=== PATIENT | male | born 1985 | race Caucasian/White ===

== ENCOUNTER 2020-01-18 09:53 | Emergency (ER) | payer OTHER, SELFPAY ==
--- NOTE | 2020-01-18 10:01 | ED.SKABFB ---
HPI - Skin/Abscess/Foreign Bdy General Chief complaint: Skin/Abscess/Foreign Body Stated complaint: Possible Spider Bite Time Seen by Provider: 01/18/20 10:01 Source: patient and RN notes reviewed History of Present Illness HPI narrative: Patient is a 34-year-old male that presents the urgent care with complaints of a possible spider bite to the buttocks . Patient states that he noticed it on and has been doing warm baths which do help the pain. Patient states he has had multiple abscesses and folliculitis in the past. Denies of any known fever, nausea, vomiting. Patient states he is aware of his elevated blood pressure and has not been taking his metoprolol and lisinopril. Patient states he does have prescriptions as well as a PCP for the medications. No other acute complaints. Denies of any chest pain or headache. No acute distress noted. Patient read the plan of care. Related Data Home Medications Medication Instructions Recorded Confirmed albuterol sulfate 2 puff INHALATION 07/24/19 Allergies Allergy/AdvReac Type Severity Reaction Status Date / Time No Known Allergies Allergy Unknown Unverified 06/29/19 02:16 Cat Dander Allergy Intermediate sob Uncoded 06/29/19 02:16 Dog Dander Allergy Intermediate sob Uncoded 06/29/19 02:16 Review of Systems Review of Systems: Narrative: CONSTITUTIONAL: Denies fever, chills, or sweats. EYES: Denies visual changes, redness, or discharge. ENT: Denies rhinorrhea, congestion, sore throat, or otalgia. CARDIOVASCULAR: Denies chest pain, palpitations, or edema. RESPIRATORY: Denies cough or dyspnea. GASTROINTESTINAL: Denies abdominal pain, nausea, vomiting, or diarrhea. GENITOURINARY: Denies dysuria or hematuria. SKIN: Reports of abscess to the right buttocks MUSCULOSKELETAL: Denies back pain, joint pain, or myalgia. NEUROLOGIC: Denies headache, numbness, or weakness. All other systems reviewed are negative, except as documented in HPI. PMFSH Social History Social History Gender identity (if verbalized by the patient): Male Comments At the time of my signature, I reviewed and agree with the nursing past medical, surgical, social, and family history. There is no relevant family history pertinent to the patient complaint. Exam Narrative: Exam Narrative: GENERAL: This is a well-nourished, well-developed patient, in no apparent distress. HEAD: normocephalic, atraumatic. EYES: PERRL. Sclera clear/white. Vision is grossly intact. EARS: External ears normal NOSE: External nose normal with no obvious nasal discharge THROAT: Mucous membranes moist NECK: Neck supple SKIN: 8 x 8 cm nonfluctuant erythemic abscess to the right buttocks with pinpoint scabbed center, currently not draining NEURO: awake, alert, and oriented to person, place and time. There were no obvious focal neurologic abnormalities. EXTREMITIES: No clubbing, cyanosis, or edema. Course Vital Signs Vital signs: Vital Signs Temperature 98.7 F 01/18/20 10:09 Pulse Rate 95 01/18/20 10:09 Respiratory Rate 18 01/18/20 10:09 Blood Pressure 199/111 H 01/18/20 10:09 Pulse Oximetry 97 01/18/20 10:09 Temperature 98.7 F 01/18/20 10:09 Pulse Rate 95 01/18/20 10:09 Respiratory Rate 18 01/18/20 10:09 Blood Pressure 199/111 H 01/18/20 10:09 Pulse Oximetry 97 01/18/20 10:09 Reviewed?patient is informed that they may have pre-hypertension or hypertension based on a blood pressure reading in the department. I recommend the patient call the primary care provider listed on their discharge instructions or a physician of their choice this week to arrange follow-up for further evaluation of possible pre-hypertension or hypertension. MDM - Skin/Abscess/Foreign Bdy MDM Narrative Medical decision making narrative: Due to elevated blood pressure and noncompliance?advised patient to go to the emergency room. Patient states he will not go to the ER and will start taking his medications and follow-up wit
[2020-01-18 10:09] VITALS: BP 199/111; PULSE 95; RESP 18; TEMP 37.1; O2SAT 97
== END 2020-01-18 10:27 | disposition home or self-care (01) ==
PROVIDERS: Emergency Provider Nurse Practitioner Family; PCP Family Medicine
DX: L02.31 Cutaneous abscess of buttock (principal); I10 Essential (primary) hypertension
CPT/HCPCS: 99213; G0463

== ENCOUNTER 2025-07-14 17:36 | Emergency (ER) | payer OTHER, SELFPAY ==
--- OUTSIDE RECORDS SUMMARY | 2001-01-17 10:15 | XMS_ITS | Continuity of Care Document ---
Author Organization [facility] Address [address] [place] [address] Phone Care Team Providers Care Metal Expediter Name Role Phone Cho OD, Regis Unavailable Unavailable Advance Directives Directive Yes / No Effective Date File Name No Information Encounters Encounter Description Practice Location Reason(s) For Visit Diagnoses Date Provider Providers Copied on Encounter [facility], [address], [place], [place], [id number], [place] tel:[phone] [facility] No Information May-0 4-200 1 Cho OD Regis. [address] , [address], [place], [address], [place]. tel:[phone] Family History Family Member Type Diagnosis Age At Onset No Information Payers Payer name Insurance type Covered alliance party ID Authoriza tion(s) No Information Social History Type Description Quantity Date Captured Comments Sex Male Smoking Status No Information Chief Complaint And Reason For Visit No Information Reason For Referral Reason For Referral No Information History Of Present Illness Encounter Date Complaint History Of Prese nt Illness No Information Functional Status Date Functional Assessmen t No Information Instructions Date Instruction Additional Infor mation No Information Assessments Type Assessment Date No Information Patient Care Teams Name Effective Dates (start - stop) Status Members No Information
--- OUTSIDE RECORDS SUMMARY | 2001-01-17 10:15 | XMS_ITS | Continuity of Care Document ---
Author Organization [facility] Address [address] [facility] [place] [address] Phone Care Team Providers Care District Fire Chief Name Role Phone Cho OD, Regis Unavailable Unavailable Advance Directives Directive Yes / No Effective Date File Name No Information Encounters Encounter Description Practice Location Reason(s) For Visit Diagnoses Date Provider Providers Copied on Encounter [facility], [address], [place], [place], [id number], [place] tel:[phone] [facility] No Information May-0 4-200 1 Cho OD Regis. [address] , [address], [place], [address], [place]. tel:[phone] Family History Family Member Type Diagnosis Age At Onset No Information Payers Payer name Insurance type Covered green party ID Authoriza tion(s) No Information Social [...]
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
[2025-07-14 17:44] VITALS: BP 161/89; PULSE 60; RESP 16; TEMP 36.4; O2SAT 100
--- OUTSIDE RECORDS SUMMARY | 2025-07-14 18:09 | XMS_ITS | Encounter Summary ---
Author Organization [facility] Address [address] [place] [address] Care Team Providers Care Cat Hooker Name Role Phone Freda Neumann PA-C Primary Care Provider [phone] Encounter Details Date Type Department Care Team (Late st Contact Info) Description 03/08/2025 Telephone [facility] - Centralized Scheduling [address] [place] [address] Lucía Escoto MD [address] [place] [address] Social History Tobacco Use Types Packs/Day Years Used Date Smoking Tobacco: Never Passive Smoke Exposure: Never Smokeless Tobacco: Never Alcohol Use Standard Drinks/Week Comments Not Currently 0 (1 standard drink = 0.6 oz pur e alcohol) AUDIT-C Answer Date Recorded Q1: How often do you have a drink containing alcohol? Never 03/04/2025 Q2: How many drinks containi ng alcohol do you have on a typical day when you are drinking? Patient does not drink Q3: How often do you have si x or more drinks on one occasion? Never 03/04/2025 Overall Financial Resource Strain (CARDIA) Answe r Date Recorded How hard is it for you to pa y for the very basics like food, housing, medical care, and heating? Not hard at all 03/04/2025 [facility] - Occupational Stress Questionnaire Answer Date Recorded Do you feel stress - tense, restless, nervous, or anxious, or unable to sleep at night because your mind is troubled all the time - these days? Not at all 03/04/2025 Hunger Vital Sign Answer Date Recorded Within the past 12 months, y ou worried that your food would run out before you got the money to buy more. Never true 03/04/20 25 Within the past 12 months, t he food you bought just didn't last and you didn't have money to get more. Never true 03/04/2025 PRAPARE - Transportation Answer Date Re corded In the past 12 months, has l ack of transportation kept you from medical appointments or from getting medications? No 02/14 In the past 12 months, has l ack of transportation kept you from meetings, work, or from getting things needed for daily living? No 03/04/2025 Housing Stability Vital Sign Answer David e Recorded Unable to Pay for Housing in the Last Year Not o n file 12/23/2023 In the last 12 months, how many places have you lived? 1 12/23/2023 In the last 12 months, was t here a time when you did not have a steady place to sleep or slept in a chcf (including now)? No 12/23/2023 Housing Stability Vital Sign Answer David e Recorded In the last 12 months, was t here a time when you were not able to pay the mortgage or rent on time? No 03/04/2025 In the past 12 months, how m any times have you moved where you were living? 0 03/04/2025 At any time in the past 12 m [facility], were you homeless or living in a chcf (including now)? No 03/04/2025 Sex and Gender Information Value Date Recorded Sex Assigned at Male 08/22/2023 2:04 PM STEAM CRANE OPERATOR Legal Sex Male 12:10 PM CDT Gender Identity Male 08/22/2023 2:04 PM STEAM CRANE OPERATOR Sexual Orientation Straight 08/22/2023 2: 04 PM STEAM CRANE OPERATOR documented as of this encounter Functional Status * Is person deaf or have serious hearing difficulty? Answer Date of Assessment Author No 03/04/2025 8:22 AM CDT Evaristo Pineda RN * Is person blind or have serious difficulty seeing? Answer Date of Assessment Author No 03/04/2025 8:22 AM CDT Evaristo Pineda RN * Does person have serious difficulty walking/climbing stairs? Answer Date of Assessment Author No 03/04/2025 8:22 AM CDT Evaristo Pineda RN * Does person have difficulty dressing/bathing? Answer Date of Assessment Author No 03/04/2025 8:22 AM CDT Evaristo Pineda RN * Does person have difficulty doing errands alone? Answer Date of Assessment Author No 03/04/2025 8:22 AM CDT Evaristo Pineda RN documented as of this encounter Mental Status * Does person have difficulty concentrating/remembering/making decisions? Answer Entry Date Author No 03/04/2025 8:22 AM CDT Evaristo Pineda RN documented in this encounter Plan of Treatment Upcoming Encounters Date Type Department Care Team (Late st Contact Info) Description 07/16/2025 11:10 AM CDT Office Visit [facility] [id number] [place] [address] [place] [address] [address] 09/22/2025 8:30 AM STEAM CRANE OPERATOR Office Visit [facility] - Nephrology [address] [place] [phone] 09/23/2025 4:00 PM STEAM CRANE OPERATOR Office Visit [facility] - GI [address] [place] [phone] Isak Padron III, MD [address] [place] [phone] documented as of this encounter Goals Goal Patient Goal Type Associated Problems Recent Progress Patient-Stated? Author Medication Management General On track( 025 3:36 PM CDT) Mariya Rangel RN Note: Expected end date: Ongoing Interventions: Take all medications as prescribed Let your doctor know right away about any changes in your medications Make sure to request a refill of your medication at least one week prior to your last dose documented as of this encounter Visit Diagnoses Not on filedocumented in this encounter Care Teams Cat Hooker Relationship Specialty Start Date End Date Freda Neumann PA-C [address] [place] [phone] PCP - General 07/15/23 documented as of this encounter
--- OUTSIDE RECORDS SUMMARY | 2025-07-14 18:09 | XMS_ITS | Clinical Summary ---
Author Organization [facility] Address [address] [place] [address] Care Team Providers Care Motors And Controls Tester Name Role Phone Freda Neumann PA-C Primary Care Provider [phone] Source Comments [facility],non-owned Affiliates and Associated Physician Practices is amultiple site organization consisting of ambulatory clinics and hospital sitesin [place], [place], [place] and [place]. This disclosure is being madepursuant to the Care Everywhere program and may not contain all information available regarding this patient. Last updated 18.[facility] Allergies Active Allergy Reactions Criticality Noted Date Comments Chlorhexidine Rash Medium 12/02/2024 Live Vaccines (Immunodeficiency) Other Kidney transplant Medications * This document contains information received from the source organization and may not represent a complete record from that organization. * Be aware that medications may not be up to date on this document. Alwaysverify current medications with the patient. Symbicort 160-4.5 MCG/ACT inhaler once daily 023 Active allopurinol (Zyloprim) 100 MG tablet TAKE 1 TABLET BY MOUTH EVERY DAY 90 tablet 3 024 Active loratadine (Claritin) 10 MG tablet Take 1 (one) tablet by mouth once daily Active acetaminophen (Tylenol) 325 MG tablet Take 2 (two) tablets by mouth every 6 hours Maximum allowable Acetaminophen amount = 4 Grams (4000 mg) / 24 hours. 025 Active melatonin 3 MG tablet Take 1 (one) tablet by mouth at bedtime 025 Active albuterol HFA (Proventil; Ventolin; Proair) 108 (90 Base) MCG/ACT inhaler Inhale 2 (two) puffs by mouth every 4 hours as needed for Wheezing or Shortness of Breath 8.5 g 5 1:32 PM CDT 025 Active carvedilol (Coreg) 12.5 MG tablet Take 1 (one) tablet by mouth 2 times daily 60 tablet 025 Active amLODIPine (Norvasc) 5 MG tablet Take 1 (one) tablet by mouth once daily 30 tablet 025 Active aspirin (Aspirin) 81 MG chew tablet Take 1 (one) tablet by mouth once daily (chew and swallow) 30 tablet 025 Active predniSONE (Deltasone) 5 MG tablet Take 1 (one) tablet by mouth once daily 30 tablet 025 Active magnesium oxide (Mag-Ox) 400 MG tablet Take 3 (three) tablets by mouth 3 times daily 270 tablet 025 Active mycophenolate (Myfortic) [address] tablet TAKE 2 TABLETS BY MOUTH TWICE A DAY 360 tablet 4 025 Active tacrolimus ER 24hr (Envarsus XR) 0.75 MG tablet Take 2 (two) tablets by mouth once daily Swallow whole. Do not crush or chew tablets. 60 tablet 025 Active naltrexone (Revia) 50 MG tabletIndicati ons:Class 2 severe obesity with serious comorbidity and body mass index (BMI) of 39.0 to 39.9 in adult, unspecified obesity type Take 0.5 (one-half) tablet by mouth once daily 30 tablet 5 025 Active buPROPion XL 24hr (Wellbutrin-XL ) 150 MG tabletIndicati ons:Class 2 severe obesity with serious comorbidity and body mass index (BMI) of 39.0 to 39.9 in adult, unspecified obesity type Take 1 (one) tablet by mouth once daily 30 tablet 5 025 Active sulfamethoxazo le-trimethopri m (Bactrim DS; Septra DS) 800-160 MG tablet TAKE 1 (ONE) TABLET BY MOUTH EVERY SATURDAY, SATURDAY & SATURDAY 12 tablet 2 09/29/2 025 Active calcitriol (Rocaltrol) 0.5 MCG capsule Take 1 (one) capsule by mouth once daily Take 1 (one) capsule by mouth every day 30 capsule 11 Active Phospha 250 Neutral 155-852-130 MG tablet TAKE 2 TABLETS BY MOUTH TWICE A DAY 120 tablet 2 Active amiodarone (Cordarone) 200 MG tablet Take 1 (one) tablet by mouth once daily 30 tablet 3 Active pantoprazole EC (Protonix) 20 MG tablet Take 1 (one) tablet by mouth once daily 90 tablet 3 Active vitamin D, ergocalciferol , (Drisdol) 1.25 MG (80276 UT) capsule TAKE 1 (ONE) CAPSULE BY MOUTH EVERY 7 DAYS (ONCE A WEEK) 12 capsule 1 Active lidocaine (Lidoderm) 5 % patch Apply 1 (one) patch to skin once daily Apply patch to most painful area and remove after 12 hours. May reapply a new patch 12 hours later. 30 patch 1:32 PM CDT 2024 Discontinued(T x Complete) amiodarone (Cordarone) 200 MG tablet Take 1 (one) tablet by mouth once daily 30 tablet 3 2024 Discontinued(R eorder) sodium bicarbonate 650 MG tablet Take 1 (one) tablet by mouth 2 times daily 120 tablet 2 2024 Discontinued(T x Complete) pantoprazole EC (Protonix) 40 MG tablet Take 1 (one) tablet by mouth once daily 30 tablet 11 2024 Discontinued(R eorder) valACYclovir (Valtrex) 500 MG tablet Take 1 (one) tablet by mouth 2 times daily 60 tablet 2 2024 Discontinued(T x Complete) calcitriol (Rocaltrol) 0.5 MCG capsule Take 1 (one) capsule by mouth every Saturday, Saturday & Saturday 30 capsule 3 025 2024 Discontinued cyclobenzaprin e (Flexeril) 10 MG tablet TAKE 1 TABLET BY MOUTH THREE TIMES A DAY NEEDED FOR MUSCLE SPASM 90 tablet /22/ 2025 Discontinued(T x Complete) ergocalciferol (Drisdol) 1.25 MG (35892 UT) capsule Take 1 (one) capsule by mouth every 7 days (once a week) 4 capsule 025 2024 Discontinued Active Problems Problem Noted Date Diagnosed Date Transplanted kidney 03/04/2025 SOB (shortness of breath) 03/04/2025 Atrial fibrillation with RVR 03/04/2025 Other supraventricular tachycardia 03/04/2025 Living-donor kidney transpla nt recipient, s/p LUR-TXP on 02/23/25 02/24/2025 Overview (04/05/2025): Referring Physician: Transplant Date: 02/23/2025 Donor: [place] ID: [id number] Criteria: LURD KDPI: CMV D-/R- EBV D+/R+ Donor viral status: HBV(-), HCV(-) HLA Recipient: A(1, -) B(8, -) DR(17, -) Donor: A(-, -) B(-, -) DR(-, -) cPRA: 0% Pre Transplant Summary: ESRD cause: PKD Active on wait list 02/14/24 Kidney Transplant preformed by: Dr Ascencio Pre- transplant Risk labs: Recent Labs Component Name 02/10/25 0958 HIV12 Non-reactive HEPBCAB Non-reactive HEPBSAG Non-reactive Immunosuppression: Anti-thymocyte globulin 125mg IV POD 0, 125mg POD 1, and 125mg POD 2 (total 3 mg/kg), (pre-medicate with diphenhydramine and acetaminophen 30-60 minutes prior to each dose) 2. Methylprednisolone IV 500 mg POD 0, 250 mg POD 1, 125 mg POD 2, 60 mg POD 3, 30 mg POD 4. Then prednisone 5 mg PO daily starting POD 5 3. Myfortic 720 mg PO x 1 pre-op, then Myfortic 360 mg PO every 12 hours 4. Tacrolimus XR (Envarsus) 8 mg (0.08 mg/kg) PO daily dose adjusted to goal trough level 8-10 ng/mL Anticipated Opportunistic Infectious Prophylaxis: PJP: Sulfamethoxazole/trimethoprim 800mg/160mg PO MWF x 6 months 2. CMV Risk status: Low risk. Start Valacyclovir 500 mg BID for a total of 3 months post-transplant on POD7 or discharge. (May require renal dose adjustment) 3. Antifungal prophylaxis: not indicated Adjustments: Readmissions: 03/03-03/05/25 arrival to ED patient's EKG was significant for afib rvr with HR to 180s. He received 3 doses of metoprolol without relief. Cardiology consulted and given push of diltiazem. Initially had response however HR return to 130s. He was started on diltiazem gtt and admitted to the ICU. Cardiology planned for JOSUE with cardioversion but patient spontaneously converted to NSR. Cardiology recommended starting amiodarone 400 mg TID for seven days and transitioning to 200 mg daily. Patient will follow up in EP with Dr Reynoso. Referral has been sent. Cardiology did recommend discharging on Eliquis 5 mg BID should he have recurrence and need future cardioversion. At this time the team will continue with aspirin 81 mg daily. Coreg was decreased to 3.125 mg BID and amlodipine 5 mg currently held. He was started on mag ox 400 BID. Patient has otherwise been feeling well and has no complaints. He reports he has been eating and drining well without nausea vomiting diarrhea or constipation. He has been voiding appropriately. He does report a painful nodule in the perineum consistent with folliculitis was found on physical exam on 03/05/2025. Will treat with keflex for 7 days. He has been instructed to notify the transplant team of any new changes concerning for worsening infection. Biopsies: Stent Removal scheduled: Y 04/05 920 Removed: PD Catheter Removed:yes UNOS required risk labs ordered for draw 28-56 days post txp. Due: 03/23-04/20/202503/31 Non-Reactive for HIV RNA Non-Reactive for HCV RNA Non-Reactive for HBV DNA Pleural effusion 02/12/2025 Coronary artery disease, uns pecified vessel or lesion type, unspecified whether angina present, unspecified whether [place] or transplanted heart 12/23/2023 Adrenal nodule 11/26/2023 Primary hyperaldosteronism 11/26/2023 Pre-transplant evaluation for kidney transplant 10/24/2023 Overview (02/23/2025): Images from the original note were not included. Migel Elena 1985 Referring Quality Improvement Coordinator: Darcy Nixon Listing Date: 02/14/2024 Dialysis Info: Type: Time: NOD GFR from 10/17/23 was 9 Blood Type: A POS BMI: 35.7 (down from December) wt loss goal 265lbs ALERTS: Supervisor Net Making: n/a CKD V 2/2 PKD Past Medical History: Diagnosis Date CKD (chronic kidney disease), stage V (HCC) last GFR from 08/22/2023 was 9 COVID-2019 no hospitalization Esophageal reflux Hematuria Hyperparathyroidism (HCC) on calcitriol q M,W,F Hypertension dx'd mid to late 20s Nausea sometimes when he wakes up in the morning Obstructive sleep apnea CPAP Polycystic kidney disease dx'd at age 36 however during appendectomy at age 16 - cysts were seen on kidneys, runs on Mom's side, x1 hospitalization d/t cyst rupturing, no blood transfusions, occ pain to kidneys Uncomplicated asthma (HCC) daily and rescue inhalers, follows with Dr. Moises Schroeder Past Surgical History: Procedure Laterality Date Appendectomy at age 16 Cardiac Catherization N/A 12/24/2023 N/A; Left Heart Cath Social History Socioeconomic History Marital status: Single Spouse name: Not on file Number of children: Not on file Years of education: Not on file Highest education level: Not on file Occupational History Not on file Tobacco Use Smoking status: Never Passive exposure: Never Smokeless tobacco: Never Vaping Use Vaping Use: Never used Substance and Sexual Activity Alcohol use: Not Currently Drug use: Not Currently Types: Marijuana Sexual activity: Not on file Other Topics Concern Not on file Social History Narrative Not on file Social Determinants of Health Financial Resource Strain: Not on file Food Insecurity: Unknown (12/23/2023) Hunger Vital Sign Worried About Running Out of Food in the Last Year: Never true Ran Out of Food in the Last Year: Not on file Transportation Needs: No Transportation Needs (12/23/2023) PRAPARE - Transportation Lack of Transportation (Medical): No Lack of Transportation (Non-Medical): No Stress: No Stress Concern Present (12/23/2023) [place] Citizen [place] [employer] Occupational [employer] - Occupational Stress Questionnaire Feeling of Stress : Not at all Housing Stability: Unknown (12/23/2023) Housing Stability Vital Sign Unable to Pay for Housing in the Last Year: Not on file Number of Places Lived in the Last Year: 1 Unstable Housing in the Last Year: No Recent Concern: Housing Stability - High Risk (12/23/2023) Housing Stability Vital Sign Unable to Pay for Housing in the Last Year: Yes Number of Places Lived in the Last Year: 1 Unstable Housing in the Last Year: Not on file Transplant Surgery Clinic Appt w/: Dr. 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 He remains an excellent candidate for renal transplantation. I discussed the risks and benefits of kidney transplant including the need for lifelong immunotherapy, the need for the patient to be compliant with the immunotherapy, the need for a lifelong relationship with a health care provider and the need to have labs checked frequently. We also talked about the risks of surgery including but not limited to the following: Anesthetic concerns including heart attack, stroke, or Need for endotracheal intubation and possibility of prolonged intubation Intraoperative and postoperative bleeding Postoperative hematoma or wound infection requiring return to OR Renal artery and vein thrombosis requiring return to OR and possible explantation Ureteric stricture or leak requiring interventional procedures and/or reoperation Delayed graft function Risk of primary nonfunction Increased risk of infection and malignancy remotely We discussed the possibility of receiving an HCV+ organ. We discussed the antiviral treatment and need for compliance to achieve SVR; the cure rate of 98% with DAA and the possibility of repeating a course if not cured; and the possibility of complications prior to and while undergoing treatment. These include headaches, nausea, cryoglobulinemia and [place], and encephalitis as well as possible hepatitis-induced injury to the graft. At this time the patient is NOT amenable. We discussed the possibility of receiving an increased risk organ. We discussed the risk factors that place kidneys in this category and the relative risk of transmission from an increased risk donor. We compared that risk with the risk of remaining on dialysis and the risk of hepatitis transmission on dialysis. At this time the patient is amenable. We discussed the possibility of receiving an organ with a KDPI of >85%. We discussed the lower mean survival for these organs and the increased rates of delayed graft function. At this time the patient is NOT amenable. Given his very low GFR he was discussed with his Quality Improvement Coordinator Dr Nixon who wants him start Peritoneal Dialysis sooner than later. He will be scheduled for a PD catheter placement (may need omentectomy to prevent catheter dysfunction) on 3/19/25. Patient with chronic illness - ESRD - that is a sustained threat to life. I have reviewed and interpreted his labs (cbc, cmp, hepatitis serologies, mmr serologies, pth, quantiferon) and her imaging (CT a/p) independently to arrive at the conclusions outlined in the note. I have additionally discussed his case with his manhole stripper. He is presenting for discussion of major elective surgery (kidney transplant) with identified risk factors of obesity, hypertension and for a PD catheter placement. Eduardo Ascencio MD benefits technician Transplant Surgery Clinic Appt w/: Dr. Ascencio Date: 10/28/2023 Nephrology Clinic Appt w/: Tiffani Date: 10/28/2023 A/P: HPI: Migel Elena is a 38 year old with past medical history of ESKD due to ADPKD, HTN and appendectomy who presented for kidney 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 candidate evaluation. Patient has a strong family history of ADPKD and diagnosed with ADPKD at the age of 16. He was started to have HTN around age of 20s and started to take antihypertensive medication. Patien's serum creatinine level is found 3.7 mg/dL on 02/05/2022 and increased to 6.3 mg/dL on 06/06/2023. Last serum creatinine level is 7.25 mg/dL and eGFR 9 mL/min on 08/22/23. Dialysis History: Not on dialysis Assessments and Recommendations: Migel Elena was seen today for kidney transplant evaluation. Risks and benefits of transplant were discussed including the benefits of living kidney transplant. We discussed high KDPI kidneys and kidneys from donors with PHS risk factors. All questions and concerns were addressed. 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 No evidence of aneurysms noted. 2) Cardiovascular Disease - No angina or similar symptom - Echo on 10/17/2023 -> LV wall thickness. Normal systolic function with a visually estimated EF of 60 - 65%. Normal wall motion. Grade II diastolic dysfunction with elevated left atrial pressure. Right ventricle is mildly dilated. Increased free wall thickness. Normal systolic function. sPAP is 38.0 mmHg. Pericardium: No pericardial effusion. - Due to the risk of CAD in patients with CKD Stage 5, non-invasive stress testing is planned. 3) Hypertension - BP level is 130/90 mmHg - On Amlodipine 10 mg tb daily and doxazocin 2 mg tb. Doxazocin dose is increased to 4 mg daily 4) Hematological disorders - Anemia of kidney disease - Hgb 11.4 g/dL on 08/22/23 - TSAT 44 % on 10/17/23 - Serum ferritin 138 ng/mL (10/17/23) 5) CKD Bone and Mineral Disease - Serum Ca 8.7 mg/dL, P 5.1 mg/dL, albumin 4 g/dL, PTH 655.9 pg/mL on 08/22/23 - On Rocaltrol 0.5 mcg on MWF - Will repeat the tests 6) Infections - Viral hepatitis markers negative -> HAV and HBV vaccinations are planned - CMV IgG (-) and EBV IgG (+) (354) 7) Immunological Assessment - History of sensitization: (-), Blood transfussion (-), History of failed kidney transplant (-) - PRA screening class I 2% and class II 0% 8) Weight Management - BMI 37.97 kg/m - Loosing weight - Will continue weight management Overall Migel Elena is a good patient for kidney transplantation. Cardiac stress test, new lab test results, HAV and HBV vaccinations, weight management are planned. Patient is seen in the clinic and examined. Plan of care is discussed. Time spent during chart review and patient visit was over 75 mins. Other Consults: Nephrology: 08/22/[address] Nixon Chief Complaint: Autosomal Dominant Polycystic Kidney Disease HISTORY OF PRESENT ILLNESS: Migel Elena is a 38 year old male with a PMHx of ADPKD, HTN and appendectomy who presented for evaluation and treatment of ADPKD. Patient has a strong family history of ADPKD and diagnosed with ADPKD at the age of 16. He was started to have HTN around age of 20s and started to take antihypertensive medication. Patien's serum creatinine level is found 3.7 mg/dL on 02/05/2022 and increased to 6.3 mg/dL on 06/06/2023. 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 Total kidney volume 2589 mL. Height adjusted TKV 1399 mL -> Class 1E - Uric acid 8.8 mg/dL - HCO3 15 mmol/L - Proteinuria -> UPCR 1.45 g/g Plan: - Allopurinol 50 mg tb daily will be started and dose will be increased to 100 mg if there would be no side effects - NaHCO3 dose is increased to 1300 mg tb TID - Low K diet - Referral to kidney transplant evaluation - Will discuss dialysis options 2) Hypertension - Blood pressure is 146/101 mmHg - On Amlodipine 10 mg tb daily - Based on HALT-PKD study, aggressive BP target <110/75 mmHg in young, healthy individuals between 18-50 years with eGFR>60 mL/min/1.73 m2, others < 130/85 mmHg - Cardura 4 mg tb daily at bed time is started 3) Cardiac manifestations - No history of cardiac event or cardiac manifestations - Echo is planned 4) Intracranial Aneursym - Family history of stroke - Brain MRI angiography is planned 5) Diet - Salt Restriction -> 2 g sodium intake or less ~ 5 g salt - Water Drinking - Ketogenic Diet - Electromechanical Assembly Technician consult can be helpful - Cholesterol -> LDL <100 mg/dL, HDL > 50 mg/dL: statins 6) Hernia - No sign of hernia 7) Anemia of Kidney Disease - Hgb: 11.4 g/dL 8) CKD Mineral Bone Disease - Serum Ca 8.7 mg/dL, albumin 4 g/dL - Serum P 5.1 mg/dL - PTH 655.9 pg/mL, vitamin D - Calcitriol 0.5 mcg MWF is started - Cholecalciferol 5000 U daily Patient seen and examined at the clinic, plan of care is discussed. RTC in 1 month. Endocrinology: 11/26/[address] Escoto (adrenal nodule, aldosterone positive) Chief Complaint or Purpose for Referral: adrenal nodule History of Present Illness: Migel Elena is a 38 year old male, with PMH below, who presents to the [facility] endocrine clinic today foradrenal nodule. 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 Per chart review, he had normal adrenal CT and MRI 2021 ([facility]) His adrenal hormone work up, neg 1mg DST, aldosterone 58.3, renin 0.7, minimal elevated normetanephrine 11/06/23 Was 400 lb 6 yrs ago. Has been losing weight with ckp progression. He has not required dialysis. HTN in early 20s was 375 lb at that time. His BP is well controlled with norvas and doxazosin. Has intermittent hyper (not hypo) kalemia FHx: mother side all ADPKD and HTN Data: Latest Reference Range & Units 11/27/23 14:29 Potassium 3.5 - 4.5 mmol/L 4.6 (H) (H): Data is abnormally high Latest Reference Range & Units 11/06/23 08:19 11/27/23 14:29 Aldosterone ng/dL 58.3 58.1 Cortisol AM 3.7 - 19.4 ug/dL <1.0 (L) Metanephrine 0.00 - 0.49 nmol/L <0.10 Normetanephrine 0.00 - 0.89 nmol/L 1.07 (H) Interpretation Metanephrine See Note Renin ng/mL/hr 0.7 (L): Data is abnormally low (H): Data is abnormally high Latest Reference Range & Units 08/22/23 13:58 Potassium 3.5 - 4.5 mmol/L 5.0 (H) Chloride 98 - 107 mmol/L 114 (H) CO2 22 - 29 mmol/L 15 (L) Anion Gap 6 - 16 9 BUN 7 - 26 mg/dL 70 (H) Creatinine 0.71 - 1.16 mg/dL 7.25 (H) eGFR >=90 mL/min/1.73 m2 9 (L) Glucose 70 - 115 mg/dL 72 Calcium 8.4 - 10.2 mg/dL 8.7 Phosphorus 2.8 - 5.1 mg/dL 5.1 BUN/Creatinine Ratio 7 - 23 10 Alkaline Phosphatase 40 - 150 U/L 45 ALT 5 - 55 U/L 17 AST 5 - 34 U/L 14 Protein Total 6.0 - 8.3 g/dL 6.4 Albumin 3.4 - 5.0 g/dL 4.0 Bilirubin Total 0.2 - 1.2 mg/dL 1.0 Osmolality Calculated 275 - 295 mOsm/kg 305 (H) Albumin/Globulin Ratio 1.1 - 2.3 1.7 Uric Acid 3.5 - 7.2 mg/dL 8.8 (H) Assessment and plan : Migel was seen today for establish care and adrenal adenoma. Diagnoses and all orders for this visit: Primary hyperaldosteronism (HCC) - POTASSIUM BLOOD; Future - ALDOSTERONE BLOOD; Future - RENIN ACTIVITY; Future Adrenal nodule (HCC) - POTASSIUM BLOOD; Future - ALDOSTERONE BLOOD; Future - RENIN ACTIVITY; Future 38 yo male with PMH of CKD5, HTN from ADPKD, under txp eval, is here first time for adrenal nodule # Primary hyperaldosteronism # R adrenal nodule, 1.5 cm - new since 2021, however, low HU r/o malignancy Hormone work up c/w primary hyperaldosteronism However, effects of elevated aldosteronism on his Na-water disturbance is not significant due to impaired kidney function, and no evidence of hypokalemia and difficult controlled HTN. Since age onset of hyperaldosteronsim is over 35, ideally he will need a adrenal vein sampling to confirm his hyperaldosteronism comes from his right side adrenal gland before adrenalectomy. R Adrenalectomy without AVS carries increased risk of not achieving Biochemical cure, and is not recommended. However, contrast exposure may lead to CKD progression ending up dialysis. For now I advice to monitor his hormone labs every 3-6 months. If he ends up dialysis before txp then we can revisit the option of AVS>adrenalectomy route We can also attempt AVS>adrenalectomy post txp If he dose not want surgical intervention for his primary aldosteronism, then can start spironolactone post -txp. RTC3-4m (next appt scheduled on 03/03/2024) Adrenal labs: 11/06/2023 Latest Reference Range & Units 11/06/23 08:19 Aldosterone ng/dL 58.3 Cortisol AM 3.7 - 19.4 ug/dL <1.0 (L) Metanephrine 0.00 - 0.49 nmol/L <0.10 Normetanephrine 0.00 - 0.89 nmol/L 1.07 (H) Interpretation Metanephrine See Note Renin ng/mL/hr 0.7 Latest Reference Range & Units 11/06/23 08:19 Metanephrine 0.00 - 0.49 nmol/L <0.10 Normetanephrine 0.00 - 0.89 nmol/L 1.07 (H) Cardiology: 12/03/[address] Vogel REASON FOR VISIT: Abn SEcho PROBLEM LIST: Patient Active Problem List: ADPKD (autosomal dominant polycystic kidney disease) Pre-transplant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 [place] [phone] Bonita Wang RN Kidney Transplant Follow-up 05/27/2025 6:56 AM CDT - 05/27/2025 11:59 PM CDT Hospital Encounter [facility] OP DRAW STATION [address] [place] [phone] Discharge Disposition: Home or Self Care 05/27/2025 Travel 05/11/2025 7:10 AM CDT - 05/11/2025 11:59 PM CDT Hospital Encounter [facility] OP DRAW STATION [address] [place] [phone] Eduardo Ascencio MD Discharge Disposition: Home or Self Care 05/11/2025 Travel 05/11/2025 Refill [facility] TRANSPLANT [address] [place] [phone] Eduardo Ascencio MD Refill Request 04/28/2025 Telephone [facility] TRANSPLANT [address] [place] [phone] Bonita Wang RN Kidney Transplant Follow-up 04/27/2025 7:20 AM CDT - 04/27/2025 11:59 PM CDT Hospital Encounter [facility] OP DRAW STATION [address] [place] [phone] Discharge Disposition: Home or Self Care 04/27/2025 Travel 04/26/2025 Orders Only [facility] TRANSPLANT [address] [place] [phone] Bonita Wang RN 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 (HCC) ; retirement (current) use of other immunomodulators and immunosuppressants; Hypomagnesemia; Hypertension, unspecified type; PKD (polycystic kidney disease); Anemia due to chronic kidney disease, unspecified CKD stage; At risk of UTI; At risk for rejection of transplanted organ; Encounter for screening for viral disease; Prophylactic immunotherapy; Low magnesium level; Low serum phosphate; Encounter for monitoring tacrolimus therapy 04/16/2025 Refill [facility] TXP XOCHILT CSM [address] [place] [phone] Eduardo Ascencio MD Med Change Request 04/15/2025 Telephone [facility] TRANSPLANT [address] [place] [phone] Bonita Wang RN Kidney Transplant Follow-up 04/14/2025 9:10 AM CDT Office Visit [facility] - Nephrology [address] [place] [phone] Darcy Nixon MD 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, s/p LUR-TXP on 02/23/25 (Primary Dx); History of immunosuppression; ADPKD (autosomal dominant polycystic kidney disease); Pneumonia of right lung due to infectious organism, unspecified part of lung; Transplanted kidney (HCC); Hypercholesterolemia; Secondary hyperparathyroidism (HCC) 04/14/2025 7:40 AM CDT - 04/14/2025 11:59 PM CDT Hospital Encounter [facility] OP DRAW STATION [address] [place] [phone] Discharge Disposition: Home or Self Care 04/14/2025 Travel from Last 3 Months Family History Medical History Relation Name Comments Atrial Fibrillation Brother Diabetes - Type 2 Brother Peripheral Neuropathy Brother Renal Disease Brother PKD, txp'd Cancer - Esophageal Father Cancer - Stomach Father Renal Disease Maternal Aunt 1 PKD, txp'd Renal Disease Maternal Aunt 2 PKD, txp'd Renal Disease Maternal Grandmother PKD Cancer - Skin, Non Melanoma Mother s/p transplant Diabetes - Type 2 Mother Renal Disease Mother PKD, txp'd CVA Sister Other Sister psuedo tumor Renal Disease Sister PKD Relation Name Status Comments Brother Alive Father (Age 63) Maternal Aunt 1 Alive Maternal Aunt 2 Maternal Grandmother Mother Alive Sister Alive Social History Tobacco Use Types Packs/Day Years Used Date Smoking Tobacco: Never Passive Smoke Exposure: Never Smokeless Tobacco: Never Tobacco Cessation:Counseling Given: Not Answered Alcohol Use Standard Drinks/Week Comments Not Currently [...] and heating? Not hard at all 03/04/2025 PHQ-2 Answer Date Recorded Patient Health Questionnaire-2 Score 0 03/31/2025 [place] Citizen [place] [facility] - Occupational Stress [...] place to sleep or slept in a long-term (including now)? No 12/23/2023 Housing Stability Vital Sign Answer David e Recorded In the last 12 months, was t here a time when you were not able to pay the mortgage or rent on time? No 03/04/2025 In the past 12 months, how m any times have you moved where you were living? 0 03/04/2025 At any time in the past 12 m [facility], were you homeless or living in a long-term (including now)? 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 Last Filed Vital Signs Vital Sign Reading Time Taken Comments Blood Pressure 140/75 07/07/2025 8:44 AM CDT Pulse 55 07/07/2025 8:42 AM CDT Temperature 37 C (98.6 F) 07/07/2025 8:42 AM CDT Respiratory Rate 18 07/07/2025 8:42 AM CDT Oxygen Saturation 98% 07/07/2025 8:42 AM CDT Inhaled Oxygen Concentration 21% 02/19/2025 1 :13 AM CDT Weight 127 kg (280 lb) 07/07/2025 8:42 AM CDT Height 182.9 cm (6') 06/02/2025 3:40 PM CDT Body Mass Index 37.97 06/02/2025 3:40 PM CDT Plan of Treatment Upcoming Encounters Date Type Department Care Team (Late st Contact Info) Description 07/16/2025 11:10 AM CDT Office Visit [facility] [id number] [facility], [address] [place] [address] [place] [address] [place] [phone] 09/22/2025 8:30 AM 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 MACHINE OPERATOR Office Visit [facility] - Nephrology [address] [place] [address], [place] [phone] 09/23/2025 4:00 PM WREATH MACHINE OPERATOR Office Visit [facility] - GI [address] [place] [address], [place] [phone] Isak Padron III, MD [address] [place] [address] [address] [place] [phone] Health Maintenance Due Date Last Done Comments DTAP/TDAP/TD VACCINES (1 - Tdap) 2004 HEPATITIS B VACCINE (1 of 3 - 19+ 3-dose series) 2004 PNEUMOCOCCAL VACCINE (1 of 2 - PCV) 2004 ZOSTER VACCINE (1 of 2) 2004 HPV VACCINE (1 - Risk 3-dose SCDM series) 2012 INFLUENZA VACCINE (#1) 2025 , 10/14/2020, 09/10/2019 COVID-19 VACCINE (5 - Pfizer risk 2023- season) 2025 01/26/2025, 07/12/2021, 12/11/2020, Additional history exists SCREENING FOR DIABETES 07/07/2028 , 06/16/2025, 06/16/2025, Additional history exists HEPATITIS C SCREENING Completed 02/10/2025 , 11/02/2024, 10/17/2023 HIV SCREENING Completed 02/10/2025, 10/17, 10/17/2023 DEPRESSION SCREENING Completed 03/31/2025 HIB VACCINE Aged Out No longer eligi ble based on patient's age to complete this topic MENINGOCOCCAL (Group B) VACCINE SHARED DECISION-MAKING Aged Out No longer eligible based on patient's age to complete this topic MENINGOCOCCAL GROUPS A/C/Y/W VACCINE Aged Out No longer eligible based on patient's age to complete this topic Goals Goal Patient Goal Type Associated Problems Recent Progress Patient-Stated? Author Medication Management General On track( 025 3:36 PM CDT) Mariya Rangel, RN Note: Expected end date: Ongoing Interventions: Take all medications as prescribed Let your doctor know right away about any changes in your medications Make sure to request a refill of your medication at least one week prior to your last dose Medical Devices Implanted Type Area Drum Sander Device Identifier Shelf Expiration Date Model / Serial / Lot Stent Uret 6fr 12cm 100cm .028in 1 [facility] [[email or web address]] - [id number] Implanted:Qty: 1 on 02/23/2025 by Eduardo Ascencio MD at [facility] Right: Ureter [employer] 11/28/2029 [id number] / [id number] / [id number] Procedures Procedure Name Priority Date/Time Associated Diagnosis Comments CREATININE URINE RANDOM Routine 07/07/2025 7:43 AM CDT 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 (HCC) Hypertension, unspecified type PKD (polycystic kidney disease) Anemia due to chronic kidney disease, unspecified CKD stage At risk of UTI At risk for rejection of transplanted organ Encounter for screening for viral disease Low magnesium level Low serum phosphate Encounter for monitoring tacrolimus therapy PROTEIN URINE RANDOM QUANTITATIVE Routine 07/07/2025 7:43 AM CDT 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 (HCC) Hypertension, unspecified type PKD (polycystic kidney disease) Anemia due to chronic kidney disease, unspecified CKD stage At risk of UTI At risk for rejection of transplanted organ Encounter for screening for viral disease Low magnesium level Low serum phosphate Encounter for monitoring tacrolimus therapy URINALYSIS W/MICROSCOPIC NO CULTURE Routine 07/07/2025 7:43 AM CDT 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 (HCC) Hypertension, unspecified type PKD (polycystic kidney disease) Anemia due to chronic kidney disease, unspecified CKD stage At risk of UTI At risk for rejection of transplanted organ Encounter for screening for viral disease Low magnesium level Low serum phosphate Encounter for monitoring tacrolimus therapy CULTURE URINE Routine 07/07/2025 7:43 AM CDT 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 (HCC) Hypertension, unspecified type PKD (polycystic kidney disease) Anemia due to chronic kidney disease, unspecified CKD stage At risk of UTI At risk for rejection of transplanted organ Encounter for screening for viral disease Low magnesium level Low serum phosphate Encounter for monitoring tacrolimus therapy DIFFERENTIAL MANUAL Routine 07/07/2025 7 :37 AM CDT 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 (HCC) Hypertension, unspecified type PKD (polycystic kidney disease) Anemia due to chronic kidney disease, unspecified CKD stage At risk of UTI At risk for rejection of transplanted organ Encounter for screening for viral disease Low magnesium level Low serum phosphate Encounter for monitoring tacrolimus therapy PHOSPHORUS BLOOD Routine 07/07/2025 7:37 AM CDT 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 (HCC) Hypertension, unspecified type PKD (polycystic kidney disease) Anemia due to chronic kidney disease, unspecified CKD stage At risk of UTI At risk for rejection of transplanted organ Encounter for screening for viral disease Low magnesium level Low serum phosphate Encounter for monitoring tacrolimus therapy MAGNESIUM BLOOD Routine 07/07/2025 7:37 AM CDT 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 (HCC) Hypertension, unspecified type PKD (polycystic kidney disease) Anemia due to chronic kidney disease, unspecified CKD stage At risk of UTI At risk for rejection of transplanted organ Encounter for screening for viral disease Low magnesium level Low serum phosphate Encounter for monitoring tacrolimus therapy COMPREHENSIVE METABOLIC PANEL Routine 07/07/2025 7:37 AM CDT 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 (HCC) Hypertension, unspecified type PKD (polycystic kidney disease) Anemia due to chronic kidney disease, unspecified CKD stage At risk of UTI At risk for rejection of transplanted organ Encounter for screening for viral disease Low magnesium level Low serum phosphate Encounter for monitoring tacrolimus therapy CBC W AUTO DIFFERENTIAL Routine 07/07/2025 7:37 AM CDT 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 ([facility]) Hypertension, unspecified type PKD (polycystic kidney disease) Anemia due to chronic kidney disease, unspecified CKD stage At risk of UTI At risk for rejection of transplanted organ Encounter for screening for viral disease Low magnesium level Low serum phosphate Encounter for monitoring tacrolimus therapy TACROLIMUS LEVEL Routine 07/07/2025 7:37 AM CDT 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 ([facility]) Hypertension, unspecified type PKD (polycystic kidney disease) Anemia due to chronic kidney disease, unspecified CKD stage At risk of UTI At risk for rejection of transplanted organ Encounter for screening for viral disease Low magnesium level Low serum phosphate Encounter for monitoring tacrolimus therapy CYTOMEGALOVIRUS (CMV) QUANTITATIVE PLASMA Routine 07/07/2025 7:37 AM CDT 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 Hypomagnesemia Hypertension, unspecified type PKD (polycystic kidney disease) Anemia due to chronic kidney disease, unspecified CKD stage At risk of UTI At risk for rejection of transplanted organ Encounter for screening for viral disease BK VIRUS PCR QUANT BLOOD STL Routine 07/07/2025 7:37 AM CDT 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 Hypomagnesemia Hypertension, unspecified type PKD (polycystic kidney disease) Anemia due to chronic kidney disease, unspecified CKD stage At risk of UTI At risk for rejection of transplanted organ Encounter for screening for viral disease VITAMIN D 25-HYDROXY Routine 06/16/2025 7:19 AM CDT 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 ([facility]) History of immunosuppression retirement (current) use of other immunomodulators and immunosuppressants Hypomagnesemia Hypertension, unspecified type PKD (polycystic kidney disease) Anemia due to chronic kidney disease, unspecified CKD stage At risk of UTI At risk for rejection of transplanted organ Encounter for screening for viral disease Chronic kidney disease-mineral and bone disorder (CKD-MBD) URIC ACID BLOOD Routine 06/16/2025 7:19 AM CDT 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 ([facility]) History of immunosuppression 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 Hypomagnesemia Hypertension, unspecified type PKD (polycystic kidney disease) Anemia due to chronic kidney disease, unspecified CKD stage At risk of UTI At risk for rejection of transplanted organ Encounter for screening for viral disease Chronic kidney disease-mineral and bone disorder (CKD-MBD) PTH INTACT W/O CALCIUM Routine 7:19 AM CDT 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 ([facility]) History of immunosuppression 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 Hypomagnesemia Hypertension, unspecified type PKD (polycystic kidney disease) Anemia due to chronic kidney disease, unspecified CKD stage At risk of UTI At risk for rejection of transplanted organ Encounter for screening for viral disease Chronic kidney disease-mineral and bone disorder (CKD-MBD) LIPID PROFILE Routine 06/16/2025 7:19 AM CDT 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 ([facility]) History of immunosuppression retirement (current) use of other immunomodulators and immunosuppressants Hypomagnesemia Hypertension, unspecified type PKD (polycystic kidney disease) Anemia due to chronic kidney disease, unspecified CKD stage At risk of UTI At risk for rejection of transplanted organ Encounter for screening for viral disease Chronic kidney disease-mineral and bone disorder (CKD-MBD) IRON + TRANSFERRIN PANEL Routine 06/16/2025 7:19 AM CDT 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 ([facility]) History of immunosuppression 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 Hypomagnesemia Hypertension, unspecified type PKD (polycystic kidney disease) Anemia due to chronic kidney disease, unspecified CKD stage At risk of UTI At risk for rejection of transplanted organ Encounter for screening for viral disease Chronic kidney disease-mineral and bone disorder (CKD-MBD) HEMOGLOBIN A1C Routine 06/16/2025 7:19 AM CDT 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 ([facility]) History of immunosuppression retirement (current) use of other immunomodulators and immunosuppressants Hypomagnesemia Hypertension, unspecified type PKD (polycystic kidney disease) Anemia due to chronic kidney disease, unspecified CKD stage At risk of UTI At risk for rejection of transplanted organ Encounter for screening for viral disease Chronic kidney disease-mineral and bone disorder (CKD-MBD) FERRITIN Routine 06/16/2025 7:19 AM CDT 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 ([facility]) History of immunosuppression retirement (current) use of other immunomodulators and immunosuppressants Hypomagnesemia Hypertension, unspecified type PKD (polycystic kidney disease) Anemia due to chronic kidney disease, unspecified CKD stage At risk of UTI At risk for rejection of transplanted organ Encounter for screening for viral disease Chronic kidney disease-mineral and bone disorder (CKD-MBD) CREATININE URINE RANDOM Routine 06/16/2025 7:19 AM CDT 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 ([facility]) Hypertension, unspecified type PKD (polycystic kidney disease) Anemia due to chronic kidney disease, unspecified CKD stage At risk of UTI At risk for rejection of transplanted organ Encounter for screening for viral disease Low magnesium level Low serum phosphate Encounter for monitoring tacrolimus therapy PROTEIN URINE RANDOM QUANTITATIVE Routine 06/16/2025 7:19 AM CDT 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 ([facility]) Hypertension, unspecified type PKD (polycystic kidney disease) Anemia due to chronic kidney disease, unspecified CKD stage At risk of UTI At risk for rejection of transplanted organ Encounter for screening for viral disease Low magnesium level Low serum phosphate Encounter for monitoring tacrolimus therapy URINALYSIS W/MICROSCOPIC NO CULTURE Routine 06/16/2025 7:19 AM CDT 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 ([facility]) Hypertension, unspecified type PKD (polycystic kidney disease) Anemia due to chronic kidney disease, unspecified CKD stage At risk of UTI At risk for rejection of transplanted organ Encounter for screening for viral disease Low magnesium level Low serum phosphate Encounter for monitoring tacrolimus therapy PHOSPHORUS BLOOD Routine 06/16/2025 7:19 AM CDT 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 ([facility]) Hypertension, unspecified type PKD (polycystic kidney disease) Anemia due to chronic kidney disease, unspecified CKD stage At risk of UTI At risk for rejection of transplanted organ Encounter for screening for viral disease Low magnesium level Low serum phosphate Encounter for monitoring tacrolimus therapy MAGNESIUM BLOOD Routine 06/16/2025 7:19 AM CDT 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 (HCC) Hypertension, unspecified type PKD (polycystic kidney disease) Anemia due to chronic kidney disease, unspecified CKD stage At risk of UTI At risk for rejection of transplanted organ Encounter for screening for viral disease Low magnesium level Low serum phosphate Encounter for monitoring tacrolimus therapy COMPREHENSIVE METABOLIC PANEL Routine 06/16/2025 7:19 AM CDT 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 ([facility]) Hypertension, unspecified type PKD (polycystic kidney disease) Anemia due to chronic kidney disease, unspecified CKD stage At risk of UTI At risk for rejection of transplanted organ Encounter for screening for viral disease Low magnesium level Low serum phosphate Encounter for monitoring tacrolimus therapy CBC W AUTO DIFFERENTIAL Routine 06/16/2025 7:19 AM CDT 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 ([facility]) Hypertension, unspecified type PKD (polycystic kidney disease) Anemia due to chronic kidney disease, unspecified CKD stage At risk of UTI At risk for rejection of transplanted organ Encounter for screening for viral disease Low magnesium level Low serum phosphate Encounter for monitoring tacrolimus therapy TACROLIMUS LEVEL Routine 06/16/2025 7:19 AM CDT 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 ([facility]) Hypertension, unspecified type PKD (polycystic kidney disease) Anemia due to chronic kidney disease, unspecified CKD stage At risk of UTI At risk for rejection of transplanted organ Encounter for screening for viral disease Low magnesium level Low serum phosphate Encounter for monitoring tacrolimus therapy CYTOMEGALOVIRUS (CMV) QUANTITATIVE PLASMA Routine 06/16/2025 7:19 AM CDT 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 ([facility]) retirement (current) use of other immunomodulators and immunosuppressants Hypomagnesemia Hypertension, unspecified type PKD (polycystic kidney disease) Anemia due to chronic kidney disease, unspecified CKD stage At risk of UTI At risk for rejection of transplanted organ Encounter for screening for viral disease BK VIRUS PCR QUANT BLOOD STL Routine 06/16/2025 7:19 AM CDT 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 Hypomagnesemia Hypertension, unspecified type PKD (polycystic kidney disease) Anemia due to chronic kidney disease, unspecified CKD stage At risk of UTI At risk for rejection of transplanted organ Encounter for screening for viral disease CULTURE URINE Routine 06/16/2025 7:19 AM CDT 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 ([facility]) Hypertension, unspecified type PKD (polycystic kidney disease) Anemia due to chronic kidney disease, unspecified CKD stage At risk of UTI At risk for rejection of transplanted organ Encounter for screening for viral disease Low magnesium level Low serum phosphate Encounter for monitoring tacrolimus therapy URINALYSIS W/MICROSCOPIC NO CULTURE Routine 05/27/2025 11:21 AM CDT 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 ([facility]) Hypertension, unspecified type PKD (polycystic kidney disease) Anemia due to chronic kidney disease, unspecified CKD stage At risk of UTI At risk for rejection of transplanted organ Encounter for screening for viral disease Low magnesium level Low serum phosphate Encounter for monitoring tacrolimus therapy CREATININE URINE RANDOM Routine 05/27/2025 9:24 AM CDT 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 ([facility]) Hypertension, unspecified type PKD (polycystic kidney disease) Anemia due to chronic kidney disease, unspecified CKD stage At risk of UTI At risk for rejection of transplanted organ Encounter for screening for viral disease Low magnesium level Low serum phosphate Encounter for monitoring tacrolimus therapy PROTEIN URINE RANDOM QUANTITATIVE Routine 05/27/2025 9:24 AM CDT 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 ([facility]) Hypertension, unspecified type PKD (polycystic kidney disease) Anemia due to chronic kidney disease, unspecified CKD stage At risk of UTI At risk for rejection of transplanted organ Encounter for screening for viral disease Low magnesium level Low serum phosphate Encounter for monitoring tacrolimus therapy CULTURE URINE Routine 05/27/2025 9:04 AM CDT 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 ([facility]) Hypertension, unspecified type PKD (polycystic kidney disease) Anemia due to chronic kidney disease, unspecified CKD stage At risk of UTI At risk for rejection of transplanted organ Encounter for screening for viral disease Low magnesium level Low serum phosphate Encounter for monitoring tacrolimus therapy PHOSPHORUS BLOOD Routine 05/27/2025 7:03 AM CDT 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 ([facility]) Hypertension, unspecified type PKD (polycystic kidney disease) Anemia due to chronic kidney disease, unspecified CKD stage At risk of UTI At risk for rejection of transplanted organ Encounter for screening for viral disease Low magnesium level Low serum phosphate Encounter for monitoring tacrolimus therapy MAGNESIUM BLOOD Routine 05/27/2025 7:03 AM CDT 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 ([facility]) Hypertension, unspecified type PKD (polycystic kidney disease) Anemia due to chronic kidney disease, unspecified CKD stage At risk of UTI At risk for rejection of transplanted organ Encounter for screening for viral disease Low magnesium level Low serum phosphate Encounter for monitoring tacrolimus therapy COMPREHENSIVE METABOLIC PANEL Routine 05/27/2025 7:03 AM CDT 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 ([facility]) Hypertension, unspecified type PKD (polycystic kidney disease) Anemia due to chronic kidney disease, unspecified CKD stage At risk of UTI At risk for rejection of transplanted organ Encounter for screening for viral disease Low magnesium level Low serum phosphate Encounter for monitoring tacrolimus therapy CBC W AUTO DIFFERENTIAL Routine 05/27/2025 7:03 AM CDT 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 ([facility]) Hypertension, unspecified type PKD (polycystic kidney disease) Anemia due to chronic kidney disease, unspecified CKD stage At risk of UTI At risk for rejection of transplanted organ Encounter for screening for viral disease Low magnesium level Low serum phosphate Encounter for monitoring tacrolimus therapy TACROLIMUS LEVEL Routine 05/27/2025 7:03 AM CDT 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 ([facility]) Hypertension, unspecified type PKD (polycystic kidney disease) Anemia due to chronic kidney disease, unspecified CKD stage At risk of UTI At risk for rejection of transplanted organ Encounter for screening for viral disease Low magnesium level Low serum phosphate Encounter for monitoring tacrolimus therapy CYTOMEGALOVIRUS (CMV) QUANTITATIVE PLASMA Routine 05/27/2025 7:03 AM CDT 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 ([facility]) retirement (current) use of other immunomodulators and immunosuppressants Hypomagnesemia Hypertension, unspecified type PKD (polycystic kidney disease) Anemia due to chronic kidney disease, unspecified CKD stage At risk of UTI At risk for rejection of transplanted organ Encounter for screening for viral disease BK VIRUS PCR QUANT BLOOD STL Routine 05/27/2025 7:03 AM CDT 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 ([facility]) retirement (current) use of other immunomodulators and immunosuppressants Hypomagnesemia Hypertension, unspecified type PKD (polycystic kidney disease) Anemia due to chronic kidney disease, unspecified CKD stage At risk of UTI At risk for rejection of transplanted organ Encounter for screening for viral disease CREATININE URINE RANDOM Routine 05/11/2025 7:25 AM CDT 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 ([facility]) Hypertension, unspecified type PKD (polycystic kidney disease) Anemia due to chronic kidney disease, unspecified CKD stage At risk of UTI At risk for rejection of transplanted organ Encounter for screening for viral disease Low magnesium level Low serum phosphate Encounter for monitoring tacrolimus therapy PROTEIN URINE RANDOM QUANTITATIVE Routine 05/11/2025 7:25 AM CDT 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 ([facility]) Hypertension, unspecified type PKD (polycystic kidney disease) Anemia due to chronic kidney disease, unspecified CKD stage At risk of UTI At risk for rejection of transplanted organ Encounter for screening for viral disease Low magnesium level Low serum phosphate Encounter for monitoring tacrolimus therapy URINALYSIS W/MICROSCOPIC NO CULTURE Routine 05/11/2025 7:25 AM CDT 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 ([facility]) Hypertension, unspecified type PKD (polycystic kidney disease) Anemia due to chronic kidney disease, unspecified CKD stage At risk of UTI At risk for rejection of transplanted organ Encounter for screening for viral disease Low magnesium level Low serum phosphate Encounter for monitoring tacrolimus therapy CULTURE URINE Routine 05/11/2025 7:25 AM CDT 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 ([facility]) Hypertension, unspecified type PKD (polycystic kidney disease) Anemia due to chronic kidney disease, unspecified CKD stage At risk of UTI At risk for rejection of transplanted organ Encounter for screening for viral disease Low magnesium level Low serum phosphate Encounter for monitoring tacrolimus therapy PHOSPHORUS BLOOD Routine 05/11/2025 7:21 AM CDT 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 ([facility]) Hypertension, unspecified type PKD (polycystic kidney disease) Anemia due to chronic kidney disease, unspecified CKD stage At risk of UTI At risk for rejection of transplanted organ Encounter for screening for viral disease Low magnesium level Low serum phosphate Encounter for monitoring tacrolimus therapy MAGNESIUM BLOOD Routine 05/11/2025 7:21 AM CDT 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 ([facility]) Hypertension, unspecified type PKD (polycystic kidney disease) Anemia due to chronic kidney disease, unspecified CKD stage At risk of UTI At risk for rejection of transplanted organ Encounter for screening for viral disease Low magnesium level Low serum phosphate Encounter for monitoring tacrolimus therapy COMPREHENSIVE METABOLIC PANEL Routine 05/11/2025 7:21 AM CDT 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 ([facility]) Hypertension, unspecified type PKD (polycystic kidney disease) Anemia due to chronic kidney disease, unspecified CKD stage At risk of UTI At risk for rejection of transplanted organ Encounter for screening for viral disease Low magnesium level Low serum phosphate Encounter for monitoring tacrolimus therapy CBC W AUTO DIFFERENTIAL Routine 05/11/2025 7:21 AM CDT 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 ([facility]) Hypertension, unspecified type PKD (polycystic kidney disease) Anemia due to chronic kidney disease, unspecified CKD stage At risk of UTI At risk for rejection of transplanted organ Encounter for screening for viral disease Low magnesium level Low serum phosphate Encounter for monitoring tacrolimus therapy TACROLIMUS LEVEL Routine 05/11/2025 7:21 AM CDT 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 ([facility]) Hypertension, unspecified type PKD (polycystic kidney disease) Anemia due to chronic kidney disease, unspecified CKD stage At risk of UTI At risk for rejection of transplanted organ Encounter for screening for viral disease Low magnesium level Low serum phosphate Encounter for monitoring tacrolimus therapy CYTOMEGALOVIRUS (CMV) QUANTITATIVE PLASMA Routine 05/11/2025 7:21 AM CDT 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 Hypomagnesemia Hypertension, unspecified type PKD (polycystic kidney disease) Anemia due to chronic kidney disease, unspecified CKD stage At risk of UTI At risk for rejection of transplanted organ Encounter for screening for viral disease BK VIRUS PCR QUANT BLOOD STL Routine 05/11/2025 7:21 AM CDT 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 ([facility]) retirement (current) use of other immunomodulators and immunosuppressants Hypomagnesemia Hypertension, unspecified type PKD (polycystic kidney disease) Anemia due to chronic kidney disease, unspecified CKD stage At risk of UTI At risk for rejection of transplanted organ Encounter for screening for viral disease PHOSPHORUS BLOOD Routine 04/27/2025 7:32 AM CDT 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 (H[facility]) Hypertension, unspecified type PKD (polycystic kidney disease) Anemia due to chronic kidney disease, unspecified CKD stage At risk of UTI At risk for rejection of transplanted organ Encounter for screening for viral disease Low magnesium level Low serum phosphate Encounter for monitoring tacrolimus therapy MAGNESIUM BLOOD Routine 04/27/2025 7:32 AM CDT 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 ([facility]) Hypertension, unspecified type PKD (polycystic kidney disease) Anemia due to chronic kidney disease, unspecified CKD stage At risk of UTI At risk for rejection of transplanted organ Encounter for screening for viral disease Low magnesium level Low serum phosphate Encounter for monitoring tacrolimus therapy COMPREHENSIVE METABOLIC PANEL Routine 04/27/2025 7:32 AM CDT 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 ([facility]) Hypertension, unspecified type PKD (polycystic kidney disease) Anemia due to chronic kidney disease, unspecified CKD stage At risk of UTI At risk for rejection of transplanted organ Encounter for screening for viral disease Low magnesium level Low serum phosphate Encounter for monitoring tacrolimus therapy CBC W AUTO DIFFERENTIAL Routine 04/27/2025 7:32 AM CDT 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 ([facility]) Hypertension, unspecified type PKD (polycystic kidney disease) Anemia due to chronic kidney disease, unspecified CKD stage At risk of UTI At risk for rejection of transplanted organ Encounter for screening for viral disease Low magnesium level Low serum phosphate Encounter for monitoring tacrolimus therapy TACROLIMUS LEVEL Routine 04/27/2025 7:32 AM CDT 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 ([facility]) Hypertension, unspecified type PKD (polycystic kidney disease) Anemia due to chronic kidney disease, unspecified CKD stage At risk of UTI At risk for rejection of transplanted organ Encounter for screening for viral disease Low magnesium level Low serum phosphate Encounter for monitoring tacrolimus therapy CYTOMEGALOVIRUS (CMV) QUANTITATIVE PLASMA Routine 04/27/2025 7:32 AM CDT 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 ([facility]) retirement (current) use of other immunomodulators and immunosuppressants Hypomagnesemia Hypertension, unspecified type PKD (polycystic kidney disease) Anemia due to chronic kidney disease, unspecified CKD stage At risk of UTI At risk for rejection of transplanted organ Encounter for screening for viral disease BK VIRUS PCR QUANT BLOOD STL Routine 04/27/2025 7:32 AM CDT 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 ([facility]) retirement (current) use of other immunomodulators and immunosuppressants Hypomagnesemia Hypertension, unspecified type PKD (polycystic kidney disease) Anemia due to chronic kidney disease, unspecified CKD stage At risk of UTI At risk for rejection of transplanted organ Encounter for screening for viral disease CREATININE URINE RANDOM Routine 04/27/2025 7:26 AM CDT 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 ([facility]) Hypertension, unspecified type PKD (polycystic kidney disease) Anemia due to chronic kidney disease, unspecified CKD stage At risk of UTI At risk for rejection of transplanted organ Encounter for screening for viral disease Low magnesium level Low serum phosphate Encounter for monitoring tacrolimus therapy PROTEIN URINE RANDOM QUANTITATIVE Routine 04/27/2025 7:26 AM CDT 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 ([facility]) Hypertension, unspecified type PKD (polycystic kidney disease) Anemia due to chronic kidney disease, unspecified CKD stage At risk of UTI At risk for rejection of transplanted organ Encounter for screening for viral disease Low magnesium level Low serum phosphate Encounter for monitoring tacrolimus therapy URINALYSIS W/MICROSCOPIC NO CULTURE Routine 04/27/2025 7:26 AM CDT 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 ([facility]) Hypertension, unspecified type PKD (polycystic kidney disease) Anemia due to chronic kidney disease, unspecified CKD stage At risk of UTI At risk for rejection of transplanted organ Encounter for screening for viral disease Low magnesium level Low serum phosphate Encounter for monitoring tacrolimus therapy CULTURE URINE Routine 04/27/2025 7:26 AM CDT 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 ([facility]) Hypertension, unspecified type PKD (polycystic kidney disease) Anemia due to chronic kidney disease, unspecified CKD stage At risk of UTI At risk for rejection of transplanted organ Encounter for screening for viral disease Low magnesium level Low serum phosphate Encounter for monitoring tacrolimus therapy CREATININE URINE RANDOM Routine 04/14/2025 7:56 AM CDT 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 ([facility]) Hypertension, unspecified type PKD (polycystic kidney disease) Anemia due to chronic kidney disease, unspecified CKD stage At risk of UTI At risk for rejection of transplanted organ Encounter for screening for viral disease Low magnesium level Low serum phosphate Encounter for monitoring tacrolimus therapy PROTEIN URINE RANDOM QUANTITATIVE Routine 04/14/2025 7:56 AM CDT 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 ([facility]) Hypertension, unspecified type PKD (polycystic kidney disease) Anemia due to chronic kidney disease, unspecified CKD stage At risk of UTI At risk for rejection of transplanted organ Encounter for screening for viral disease Low magnesium level Low serum phosphate Encounter for monitoring tacrolimus therapy URINALYSIS W/MICROSCOPIC NO CULTURE Routine 04/14/2025 7:56 AM CDT 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 ([facility]) Hypertension, unspecified type PKD (polycystic kidney disease) Anemia due to chronic kidney disease, unspecified CKD stage At risk of UTI At risk for rejection of transplanted organ Encounter for screening for viral disease Low magnesium level Low serum phosphate Encounter for monitoring tacrolimus therapy CULTURE URINE Routine 04/14/2025 7:56 AM CDT 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 ([facility]) Hypertension, unspecified type PKD (polycystic kidney disease) Anemia due to chronic kidney disease, unspecified CKD stage At risk of UTI At risk for rejection of transplanted organ Encounter for screening for viral disease Low magnesium level Low serum phosphate Encounter for monitoring tacrolimus therapy PHOSPHORUS BLOOD Routine 04/14/2025 7:52 AM CDT 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 ([facility]) Hypertension, unspecified type PKD (polycystic kidney disease) Anemia due to chronic kidney disease, unspecified CKD stage At risk of UTI At risk for rejection of transplanted organ Encounter for screening for viral disease Low magnesium level Low serum phosphate Encounter for monitoring tacrolimus therapy MAGNESIUM BLOOD Routine 04/14/2025 7:52 AM CDT 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 (HCC) Hypertension, unspecified type PKD (polycystic kidney disease) Anemia due to chronic kidney disease, unspecified CKD stage At risk of UTI At risk for rejection of transplanted organ Encounter for screening for viral disease Low magnesium level Low serum phosphate Encounter for monitoring tacrolimus therapy COMPREHENSIVE METABOLIC PANEL Routine 04/14/2025 7:52 AM CDT 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 ([facility]) Hypertension, unspecified type PKD (polycystic kidney disease) Anemia due to chronic kidney disease, unspecified CKD stage At risk of UTI At risk for rejection of transplanted organ Encounter for screening for viral disease Low magnesium level Low serum phosphate Encounter for monitoring tacrolimus therapy CBC W AUTO DIFFERENTIAL Routine 04/14/2025 7:52 AM CDT 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 ([facility]) Hypertension, unspecified type PKD (polycystic kidney disease) Anemia due to chronic kidney disease, unspecified CKD stage At risk of UTI At risk for rejection of transplanted organ Encounter for screening for viral disease Low magnesium level Low serum phosphate Encounter for monitoring tacrolimus therapy TACROLIMUS LEVEL Routine 04/14/2025 7:52 AM CDT 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 ([facility]) Hypertension, unspecified type PKD (polycystic kidney disease) Anemia due to chronic kidney disease, unspecified CKD stage At risk of UTI At risk for rejection of transplanted organ Encounter for screening for viral disease Low magnesium level Low serum phosphate Encounter for monitoring tacrolimus therapy CYTOMEGALOVIRUS (CMV) QUANTITATIVE PLASMA Routine 04/14/2025 7:52 AM CDT 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 Hypomagnesemia Hypertension, unspecified type PKD (polycystic kidney disease) Anemia due to chronic kidney disease, unspecified CKD stage At risk of UTI At risk for rejection of transplanted organ Encounter for screening for viral disease BK VIRUS PCR QUANT BLOOD STL Routine 04/14/2025 7:52 AM CDT 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 ([facility]) retirement (current) use of other immunomodulators and immunosuppressants Hypomagnesemia Hypertension, unspecified type PKD (polycystic kidney disease) Anemia due to chronic kidney disease, unspecified CKD stage At risk of UTI At risk for rejection of transplanted organ Encounter for screening for viral disease HEPATITIS C ANTIBODY Routine 02/10/2025 9:58 AM CDT Pre-kidney transplant, listed Hypertension, unspecified type PKD (polycystic kidney disease) Kidney 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 (HCC) ESRD (end stage renal disease) (HCC) HIV-1 HIV-2 ANTIBODY + HIV P24 AG PANEL Routine 02/10/2025 9:58 AM CDT Pre-kidney transplant, listed Hypertension, unspecified type PKD (polycystic kidney disease) Kidney 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 (HCC) ESRD (end stage renal disease) (HCC) from Last 3 Months or Most Recently Relevant to Health Maintenance Results * (ABNORMAL) URINALYSIS COMPLETE W MICROSCOPIC (07/07/2025 7:43 AM CDT) Only the most recent of6 resultswithin the time period is included. Color UA Colorless(A ) Yellow, Straw 07/07/2025 9:13 AM [facility] Clarity UA Turbid(A) Clear 07/07/2025 9:13 AM [facility] Glucose UA Normal Normal 07/07/2025 9:13 AM [facility] Bilirubin UA Negative Negative 07/07/2025 9:13 AM [facility] Ketone UA Negative Negative 07/07/2025 9:13 AM [facility] Specific Marcus UA 1.008 1.005 - 1.030 07/07/2025 9:13 AM [facility] Blood UA Negative Negative 07/07/2025 9:[address] [facility] pH UA 7.5 5.0 - 8.0 07/07/2025 9:13 AM [facility] Protein UA Negative Negative 07/07/2025 9:13 AM [facility] Urobilinogen UA Normal Normal mg/dL 07/07/2025 9:[address] [facility] Nitrite UA Negative Negative 07/07/2025 9:13 AM [facility] Leukocyte Esterase UA Negative Negative 07/07/2025 9:[address] [facility] RBC UA 3-5 0 - 5 # /hpf 07/07/2025 9:13 AM CDT [facility] WBC UA 0-5 0 - 5 # /hpf 07/07/2025 9:13 AM CDT [facility] Bacteria UA None Seen None Seen 07/07/2025 9:13 AM CDT [facility] Squamous Epithelial Cells 0-2 0 - 5 /hpf 07/07/2025 9:13 AM CDT [facility] Amorphous Crystals Occasional( A) None seen /hpf 07/07/2025 9:13 AM CDT [facility] Urine URINE SPECIMEN OBTAINED BY CLEAN CATCH PROCEDURE / Unknown Collection / Unknown 07/07/2025 7:43 AM CDT 07/07/2025 8:44 AM CDT Eduardo Ascencio MD LAB - URINALYSIS ORDERA BLES Final Result [facility] [address] [place] [id number], [facility] [phone] * CULTURE URINE (07/07/2025 7:43 AM CDT) Only the most recent of6 resultswithin the time period is included. Culture Urine <10,000 CFU/mL urogenital lai TABITHA 07/08/2025 11:20 AM CDT [facility] Urine URINE SPECIMEN OBTAINED BY CLEAN CATCH PROCEDURE / Unknown Collection / Unknown 07/07/2025 7:43 AM CDT 07/07/2025 8:44 AM CDT Eduardo Ascencio MD LAB - MICROBIOLOGY ORDE RABLES Final Result [facility] [address] [place] [address], [facility] [phone] * PROTEIN URINE RANDOM QUANTITATIVE (07/07/2025 7:43 AM CDT) Only the most recent of6 resultswithin the time period is included. Protein Urine 7 Not Established mg/dL 07/07/2025 11:15 AM CDT [facility] Urine URINE SPECIMEN OBTAINED BY CLEAN CATCH PROCEDURE / Unknown Collection / Unknown 07/07/2025 7:43 AM CDT 07/07/2025 8:44 AM CDT Eduardo Ascencio MD LAB - URINE CHEMISTRY O RDERABLES Final Result Performing Organization Address City/[facility]/ZIP Co de Phone Number [address] [phone], [facility] [phone] * CREATININE URINE RANDOM (07/07/2025 7:43 AM CDT) Only the most recent of6 resultswithin the time period is included. Creatinine Urine 22.30 Not Established mg/dL 07/07/2025 11:15 AM CDT [facility] Urine URINE SPECIMEN OBTAINED BY CLEAN CATCH PROCEDURE / Unknown Collection / Unknown 07/07/2025 7:43 AM CDT 07/07/2025 8:44 AM CDT Eduardo Ascencio MD LAB - URINE CHEMISTRY O RDERABLES Final Result Performing Organization Address City/[facility] Co de Phone Number [address] [phone], [facility] [phone] * CYTOMEGALOVIRUS (CMV) QUANTITATIVE PLASMA (07/07/2025 7:37 AM CDT) Only the most recent of6 resultswithin the time period is included. CMV Quant by PCR, Interp Not detected Not detected 07/07/2025 2:41 PM CDT [facility] CMV Quant by PCR, Log NA log IU/mL 07/07/2025 2:41 PM CDT [facility] Blood BLOOD SPECIMEN / Unknown Lab Venipuncture / Unknown 07/07/2025 7:37 AM CDT 07/07/2025 7:49 AM CDT Narrative [facility] - 07/07/2025 2:41 PM CDT The Cytomegalovirus (CMV) DNA analysis utilized a plasma sample, real-time PCR (qPCR), and is reported as Not Detected, Detected (<35 IU/mL), 35 - 10,000,000 IU/mL, or >10,000,000 IU/mL The analytic sensitivity (LOD) of the assay is 35 IU/mL. Linear range of the assay is 35 - 10,000,000 IU/ml. The detection/quantitation of CMV DNA in plasma is based on the isolation of CMV DNA followed by real-time PCR in the presence of an unrelated DNA internal control. The internal control ensures that DNA is isolated, and that no general significant inhibitors of the qPCR process are present. Absolute CMV values or breakpoints for symptomatic disease have not been established and appear to be different between patient populations and laboratories. Therefore, it is important to monitor patients and to follow increases and/or decreases in the level of CMV in multiple blood specimens.. The analysis was performed using a [place] FDA approved test methodology Joseline leeroy CMV. us Eduardo Ascencio MD LAB - CHEMISTRY ORDERAB LES Final Result [facility] [address] [place], [place] [address], [facility] [phone] * BK VIRUS PCR QUANT BLOOD STL (07/07/2025 7:37 AM CDT) Only the most recent of6 resultswithin the time period is included. BK Virus Quant by PCR, Interp Not detected Not detected 07/07/2025 2:41 PM CDT [facility] Specimen Type Plasma 07/07/2025 2:41 PM CDT [facility] BK Virus Quant by PCR, Log NA log IU/mL 07/07/2025 2:41 PM CDT [facility] Blood BLOOD SPECIMEN / Unknown Lab Venipuncture / Unknown 07/07/2025 7:37 AM CDT 07/07/2025 7:49 AM CDT Narrative [facility] - 07/07/2025 2:41 PM CDT The BK viral (BKV) DNA analysis utilized a serum sample, real-time PCR (qPCR), and is reported as Not Detected, Detected (<22 IU/mL), Quantity (IU/mL) or >100,000,000 IU/mL. The analytic sensitivity (LOD) of the assay is 22 IU/mL. The linear range is from 22 IU/mL to 100,000,000 IU/mL. Values less than 22 IU/mL are reported as Detected (<22 IU/mL). Values greater than 100,000,000 IU/mL are reported as >100,000,000 IU/mL. The detection/quantitation of BKV DNA in plasma is based on the isolation of BKV DNA followed by real-time PCR in the presence of an unrelated DNA internal control. The internal control ensures that DNA is isolated, and that no general significant inhibitors of the qPCR process are present. The analysis was performed using a [place]. FDA approved test methodology Joselien leeroy BKV . Eduardo Ascencio MD LAB - CHEMISTRY ORDERAB LES Final Result [facility] [address] [place] [address], [facility] [phone] * TACROLIMUS LEVEL (07/07/2025 7:37 AM CDT) Only the most recent of6 resultswithin the time period is included. Pathologist [facility] Tacrolimus, trough 9.6 3.0 - 15.0 ng/mL 07/07/2025 9:45 AM CDT [facility] Blood BLOOD SPECIMEN / Unknown Lab Venipuncture / Unknown 07/07/2025 7:37 AM CDT 07/07/2025 7:52 AM CDT Narrative [facility] - 07/07/2025 9:45 AM CDT Measurement performed by chemiluminescence immunoassay (CMIA) on the [employer] Alinity analyzer. Most individuals achieve optimal response with steady-state trough whole blood levels between 3-15 ng/mL. Preferred therapeutic values may vary by transplant type, protocol, and comedications. Therapeutic concentrations are based on trough values; blood drawn at other times may yield higher results. Eduardo Ascencio MD LAB - THERAPEUTIC DRUG MONITORING ORDERABLES Final Result [facility] [address] [place] [phone], [place] [phone] * (ABNORMAL) DIFFERENTIAL MANUAL (07/07/2025 7:37 AM CDT) Neutrophil % 76(H) 41 - 74 % 07/07/2025 9:13 AM [facility] Lymphocyte % 15(L) 17 - 47 % 07/07/2025 9:13 AM T [facility] Monocyte % 8 3 - 11 % 07/07/2025 9:13 AM T [facility] Eosinophil % 1 0 - 7 % 07/07/2025 9:13 AM T [facility] Neutrophil Absolute 4.26 1.60 - 7.50 x10E9/L 07/07/2025 9:13 AM [facility] Lymphocyte Absolute 0.84(L) 1.00 - 4.40 x10E9/L 07/07/2025 9:13 AM T [facility] Monocyte Absolute 0.45 0.15 - 1.00 x10E9/L 07/07/2025 9:13 AM [facility] Eosinophil Absolute 0.06 0.00 - 0.60 x10E9/L 07/07/2025 9:13 AM [facility] RBC Morphology REVIEWED 07/07/2025 9:13 AM [facility] Schistocytes FEW(A) (none) 07/07/2025 9:13 AM [facility] Blood BLOOD SPECIMEN / Unknown Lab Venipuncture / Unknown 07/07/2025 7:37 AM CDT 07/07/2025 7:49 AM CDT us Eduardo Ascencio MD LAB - HEMATOLOGY ORDERA BLES Final Result [facility] [address] [place] [address], [facility] [phone] * CBC W AUTO DIFFERENTIAL (07/07/2025 7:37 AM CDT) Only the most recent of6 resultswithin the time period is included. WBC 5.6 4.0 - 10.7 x10E9/L 07/07/2025 9:13 AM [facility] RBC Count 4.49 4.30 - 5.80 x10E12/L 07/07/2025 9:13 AM [facility] Hemoglobin 14.2 13.3 - 17.5 g/dL 07/07/2025 9:13 AM [facility] Hematocrit 43.7 38.7 - 51.1 % 07/07/2025 9:13 AM [facility] MCV 97.3 80.0 - 98.0 fL 07/07/2025 9:13 AM [facility] MCH 31.6 26.7 - 33.6 pg 07/07/2025 9:13 AM [facility] MCHC 32.5 31.7 - 36.3 g/dL 07/07/2025 9:13 AM [facility] RDW-CV 12.6 11.3 - 14.8 % 07/07/2025 9:13 AM [facility] Platelet Count 151 150 - 420 x10E9/L 07/07/2025 9:13 AM [facility] MPV 10.9 7.8 - 11.4 fL 07/07/2025 9:13 AM [facility] Blood BLOOD SPECIMEN / Unknown Lab Venipuncture / Unknown 07/07/2025 7:37 AM CDT 07/07/2025 7:49 AM CDT us Eduardo Ascencio MD LAB - HEMATOLOGY ORDERA BLES Final Result Performing Organization Address City/State/[facility] Co de Phone Number [facility] [address] [place] [address], [facility] [phone] * (ABNORMAL) COMPREHENSIVE METABOLIC PANEL (07/07/2025 7:37 AM CDT) Only the most recent of6 resultswithin the time period is included. BUN 21 7 - 26 mg/dL 07/07/2025 8:20 AM [facility] Creatinine 1.26(H) 0.71 - 1.16 mg/dL 07/07/2025 8:20 AM [facility] Sodium 139 136 - 145 mmol/L 07/07/2025 8:20 AM [facility] Potassium 4.0 3.5 - 4.5 mmol/L 07/07/2025 8:20 AM [facility] Chloride 107 98 - 107 mmol/L 07/07/2025 8:20 AM [facility] CO2 26 22 - 29 mmol/L 07/07/2025 8:20 AM [facility] Glucose 96 70 - 99 mg/dL 07/07/2025 8:20 AM [facility] Calcium 9.5 8.4 - 10.2 mg/dL 07/07/2025 8:20 AM [facility] Protein Total 6.3 6.0 - 8.3 g/dL 07/07/2025 8:20 AM [facility] Albumin 4.4 3.4 - 5.0 g/dL 07/07/2025 8:20 AM [facility] Bilirubin Total 1.0 0.2 - 1.2 mg/dL 07/07/2025 8:20 AM [facility] Alkaline Phosphatase 85 40 - 150 U/L 07/07/2025 8:20 AM [facility] ALT 12 5 - 55 U/L 07/07/2025 8:20 AM [facility] AST 16 5 - 34 U/L 07/07/2025 8:20 AM [facility] Anion Gap 6 6 - 16 07/07/2025 8:20 AM [facility] BUN/Creatinine Ratio 17 7 - 23 07/07/2025 8:20 AM [facility] Osmolality Calculated 291 275 - 295 mOsm/kg 07/07/2025 8:20 AM [facility] Albumin/Globulin Ratio 2.3 1.1 - 2.3 07/07/2025 8:20 AM [facility] eGFR by CKD-EPI 74(L) >=90 mL/min/1.7 3 m2 07/07/2025 8:20 AM [facility] Comment:Estimated Glomerular Filtration Rate (eGFR) calculated using the CKD-EPI Creatinine Equation (2020), per the National Kidney Foundation and [place] Society of Nephrology recommendations. Blood BLOOD SPECIMEN / Unknown Lab Venipuncture / Unknown 07/07/2025 7:37 AM CDT 07/07/2025 7:52 AM CDT us Eduardo Ascencio MD LAB - CHEMISTRY ORDERAB LES Final Result Performing Organization Address City/[facility]/ZIP Co de Phone Number [address] [address], [facility] [phone] * (ABNORMAL) PHOSPHORUS BLOOD (07/07/2025 7:37 AM CDT) Only the most recent of6 resultswithin the time period is included. Phosphorus 2.1(L) 2.8 - 5.1 mg/dL 07/07/2025 8:20 AM CDT [facility] Blood BLOOD SPECIMEN / Unknown Lab Venipuncture / Unknown 07/07/2025 7:37 AM CDT 07/07/2025 7:52 AM CDT us Eduardo Ascencio MD LAB - CHEMISTRY ORDERAB LES Final Result Performing Organization Address [facility] Co de Phone Number [address] [address], [facility] [phone] * MAGNESIUM BLOOD (07/07/2025 7:37 AM CDT) Only the most recent of6 resultswithin the time period is included. Magnesium 1.6 1.6 - 2.6 mg/dL 07/07/2025 8:20 AM CDT [facility] Blood BLOOD SPECIMEN / Unknown Lab Venipuncture / Unknown 07/07/2025 7:37 AM CDT 07/07/2025 7:52 AM CDT us Eduardo Ascencio MD LAB - CHEMISTRY ORDERAB LES Final Result Performing Organization Address City/[facility]/ZIP Co de Phone Number [address] [address], [facility] [phone] * (ABNORMAL) PTH INTACT W/O CALCIUM (06/16/2025 7:19 AM CDT) PTH Intact 428.7(H) 8.0 - 77.0 pg/mL 06/16/2025 8:59 AM CDT [facility] Blood BLOOD SPECIMEN / Unknown Lab Venipuncture / Unknown 06/16/2025 7:19 AM CDT 06/16/2025 8:22 AM CDT Darcy Nixon MD LAB - CHEMISTRY ORDERABLES F inal Result Performing Organization Address City/[facility]/ZIP Co de Phone Number [address] [address], [place] [phone] * URIC ACID BLOOD (06/16/2025 7:19 AM CDT) Uric Acid 5.2 3.5 - 7.2 mg/dL 06/16/2025 8:55 AM CDT [facility] Blood BLOOD SPECIMEN / Unknown Lab Venipuncture / Unknown 06/16/2025 7:19 AM CDT 06/16/2025 8:22 AM CDT Darcy Nixon MD LAB - CHEMISTRY ORDERABLES F inal Result Performing Organization Address City/[facility]/ZIP Co de Phone Number [address] [address], [place] [phone] * HEMOGLOBIN A1C (06/16/2025 7:19 AM CDT) Hemoglobin A1c 5.2 <=5.6 % 06/16/2025 1:32 PM CDT [facility] Estimated Average Glucose 103 mg/dL 06/16/2025 1:32 PM CDT [facility] Comment: HbA1c Interpretation: Normal : < 5.7% Pre-diabetes: 5.7-6.4% Diabetes: Equal to or greater than 6.5% Test results diagnostic of diabetes should be repeated for confirmation. Treatment target values recommended by ADA and other clinical organizations should be used to evaluate metabolic control in patients. Reference: [place] Diabetes Association, Standards of Care in Diabetes -2020 In patients 70 years and older consider HbA1c target range of 7.0-7.5% (Reference: Umer Reyes et al. JOVANNY. 2012) The Sebia assay for the measurement of HbA1c is a National Glycohemoglobin Standardization Program (NGSP) certified method. Blood BLOOD SPECIMEN / Unknown Lab Venipuncture / Unknown 06/16/2025 7:19 AM CDT 06/16/2025 8:21 AM CDT Darcy Nixon MD LAB - CHEMISTRY ORDERABLES F inal Result Performing Organization Address [facility] Co de Phone Number [address] [address], [place] [phone] * (ABNORMAL) VITAMIN D 25-HYDROXY (06/16/2025 7:19 AM CDT) Vitamin D, 25 Hydroxy 26.2(L) 30.0 - 80.0 ng/mL 06/16/2025 9:13 AM CDT [facility] Comment: The recommendations for 25-Hydroxy Vitamin D clinical decision points are as follows: Deficient: <20.0 ng/mL Insufficient: 20.0 - 29.9 ng/mL Sufficient: 30.0 - 100.0 ng/mL Potential Toxicity: >100 ng/mL Reference: The Endocrine Society Clinical Practice Guidelines. 2011 If the 25-Hydroxy Vitamin D results are inconsitent with clinical evidence, it is recommended that follow-up testing using a method such as LC/MS/MS be performed to confirm the result. Blood BLOOD SPECIMEN / Unknown Lab Venipuncture / Unknown 06/16/2025 7:19 AM CDT 06/16/2025 8:22 AM CDT Darcy Nixon MD LAB - CHEMISTRY ORDERABLES F inal Result Performing Organization Address City/[facility]/ZIP Co de Phone Number [address] [address], [place] [phone] * IRON + TRANSFERRIN PANEL (06/16/2025 7:19 AM CDT) Iron 51 50 - 175 ug/dL 06/16/2025 8:40 AM CDT [facility] Transferrin 209 174 - 382 mg/dL 06/16/2025 8:40 AM T [facility] Transferrin Saturation % 20 16 - 50 % 06/16/2025 8:40 AM T [facility] TIBC Calculated 261 240 - 450 ug/dL 06/16/2025 8:40 AM T [facility] Blood BLOOD SPECIMEN / Unknown Lab Venipuncture / Unknown 06/16/2025 7:19 AM CDT 06/16/2025 8:08 AM CDT us Dracy Nixon MD LAB - CHEMISTRY ORDERABLES F inal Result Performing Organization Address City/[facility]/ZIP Co de Phone Number [address] [address], [place] [phone] * FERRITIN (06/16/2025 7:19 AM CDT) Ferritin 59 22 - 275 ng/mL 06/16/2025 8:58 AM T [facility] Blood BLOOD SPECIMEN / Unknown Lab Venipuncture / Unknown 06/16/2025 7:19 AM CDT 06/16/2025 8:08 AM CDT us Darcy Nixon MD LAB - CHEMISTRY ORDERABLES F inal Result [address] [address], [place] [phone] * LIPID PROFILE (06/16/2025 7:19 AM CDT) Cholesterol Total 160 <200 mg/dL 06/16/2025 8:55 AM T [facility] HDL 51 >40 mg/dL 06/16/2025 8:55 AM T [facility] Comment: ATP III Classification of HDL Cholesterol: <40 mg/dL: Considered a major risk factor. >60 mg/dL: Considered a negative risk factor. LDL Calculated 89 <100 mg/dL 06/16/2025 8:55 AM CDT [facility] Comment: ATP III Classification of LDL Cholesterol: <100 mg/dL: Optimal 100 - 129 mg/dL: Near Optimal/Above Optimal 130 - 159 mg/dL: Borderline High 160 - 189 mg/dL: High >190 mg/dL: Very High LDL is calculated using the Friedewald equation. Triglycerides 101 <150 mg/dL 06/16/2025 8:55 AM CDT [facility] Comment: ATP III Classification of Triglycerides: <150 mg/dL: Normal 150 - 199 mg/dL: Borderline High 200 - 400 mg/dL: High >500 mg/dL: Very High Blood BLOOD SPECIMEN / Unknown Lab Venipuncture / Unknown 06/16/2025 7:19 AM CDT 06/16/2025 8:22 AM CDT us Darcy Nixon MD LAB - CHEMISTRY ORDERABLES F inal Result Performing Organization Address City/[facility]/ZIP Co de Phone Number [facility] [address] [place] [address], [place] [phone] * HIV-1 HIV-2 ANTIBODY + HIV P24 AG PANEL (02/10/2025 9:58 AM CDT) HIV Antigen/Antibod y 1 & 2 Non-reacti ve Non-react payton 02/10/2025 11:00 AM CDT [facility] Comment:No Laboratory eviden ce of HIV infection. Blood BLOOD SPECIMEN / Unknown Lab Venipuncture / Unknown 02/10/2025 9:58 AM CDT 02/10/2025 10:09 AM CDT us Eduardo Ascencio MD LAB - CHEMISTRY ORDERAB LES Final Result [facility] [address] [place] [address], [place] [phone] * HEPATITIS C ANTIBODY (02/10/2025 9:58 AM CDT) Hepatitis C Antibody Non-react payton Non-reac tive 02/10/2025 11:00 AM CDT [facility] Comment:Hepatitis C Antibody screen indicates no serologic evidence of past or current infection with Hepatitis C Virus. Patients with unexplained liver disease who are immunocompromised or suspected of having acute Hepatitis C infection may benefit from Nucleic Acid Test (DAVID) for Hepatitis C Viral RNA to confirm Hepatitis C status. Blood BLOOD SPECIMEN / Unknown Lab Venipuncture / Unknown 02/10/2025 9:58 AM CDT 02/10/2025 10:09 AM CDT Eduardo Ascencio MD LAB - CHEMISTRY ORDERAB LES Final Result [facility] [address] [place] [address], [facility] [phone] from Last 3 Months or Most Recently Relevant to Health Maintenance Insurance [facility] Advance Directives * Full Code (Latest Code Status on File) Date Activated Date Inactivated Comments 03/04/2025 1:49 AM 03/05/2025 5:09 PM * Full Code Date Activated Date Inactivated Comments 02/23/2025 8:38 PM 02/26/2025 4:24 PM * Full Code Date Activated Date Inactivated Comments 02/12/2025 10:14 AM 02/20/2025 2:34 PM * Full Code Date Activated Date Inactivated Comments 12/24/2023 9:24 PM 12/24/2023 11:31 PM * Full Code Date Activated Date Inactivated Comments 12/23/2023 8:37 PM 12/24/2023 9:24 PM Care Teams [employer] T[employer] Relationship Specialty Start Date End Date Freda Neumann PA-C [address] [place] [address] PCP - General 07/15/23
--- OUTSIDE RECORDS SUMMARY | 2025-07-14 18:09 | XMS_ITS | Clinical Summary ---
Author Organization [facility] Address [address] [place] [address] Care Team Providers Care [place] Opener Name Role Phone None, Provider MD Primary Care Provider Unavaila ble Allergies No known active allergies Medications albuterol sulfate HFA 108 (90 Base) MCG/ACT inhalerIndicatio ns:sob Inhale 2 puffs into the lungs every 4 (four) hours as needed for Wheezing or Shortness of breath. Indications: sob 2 Active SYMBICORT 160-4.5 MCG/ACT inhalerIndicatio ns:sob Inhale 2 puffs into the lungs 2 (two) times daily. Indications: sob 2 Active amLODIPine 10 MG tabletIndication s:Primary hypertension [The details of the medication are not available because there are pending changes by a home health clinician.] 30 tablet 2 Active Additional Information Patient taking differently: 5 mgOral Daily,Indications: htn, Reported on 03/18/2025 atorvastatin 40 MG tablet Take 1 tablet (40 mg total) by mouth nightly at bedtime. 30 tablet 2 Active carvedilol 12.5 MG tabletIndication s:htn Take 1 tablet (12.5 mg total) by mouth 2 (two) times daily with meals. 60 tablet 2 Active hydrALAZINE 50 MG tabletIndication s:Primary hypertension Take 1 tablet (50 mg total) by mouth 2 (two) times daily. 60 tablet 2 Active oxyCODONE immediate release (ROXICODONE) 5 MG immediate release tabletIndication s:Chronic Pain Take 5 mg by mouth every 4 (four) hours as needed. Indications: Chronic Pain 5 Active acetaminophen (TYLENOL) 325 MG tabletIndication s:pain Take 325 mg by mouth every 6 (six) hours as needed. Indications: pain 5 Active cyclobenzaprine (FLEXERIL) 10 MG tabletIndication s:pain Take 10 mg by mouth 3 (three) times daily as needed. Indications: pain 5 Active melatonin 5 MG tabletIndication s:sleep Take 5 mg by mouth nightly as needed. Indications: sleep 5 Active polyethylene glycol (MIRALAX) 17 GM/SCOOP powderIndication s:prn constipation Take 17 g by mouth daily. Indications: prn constipation Active tacrolimus ER (ENVARSUS XR) 1 MG TABLET SR 24 HR tabletIndication s:antrejection medication post transplant Take 1 mg by mouth every morning before breakfast. take 6 tablets daily am Indications: antrejection medication post transplant 5 Active mycophenolate EC (MYFORTIC) 180 MG tabletIndication s:post transplant Take 180 mg by mouth 2 (two) times daily. 2 tablets twice daily Indications: post transplant 5 Active predniSONE (DELTASONE) 5 mg tabletIndication s:steriods Take 5 mg by mouth daily. Indications: steriods 5 Active sulfamethoxazole -trimethoprim (BACTRIM DS) 800-160 MG tabletIndication s:ABT Take 1 tablet by mouth 3 (three) times a week. Indications: ABT 5 Active valACYclovir (VALTREX) 500 MG tabletIndication s:viral infection prevention Take 500 mg by mouth daily. Indications: viral infection prevention 5 Active aspirin 81 MG chewable tabletIndication s:anticoag Chew 81 mg by mouth daily. Indications: anticoag 5 Active pantoprazole EC (PROTONIX) 40 MG tabletIndication s:gerd Take 40 mg by mouth daily. Indications: gerd 5 Active phosphorus (K PHOS NEUTRAL) 250 mg TabIndications:s upplement Take 250 mg by mouth 2 (two) times a day. 2 tabs twice a day Indications: supplement 5 Active sodium bicarbonate 325 MG tabletIndication s:supplement Take 650 mg by mouth 2 (two) times daily. 2 tabs twice a day Indications: supplement Active allopurinol (ZYLOPRIM) 100 MG tabletIndication s:gout prevention Take 100 mg by mouth daily. Indications: gout prevention Active calcitriol (ROCALTROL) 0.5 MCG capsuleIndicatio ns:supplement Take 0.5 mcg by mouth every other day. mwf Indications: supplement Active docusate sodium (COLACE) 100 MG capsuleIndicatio ns:constipation Take 100 mg by mouth daily. Indications: constipation Active loratadine (CLARITIN) 10 MG tabletIndication s:allergies Take 10 mg by mouth daily. Indications: allergies Active senna-docusate (SENNA S) 8.6-50 MG tabletIndication s:constipation Take 2 tablets by mouth as needed. Indications: constipation Active Active Problems Problem Noted Date Diagnosed Date NORMAN (acute kidney injury) 01/01/2022 Asthma 12/29/2020 Bilateral plantar fasciitis 12/29/2020 Fissure in skin 12/29/2020 Hypercholesterolemia 12/29/2020 Hypertensive disorder 12/29/2020 Obesity 12/29/2020 Autosomal dominant polycystic kidney disease 09/2020 Stage 3b chronic kidney disease 11/14/2020 Family History Medical History Relation Comments Asthma Brother Hypertension Brother Kidney Disease Brother Alcohol Abuse Father Cancer Father Diabetes Father Early Father Hypertension Father Kidney Disease Maternal Aunt Arthritis Mother Depression Mother Diabetes Mother Hypertension Mother Kidney Disease Mother Cancer Paternal Grandfather Alcohol Abuse Paternal Grandmother Hypertension Sister Stroke Sister Relation Status Comments Brother Father Maternal Aunt Mother Paternal Grandfather Paternal Grandmother Sister Social History Tobacco Use Types Packs/Day Years Used Date Smoking Tobacco: Never Smokeless Tobacco: Never Alcohol Use Standard Drinks/Week Comments Yes 0 (1 standard drink = 0.6 oz pur e alcohol) social OASIS D0700: Social Isolation Answer Da te Recorded Frequency of experiencing loneliness or isolatio n Never 03/01/2025 OASIS A1250: Transportation Answer Date Recorded Lack of Transportation (Medical) No 03/01/2025 Lack of Transportation (Non-Medical) No 03/01/2025 Patient Unable or Declines to Respond No 03/01/2025 OASIS B1300: Health Literacy Answer David e Recorded Frequency of needing help to read materials from doctor or pharmacy Never 03/01/2025 Sex and Gender Information Value Date Recorded Sex Assigned at Not on file Legal Sex Male 8:16 PM CDT Gender Identity Not on file Sexual Orientation Not on file Last Filed Vital Signs Vital Sign Reading Time Taken Comments Blood Pressure 143/77 01/04/2022 12:45 PM CDT Pulse 67 01/04/2022 12:45 PM CDT Temperature 36.4 C (97.5 F) 01/04/2022 8:57 AM CDT Respiratory Rate 16 01/04/2022 8:57 AM CDT Oxygen Saturation 97% 01/04/2022 8:57 AM CDT Inhaled Oxygen Concentration - - Weight 160.6 kg (354 lb 0.9 oz) 01/04/2022 6:00 AM CDT Height 182.9 cm (6') 01/01/2022 7:26 PM CDT Body Mass Index 48.02 01/01/2022 7:26 PM CDT Plan of Treatment Health Maintenance Due Date Last Done Comments Annual Physical 1988 Pneumococcal Vaccine: Pediatrics (0 to 5 Years) and At-Risk Patients (6 to 49 Years) (1 of 2 - PCV) 2004 HPV Vaccines (1 - Risk 3-dose SCDM series) 2012 Hepatitis B Vaccines (2 of 3 - 19+ 3-dose series) 02/15/2025 01/18/2025 COVID-19 Vaccine ( - season) 2025 01/26/2025, 07/12/2021, 12/11/2020, Additional history exists Influenza Adult (#1) 2025 06/16/2024, 10/14/2020, 09/10/2019 DTaP, Tdap and Td Vaccines (2 - Td or Tdap) 01/26/2035 01/26/2025 Hepatitis A Vaccines Aged Out 10/31/2023 No long er eligible based on patient's age to complete this topic Hepatitis C Completed 02/10/2025 Meningococcal B Vaccine Aged Out No l onger eligible based on patient's age to complete this topic Meningococcal Vaccine Aged Out No rupa daniel eligible based on patient's age to complete this topic RSV Immunizations Under 20 Months Aged Out No longer eligible based on patient's age to complete this topic Goals Goal Patient Goal Type Associated Problems Recent Progress Patient-Stated? Author Safety - demonstrates understanding of home safety measures General No Cammy Matta, RN Insurance [employer] Advance Directives * Full Code (Latest Code Status on File) Date Activated Date Inactivated Comments 03/23/2025 1:07 PM * Full Code Date Activated Date Inactivated Comments 01/01/2022 11:55 PM 01/04/2022 5:13 PM Care Teams [place] Opener Relationship Specialty Start Date End Date None, Provider, PCP - General 01/01/22
--- OUTSIDE RECORDS SUMMARY | 2025-07-14 18:09 | XMS_ITS | Encounter Summary ---
Author Organization [facility] Address [address] [facility] [place] [address] Care Team Providers Care Wound/Ostomy Nurse Name Role Phone Freda Neumann PA-C Primary Care Provider [phone] Encounter Details Date Type Department Care Team (Late st Contact Info) Description 10/17/2023 Telephone [facility] [address] [place] [address] Verito Lopez, SHANE/HENRIK Social History Tobacco Use Types Packs/Day Years Used Date Smoking Tobacco: Never Passive Smoke Exposure: Never Smokeless Tobacco: Never Alcohol Use Standard Drinks/Week Comments Not Currently 0 (1 standard drink = 0.6 oz pur e alcohol) Sex and Gender Information Value Date Recorded Sex Assigned at Male 08/22/2023 2:04 PM AGRICULTURAL MECHANIC Legal Sex Male 12:10 PM CDT Gender Identity Male 08/22/2023 2:04 PM AGRICULTURAL MECHANIC Sexual Orientation Straight 08/22/2023 2: 04 PM AGRICULTURAL MECHANIC documented as of this encounter Plan of Treatment Upcoming Encounters Date Type Department Care Team (Late st Contact Info) Description 07/16/2025 11:10 AM CDT Office Visit [facility] Care [id number] [place] [address], [address] [address] [place] [address] [facility] [address] [phone] 09/22/2025 8:30 AM AGRICULTURAL MECHANIC Office Visit [facility] - Nephrology [address] [place] [address], [place] [address] 09/23/2025 4:00 PM AGRICULTURAL MECHANIC Office Visit [facility] GI [address] [place] [address], [place] [address] Isak Padron III, MD [address] [place] [address] [address] [place] [phone] documented as of this encounter Visit Diagnoses Not on filedocumented in this encounter Additional Health Concerns Infection Onset Date Last Indicated Resolved Time COVID-19 Under Investigation 02/10/2025 02/10/2025 02/10/2025 10:57 AM CDT documented as of this encounter Care Teams Wound/Ostomy Nurse Relationship Specialty Start Date End Date Freda Neumann PA-C [address] [place] [phone] PCP - General 07/15/23 documented as of this encounter
--- OUTSIDE RECORDS SUMMARY | 2025-07-14 18:09 | XMS_ITS | Clinical Summary ---
Author Organization [facility] [place] Address [address] [place] [address] Care Team Providers Care Wildlife Conservation Officer Name Role Phone Unknown, Notinfile Primary Care Provider Unavail able Allergies No known active allergies Medications albuterol HFA (PROVENTIL HFA,VENTOLIN HFA,PROAIR HFA) 90 mcg/actuation inhaler Inhale 2 puffs every 4 (four) hours as needed 1 Active budesonide-form oteroL (SYMBICORT) 160-4.5 mcg/actuation inhaler Inhale 2 puffs 2 (two) times a day 2 Active carvediloL (COREG) 12.5 mg tablet Take 1 tablet (12.5 mg total) by mouth daily 90 tablet 2 Active Additional Information Patient not taking.Reported on 05/06/2023 atorvastatin (LIPITOR) 40 mg tablet TAKE 1 TABLET BY MOUTH EVERY DAY 30 tablet 11 2 Active Additional Information Patient not taking.Reported on 05/06/2023 hydrALAZINE (APRESOLINE) 100 mg tablet Take 1 tablet (100 mg total) by mouth daily 3 Active cholecalciferol (VITAMIN D-3) 5,000 unit tablet Take 1 tablet (5,000 Units total) by mouth daily Active omeprazole 20 mg tablet,delayed release (DR/EC) Take 1 tablet (20 mg total) by mouth daily Active amLODIPine (NORVASC) 10 mg tablet Take 1 tablet (10 mg total) by mouth daily 90 tablet 3 Active albuterol 2.5 mg /3 mL (0.083 %) nebulizer solution Take 3 mL (2.5 mg total) by nebulization every 8 (eight) hours as needed 3 Active doxazosin (CARDURA) 2 mg tablet Take 1 tablet (2 mg total) by mouth nightly 90 tablet 3 Active calcitRIOL (ROCALTROL) 0.25 mcg capsule Take 1 capsule (0.25 mcg total) by mouth daily Take 1 capsule (0.25 mcg total) by mouth 3 (three) times a week on Mondays, Wednesdays and Fridays. 90 capsule 3 Active Active Problems Problem Noted Date Diagnosed Date CKD (chronic kidney disease) stage 4, GFR 15-29 ml/min 05/27/2023 Assessment & Plan (05/27/2023 10:44 AM CDT): Patient is ambidextrous, utilizes left hand for writing. Would be a candidate for creation of right upper extremity AV fistula versus graft. After discussing options with the patient, he is not ready for scheduling anything at this point. Patient is obviously upset with the thought of having to initiate hemodialysis, and is worried about his employment status. As patient does not want to pursue any procedural or surgical intervention at this point, will hold on scheduling until he is comfortable. Patient to call the office to reschedule an appointment. End stage kidney disease 08/02/2022 Surgical History Surgery Date Site/Laterality Comments APPENDECTOMY Medical History Medical History Date Comments Asthma Hypertension Hypercholesterolemia CKD (chronic kidney disease) PKD (polycystic kidney disease) Sleep apnea Family History Medical History Relation Name Comments Asthma Brother Hypertension Brother Kidney disease Brother Alcohol abuse Father Cancer Father Diabetes Father Early Father Hypertension Father Arthritis Mother Depression Mother Diabetes Mother Hypertension Mother Kidney disease Mother Cancer Paternal Grandfather Alcohol abuse Paternal Grandmother Hypertension Sister Stroke Sister Relation Name Status Comments Brother Father Mother Paternal Grandfather Paternal Grandmother Sister Social History Tobacco Use Types Packs/Day Years Used Date Smoking Tobacco: Never Tobacco Cessation:Counseling Given: Not Answered AUDIT-C Answer Date Recorded Q1: How often do you have a drink containing alc ohol? 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 Gender Identity Not on file Sexual Orientation Not on file Obstetrics History Last Filed Vital Signs Vital Sign Reading Time Taken Comments Blood Pressure 178/103 06/07/2023 11:22 AM CDT Pulse 71 06/07/2023 11:22 AM CDT Temperature 36.6 C (97.8 F) 06/07/2023 11:22 AM CDT Respiratory Rate - - Oxygen Saturation 98% 05/27/2023 9:00 AM CDT Inhaled Oxygen Concentration - - Weight 131.5 kg (289 lb 12.8 oz) 2022 11:22 AM CDT Height 182.9 cm (6') 06/07/2023 11:22 AM CDT Body Mass Index 39.3 06/07/2023 11:22 AM CDT Plan of Treatment Health Maintenance Due Date Last Done Comments Depression Screening 1985 Hepatitis C Screening 1985 DTaP/Tdap/Td Vaccine (1 - Tdap) 1996 Varicella Vaccines (1 of 2 - 13+ 2-dose series) 1998 Hepatitis B Screening 2003 Regular Well Visit/Exam 18-64 2003 Pneumococcal vaccine <65 (1 of 2 - PCV) 2004 HPV Vaccines (1 - 3-dose SCDM series) 2012 Covid-19 Vaccine ( season) 2025 07/12/2021, 12/11/2020, 11/20/2020 Influenza Vaccine (#1) 2025 10/14/2020, 2018 Insurance [employer] [facility] Care Teams Wildlife Conservation Officer Relationship Specialty Start Date End Date Unknown, Notinfile PCP - General 08/02/22
--- OUTSIDE RECORDS SUMMARY | 2025-07-14 18:09 | XMS_ITS | Encounter Summary ---
Author Organization [facility] Address [address] [facility] [place] [address] Care Team Providers Care Tenter Name Role Phone Freda Neumann PA-C Primary Care Provider [phone] Reason for Visit * Reason Comments Kidney Transplant Follow-up Encounter Details Date Type Department Care Team (Late st Contact Info) Description 03/01/2025 Telephone [facility] [place] [address] [place] [address] Lizeth Valdez, RN Kidney Transplant Follow-up Social History Tobacco Use Types Packs/Day Years [...] and heating? Not hard at all 03/04/2025 [facility] of Occupat ional Health - Occupational Stress [...] place to sleep or slept in a retirement (including now)? No 12/23/2023 Housing Stability Vital Sign Answer David e Recorded In the last 12 months, was t here a time when you were not able to pay the mortgage or rent on time? No 03/04/2025 In the past 12 months, how m any times have you moved where you were living? 0 03/04/2025 At any time in the past 12 m [facility], were you homeless or living in a retirement (including now)? No 03/04/2025 Sex and Gender Information Value Date Recorded Sex Assigned at Male 08/22/2023 2:04 PM MEDICAL OFFICE ADMINISTRATOR Legal Sex Male 12:10 PM CDT Gender Identity Male 08/22/2023 2:04 PM MEDICAL OFFICE ADMINISTRATOR Sexual Orientation Straight 08/22/2023 2: 04 PM MEDICAL OFFICE ADMINISTRATOR documented as of this encounter Functional Status * Functional and Cognitive Status Question Answer Date of Assessment Author Is person deaf or have wyatt us hearing difficulty? No 03/04/2025 8:22 AM CDT Herminio Pineda RN Is person blind or have seri ous difficulty seeing? No 03/04/2025 8:22 AM CDT Herminio Pineda, RN Does person have serious difficulty walking/climbing stairs? No 03/04/2025 8:22 AM MEHREENT Herminio Pineda RN Does person have difficulty dressing/bathing? No 03/04/2025 8:22 AM MEHREENT Herminio Pineda RN Does person have difficulty doing errands alone? No 03/04/2025 8:22 AM MEHREENT Honorio Pineda RN Does person have difficulty concentrating/remembering/makin g decisions? No 03/04/2025 8:22 AM MEHREENT Herminio Pineda RN * Question Answer Date of Assessment Author Q1: How often do you have a drink containing alcohol? Never 03/04/2025 8:21 AM Evaristo Tolbert RN Q2: How many drinks containing alcohol do you have on a typical day when you are drinking? Patient does not drink 03/04/2025 8:21 AM Evaristo Tolbert RN Q3: How often do you have six or more drinks on one occasion? Never 03/04/2025 8:21 AM Evaristo Tolbert RN * AUDIT-C Score Answer Date of Assessment Author 0 03/04/2025 8:21 AM Evaristo Tolbert RN * Is person deaf or have serious hearing difficulty? Answer Date of Assessment Author No 02/23/2025 10:00 PM Orlando Velasco RN * Is person blind or have serious difficulty seeing? Answer Date of Assessment Author No 02/23/2025 10:00 PM Orlando Velasco RN * Does person have serious difficulty walking/climbing stairs? Answer Date of Assessment Author No 02/23/2025 10:00 PM Orlando Velasco RN * Does person have difficulty dressing/bathing? Answer Date of Assessment Author No 02/23/2025 10:00 PM Orlando Velasco RN * Does person have difficulty doing errands alone? Answer Date of Assessment Author No 02/23/2025 10:00 PM Orlando Velasco RN documented as of this encounter Mental Status * Does person have difficulty concentrating/remembering/making decisions? Answer Entry Date Author No 02/23/2025 10:00 PM CDT Orlando Kamara RN documented in this encounter Plan of Treatment Upcoming Encounters Date Type Department Care Team (Late st Contact Info) Description 07/16/2025 11:10 AM CDT Office Visit [facility] Heart & Vascular Care [address] [facility], [address] [place] [address] [place] [address] [facility] [address] [place] [phone] 09/22/2025 8:30 AM MEDICAL OFFICE ADMINISTRATOR [facility] Ne[facility] [address] [place] [address], [place] [phone] 09/23/2025 4:00 PM MEDICAL OFFICE ADMINISTRATOR Office Visit [facility] [address] [place] [address], [place] [phone] Isak Padron III, MD [address] [place] [address] [address] [phone] documented as of this encounter Goals Goal [...] on filedocumented in this encounter Care Teams Tenter Relationship Specialty Start Date End Date Freda Neumann PA-C [address] [phone] PCP - General 07/15/23 documented as of this encounter
--- OUTSIDE RECORDS SUMMARY | 2025-07-14 18:09 | XMS_ITS | Encounter Summary ---
Author Organization [facility] Address [address] [place] [address] Care Team Providers Care Pullman Car Repairer Name Role Phone Freda Neumann PA-C Primary Care Provider [phone] Reason for Visit * Reason Onset Date Comments MEDICATION REFILL 07/20/2024 Encounter Details Date Type Department Care Team (Late st Contact Info) Description 07/20/2024 Refill [facility] Nephrology [address] [place] [address], [place] [address] Darcy Nixon MD [address] [place] [address] [place] [address] MEDICATION REFILL Social History Tobacco Use Types Packs/Day Years Used Date Smoking Tobacco: Never Passive Smoke Exposure: Never Smokeless Tobacco: Never Alcohol Use Standard Drinks/Week Comments Not Currently 0 (1 standard drink = 0.6 oz pur e alcohol) AUDIT-C Answer Date Recorded Q1: How often do you have a drink containing alcohol? Never 12/23/2023 Q2: How many drinks containi ng alcohol do you have on a typical day when you are drinking? Patient does not drink Q3: How often do you have si x or more drinks on one occasion? Never 12/23/2023 [facility] of Occupat ional Health - Occupational Stress Questionnaire Answer Date Recorded Do you feel stress - tense, restless, nervous, or anxious, or unable to sleep at night because your mind is troubled all the time - these days? Not at all 12/23/2023 Hunger Vital Sign Answer Date Recorded Within the past 12 months, y ou worried that your food would run out before you got the money to buy more. Never true 12/23/19 24 Ran Out of Food in the Last Year Not on file 12/23/2023 PRAPARE - Transportation Answer Date Re corded In the past 12 months, has l ack of transportation kept you from medical appointments or from getting medications? No 04/2024 In the past 12 months, has l ack of transportation kept you from meetings, work, or from getting things needed for daily living? No 12/23/2023 Housing Stability Vital Sign Answer David e Recorded Unable to Pay for Housing in the Last Year Not o n file 12/23/2023 In the last 12 months, how many places have you lived? 1 12/23/2023 In the last 12 months, was t here a time when you did not have a steady place to sleep or slept in a senior living (including now)? No 12/23/2023 Sex and Gender Information Value Date Recorded Sex Assigned at Male 08/22/2023 2:04 PM CORPORATE ADMINISTRATIVE ASSISTANT Legal Sex Male 12:10 PM CDT Gender Identity Male 08/22/2023 2:04 PM CORPORATE ADMINISTRATIVE ASSISTANT Sexual Orientation Straight 08/22/2023 2: 04 PM CORPORATE ADMINISTRATIVE ASSISTANT documented as of this encounter Functional Status * Is person deaf or have serious hearing difficulty? Answer Date of Assessment Author No 12/23/2023 9:57 PM CDT Kashif Mcadams RN * Is person blind or have serious difficulty seeing? Answer Date of Assessment Author No 12/23/2023 9:57 PM CDT Kashif Mcadams RN * Does person have serious difficulty walking/climbing stairs? Answer Date of Assessment Author No 12/23/2023 9:57 PM MEHREENT Kashif Mcadams RN * Does person have difficulty dressing/bathing? Answer Date of Assessment Author No 12/23/2023 9:57 PM CDT Kashif Mcadams RN * Does person have difficulty doing errands alone? Answer Date of Assessment Author No 12/23/2023 9:57 PM MEHREENT Kashif Mcadams RN documented as of this encounter Mental Status * Does person have difficulty concentrating/remembering/making decisions? Answer Entry Date Author No 12/23/2023 9:57 PM CDT Kashif Mcadams, JOSEPHINE documented in this encounter Plan of Treatment Upcoming Encounters Date Type Department Care Team (Late st Contact Info) Description 07/16/2025 11:10 AM CDT Office Visit [facility] Heart & Vascular Care [address] [facility], [address] [place] [address] [place] [address] [facility] [address] [place] [address] 09/22/2025 8:30 AM CORPORATE ADMINISTRATIVE ASSISTANT Office Visit [facility] - Nephrology [address] [place] [phone] 09/23/2025 4:00 PM CORPORATE ADMINISTRATIVE ASSISTANT Office Visit [facility] - GI [address] [place] [phone] Isak Padron III, MD [address] [place] [address] [address] [place] [phone] documented as of this encounter Goals Goal Patient Goal Type Associated Problems Recent Progress Patient-Stated? Author Medication Management General On track( 025 3:36 PM CDT) No Mariya Maciel RN Note: Expected end date: Ongoing Interventions: [...] documented as of this encounter Care Teams Pullman Car Repairer Relationship Specialty Start Date End Date Freda Neumann PA-C [address] [place] [phone] PCP - General 07/15/23 documented as of this encounter
--- OUTSIDE RECORDS SUMMARY | 2025-07-14 18:09 | XMS_ITS | Encounter Summary ---
Author Organization [facility] Address [address] [place] [address] Care Team Providers Care Tufting Machine Operator Name Role Phone Unknown, Notinfgumaro Primary Care Provider Unavail able Encounter Details Date Type Department Care Team (Late st Contact Info) Description 08/28/2022 [facility]phone [facility] [address] [facility] [address] [place] [address] Chandler Chirinos MD [address] [place] [address] [place] [address] Social History Tobacco Use Types Packs/Day Years Used Date Smoking Tobacco: Never AUDIT-C Answer Date Recorded Q1: How often do you have a drink containing alcohol? Monthly or less 08/02/2022 Q2: How many drinks containi ng alcohol do you have on a typical day when you are drinking? Patient does not drink Q3: How often do you have si x or more drinks on one occasion? Never 08/02/2022 Sex and Gender Information Value Date Recorded Sex Assigned at Not on file Legal Sex Male 2:08 PM MOTORCYCLE DELIVERER Gender Identity Not on file Sexual Orientation Not on file documented as of this encounter Plan of Treatment Not on file documented as of this encounter Visit Diagnoses Not on filedocumented in this encounter Care Teams Tufting Machine Operator Relationship Specialty Start Date End Date Unknown, Koby PCP - General 08/02/22 documented as of this encounter
--- OUTSIDE RECORDS SUMMARY | 2025-07-14 18:09 | XMS_ITS | Encounter Summary ---
Author Organization [facility] Address [address] [facility] [place] [address] Care Team Providers Care Blueprint Reproducer Name Role Phone Freda Neumann PA-C Primary Care Provider [phone] Reason for Visit * Reason Onset Date Comments MEDICATION REFILL 12/14/2024 Encounter Details Date Type Department Care Team (Late st Contact Info) Description 12/14/2024 Refill [facility] Nephrology [address] [place] [address], [place] [address] Darcy Nixon MD [address] [place] [address] [place] [address] MEDICATION REFILL Social History Tobacco Use Types Packs/Day Years Used Date Smoking Tobacco: Never Passive Smoke Exposure: Never Smokeless Tobacco: Never Alcohol Use Standard Drinks/Week Comments Not Currently 0 (1 standard drink = 0.6 oz pur e alcohol) AUDIT-C Answer Date Recorded Q1: How often do you have a drink containing alcohol? Never 12/02/2024 Q2: How many drinks containi ng alcohol do you have on a typical day when you are drinking? Patient does not drink Q3: How often do you have si x or more drinks on one occasion? Never 12/02/2024 [facility] [place] of Occupat ional Health - Occupational Stress [...] place to sleep or slept in a residential (including now)? No 12/23/2023 Sex and Gender Information Value Date Recorded Sex Assigned at Male 08/22/2023 2:04 PM CASINO BEVERAGE SERVER Legal Sex Male 12:10 PM CDT Gender Identity Male 08/22/2023 2:04 PM CASINO BEVERAGE SERVER Sexual Orientation Straight 08/22/2023 2: 04 PM CASINO BEVERAGE SERVER documented as of this encounter Functional Status * Is person deaf or have serious hearing difficulty? Answer Date of Assessment Author No 12/02/2024 5:51 PM CDT Maureen Max RN * Is person blind or have serious difficulty seeing? Answer Date of Assessment Author No 12/02/2024 5:51 PM CDT Maureen Mxa RN * Does person have serious difficulty walking/climbing stairs? Answer Date of Assessment Author No 12/02/2024 5:51 PM CDT Maureen Max RN * Does person have difficulty dressing/bathing? Answer Date of Assessment Author No 12/02/2024 5:51 PM CDT Maureen Max, RN * Does person have difficulty doing errands alone? Answer Date of Assessment Author No 12/02/2024 5:51 PM CDT Maureen Max RN documented as of this encounter Mental Status * Does person have difficulty concentrating/remembering/making decisions? Answer Entry Date Author No 12/02/2024 5:51 PM CDT Maureen Max RN documented in this encounter Plan of Treatment Upcoming Encounters Date Type Department Care Team (Late st Contact Info) Description 07/16/2025 11:10 AM CDT Office Visit [facility] Heart & Vascular Care [address] [facility], [address] [place] [address] [place] [address] [facility] [address] [place] [phone] 09/22/2025 8:30 AM CASINO BEVERAGE SERVER Office Visit [facility] Nephrology [address] [place] [phone] 09/23/2025 4:00 PM CASINO BEVERAGE SERVER Office Visit [facility] [address] [place] [phone] Isak Padron III, MD [address] [place] [address] [address] [place] [phone] documented as of this encounter Goals Goal [...] documented as of this encounter Care Teams Blueprint Reproducer Relationship Specialty Start Date End Date Freda Neumann PA-C [address] [place] [phone] PCP - General 07/15/23 documented as of this encounter
--- OUTSIDE RECORDS SUMMARY | 2025-07-14 18:09 | XMS_ITS | Encounter Summary ---
Author Organization [facility] Address [address] [place] [address] Care Team Providers Care Paint Roller Assembler Name Role Phone Freda Neumann PA-C Primary Care Provider + [phone] Reason for Visit * Reason Comments Med Change Request Encounter Details Date Type Department Care Team (Late st Contact Info) Description 02/20/2025 Refill [facility] ACUTE [address] [place] [phone] Ike Singletary MD [address] [facility] [place] [address] Med Change Request Social History Tobacco Use Types Packs/Day Years Used Date Smoking Tobacco: Never Passive Smoke Exposure: Never Smokeless Tobacco: Never Alcohol Use Standard Drinks/Week Comments Not Currently 0 (1 standard drink = 0.6 oz pur e alcohol) AUDIT-C Answer Date Recorded Q1: How often do you have a drink containing alcohol? Never 02/23/2025 Q2: How many drinks containi ng alcohol do you have on a typical day when you are drinking? Patient does not drink Q3: How often do you have si x or more drinks on one occasion? Never 02/23/2025 Overall Financial Resource Strain (CARDIA) Answe r Date Recorded How hard is it for you to pa y for the very basics like food, housing, medical care, and heating? Not hard at all 02/23/2025 [facility] [place] of Occupat ional Health - Occupational Stress Questionnaire Answer Date Recorded Do you feel stress - tense, restless, nervous, or anxious, or unable to sleep at night because your mind is troubled all the time - these days? Not at all 02/23/2025 Hunger Vital Sign Answer Date Recorded Within the past 12 months, y ou worried that your food would run out before you got the money to buy more. Never true 02/24/20 25 Within the past 12 months, t he food you bought just didn't last and you didn't have money to get more. Never true 02/23/2025 PRAPARE - Transportation Answer Date Re corded In the past 12 months, has l ack of transportation kept you from medical appointments or from getting medications? No 02/14 In the past 12 months, has l ack of transportation kept you from meetings, work, or from getting things needed for daily living? No 02/23/2025 Housing Stability Vital Sign Answer David e Recorded Unable to Pay for Housing in the Last Year Not o n file 12/23/2023 In the last 12 months, how many places have you lived? 1 12/23/2023 In the last 12 months, was t here a time when you did not have a steady place to sleep or slept in a nursing home (including now)? No 12/23/2023 Housing Stability Vital Sign Answer David e Recorded In the last 12 months, was t here a time when you were not able to pay the mortgage or rent on time? No 02/23/2025 In the past 12 months, how m any times have you moved where you were living? 0 02/23/2025 At any time in the past 12 m [facility], were you homeless or living in a nursing home (including now)? No 02/23/2025 Sex and Gender Information Value Date Recorded Sex Assigned at Male 08/22/2023 2:04 PM KISS MACHINE OPERATOR Legal Sex Male 12:10 PM CDT Gender Identity Male 08/22/2023 2:04 PM KISS MACHINE OPERATOR Sexual Orientation Straight 08/22/2023 2: 04 PM KISS MACHINE OPERATOR documented as of this encounter Functional Status * Functional and Cognitive Status Question Answer Date of Assessment Author Is person deaf or have [place] us hearing difficulty? No 02/23/2025 10:00 PM CDT Orlando Kamara RN Is person blind or have seri ous difficulty seeing? No 02/23/2025 10:00 PM Orlando Velasco RN Does person have serious difficulty walking/climbing stairs? No 02/23/2025 10:00 PM Orlando Velasco RN Does person have difficulty dressing/bathing? No 02/23/2025 10:00 PM Orlando Velasco RN Does person have difficulty doing errands alone? No 02/23/2025 10:00 PM Orlando Velasco RN Does person have difficulty concentrating/remembering/making decisions? No 02/23/2025 10:00 PM Olrando Velasco RN * Question Answer Date of Assessment Author Q1: How often do you have a drink containing alcohol? Never 02/23/2025 11:48 AM Laure Paez R N Q2: How many drinks containing alcohol do you have on a typical day when you are drinking? Patient does not drink 02/23/2025 11:48 AM Laure Paez RN Q3: How often do you have six or more drinks on one occasion? Never 02/23/2025 11:48 AM Laure Paez R N * AUDIT-C Score Answer Date of Assessment Author 0 02/23/2025 11:48 AM Amy Paez RN * Is person deaf or have serious hearing difficulty? Answer Date of Assessment Author No 02/20/2025 1:00 PM Sherlyn Avila RN * Is person blind or have serious difficulty seeing? Answer Date of Assessment Author No 02/20/2025 1:00 PM Sherlyn Avila RN * Does person have serious difficulty walking/climbing stairs? Answer Date of Assessment Author No 02/20/2025 1:00 PM Sherlyn Avila RN * Does person have difficulty dressing/bathing? Answer Date of Assessment Author No 02/20/2025 1:00 PM Sherlyn Avila RN * Does person have difficulty doing errands alone? Answer Date of Assessment Author No 02/20/2025 1:00 PM Sherlyn Avila RN documented as of this encounter Mental Status * Does person have difficulty concentrating/remembering/making decisions? Answer Entry Date Author No 02/20/2025 1:00 PM CDT Sherlyn Nguyen, JOSEPHINE documented in this encounter Plan of Treatment Upcoming Encounters Date Type Department Care Team (Late st Contact Info) Description 07/16/2025 11:10 AM CDT Office Visit [facility] Heart [facility] V[facility] Care [address] [facility], [address] [place] [address] [place] [address] [facility] [address] [address] [place] [phone] 09/22/2025 8:30 AM KISS MACHINE OPERATOR [facility] - Nephrology [address] [place] [address], [place] [phone] 09/23/2025 4:00 PM KISS MACHINE OPERATOR [facility] - GI [address] [place] [address], [place] [phone] Isak Padron III, MD [address] [place] [address] [address] [place] [address] documented as of this encounter Goals Goal [...] on filedocumented in this encounter Care Teams Paint Roller Assembler Relationship Specialty Start Date End Date Freda Neumann PA-C [address] [place] [place] [phone] PCP - General 07/15/23 documented as of this encounter
--- OUTSIDE RECORDS SUMMARY | 2025-07-14 18:09 | XMS_ITS | Encounter Summary ---
Author Organization [facility] Address [address] [facility] [place] [address] Care Team Providers Care Supervisor Powdered Metal Name Role Phone Freda Neumann PA-C Primary Care Provider [phone] Reason for Visit * Reason Comments Refill Request Encounter Details Date Type Department Care Team (Late st Contact Info) Description 04/29/2024 Refill [facility] - Nephrology [address] [place] [address], [place] [address] Darcy Nixon MD [address] [place] [address] [place] [address] Refill Request Social History Tobacco Use Types Packs/Day [...] more drinks on one occasion? Never 12/23/2023 [facility] [place] of Occupat ional Health - Occupational Stress [...] to sleep or slept in a senior care (including now)? No 12/23/2023 Sex and Gender Information Value Date Recorded Sex Assigned at Male 08/22/2023 2:04 PM TECHNICAL PROPOSAL WRITER Legal Sex Male 12:10 PM CDT Gender Identity Male 08/22/2023 2:04 PM TECHNICAL PROPOSAL WRITER Sexual Orientation Straight 08/22/2023 2: 04 PM TECHNICAL PROPOSAL WRITER documented as of this encounter Functional Status [...] Description 07/16/2025 11:10 AM CDT Office Visit [facility] Heart & Vascular Care [address] [facility], [address] [place] [address] [place] [address] [facility] [address] [place] [phone] 09/22/2025 8:30 AM TECHNICAL PROPOSAL WRITER Office Visit [facility] - Nephrology [address] [place] [phone] 09/23/2025 4:00 PM TECHNICAL PROPOSAL WRITER Office Visit [facility] - GI [address] [place] [phone] Isak Padron III, MD [address] [place] [address] [address] [place] [phone] documented as of this encounter Goals Goal [...] documented as of this encounter Care Teams Supervisor Powdered Metal Relationship Specialty Start Date End Date Freda Neumann PA-C [address] [place] [phone] PCP - General 07/15/23 documented as of this encounter
--- OUTSIDE RECORDS SUMMARY | 2025-07-14 18:09 | XMS_ITS | Clinical Summary ---
Author Organization [facility] Address [address] [place] [address] Phone Care Team Providers Care Microarray Specialist Name Role Phone Antonia Bowie MD Primary Care Provider [phone] Allergies No known active allergies Medications albuterol HFA (PROVENTIL HFA) 108 (90 Base) MCG/ACT inhaler USE TWO PUFFS EVERY 4HR NEEDED 10/11/2020 Active atorvastatin (LIPITOR) 40 MG tablet TAKE 1 TABLET BY MOUTH EVERYDAY AT BEDTIME 10/19/2020 Active lisinopril-hydr oCHLOROthiazide (PRINZIDE) 20-12.5 MG per tablet Take 1 tablet by mouth 1 (one) time each day 10/14/2020 Active metoprolol succinate XL (TOPROL-XL) 100 MG 24 hr tablet TAKE 1 TABLET BY MOUTH EVERYDAY AT BEDTIME 10/14/2020 Active Active Problems Problem Noted Date Diagnosed Date Hypertensive disorder 12/29/2020 Hypercholesterolemia 12/29/2020 Asthma 12/29/2020 Stage 3b chronic kidney disease 11/14/2020 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 Immunizations Immunization Administration Dates Next Due Influenza TIV (IM) 10/14/2020 Family History Medical History Relation Comments Polycystic kidney disease, adult type Brother Polycystic kidney disease, adult type Mother Relation Status Comments Brother Mother Social History Tobacco Use Types Packs/Day Years Used Date Smoking Tobacco: Never Smokeless Tobacco: Never Alcohol Use Standard Drinks/Week Comments Yes 0 (1 standard drink = 0.6 oz pur e alcohol) rare Sex and Gender Information Value Date Recorded Sex Assigned at Not on file Legal Sex Male 2:00 PM MST Gender Identity Not on file Sexual Orientation Not on file Last Filed Vital Signs Vital Sign Reading Time Taken Comments Blood Pressure 122/78 11/14/2020 10:16 AM HAND ROUTER OPERATOR Pulse 72 11/14/2020 10:16 AM HAND ROUTER OPERATOR Temperature 36.6 C (97.8 F) 11/14/2020 10:16 AM HAND ROUTER OPERATOR Respiratory Rate - - Oxygen Saturation - - Inhaled Oxygen Concentration - - Weight 161 kg (355 lb) 11/14/2020 10:16 AM HAND ROUTER OPERATOR Height 182.9 cm (6') 11/14/2020 10:16 AM HAND ROUTER OPERATOR Body Mass Index 48.15 11/14/2020 10:16 AM HAND ROUTER OPERATOR Plan of Treatment Health Maintenance Due Date Last Done Comments Influenza Vaccine (#1) 2025 10/14/2020 Insurance [employer] MEDICAID Care Teams Microarray Specialist Relationship Specialty Start Date End Date Antonia Bowie MD [address] [place] [phone] PCP - General Family Medicine 10/20/20
--- OUTSIDE RECORDS SUMMARY | 2025-07-14 18:09 | XMS_ITS ---
Author Organization [facility] Address [address] [address] Care Team Providers Care Manager Monitoring Name Role Phone Freda Neumann PA-C Primary Care Provider [phone] Transplant Episode Kidney Recipient 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 Marked as Active Follow-up on 02/23/2025 Kidney CoordinatorBonita Wang RN Phone: N/A Fax: N/A Email: N/A [place] Organ Diagnosis Organ Primary Contributory Kidney Polycystic Kidneys Donor Information Organ ABO Source Meets Risk Criteria HLA Match Mismatches Cross Match Left Kidney Transplanted A Live No Non Match A: 1 B: 1 DR: 1 T cell (Negative, flow: -33) B cell (Negative, flow: -67) Left Kidney Donor Serology Results Anti-CMV No results on file EBV IgG No results on file Anti-HBcAb No results on file HBsAg No results on file HBV DNA No results on file Anti-HCV No results on file Anti-HIV I/II No results on file RPR/VDRL No results on file EBV IgM No results on file HBsAb No results on file Toxoplasm a No results on file SARS CoV-2 No results on file HIV DAVID No results on file HCV DAVID No results on file Care Team Name Role Phone Fax Email Bonita Wang RN Kidney Coordinator N/A N/A N/A Hellen Mccain Car Seat Upholsterer N/A N/A N/A Stella Samson LMSW Wind Turbine Mechanical Engineer [phone] N/A N/A Darcy Nixon MD Referring Physician [phone] N/A Events Post-Transplant Pre-Transplant Admitted: 02/23/2025 Referred: 08/22/2023 Transplanted: 02/23/2025 Evaluation began: 4 Discharged: 02/26/2025 Committee: 12/26/2023 Center waitlisted: 4 Dialysis History Dialysis History Start End Type Comments Center Peritoneal Dialysis [facility] Dialysis Center Information Center Phone Fax Address [facility] [phone] [place] [phone]
--- OUTSIDE RECORDS SUMMARY | 2025-07-14 18:10 | XMS_ITS ---
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 Ordering Clinician Indication Dosage Frequency Signature (SIG) Comments Components Mircera 5 15:56: 20 Yes [id number] Number of Repeats Allowed: Frequency: RAJ dosing, every three to four weeks Venofer 12-17 15:36: 07 Yes [id number] Number of Repeats Allowed: 5Frequency : Every Dialysis TreatmentD osesOrdere d: Loading Dose 200 Milligram Route: Intravenou s Problems This patient has no known problems. Procedures Procedure Date / Time Performed Performing Clinician Sarah ce Details PD Catheter 2024-12-02 05:00:00 Access Site Middle Quadrant (Lef t) Access Use Start Date 2024-12-14 05:00:0 0 DIALYSIS TREATMENT INFORMATION Conventional Hemodialysis Date Type Treatment Start Date Treatment End Date Pre-Treatment Vitals Post-Treatment Vitals Weight Gain BFR DFR Actual UF Dialysis Access February 23, 2025 [facility] February 22, 2025 [facility] February 21, 2025 [facility] February 20, 2025 [facility] February 11, 2025 [facility] February 10, 2025 [facility] February 09, 2025 [facility] February 08, 2025 [facility] February 07, 2025 [facility] February 06, 2025 [facility] February 05, 2025 [facility] BP Sitting (Pre-Dialysis) 125/76 mmHg BP Standing (Pre-Dialysis) 132/80 mmHg Sitting Heart Rate Pre-Dialysis 72 BPM Standing Heart Rate Pre-Dialysis 72 BPM Temperature Pre-Dialysis 98 degF Weight Pre-Dialysis 123.6 kg February 05, 2025 [facility] February 04, 2025 [facility] February 03, 2025 [facility] February 02, 2025 [facility] BP Sitting (Pre-Dialysis) 152/84 mmHg BP Standing (Pre-Dialysis) 127/76 mmHg Sitting Heart Rate Pre-Dialysis 73 BPM Standing Heart Rate Pre-Dialysis 76 BPM Temperature Pre-Dialysis 98 degF Weight Pre-Dialysis 123.3 kg February 02, 2025 [facility] February 01, 2025 [facility] January 31, 2025 [facility] January 30, 2025 [facility] January 29, 2025 [facility] January 28, 2025 [facility] January 27, 2025 [facility] January 26, [facility] January 24[facility] 2025 [facility] January 23, 2025 [facility] January 22, 2025 [facility] January 21, 2025 [facility] January 20, 2025 [facility] January 19, 2025 [facility] January 18, 2025 [facility] BP Sitting (Pre-Dialysis) 127/75 mmHg BP Standing (Pre-Dialysis) 92/69 mmHg Sitting Heart Rate Pre-Dialysis 70 BPM Standing Heart Rate Pre-Dialysis 83 BPM Temperature Pre-Dialysis 98.5 degF Weight Pre-Dialysis 116 kg January 18, 2025 [facility] January 17, 2025 [facility] January 16, 2025 [facility] January 15, 2025 [facility] January 14, 2025 [facility] January 13, 2025 [facility] January 12, 2025 [facility] January 11, 2025 [facility] January 10, 2025 [facility] January 09, 2025 [facility] January 08, 2025 [facility] January 07, 2025 [facility] January 05, 2025 [facility] January 04, 2025 [facility] January 03, 2025 [facility] January 02, 2025 [facility] January 01, 2025 [facility] Training BP Sitting (Pre-Dialysis) 148/63 mmHg BP Sitting (Post-Dialysi s) 139/70 mmHg Sitting Heart Rate Pre-Dialysis 88 BPM Sitting H eart Rate Post-Dialysis 89 BPM Temperature Pre-Dialysis 96.9 degF Temperature Post -Dialysis 96.9 degF Weight Pre-Dialysis 122.3 kg December 28, 2024 [facility] Training BP Sitting (Pre-Dialysis) 137/73 mmHg BP Sitting (Post-Dialysis) 143/77 mmHg BP Standing (Pre-Dialysis) 109/67 mmHg Sitting Heart Rate Post-Dialysis 74 BPM Sitting Heart Rate Pre-Dialysis 71 BPM Temperatu re Post-Dialysis 98 degF Standing Heart Rate Pre-Dialysis 71 BPM Temperature Pre-Dialysis 98.1 degF Weight Pre-Dialysis 123.2 kg December 23, 2024 [facility] Training BP Sitting (Pre-Dialysis) 154/88 mmHg BP Sitting (Post-Dialysis) 162/90 mmHg Sitting Heart Rate Pre-Dialysis 67 BPM Sitting H eart Rate Post-Dialysis 59 BPM Temperature Pre-Dialysis 97.5 degF Temperature Post -Dialysis 97.7 degF Weight Pre-Dialysis 123.1 kg December 21, 2024 [facility] Training BP Sitting (Pre-Dialysis) 145/89 mmHg BP Sitting (Post-Dialysis) 130/74 mmHg BP Standing (Pre-Dialysis) 116/74 mmHg Sitting Heart Rate Post-Dialysis 86 BPM Sitting Heart Rate Pre-Dialysis 83 BPM Temperatu re Post-Dialysis 98 degF Standing Heart Rate Pre-Dialysis 86 BPM Temperature Pre-Dialysis 98.1 degF Weight Pre-Dialysis 120.8 kg December 16, 2024 [facility] Training BP Sitting (Pre-Dialysis) 153/96 mmHg BP Sitting (Post-Dialysis) 151/91 mmHg BP Standing (Pre-Dialysis) 147/83 mmHg BP Standing (P ost-Dialysis) 131/91 mmHg Sitting Heart Rate Pre-Dialysis 80 BPM Sitting Heart Rate Post-Dialysis 61 BPM Standing Heart Rate Pre-Dialysis 82 BPM Standing Heart Rate Post-Dialysis 70 BPM Temperature Pre-Dialysis 98.9 degF Temperature Post -Dialysis 98.4 degF Weight Pre-Dialysis 120.3 kg December 15, 2024 [facility] Training BP Sitting (Pre-Dialysis) 138/89 mmHg BP Sitting (Post-Dialysis) 136/89 mmHg BP Standing (Pre-Dialysis) 146/78 mmHg Sitting Heart Rate Post-Dialysis 72 BPM Sitting Heart Rate Pre-Dialysis 71 BPM Temperatu re Post-Dialysis 98 degF Standing Heart Rate Pre-Dialysis 72 BPM Temperature Pre-Dialysis 97.8 degF Weight Pre-Dialysis 122 kg December 14, 2024 [facility] Training BP Sitting (Pre-Dialysis) 170/92 mmHg BP Sitting (Post-Dialysis) 156/97 mmHg BP Standing (Pre-Dialysis) 149/82 mmHg BP Standing (P ost-Dialysis) 145/90 mmHg Sitting Heart Rate Pre-Dialysis 70 BPM Sitting Heart Rate Post-Dialysis 62 BPM Standing Heart Rate Pre-Dialysis 70 BPM Standing Heart Rate Post-Dialysis 70 BPM Temperature Pre-Dialysis 97.2 degF Temperature Post -Dialysis 98 degF Weight Pre-Dialysis 122.2 kg Results Adequacy Description Draw Date Result/Unit Status Ref Range Result Comments Creatinine [Mass/volume] in Serum or Plasma 2025-02-19 04:59:59 12.06 F Creatinine [Mass/volume] in Serum or Plasma 2025-02-19 04:59:59 12.06 F BUN/CREAT 2025-01-19 23:08:18 5.3 Calc F 6.9-32.9 UREA CLR UR/BSA 2025-01-19 23:08:18 5.4 mL/min F 64.0-99.0 CRE CLR UR/BSA 2025-01-19 23:08:18 7 mL/min F 85.0-125.0 CRE CLR UR 2025-01-19 23:08:18 9 mL/min F 97.0-137.0 L/WK/1.73 RESID 2025-01-19 23:08:18 61.96 L/WK/B F L/WK/1.73 TOTAL 2025-01-19 23:08:18 87.87 L/WK/B F UREA CLR UR 2025-01-19 23:08:18 7.4 mL/min F L/WK PDF CC 2025-01-19 23:08:18 35.42 L/wk F L/WK/1.73 PDF 2025-01-19 23:08:18 25.91 L/WK/B F KT/V RESID (M) 2025-01-19 23:08:18 1.29 Kt/V F L/WK RESID CC 2025-01-19 23:08:18 84.7 L/wk F KT/V PDF (M) 2025-01-19 23:08:18 1.11 Kt/V F KT/V TOTAL (M) 2025-01-19 23:08:18 2.41 Kt/V F BUN/CREAT 2025-01-19 23:08:18 5.3 Calc F 6.9-32.9 UREA CLR UR/BSA 2025-01-19 23:08:18 5.4 mL/min F 64.0-99.0 CRE CLR UR/BSA 2025-01-19 23:08:18 7 mL/min F 85.0-125.0 CRE CLR UR 2025-01-19 23:08:18 9 mL/min F 97.0-137.0 L/WK/1.73 RESID 2025-01-19 23:08:18 61.96 L/WK/B F UREA CLR UR 2025-01-19 23:08:18 7.4 mL/min F KT/V RESID (M) 2025-01-19 23:08:18 1.29 Kt/V F L/WK PDF CC 2025-01-19 23:08:18 35.42 L/wk F L/WK/1.73 TOTAL 2025-01-19 23:08:18 87.87 L/WK/B F L/WK/1.73 PDF 2025-01-19 23:08:18 25.91 L/WK/B F L/WK RESID CC 2025-01-19 23:08:18 84.7 L/wk F KT/V TOTAL (M) 2025-01-19 23:08:18 2.41 Kt/V F KT/V PDF (M) 2025-01-19 23:08:18 1.11 Kt/V F Urea nitrogen [Mass/volume] in Serum or Plasma 2025-01-19 23:07:21 64 mg/dL F 9.0-23.0 Creatinine [Mass/volume] in Serum or Plasma 2025-01-19 23:07:21 12.19 mg/dL F 0.7-1.3 Urea nitrogen [Mass/volume] in Serum or Plasma 2025-01-19 23:07:21 64 mg/dL F 9.0-23.0 Creatinine [Mass/volume] in Serum or Plasma 2025-01-19 23:07:21 12.19 mg/dL F 0.7-1.3 Urea Gen Rate 2025-01-19 21:53:42 18.8 GM/D F NPCR PD MALE 2025-01-19 21:53:42 1 G/KG/D F PNA (PD) 2025-01-19 21:53:42 109.5 g/day F nPNA (PD MALE) 2025-01-19 21:53:42 1.11 G/KG/D F PCR PD MALE 2025-01-19 21:53:42 99 g/day F nPNA (PD MALE) 2025-01-19 21:53:42 1.11 G/KG/D F NPCR PD MALE 2025-01-19 21:53:42 1 G/KG/D F PNA (PD) 2025-01-19 21:53:42 109.5 g/day F PCR PD MALE 2025-01-19 21:53:42 99 g/day F Urea Gen Rate 2025-01-19 21:53:42 18.8 GM/D F Creatinine [Mass/volume] in Peritoneal dialysis fluid 2025-01-19 21:35:15 4.96 mg/dL F Urea nitrogen [Mass/volume] in Peritoneal fluid --24 hours post peritoneal dialysis 2025-01-19 21:35:15 47 mg/dL F Urea nitrogen [Mass/volume] in Peritoneal fluid --24 hours post peritoneal dialysis 2025-01-19 21:35:15 47 mg/dL F Creatinine [Mass/volume] in Peritoneal dialysis fluid 2025-01-19 21:35:15 4.96 mg/dL F Creatinine [Mass/volume] in Urine 2025-01-19 19:57:22 63.75 mg/dL F Urea nitrogen [Mass/volume] in Urine 2025-01-19 19:57:22 261 mg/dL F Creatinine [Mass/volume] in Urine 2025-01-19 19:57:22 63.75 mg/dL F Urea nitrogen [Mass/volume] in Urine 2025-01-19 19:57:22 261 mg/dL F TBW JOSÉ MIGUEL MALE 2025-01-19 13:40:32 57.38 Liters F BSA IRVING 2025-01-19 13:40:32 2.37 sq m F TBW JOSÉ MIGUEL MALE 2025-01-19 13:40:32 57.38 Liters F BSA IRVING 2025-01-19 13:40:32 2.37 sq m F PATIENT AGE 2025-01-18 18:31:22 39 Years F BODY WEIGHT (LBS) 2025-01-18 18:31:22 255.2 lbs F MINIMUM GOAL: KT/V PD 2025-01-18 18:31:22 1.7 F AMPUTATE FACTOR 2025-01-18 18:31:22 0 F TOTAL VOLUME-24 HR URINE 2025-01-18 18:31:22 2600 mL F COLLECTION TIME FOR URINE 2025-01-18 18:31:22 1440 min F HEIGHT IN INCHES 2025-01-18 18:31:22 72 Inches F Total Volume of EFFL/DIAL 2025-01-18 18:31:22 50735 mLs F Total Volume of EFFL/DIAL 2025-01-18 18:31:22 76162 mLs F HEIGHT IN INCHES 2025-01-18 18:31:22 72 Inches F AMPUTATE FACTOR 2025-01-18 18:31:22 0 F MINIMUM GOAL: KT/V PD 2025-01-18 18:31:22 1.7 F TOTAL VOLUME-24 HR URINE 2025-01-18 18:31:22 2600 mL F COLLECTION TIME FOR URINE 2025-01-18 18:31:22 1440 min F BODY WEIGHT (LBS) 2025-01-18 18:31:22 255.2 lbs F PATIENT AGE 2025-01-18 18:31:22 39 Years F L/WK PDF CC 2024-12-15 16:28:10 see comments F Unable to Calculate. KT/V RESID (M) 2024-12-15 16:28:10 0 Kt/V F L/WK/1.73 PDF 2024-12-15 16:28:10 see comments F Unable to Calculate. L/WK RESID CC 2024-12-15 16:28:10 0 L/wk F UREA CLR UR 2024-12-15 16:28:10 0 mL/min F L/WK/1.73 TOTAL 2024-12-15 16:28:10 see comments F Unable to Calculate. KT/V PDF (M) 2024-12-15 16:28:10 see comments F Unable to Calculate. KT/V TOTAL (M) 2024-12-15 16:28:10 see comments F Unable to Calculate. L/WK/1.73 RESID 2024-12-15 16:28:10 see comments F Unable to Calculate. BUN/CREAT 2024-12-15 16:28:10 7.4 Calc F 6.9-32.9 UREA CLR UR/BSA 2024-12-15 16:28:10 see comments F 64.0-99.0 Unable to Calculate. CRE CLR UR/BSA 2024-12-15 16:28:10 see comments F 85.0-125.0 Unable to Calculate. CRE CLR UR 2024-12-15 16:28:10 0 mL/min F 97.0-137.0 Creatinine [Mass/volume] in Serum or Plasma 2024-12-15 16:27:14 11.02 mg/dL F 0.7-1.3 Urea nitrogen [Mass/volume] in Serum or Plasma 2024-12-15 16:27:14 81 mg/dL F 9.0-23.0 NPCR PD MALE 2024-12-15 14:43:57 see comments F Unable to Calculate. PCR PD MALE 2024-12-15 14:43:57 see comments F Unable to Calculate. PNA (PD) 2024-12-15 14:43:57 see comments F Unable to Calculate. Urea Gen Rate 2024-12-15 14:43:57 see comments F Unable to Calculate. nPNA (PD MALE) 2024-12-15 14:43:57 see comments F Unable to Calculate. BSA IRVING 2024-12-15 14:43:57 0 sq m F TBW VALDEZ MALE 2024-12-15 14:43:57 18.38 Liters F COLLECTION TIME FOR URINE 2024-12-14 16:03:41 1440 min F MINIMUM GOAL: KT/V PD 2024-12-14 16:03:41 0 F BODY WEIGHT (LBS) 2024-12-14 16:03:41 0 lbs F PATIENT AGE 2024-12-14 16:03:41 39 Years F TOTAL VOLUME-24 HR URINE 2024-12-14 16:03:41 0 mL F HEIGHT IN INCHES 2024-12-14 16:03:41 72 Inches F Total Volume of EFFL/DIAL 2024-12-14 16:03:41 0 mLs F AMPUTATE FACTOR 2024-12-14 16:03:41 0 F Anemia Description Draw Date Result/Unit Status Ref Range Result Comments Ferritin [Mass/volume] in Serum or Plasma 2025-02-19 04:59:59 448 ng/mL F IRON SATURATION 2025-02-19 04:59:59 18 F Hemoglobin [Mass/volume] in Blood 2025-02-19 04:59:59 8.5 g/dL F Hemoglobin [Mass/volume] in Blood 2025-02-19 04:59:59 8.5 g/dL F IRON SATURATION 2025-02-19 04:59:59 18 F Ferritin [Mass/volume] in Serum or Plasma 2025-02-19 04:59:59 448 ng/mL F TIBC 2025-01-20 05:12:36 203 ug/dL F 250.0-425.0 IRON SATURATION 2025-01-20 05:12:36 10 % F 21.0-49.0 TIBC 2025-01-20 05:12:36 203 ug/dL F 250.0-425.0 IRON SATURATION 2025-01-20 05:12:36 10 % F 21.0-49.0 Iron [Mass/volume] in Serum or Plasma 2025-01-20 04:44:14 21 ug/dL F 65.0-175.0 Iron binding capacity.unsaturated [Mass/volume] in Serum or Plasma 2025-01-20 04:44:14 182 ug/dL F 75.0-360.0 Iron [Mass/volume] in Serum or Plasma 2025-01-20 04:44:14 21 ug/dL F 65.0-175.0 Iron binding capacity.unsaturated [Mass/volume] in Serum or Plasma 2025-01-20 04:44:14 182 ug/dL F 75.0-360.0 HCT CALC HGBX3 2025-01-20 03:04:14 29.4 % F 42.0-52.0 HCT CALC HGBX3 2025-01-20 03:04:14 29.4 % F 42.0-52.0 Reticulocytes/100 erythrocytes in Blood by Automated count 2025-01-20 01:59:30 1.22 % F 0.7-2.5 Reticulocytes/100 erythrocytes in Blood by Automated count 2025-01-20 01:59:30 1.22 % F 0.7-2.5 MCH [Entitic mass] by Automated count 2025-01-20 01:59:27 30.1 pg F 25.9-34.2 MCHC [Mass/volume] by Automated count 2025-01-20 01:59:27 29.9 g/dL F 29.6-35.3 Erythrocytes [#/volume] in Blood by Automated count 2025-01-20 01:59:27 3.24 x 10^6 cells/uL F 4.6-6.2 Hematocrit [Volume Fraction] of Blood by Automated count 2025-01-20 01:59:27 32.7 % F 41.0-53.0 MCV [Entitic volume] by Automated count 2025-01-20 01:59:27 100.9 fL F 80.0-100.0 Erythrocyte distribution width [Ratio] by Automated count 2025-01-20 01:59:27 14.5 % F 11.0-15.0 Hemoglobin [Mass/volume] in Blood 2025-01-20 01:59:27 9.8 g/dL F 14.0-18.0 Platelets [#/volume] in Blood by Automated count 2025-01-20 01:59:27 261 x 10^3 cells/uL F 140.0-450.0 MCH [Entitic mass] by Automated count 2025-01-20 01:59:27 30.1 pg F 25.9-34.2 MCHC [Mass/volume] by Automated count 2025-01-20 01:59:27 29.9 g/dL F 29.6-35.3 Erythrocytes [#/volume] in Blood by Automated count 2025-01-20 01:59:27 3.24 x 10^6 cells/uL F 4.6-6.2 Hematocrit [Volume Fraction] of Blood by Automated count 2025-01-20 01:59:27 32.7 % F 41.0-53.0 MCV [Entitic volume] by Automated count 2025-01-20 01:59:27 100.9 fL F 80.0-100.0 Erythrocyte distribution width [Ratio] by Automated count 2025-01-20 01:59:27 14.5 % F 11.0-15.0 Hemoglobin [Mass/volume] in Blood 2025-01-20 01:59:27 9.8 g/dL F 14.0-18.0 Platelets [#/volume] in Blood by Automated count 2025-01-20 01:59:27 261 x 10^3 cells/uL F 140.0-450.0 IRON SATURATION 2024-12-16 00:48:07 8 % F 21.0-49.0 TIBC 2024-12-16 00:48:07 193 ug/dL F 250.0-425.0 Iron [Mass/volume] in Serum or Plasma 2024-12-16 00:45:00 15 ug/dL F 65.0-175.0 Iron binding capacity.unsaturated [Mass/volume] in Serum or Plasma 2024-12-16 00:45:00 178 ug/dL F 75.0-360.0 Ferritin [Mass/volume] in Serum or Plasma 2024-12-15 19:47:25 175 ng/mL F 22.0-322.0 HCT CALC HGBX3 2024-12-15 14:03:50 22.2 % F 42.0-52.0 Erythrocyte distribution width [Ratio] by Automated count 2024-12-15 14:03:17 14.8 % F 11.0-15.0 Hemoglobin [Mass/volume] in Blood 2024-12-15 14:03:17 7.4 g/dL F 14.0-18.0 Platelets [#/volume] in Blood by Automated count 2024-12-15 14:03:17 236 x 10^3 cells/uL F 140.0-450.0 MCHC [Mass/volume] by Automated count 2024-12-15 14:03:17 30.7 g/dL F 29.6-35.3 Hematocrit [Volume Fraction] of Blood by Automated count 2024-12-15 14:03:17 24.2 % F 41.0-53.0 MCV [Entitic volume] by Automated count 2024-12-15 14:03:17 101 fL F 80.0-100.0 Reticulocytes/100 erythrocytes in Blood by Automated count 2024-12-15 14:03:16 1.52 % F 0.7-2.5 MCH [Entitic mass] by Automated count 2024-12-15 14:03:16 31 pg F 25.9-34.2 Erythrocytes [#/volume] in Blood by Automated count 2024-12-15 14:03:16 2.39 x 10^6 cells/uL F 4.6-6.2 FluidBP Description Draw Date Result/Unit Status Ref Range Result Comments Sodium [Moles/volume] in Serum or Plasma 2025-01-20 04:44:14 140 mEq/L F 132.0-146.0 Sodium [Moles/volume] in Serum or Plasma 2025-01-20 04:44:14 140 mEq/L F 132.0-146.0 Sodium [Moles/volume] in Serum or Plasma 2024-12-16 00:45:00 143 mEq/L F 132.0-146.0 General Description Draw Date Result/Unit Status Ref Range Result Comments Aspartate aminotransferase [Enzymatic activity/volume] in Serum or Plasma 2025-01-19 23:07:21 15 U/L F 0.0-33.0 Alanine aminotransferase [Enzymatic activity/volume] in Serum or Plasma 2025-01-19 23:07:21 10 U/L F 10.0-49.0 Aspartate aminotransferase [Enzymatic activity/volume] in Serum or Plasma 2025-01-19 23:07:21 15 U/L F 0.0-33.0 Alanine aminotransferase [Enzymatic activity/volume] in Serum or Plasma 2025-01-19 23:07:21 10 U/L F 10.0-49.0 MARI PD 2025-01-19 21:53:42 12.6 g/day F MARI PD 2025-01-19 21:53:42 12.6 g/day F Aluminum [Mass/volume] in Serum or Plasma 2024-12-15 17:56:16 10 ug/L F 0.0-9.0 Aspartate aminotransferase [Enzymatic activity/volume] in Serum or Plasma 2024-12-15 16:27:14 9 U/L F 0.0-33.0 Alanine aminotransferase [Enzymatic activity/volume] in Serum or Plasma 2024-12-15 16:27:14 9 U/L F 10.0-49.0 MARI PD 2024-12-15 14:43:57 see comments F Unable to Calculate. InfectionVaccination Description Draw Date Result/Unit Status Ref Range Result Comments Leukocytes [#/volume] in Blood by Automated count 2025-02-19 04:59:59 8.5 F Phosphate [Mass/volume] in Urine 2025-02-19 04:59:59 7.1 F Phosphate [Mass/volume] in Urine 2025-02-19 04:59:59 7.1 F Leukocytes [#/volume] in Blood by Automated count 2025-02-19 04:59:59 8.5 F Lymphocytes [#/volume] in Blood by Automated count 2025-01-20 01:59:30 1143 Cells/uL F 620.0-3660.0 Lymphocytes/100 leukocytes in Blood by Automated count 2025-01-20 01:59:30 19.4 % F Basophils [#/volume] in Blood by Automated count 2025-01-20 01:59:30 35 Cells/uL F 0.0-400.0 Eosinophils [#/volume] in Blood by Automated count 2025-01-20 01:59:30 171 Cells/uL F 0.0-700.0 Lymphocytes [#/volume] in Blood by Automated count 2025-01-20 01:59:30 1143 Cells/uL F 620.0-3660.0 Lymphocytes/100 leukocytes in Blood by Automated count 2025-01-20 01:59:30 19.4 % F Basophils [#/volume] in Blood by Automated count 2025-01-20 01:59:30 35 Cells/uL F 0.0-400.0 Eosinophils [#/volume] in Blood by Automated count 2025-01-20 01:59:30 171 Cells/uL F 0.0-700.0 Leukocytes [#/volume] in Blood by Automated count 2025-01-20 01:59:27 5.9 x 10^3 cells/uL F 4.0-11.0 Basophils/100 leukocytes in Blood by Automated count 2025-01-20 01:59:27 0.6 % F Eosinophils/100 leukocytes in Blood by Automated count 2025-01-20 01:59:27 2.9 % F Neutrophils/100 leukocytes in Blood by Automated count 2025-01-20 01:59:27 69 % F Monocytes/100 leukocytes in Blood by Automated count 2025-01-20 01:59:27 8.1 % F Monocytes [#/volume] in Blood by Automated count 2025-01-20 01:59:27 477 Cells/uL F 0.0-1100.0 Neutrophils [#/volume] in Blood by Automated count 2025-01-20 01:59:27 4064 Cells/uL F 2000.0-8800.0 Leukocytes [#/volume] in Blood by Automated count 2025-01-20 01:59:27 5.9 x 10^3 cells/uL F 4.0-11.0 Eosinophils/100 leukocytes in Blood by Automated count 2025-01-20 01:59:27 2.9 % F Basophils/100 leukocytes in Blood by Automated count 2025-01-20 01:59:27 0.6 % F Neutrophils/100 leukocytes in Blood by Automated count 2025-01-20 01:59:27 69 % F Monocytes/100 leukocytes in Blood by Automated count 2025-01-20 01:59:27 8.1 % F Monocytes [#/volume] in Blood by Automated count 2025-01-20 01:59:27 477 Cells/uL F 0.0-1100.0 Neutrophils [#/volume] in Blood by Automated count 2025-01-20 01:59:27 4064 Cells/uL F 2000.0-8800.0 Monocytes/100 leukocytes in Blood by Automated count 2024-12-15 14:03:17 5.7 % F Lymphocytes/100 leukocytes in Blood by Automated count 2024-12-15 14:03:17 17.4 % F Basophils/100 leukocytes in Blood by Automated count 2024-12-15 14:03:17 0.2 % F Eosinophils/100 leukocytes in Blood by Automated count 2024-12-15 14:03:17 3.9 % F Monocytes [#/volume] in Blood by Automated count 2024-12-15 14:03:17 409 Cells/uL F 0.0-1100.0 Basophils [#/volume] in Blood by Automated count 2024-12-15 14:03:17 14 Cells/uL F 0.0-400.0 Eosinophils [#/volume] in Blood by Automated count 2024-12-15 14:03:17 280 Cells/uL F 0.0-700.0 Leukocytes [#/volume] in Blood by Automated count 2024-12-15 14:03:17 7.2 x 10^3 cells/uL F 4.0-11.0 Lymphocytes [#/volume] in Blood by Automated count 2024-12-15 14:03:17 1248 Cells/uL F 620.0-3660.0 Neutrophils/100 leukocytes in Blood by Automated count 2024-12-15 14:03:16 72.7 % F Neutrophils [#/volume] in Blood by Automated count 2024-12-15 14:03:16 5213 Cells/uL F 2000.0-8800.0 MineralBone Disorder Description Draw Date Result/Unit Status Ref Range Result Comments CA CORRECTED 2025-01-20 05:14:14 9.2 mg/dL F CA CORRECTED 2025-01-20 05:14:14 9.2 mg/dL F CA/PHOS PRODUCT 2025-01-20 05:12:36 69 Calc F 21.0-53.0 CA*PO4 CORRCTD 2025-01-20 05:12:36 69 Calc F 21.0-53.0 CA*PO4 CORRCTD 2025-01-20 05:12:36 69 Calc F 21.0-53.0 CA/PHOS PRODUCT 2025-01-20 05:12:36 69 Calc F 21.0-53.0 Calcium [Mass/volume] in Serum or Plasma 2025-01-20 04:44:14 9.2 mg/dL F 8.7-10.4 Phosphate [Mass/volume] in Serum or Plasma 2025-01-20 04:44:14 7.5 mg/dL F 2.4-5.1 Calcium [Mass/volume] in Serum or Plasma 2025-01-20 04:44:14 9.2 mg/dL F 8.7-10.4 Phosphate [Mass/volume] in Serum or Plasma 2025-01-20 04:44:14 7.5 mg/dL F 2.4-5.1 Alkaline phosphatase [Enzymatic activity/volume] in Serum or Plasma 2025-01-19 23:07:21 48 U/L F 46.0-116.0 Magnesium [Mass/volume] in Serum or Plasma 2025-01-19 23:07:21 3.5 mg/dL F 1.3-2.7 Alkaline phosphatase [Enzymatic activity/volume] in Serum or Plasma 2025-01-19 23:07:21 48 U/L F 46.0-116.0 Magnesium [Mass/volume] in Serum or Plasma 2025-01-19 23:07:21 3.5 mg/dL F 1.3-2.7 Parathyrin.intact [Mass/volume] in Serum or Plasma 2025-01-19 13:39:18 F CANCELED - TEST CANCELED,CANCELED - TEST CANCELED Parathyrin.intact [Mass/volume] in Serum or Plasma 2025-01-19 13:39:18 F CANCELED - TEST CANCELED 25-Hydroxyvitamin D3+25-Hydroxyvitamin D2 [Mass/volume] in Serum or Plasma 2024-12-16 04:16:45 59.9 ng/mL F CA CORRECTED 2024-12-16 00:50:01 9 mg/dL F CA/PHOS PRODUCT 2024-12-16 00:48:07 50.7 Calc F 21.0-53.0 CA*PO4 CORRCTD 2024-12-16 00:48:07 51.2 Calc F 21.0-53.0 Phosphate [Mass/volume] in Serum or Plasma 2024-12-16 00:45:00 5.7 mg/dL F 2.4-5.1 Calcium [Mass/volume] in Serum or Plasma 2024-12-16 00:45:00 8.9 mg/dL F 8.7-10.4 Magnesium [Mass/volume] in Serum or Plasma 2024-12-15 16:27:14 2.8 mg/dL F 1.3-2.7 Alkaline phosphatase [Enzymatic activity/volume] in Serum or Plasma 2024-12-15 16:27:14 37 U/L F 46.0-116.0 Parathyrin.intact [Mass/volume] in Serum or Plasma 2024-12-15 15:04:20 417 pg/mL F 18.0-80.0 Nutrition Description Draw Date Result/Unit Status Ref Range Result Comments Potassium [Moles/volume] in Serum or Plasma 2025-02-19 04:59:59 3.9 F Potassium [Moles/volume] in Serum or Plasma 2025-02-19 04:59:59 3.9 F Potassium [Moles/volume] in Serum or Plasma 2025-01-20 04:44:14 4.3 mEq/L F 3.5-5.5 Potassium [Moles/volume] in Serum or Plasma 2025-01-20 04:44:14 4.3 mEq/L F 3.5-5.5 GLOBULIN 2025-01-19 23:08:18 2.1 g/dL F 0.9-5.0 A/G RATIO 2025-01-19 23:08:18 1.9 Calc F 1.0-2.5 GLOBULIN 2025-01-19 23:08:18 2.1 g/dL F 0.9-5.0 A/G RATIO 2025-01-19 23:08:18 1.9 Calc F 1.0-2.5 Albumin [Mass/volume] in Serum or Plasma by Bromocresol green (BCG) dye binding method 2025-01-19 23:07:21 4 g/dL F 3.4-4.8 Protein [Mass/volume] in Serum or Plasma 2025-01-19 23:07:21 6.1 g/dL F 5.7-8.2 Glucose [Mass/volume] in Serum or Plasma 2025-01-19 23:07:21 109 mg/dL F 70.0-99.0 Lactate dehydrogenase [Enzymatic activity/volume] in Serum or Plasma 2025-01-19 23:07:21 213 U/L F 120.0-246.0 Bicarbonate [Moles/volume] in Serum or Plasma 2025-01-19 23:07:21 26 mEq/L F 20.0-31.0 Albumin [Mass/volume] in Serum or Plasma by Bromocresol green (BCG) dye binding method 2025-01-19 23:07:21 4 g/dL F 3.4-4.8 Protein [Mass/volume] in Serum or Plasma 2025-01-19 23:07:21 6.1 g/dL F 5.7-8.2 Glucose [Mass/volume] in Serum or Plasma 2025-01-19 23:07:21 109 mg/dL F 70.0-99.0 Lactate dehydrogenase [Enzymatic activity/volume] in Serum or Plasma 2025-01-19 23:07:21 213 U/L F 120.0-246.0 Bicarbonate [Moles/volume] in Serum or Plasma 2025-01-19 23:07:21 26 mEq/L F 20.0-31.0 Potassium [Moles/volume] in Serum or Plasma 2024-12-16 00:45:00 4.6 mEq/L F 3.5-5.5 VLDL-CHOL(CALC) 2024-12-15 16:28:10 15 mg/dL F 0.0-29.0 LDL-CHOLESTEROL 2024-12-15 16:28:10 65 mg/dL F 0.0-99.0 GLOBULIN 2024-12-15 16:28:10 1.7 g/dL F 0.9-5.0 A/G RATIO 2024-12-15 16:28:10 2.3 Calc F 1.0-2.5 CHOL/HDL RATIO 2024-12-15 16:28:10 4.2 Calc F 3.3-5.0 Protein [Mass/volume] in Serum or Plasma 2024-12-15 16:27:14 77 mg/dL F 0.0-149.0 Cholesterol [Mass/volume] in Serum or Plasma 2024-12-15 16:27:14 105 mg/dL F 0.0-199.0 Lactate dehydrogenase [Enzymatic activity/volume] in Serum or Plasma 2024-12-15 16:27:14 134 U/L F 120.0-246.0 Bicarbonate [Moles/volume] in Serum or Plasma 2024-12-15 16:27:14 21 mEq/L F 20.0-31.0 Albumin [Mass/volume] in Serum or Plasma by Bromocresol green (BCG) dye binding method 2024-12-15 16:27:14 3.9 g/dL F 3.4-4.8 Cholesterol in HDL [Mass/volume] in Serum or Plasma 2024-12-15 16:27:14 25 mg/dL F 40.0-60.0 Protein [Mass/volume] in Serum or Plasma 2024-12-15 16:27:14 5.6 g/dL F 5.7-8.2 Glucose [Mass/volume] in Serum or Plasma 2024-12-15 16:27:14 118 mg/dL F 70.0-99.0 Encounters No encounter information to report Immunizations Ordered Immunization Name Filled Immunization Name Date Status Comments Refusal Reason Hep B, adult 2025-01-18 13:10:00 Influenza Vaccination 2024-06-16 05:00:00 Plan of Treatment Planned Activity Provider Planned Date Details Commen ts Diagnostic Test Pending Tono Narvaez 2024-12-10 06:31:06 Parathyrin.intact [Mass/volume] in Serum or Plasma [code = 2731-8] Diagnostic Test Pending Tono Narvaez 2024-12-09 18:35:05 25-Hydroxyvitamin D3+25-Hydroxyvitamin D2 [Mass/volume] in Serum or Plasma [code = 17721-4] Diagnostic Test Pending Tono Narvaez 2024-12-10 06:30:30 Alanine aminotransferase [Enzymatic activity/volume] in Serum or Plasma [code = 1742-6] Diagnostic Test Pending Tono Narvaez 2024-12-09 18:32:13 Aluminum [Mass/volume] in Serum or Plasma [code = 5574-9] Diagnostic Test Pending Tono Narvaez 2024-12-09 18:33:11 Glucose [Mass/volume] in Serum or Plasma [code = 2345-7] Diagnostic Test Pending Tono Narvaez 2024-12-09 18:34:44 Reticulocytes/100 erythrocytes in Blood by Automated count [code = 85581-2] Diagnostic Test Pending Tono Narvaez 2024-12-09 18:32:32 Ferritin [Mass/volume] in Serum or Plasma [code = 2276-4] Diagnostic Test Pending Tono Narvaez 2024-12-18 06:25:15 Hemoglobin [Mass/volume] in Blood [code = 718-7] Diet Order Tono Narvaez [facility] ([facility]) January 05, 2025 Diet Calorie 30 kcal/kg Fluid Value 1200 mL/d Phosphorus Value 1200 mg/d Potassium Value 2500 mg/d Protein Value 1.3 gm/kg Sodium Value 2000 mg/d Calculated Weight 91 kg
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
--- OUTSIDE RECORDS SUMMARY | 2025-07-14 21:07 | XMS_ITS | Encounter Summary ---
Author Organization [facility] Address [address] [place] [address] Care Team Providers Care Emergency Detail Driver Name Role Phone Freda Neumann PA-C Primary Care Provider [phone] Reason for Visit * Reason Comments Kidney Transplant Follow-up Encounter Details Date Type Department Care Team (Late st Contact Info) Description 03/01/[address] [facility] [address] [place] [address] Lizeth Valdez, RN Kidney Transplant [...] and heating? Not hard at all 03/04/2025 [facility] [place] of Occupat ional Health - Occupational Stress [...] place to sleep or slept in a correction (including now)? No 12/23/2023 Housing Stability Vital Sign Answer David e Recorded In the last 12 months, was t here a time when you were not able to pay the mortgage or rent on time? No 03/04/2025 In the past 12 months, how m any times have you moved where you were living? 0 03/04/2025 At any time in the past 12 m [facility], were you homeless or living in a correction (including now)? No 03/04/2025 Sex and Gender Information Value Date Recorded Sex Assigned at Male 08/22/2023 2:04 PM AUTO BODY REPAIR TECHNICIAN Legal Sex Male 12:10 PM CDT Gender Identity Male 08/22/2023 2:04 PM AUTO BODY REPAIR TECHNICIAN Sexual Orientation Straight 08/22/2023 2: 04 PM AUTO BODY REPAIR TECHNICIAN documented as of this encounter Functional Status [...] Description 07/16/2025 11:10 AM CDT Office Visit [facility] [address], [address] [place] [address] [place] [address] [address] [facility] [address] [place] [phone] 09/22/2025 8:30 AM AUTO BODY REPAIR TECHNICIAN [facility] [address] [place] [address], [place] [phone] 09/23/2025 4:00 PM AUTO BODY REPAIR TECHNICIAN [facility] GI [address] [place] [address], [place] [phone] Isak Padron III, MD [address] [place] [address] [address] [place] [phone] documented as of this encounter Goals Goal [...] on filedocumented in this encounter Care Teams Emergency Detail Driver Relationship Specialty Start Date End Date Freda Neuamnn PA-C [address] [place] [phone] PCP - General 07/15/23 documented as of this encounter
--- OUTSIDE RECORDS SUMMARY | 2025-07-14 21:07 | XMS_ITS | Encounter Summary ---
Author Organization [facility] Address [address] [facility] [place] [address] Care Team Providers Care Tracer Powder Blender Name Role Phone Freda Neumann PA-C Primary Care Provider [phone] Reason for Visit * Reason Comments Refill Request Encounter Details Date Type Department Care Team (Late st Contact Info) Description 04/29/2024 Refill [facility] - Nephrology [address] [place] [address], [place] [address] Darcy Nixon MD [address] [place] [address] [place] [address] Refill Request Social History Tobacco [...] more drinks on one occasion? Never 12/23/2023 [facility] of Occupat ional Health - Occupational Stress [...] Sex Assigned at Male 08/22/2023 2:04 PM DAIRY FARM WORKER Legal Sex Male 12:10 PM CDT Gender Identity Male 08/22/2023 2:04 PM DAIRY FARM WORKER Sexual Orientation Straight 08/22/2023 2: 04 PM DAIRY FARM WORKER documented as of this encounter Functional Status [...] Description 07/16/2025 11:10 AM CDT Office Visit [facility] [address], [address] [place] [address] [place] [address] [facility] [address] [place] [phone] 09/22/2025 8:30 AM DAIRY FARM WORKER Office Visit [facility] - Nephrology [address] [place] [phone] 09/23/2025 4:00 PM DAIRY FARM WORKER Office Visit [facility] - GI [address] [place] [phone] Isak Padron III, MD [address] [place] [address] [address] [place] [phone] documented as of this encounter Goals Goal [...] documented as of this encounter Care Teams Tracer Powder Blender Relationship Specialty Start Date End Date Freda Neumann PA-C [address] [place] [phone] PCP - General 07/15/23 documented as of this encounter
--- OUTSIDE RECORDS SUMMARY | 2025-07-14 21:07 | XMS_ITS | Encounter Summary ---
Author Organization [facility] Address [address] [facility] [place] [address] Care Team Providers Care Middle [employer] Spanish Teacher Name Role Phone Freda Neumann PA-C Primary Care Provider [phone] Encounter Details Date Type Department Care Team (Late st Contact Info) Description 03/08/2025 Telephone [facility] - Centralized Scheduling [address] [place] [address] Lucía Escoto MD [address] [place] [address] Social History Tobacco Use Types [...] and heating? Not hard at all 03/04/2025 [facility] [place] of Occupat ional Health - Occupational Stress [...] place to sleep or slept in a fpc (including now)? No 12/23/2023 Housing Stability Vital Sign Answer David e Recorded In the last 12 months, was t here a time when you were not able to pay the mortgage or rent on time? No 03/04/2025 In the past 12 months, how m any times have you moved where you were living? 0 03/04/2025 At any time in the past 12 m [facility], were you homeless or living in a fpc (including now)? No 03/04/2025 Sex and Gender Information Value Date Recorded Sex Assigned at Male 08/22/2023 2:04 PM DOMESTIC HELPER Legal Sex Male 12:10 PM CDT Gender Identity Male 08/22/2023 2:04 PM DOMESTIC HELPER Sexual Orientation Straight 08/22/2023 2: 04 PM DOMESTIC HELPER documented as of this encounter Functional Status [...] Description 07/16/2025 11:10 AM CDT Office Visit [facility] [address] [place] [address] [place] [address] [phone] 09/22/2025 8:30 AM DOMESTIC HELPER Office Visit [facility] - Nephrology [address] [place] [phone] 09/23/2025 4:00 PM DOMESTIC HELPER Office Visit [facility] GI [address] [place] [phone] Isak Padron III, MD [address] [place] [phone] documented as of this encounter Goals Goal [...] on filedocumented in this encounter Care Teams [employer] Spanish Teacher Relationship Specialty Start Date End Date Freda Neumann PA-C [address] [place] [phone] PCP - General 07/15/23 documented as of this encounter
--- OUTSIDE RECORDS SUMMARY | 2025-07-14 21:07 | XMS_ITS | Clinical Summary ---
Author Organization [facility] Address [address] [address] Care Team Providers Care Clother In Name Role Phone Freda Neumann PA-C Primary Care Provider [phone] [facility],non-owned Affiliates and Associated Physician Practices is amultiple site organization consisting of ambulatory clinics and hospital sitesin [place], [place], [place] and [place]. This disclosure is being madepursuant to the Care Everywhere program and may not contain all information available regarding this patient. Last updated 18.[facility] Allergies Active Allergy Reactions Criticality Noted Date [...] vitamin D, ergocalciferol , (Drisdol) 1.25 MG (93981 UT) capsule TAKE 1 (ONE) CAPSULE BY [...] Discontinued(T x Complete) ergocalciferol (Drisdol) 1.25 MG (70637 UT) capsule Take 1 (one) capsule by mouth every 7 days (once a week) 4 capsule 025 2024 Discontinued Active Problems Problem Noted Date Diagnosed Date Transplanted kidney 03/04/2025 SOB (shortness of breath) 03/04/2025 Atrial fibrillation with RVR 03/04/2025 Other supraventricular tachycardia 03/04/2025 Living-donor kidney transpla nt recipient, s/p LUR-TXP on 02/23/25 02/24/2025 Overview (04/05/2025): Referring Physician: Transplant Date: 02/23/2025 Donor: [place] ID: [id number] Criteria: LURD KDPI: CMV D-/R- EBV D+/R+ [...] type, unspecified whether angina present, unspecified whether [place] or transplanted heart 12/23/2023 Adrenal nodule 11/26/2023 Primary hyperaldosteronism 11/26/2023 Pre-transplant evaluation for kidney transplant 10/24/2023 Overview (02/23/2025): Images from the original note were not included. Migel Elena 1985 Referring Shell Mold Bonder: Darcy Nixon Listing Date: 02/14/2024 Dialysis Info: Type: Time: NOD GFR from 10/17/23 was 9 Blood Type: A POS BMI: 35.7 (down from December) wt loss goal 265lbs ALERTS: Police Justice: n/a CKD V 2/2 PKD Past Medical [...] No Stress: No Stress Concern Present (12/23/2023) [place] [employer] - Occupational Stress Questionnaire [...] low GFR he was discussed with his Shell Mold Bonder Dr Nixon who wants him start Peritoneal [...] have additionally discussed his case with his lay midwife. He is presenting for discussion of major elective surgery (kidney transplant) with identified risk factors of obesity, hypertension and for a PD catheter placement. Eduardo Ascecnio MD retail experience specialist Transplant Surgery Clinic Appt w/: Dr. Ascencio [...] space for allograft -> No need for [place] kidney nephrectomy - Fatigue and mild abdominal [...] pain -Hematuria: Microscobic -Infection: No -Stones: No -HIDE WORKER symptoms/history: No -Cardiac symptoms/history: No Patient reports [...] - Water Drinking - Ketogenic Diet - Wrapper Layer consult can be helpful - Cholesterol -> [...] with PMH below, who presents to the [facility] endocrine clinic today foradrenal nodule. 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 Per chart review, he had normal adrenal CT and MRI 2021 ([facility]) His adrenal hormone work up, neg [...] : 2 Months Pertinent Previous Committee Presentations: [facility] note: 12/26/2023 Induction Method: Immunosuppression Induction Method/Plan: Antithymocyte globulin (rabbit) (Thymoglobulin) 3 mg/kg Committee Discussion Details: Pt's case presented at [facility] today for approval to list. HH and [...] Wallace Soliz MD Sent: 10/25/2023 10:03 AM PLUMBING AND HEATING CONTRACTOR To: Gabbie Del Real RN No I think this looks fine, lead placement. Thanks! ----- Message ----- From: Gabbie Del Real RN Sent: 10/24/2023 8:12 PM PLUMBING AND HEATING CONTRACTOR To: Wallace Soliz MD [facility], How are you? Can you take a [...] systolic function seen with peak dobutamine infusion. [facility]: 12/24/2023 (d/t positive stress test) Coronary Findings [...] P2 and P2 segment of the right BIOINFORMATICS TECHNICIAN bilateral posterior cerebral arteries otherwise appear patent. [...] It is the impression of this social service agency director that Migel Elena has several positive factors for Kidney transplant candidacy from a psychosocial perspective. Patient appears to have appropriate knowledge of illness. Patient has sufficient insurance coverage and stable financial situation for post transplant needs. No concerns regarding substance abuse, legal issues, or mental health needs. Patient has adequate support system and appropriate discharge plan. Plan: ventilation worker to provide supportive services as needed. Patient remains a reasonable candidate for transplant from a psychosocial perspective. Psychiatric Consult Recommended: No Transplant Machine Cloth Measurer: Stella Samson LMSW Abdominal Transplant Machine Cloth Measurer [phone] Neuropsych: 12/11/2023 I have reviewed history, symptoms, [...] currently is good spirits. MODALITY: gather hx, ND, CBT PT DISPOSITION END OF SESSION: Optimistic. [...] regularly scheduled supervisory meetings. Karla Solis, PH.D., [facility] 11/28/2023 Patient was seen in-person in clinic [...] who is the living donor coordinator at [facility]. He also has really good core buddies who he has known since childhood. 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 Regarding pain, Pt is mostly concerned with [...] mood changes as trigger. MODALITY: gather hx, ND, CBT PT DISPOSITION END OF SESSION: Optimistic. Pt open to process of therapy. RTC in 2 weeks. FARMWORKER ANIMAL forms: Transplant Caregiver Confirmation Note Caregiver Confirmation Date Primary Name of Primary: Bertin Ch Relationship: Significant Other - Confirmed during initial assessment - FARMWORKER ANIMAL form received on 12.04.23 Secondary Name of Secondary: Monet Ch Relationship: friend - FARMWORKER ANIMAL form received on 12.04.23 - Confirmed via [...] Type Department Care Team Description 07/08/2025 Refill [facility] [address] [place] [phone] Darcy Nixon MD Med Change Request 07/07/2025 8:30 AM CDT Office Visit [facility] - Nephrology [address] [place] [phone] Unknown, Unknown Long-term use of immunosuppressant medication (Primary Dx); Primary hypertension; Primary hyperaldosteronism (HCC); 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, s/p LUR-TXP on 02/23/25; Chronic kidney disease-mineral and bone disorder; Vitamin D deficiency; Anemia in stage 2 chronic kidney disease; Secondary hyperparathyroidism (HCC) 07/07/2025 7:35 AM CDT - 07/07/2025 11:59 PM CDT Hospital Encounter [facility] [address] [place] [address] Unknown, Unknown Eduardo Ascencio MD Discharge Disposition: Home or Self Care 07/07/2025 Travel 07/01/2025 Orders Only [facility] [address] [place] [phone] Bonita Wang RN 06/24/2025 Refill [facility] [address] [place] [phone] Eduardo Ascencio MD Refill Request 06/17/2025 Telephone [facility] [address] [place] [phone] Bonita Wang RN Kidney Transplant Follow-up 06/16/2025 7:08 AM CDT - 06/16/2025 11:59 PM CDT Hospital Encounter [facility] [address] [place] [phone] Unknown, Unknown Discharge Disposition: Home or Self Care 06/16/2025 Travel 06/15/2025 Orders Only [facility] [address] [place] [phone] Bonita Wang RN 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 (HCC) ; History of immunosuppression; nursing home (current) use of other immunomodulators and immunosuppressants; Hypomagnesemia; Hypertension, unspecified type; PKD (polycystic kidney disease); Anemia due to chronic kidney disease, unspecified CKD stage; At risk of UTI; At risk for rejection of transplanted organ; Encounter for screening for viral disease; Chronic kidney disease-mineral and bone disorder (CKD-MBD) 06/14/2025 Orders Only [facility] [address] [place] [address] Bonita Wang RN 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 (HCC) ; History of immunosuppression; rn long term care (current) use of other immunomodulators and immunosuppressants; Hypomagnesemia; Hypertension, unspecified type; PKD (polycystic kidney disease); Anemia due to chronic kidney disease, unspecified CKD stage; At risk of UTI; At risk for rejection of transplanted organ; Encounter for screening for viral disease; Chronic kidney disease-mineral and bone disorder (CKD-MBD) 06/12/2025 Refill [facility] [address] [place] [address] Eduardo Ascencio MD Refill Request 06/02/2025 3:30 PM CDT Office Visit [facility] - [address] [phone] Isak Padron III, MD Class 2 severe obesity with serious comorbidity and body mass index (BMI) of 39.0 to 39.9 in adult, unspecified obesity type (HCC) (Primary Dx) 06/02/2025 Travel 05/28/2025 Telephone [facility] [address] [place] [phone] Bonita Wang RN Kidney Transplant Follow-up 05/27/2025 6:56 AM CDT - 05/27/2025 11:59 PM CDT Hospital Encounter [facility] [address] [place] [phone] Discharge Disposition: Home or Self Care 05/27/2025 Travel 05/11/2025 7:10 AM CDT - 05/11/2025 11:59 PM CDT Hospital Encounter [facility] [address] [place] [phone] Eduardo Ascencio MD Discharge Disposition: Home or Self Care 05/11/2025 Travel 05/11/2025 Refill [facility] [address] [place] [phone] Eduardo Ascencio MD Refill Request 04/28/2025 Telephone [facility] [address] [place] [phone] Bonita Wang RN Kidney Transplant Follow-up 04/27/2025 7:20 AM CDT - 04/27/2025 11:59 PM CDT Hospital Encounter [facility] [address] [place] [phone] Discharge Disposition: Home or Self Care 04/27/2025 Travel 04/26/2025 Orders Only [facility] [address] [place] [phone] Bonita Wang RN 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 (HCC) ; nursing home (current) use of other immunomodulators and immunosuppressants; Hypomagnesemia; Hypertension, unspecified type; PKD (polycystic kidney disease); Anemia due to chronic kidney disease, unspecified CKD stage; At risk of UTI; At risk for rejection of transplanted organ; Encounter for screening for viral disease; Prophylactic immunotherapy; Low magnesium level; Low serum phosphate; Encounter for monitoring tacrolimus therapy 04/16/2025 Refill [facility] [address] [address] [place] [phone] Eduardo Ascencio MD Med Change Request 04/15/2025 Telephone [facility] [address] [place] [phone] Bonita Wang RN Kidney Transplant Follow-up 04/14/2025 9:10 AM CDT Office Visit [facility] - Nephrology [address] [place] [phone] Darcy Nixon MD 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, s/p LUR-TXP on 02/23/25 (Primary Dx); History of immunosuppression; ADPKD (autosomal dominant polycystic kidney disease); Pneumonia of right lung due to infectious organism, unspecified part of lung; Transplanted kidney (HCC); Hypercholesterolemia; Secondary hyperparathyroidism (HCC) 04/14/2025 7:40 AM CDT - 04/14/2025 11:59 PM CDT Hospital Encounter [facility] [address] [place] [phone] Discharge Disposition: Home or Self Care 04/14/2025 [...] Recorded Patient Health Questionnaire-2 Score 0 03/31/2025 [place] [employer] Occup[employer] ional Health - Occupational Stress [...] place to sleep or slept in a half-way (including now)? No 12/23/2023 Housing Stability Vital Sign Answer David e Recorded In the last 12 months, was t here a time when you were not able to pay the mortgage or rent on time? No 03/04/2025 In the past 12 months, how m any times have you moved where you were living? 0 03/04/2025 At any time in the past 12 m [facility], were you homeless or living in a half-way (including now)? No 03/04/2025 Sex and Gender Information Value Date Recorded Sex Assigned at Male 08/22/2023 2:04 PM PLUMBING AND HEATING CONTRACTOR Legal Sex Male 12:10 PM CDT Gender Identity Male 08/22/2023 2:04 PM PLUMBING AND HEATING CONTRACTOR Sexual Orientation Straight 08/22/2023 2: 04 PM PLUMBING AND HEATING CONTRACTOR Last Filed Vital Signs Vital Sign Reading [...] Description 07/16/2025 11:10 AM CDT Office Visit [facility] Heart [facility] Vascular Care [address], [address] [place] [address] [place] [address] [facility] [address] [place] [phone] 09/22/2025 8:30 AM PLUMBING AND HEATING CONTRACTOR Office Visit [facility] - Nephrology [address] [place] [address], [place] [phone] 09/23/2025 4:00 PM PLUMBING AND HEATING CONTRACTOR Office Visit [facility] - GI [address] [place] [address], [place] [phone] Isak Padron III, MD [address] [place] [address] [address] [place] [phone] Health Maintenance Due Date Last Done Comments [...] last dose Medical Devices Implanted Type Area Apparatus Engineering Technologist Device Identifier Shelf Expiration Date Model / Serial / Lot Stent Uret 6fr 12cm 100cm .028in 1 [facility] - [id number] Implanted:Qty: 1 on 02/23/2025 by Eduardo Ascencio MD at [facility] Right: [employer] 11/28/2029 [id number] / [id number] / [id number] Procedures Procedure Name Priority Date/Time Associated Diagnosis [...] 7:37 AM CDT 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 ([facility]) Hypertension, unspecified type PKD (polycystic kidney disease) Anemia due to chronic kidney disease, unspecified CKD stage At risk of UTI At risk for rejection of transplanted organ Encounter for screening for viral disease Low magnesium level Low serum phosphate Encounter for monitoring tacrolimus therapy TACROLIMUS LEVEL Routine 07/07/2025 7:37 AM CDT 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 ([facility]) Hypertension, unspecified type PKD (polycystic kidney disease) Anemia due to chronic kidney disease, unspecified CKD stage At risk of UTI At risk for rejection of transplanted organ Encounter for screening for viral disease Low magnesium level Low serum phosphate Encounter for monitoring tacrolimus therapy CYTOMEGALOVIRUS (CMV) QUANTITATIVE PLASMA Routine 07/07/2025 7:37 AM CDT 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 ([facility]) rn long term care (current) use of other immunomodulators and immunosuppressants Hypomagnesemia Hypertension, unspecified type PKD (polycystic kidney disease) Anemia due to chronic kidney disease, unspecified CKD stage At risk of UTI At risk for rejection of transplanted organ Encounter for screening for viral disease BK VIRUS PCR QUANT BLOOD STL Routine 07/07/2025 7:37 AM CDT 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 ([facility]) rn long term care (current) use of other immunomodulators and immunosuppressants Hypomagnesemia Hypertension, unspecified type PKD (polycystic kidney disease) Anemia due to chronic kidney disease, unspecified CKD stage At risk of UTI At risk for rejection of transplanted organ Encounter for screening for viral disease VITAMIN D 25-HYDROXY Routine 06/16/2025 7:19 AM CDT 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 ([facility]) History of immunosuppression nursing home (current) use of other immunomodulators and immunosuppressants Hypomagnesemia Hypertension, unspecified type PKD (polycystic kidney disease) Anemia due to chronic kidney disease, unspecified CKD stage At risk of UTI At risk for rejection of transplanted organ Encounter for screening for viral disease Chronic kidney disease-mineral and bone disorder (CKD-MBD) URIC ACID BLOOD Routine 06/16/2025 7:19 AM CDT 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 ([facility]) History of immunosuppression rn long term care (current) use of other immunomodulators and immunosuppressants Hypomagnesemia Hypertension, unspecified type PKD (polycystic kidney disease) Anemia due to chronic kidney disease, unspecified CKD stage At risk of UTI At risk for rejection of transplanted organ Encounter for screening for viral disease Chronic kidney disease-mineral and bone disorder (CKD-MBD) PTH INTACT W/O CALCIUM Routine 7:19 AM CDT 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 ([facility]) History of immunosuppression rn long term care (current) use of other immunomodulators and immunosuppressants Hypomagnesemia Hypertension, unspecified type PKD (polycystic kidney disease) Anemia due to chronic kidney disease, unspecified CKD stage At risk of UTI At risk for rejection of transplanted organ Encounter for screening for viral disease Chronic kidney disease-mineral and bone disorder (CKD-MBD) LIPID PROFILE Routine 06/16/2025 7:19 AM CDT 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 ([facility]) History of immunosuppression nursing home (current) use of other immunomodulators and immunosuppressants Hypomagnesemia Hypertension, unspecified type PKD (polycystic kidney disease) Anemia due to chronic kidney disease, unspecified CKD stage At risk of UTI At risk for rejection of transplanted organ Encounter for screening for viral disease Chronic kidney disease-mineral and bone disorder (CKD-MBD) IRON + TRANSFERRIN PANEL Routine 06/16/2025 7:19 AM CDT 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 ([facility]) History of immunosuppression rn long term care (current) use of other immunomodulators and immunosuppressants Hypomagnesemia Hypertension, unspecified type PKD (polycystic kidney disease) Anemia due to chronic kidney disease, unspecified CKD stage At risk of UTI At risk for rejection of transplanted organ Encounter for screening for viral disease Chronic kidney disease-mineral and bone disorder (CKD-MBD) HEMOGLOBIN A1C Routine 06/16/2025 7:19 AM CDT 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 ([facility]) History of immunosuppression nursing home (current) use of other immunomodulators and immunosuppressants Hypomagnesemia Hypertension, unspecified type PKD (polycystic kidney disease) Anemia due to chronic kidney disease, unspecified CKD stage At risk of UTI At risk for rejection of transplanted organ Encounter for screening for viral disease Chronic kidney disease-mineral and bone disorder (CKD-MBD) FERRITIN Routine 06/16/2025 7:19 AM CDT 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 ([facility]) History of immunosuppression nursing home (current) use of other immunomodulators and immunosuppressants Hypomagnesemia Hypertension, unspecified type PKD (polycystic kidney disease) Anemia due to chronic kidney disease, unspecified CKD stage At risk of UTI At risk for rejection of transplanted organ Encounter for screening for viral disease Chronic kidney disease-mineral and bone disorder (CKD-MBD) CREATININE URINE RANDOM Routine 06/16/2025 7:19 AM CDT 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 ([facility]) Hypertension, unspecified type PKD (polycystic kidney disease) Anemia due to chronic kidney disease, unspecified CKD stage At risk of UTI At risk for rejection of transplanted organ Encounter for screening for viral disease Low magnesium level Low serum phosphate Encounter for monitoring tacrolimus therapy PROTEIN URINE RANDOM QUANTITATIVE Routine 06/16/2025 7:19 AM CDT 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 ([facility]) Hypertension, unspecified type PKD (polycystic kidney disease) Anemia due to chronic kidney disease, unspecified CKD stage At risk of UTI At risk for rejection of transplanted organ Encounter for screening for viral disease Low magnesium level Low serum phosphate Encounter for monitoring tacrolimus therapy URINALYSIS W/MICROSCOPIC NO CULTURE Routine 06/16/2025 7:19 AM CDT 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 ([facility]) Hypertension, unspecified type PKD (polycystic kidney disease) Anemia due to chronic kidney disease, unspecified CKD stage At risk of UTI At risk for rejection of transplanted organ Encounter for screening for viral disease Low magnesium level Low serum phosphate Encounter for monitoring tacrolimus therapy PHOSPHORUS BLOOD Routine 06/16/2025 7:19 AM CDT 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 ([facility]) Hypertension, unspecified type PKD (polycystic kidney disease) [...] 7:19 AM CDT 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 ([facility]) Hypertension, unspecified type PKD (polycystic kidney disease) Anemia due to chronic kidney disease, unspecified CKD stage At risk of UTI At risk for rejection of transplanted organ Encounter for screening for viral disease Low magnesium level Low serum phosphate Encounter for monitoring tacrolimus therapy CBC W AUTO DIFFERENTIAL Routine 06/16/2025 7:19 AM CDT 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 ([facility]) Hypertension, unspecified type PKD (polycystic kidney disease) Anemia due to chronic kidney disease, unspecified CKD stage At risk of UTI At risk for rejection of transplanted organ Encounter for screening for viral disease Low magnesium level Low serum phosphate Encounter for monitoring tacrolimus therapy TACROLIMUS LEVEL Routine 06/16/2025 7:19 AM CDT 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 ([facility]) Hypertension, unspecified type PKD (polycystic kidney disease) Anemia due to chronic kidney disease, unspecified CKD stage At risk of UTI At risk for rejection of transplanted organ Encounter for screening for viral disease Low magnesium level Low serum phosphate Encounter for monitoring tacrolimus therapy CYTOMEGALOVIRUS (CMV) QUANTITATIVE PLASMA Routine 06/16/2025 7:19 AM CDT 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 ([facility]) nursing home (current) use of other immunomodulators and immunosuppressants Hypomagnesemia Hypertension, unspecified type PKD (polycystic kidney disease) Anemia due to chronic kidney disease, unspecified CKD stage At risk of UTI At risk for rejection of transplanted organ Encounter for screening for viral disease BK VIRUS PCR QUANT BLOOD STL Routine 06/16/2025 7:19 AM CDT 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 ([facility]) rn long term care (current) use of other immunomodulators and immunosuppressants Hypomagnesemia Hypertension, unspecified type PKD (polycystic kidney disease) Anemia due to chronic kidney disease, unspecified CKD stage At risk of UTI At risk for rejection of transplanted organ Encounter for screening for viral disease CULTURE URINE Routine 06/16/2025 7:19 AM CDT 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 ([facility]) Hypertension, unspecified type PKD (polycystic kidney disease) Anemia due to chronic kidney disease, unspecified CKD stage At risk of UTI At risk for rejection of transplanted organ Encounter for screening for viral disease Low magnesium level Low serum phosphate Encounter for monitoring tacrolimus therapy URINALYSIS W/MICROSCOPIC NO CULTURE Routine 05/27/2025 11:21 AM CDT 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 ([facility]) Hypertension, unspecified type PKD (polycystic kidney disease) Anemia due to chronic kidney disease, unspecified CKD stage At risk of UTI At risk for rejection of transplanted organ Encounter for screening for viral disease Low magnesium level Low serum phosphate Encounter for monitoring tacrolimus therapy CREATININE URINE RANDOM Routine 05/27/2025 9:24 AM CDT 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 ([facility]) Hypertension, unspecified type PKD (polycystic kidney disease) Anemia due to chronic kidney disease, unspecified CKD stage At risk of UTI At risk for rejection of transplanted organ Encounter for screening for viral disease Low magnesium level Low serum phosphate Encounter for monitoring tacrolimus therapy PROTEIN URINE RANDOM QUANTITATIVE Routine 05/27/2025 9:24 AM CDT 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 ([facility]) Hypertension, unspecified type PKD (polycystic kidney disease) Anemia due to chronic kidney disease, unspecified CKD stage At risk of UTI At risk for rejection of transplanted organ Encounter for screening for viral disease Low magnesium level Low serum phosphate Encounter for monitoring tacrolimus therapy CULTURE URINE Routine 05/27/2025 9:04 AM CDT 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 ([facility]) Hypertension, unspecified type PKD (polycystic kidney disease) Anemia due to chronic kidney disease, unspecified CKD stage At risk of UTI At risk for rejection of transplanted organ Encounter for screening for viral disease Low magnesium level Low serum phosphate Encounter for monitoring tacrolimus therapy PHOSPHORUS BLOOD Routine 05/27/2025 7:03 AM CDT 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 ([facility]) Hypertension, unspecified type PKD (polycystic kidney disease) Anemia due to chronic kidney disease, unspecified CKD stage At risk of UTI At risk for rejection of transplanted organ Encounter for screening for viral disease Low magnesium level Low serum phosphate Encounter for monitoring tacrolimus therapy MAGNESIUM BLOOD Routine 05/27/2025 7:03 AM CDT 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 ([facility]) Hypertension, unspecified type PKD (polycystic kidney disease) Anemia due to chronic kidney disease, unspecified CKD stage At risk of UTI At risk for rejection of transplanted organ Encounter for screening for viral disease Low magnesium level Low serum phosphate Encounter for monitoring tacrolimus therapy COMPREHENSIVE METABOLIC PANEL Routine 05/27/2025 7:03 AM CDT 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 ([facility]) Hypertension, unspecified type PKD (polycystic kidney disease) Anemia due to chronic kidney disease, unspecified CKD stage At risk of UTI At risk for rejection of transplanted organ Encounter for screening for viral disease Low magnesium level Low serum phosphate Encounter for monitoring tacrolimus therapy CBC W AUTO DIFFERENTIAL Routine 05/27/2025 7:03 AM CDT 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 ([facility]) Hypertension, unspecified type PKD (polycystic kidney disease) Anemia due to chronic kidney disease, unspecified CKD stage At risk of UTI At risk for rejection of transplanted organ Encounter for screening for viral disease Low magnesium level Low serum phosphate Encounter for monitoring tacrolimus therapy TACROLIMUS LEVEL Routine 05/27/2025 7:03 AM CDT 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 ([facility]) Hypertension, unspecified type PKD (polycystic kidney disease) Anemia due to chronic kidney disease, unspecified CKD stage At risk of UTI At risk for rejection of transplanted organ Encounter for screening for viral disease Low magnesium level Low serum phosphate Encounter for monitoring tacrolimus therapy CYTOMEGALOVIRUS (CMV) QUANTITATIVE PLASMA Routine 05/27/2025 7:03 AM CDT 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 ([facility]) nursing home (current) use of other immunomodulators and immunosuppressants Hypomagnesemia Hypertension, unspecified type PKD (polycystic kidney disease) Anemia due to chronic kidney disease, unspecified CKD stage At risk of UTI At risk for rejection of transplanted organ Encounter for screening for viral disease BK VIRUS PCR QUANT BLOOD STL Routine 05/27/2025 7:03 AM CDT 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 ([facility]) nursing home (current) use of other immunomodulators and immunosuppressants Hypomagnesemia Hypertension, unspecified type PKD (polycystic kidney disease) Anemia due to chronic kidney disease, unspecified CKD stage At risk of UTI At risk for rejection of transplanted organ Encounter for screening for viral disease CREATININE URINE RANDOM Routine 05/11/2025 7:25 AM CDT 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 ([facility]) Hypertension, unspecified type PKD (polycystic kidney disease) Anemia due to chronic kidney disease, unspecified CKD stage At risk of UTI At risk for rejection of transplanted organ Encounter for screening for viral disease Low magnesium level Low serum phosphate Encounter for monitoring tacrolimus therapy PROTEIN URINE RANDOM QUANTITATIVE Routine 05/11/2025 7:25 AM CDT 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 ([facility]) Hypertension, unspecified type PKD (polycystic kidney disease) Anemia due to chronic kidney disease, unspecified CKD stage At risk of UTI At risk for rejection of transplanted organ Encounter for screening for viral disease Low magnesium level Low serum phosphate Encounter for monitoring tacrolimus therapy URINALYSIS W/MICROSCOPIC NO CULTURE Routine 05/11/2025 7:25 AM CDT 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 ([facility]) Hypertension, unspecified type PKD (polycystic kidney disease) Anemia due to chronic kidney disease, unspecified CKD stage At risk of UTI At risk for rejection of transplanted organ Encounter for screening for viral disease Low magnesium level Low serum phosphate Encounter for monitoring tacrolimus therapy CULTURE URINE Routine 05/11/2025 7:25 AM CDT 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 ([facility]) Hypertension, unspecified type PKD (polycystic kidney disease) Anemia due to chronic kidney disease, unspecified CKD stage At risk of UTI At risk for rejection of transplanted organ Encounter for screening for viral disease Low magnesium level Low serum phosphate Encounter for monitoring tacrolimus therapy PHOSPHORUS BLOOD Routine 05/11/2025 7:21 AM CDT 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 ([facility]) Hypertension, unspecified type PKD (polycystic kidney disease) Anemia due to chronic kidney disease, unspecified CKD stage At risk of UTI At risk for rejection of transplanted organ Encounter for screening for viral disease Low magnesium level Low serum phosphate Encounter for monitoring tacrolimus therapy MAGNESIUM BLOOD Routine 05/11/2025 7:21 AM CDT 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 ([facility]) Hypertension, unspecified type PKD (polycystic kidney disease) Anemia due to chronic kidney disease, unspecified CKD stage At risk of UTI At risk for rejection of transplanted organ Encounter for screening for viral disease Low magnesium level Low serum phosphate Encounter for monitoring tacrolimus therapy COMPREHENSIVE METABOLIC PANEL Routine 05/11/2025 7:21 AM CDT 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 ([facility]) Hypertension, unspecified type PKD (polycystic kidney disease) Anemia due to chronic kidney disease, unspecified CKD stage At risk of UTI At risk for rejection of transplanted organ Encounter for screening for viral disease Low magnesium level Low serum phosphate Encounter for monitoring tacrolimus therapy CBC W AUTO DIFFERENTIAL Routine 05/11/2025 7:21 AM CDT 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 ([facility]) Hypertension, unspecified type PKD (polycystic kidney disease) Anemia due to chronic kidney disease, unspecified CKD stage At risk of UTI At risk for rejection of transplanted organ Encounter for screening for viral disease Low magnesium level Low serum phosphate Encounter for monitoring tacrolimus therapy TACROLIMUS LEVEL Routine 05/11/2025 7:21 AM CDT 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 ([facility]) Hypertension, unspecified type PKD (polycystic kidney disease) Anemia due to chronic kidney disease, unspecified CKD stage At risk of UTI At risk for rejection of transplanted organ Encounter for screening for viral disease Low magnesium level Low serum phosphate Encounter for monitoring tacrolimus therapy CYTOMEGALOVIRUS (CMV) QUANTITATIVE PLASMA Routine 05/11/2025 7:21 AM CDT 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 ([facility]) rn long term care (current) use of other immunomodulators and immunosuppressants Hypomagnesemia Hypertension, unspecified type PKD (polycystic kidney disease) Anemia due to chronic kidney disease, unspecified CKD stage At risk of UTI At risk for rejection of transplanted organ Encounter for screening for viral disease BK VIRUS PCR QUANT BLOOD STL Routine 05/11/2025 7:21 AM CDT 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 ([facility]) nursing home (current) use of other immunomodulators and immunosuppressants [...] 7:32 AM CDT 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 ([facility]) Hypertension, unspecified type PKD (polycystic kidney disease) Anemia due to chronic kidney disease, unspecified CKD stage At risk of UTI At risk for rejection of transplanted organ Encounter for screening for viral disease Low magnesium level Low serum phosphate Encounter for monitoring tacrolimus therapy COMPREHENSIVE METABOLIC PANEL Routine 04/27/2025 7:32 AM CDT 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 ([facility]) Hypertension, unspecified type PKD (polycystic kidney disease) Anemia due to chronic kidney disease, unspecified CKD stage At risk of UTI At risk for rejection of transplanted organ Encounter for screening for viral disease Low magnesium level Low serum phosphate Encounter for monitoring tacrolimus therapy CBC W AUTO DIFFERENTIAL Routine 04/27/2025 7:32 AM CDT 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 ([facility]) Hypertension, unspecified type PKD (polycystic kidney disease) Anemia due to chronic kidney disease, unspecified CKD stage At risk of UTI At risk for rejection of transplanted organ Encounter for screening for viral disease Low magnesium level Low serum phosphate Encounter for monitoring tacrolimus therapy TACROLIMUS LEVEL Routine 04/27/2025 7:32 AM CDT 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 ([facility]) Hypertension, unspecified type PKD (polycystic kidney disease) Anemia due to chronic kidney disease, unspecified CKD stage At risk of UTI At risk for rejection of transplanted organ Encounter for screening for viral disease Low magnesium level Low serum phosphate Encounter for monitoring tacrolimus therapy CYTOMEGALOVIRUS (CMV) QUANTITATIVE PLASMA Routine 04/27/2025 7:32 AM CDT 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 ([facility]) nursing home (current) use of other immunomodulators and immunosuppressants Hypomagnesemia Hypertension, unspecified type PKD (polycystic kidney disease) Anemia due to chronic kidney disease, unspecified CKD stage At risk of UTI At risk for rejection of transplanted organ Encounter for screening for viral disease BK VIRUS PCR QUANT BLOOD STL Routine 04/27/2025 7:32 AM CDT 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 ([facility]) nursing home (current) use of other immunomodulators and immunosuppressants Hypomagnesemia Hypertension, unspecified type PKD (polycystic kidney disease) Anemia due to chronic kidney disease, unspecified CKD stage At risk of UTI At risk for rejection of transplanted organ Encounter for screening for viral disease CREATININE URINE RANDOM Routine 04/27/2025 7:26 AM CDT 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 ([facility]) Hypertension, unspecified type PKD (polycystic kidney disease) Anemia due to chronic kidney disease, unspecified CKD stage At risk of UTI At risk for rejection of transplanted organ Encounter for screening for viral disease Low magnesium level Low serum phosphate Encounter for monitoring tacrolimus therapy PROTEIN URINE RANDOM QUANTITATIVE Routine 04/27/2025 7:26 AM CDT 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 ([facility]) Hypertension, unspecified type PKD (polycystic kidney disease) Anemia due to chronic kidney disease, unspecified CKD stage At risk of UTI At risk for rejection of transplanted organ Encounter for screening for viral disease Low magnesium level Low serum phosphate Encounter for monitoring tacrolimus therapy URINALYSIS W/MICROSCOPIC NO CULTURE Routine 04/27/2025 7:26 AM CDT 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 ([facility]) Hypertension, unspecified type PKD (polycystic kidney disease) Anemia due to chronic kidney disease, unspecified CKD stage At risk of UTI At risk for rejection of transplanted organ Encounter for screening for viral disease Low magnesium level Low serum phosphate Encounter for monitoring tacrolimus therapy CULTURE URINE Routine 04/27/2025 7:26 AM CDT 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 ([facility]) Hypertension, unspecified type PKD (polycystic kidney disease) Anemia due to chronic kidney disease, unspecified CKD stage At risk of UTI At risk for rejection of transplanted organ Encounter for screening for viral disease Low magnesium level Low serum phosphate Encounter for monitoring tacrolimus therapy CREATININE URINE RANDOM Routine 04/14/2025 7:56 AM CDT 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 ([facility]) Hypertension, unspecified type PKD (polycystic kidney disease) Anemia due to chronic kidney disease, unspecified CKD stage At risk of UTI At risk for rejection of transplanted organ Encounter for screening for viral disease Low magnesium level Low serum phosphate Encounter for monitoring tacrolimus therapy PROTEIN URINE RANDOM QUANTITATIVE Routine 04/14/2025 7:56 AM CDT 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 ([facility]) Hypertension, unspecified type PKD (polycystic kidney disease) Anemia due to chronic kidney disease, unspecified CKD stage At risk of UTI At risk for rejection of transplanted organ Encounter for screening for viral disease Low magnesium level Low serum phosphate Encounter for monitoring tacrolimus therapy URINALYSIS W/MICROSCOPIC NO CULTURE Routine 04/14/2025 7:56 AM CDT 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 ([facility]) Hypertension, unspecified type PKD (polycystic kidney disease) Anemia due to chronic kidney disease, unspecified CKD stage At risk of UTI At risk for rejection of transplanted organ Encounter for screening for viral disease Low magnesium level Low serum phosphate Encounter for monitoring tacrolimus therapy CULTURE URINE Routine 04/14/2025 7:56 AM CDT 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 ([facility]) Hypertension, unspecified type PKD (polycystic kidney disease) Anemia due to chronic kidney disease, unspecified CKD stage At risk of UTI At risk for rejection of transplanted organ Encounter for screening for viral disease Low magnesium level Low serum phosphate Encounter for monitoring tacrolimus therapy PHOSPHORUS BLOOD Routine 04/14/2025 7:52 AM CDT 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 ([facility]) Hypertension, unspecified type PKD (polycystic kidney disease) [...] 7:52 AM CDT 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 ([facility]) Hypertension, unspecified type PKD (polycystic kidney disease) Anemia due to chronic kidney disease, unspecified CKD stage At risk of UTI At risk for rejection of transplanted organ Encounter for screening for viral disease Low magnesium level Low serum phosphate Encounter for monitoring tacrolimus therapy CBC W AUTO DIFFERENTIAL Routine 04/14/2025 7:52 AM CDT 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 ([facility]) Hypertension, unspecified type PKD (polycystic kidney disease) Anemia due to chronic kidney disease, unspecified CKD stage At risk of UTI At risk for rejection of transplanted organ Encounter for screening for viral disease Low magnesium level Low serum phosphate Encounter for monitoring tacrolimus therapy TACROLIMUS LEVEL Routine 04/14/2025 7:52 AM CDT 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 ([facility]) Hypertension, unspecified type PKD (polycystic kidney disease) Anemia due to chronic kidney disease, unspecified CKD stage At risk of UTI At risk for rejection of transplanted organ Encounter for screening for viral disease Low magnesium level Low serum phosphate Encounter for monitoring tacrolimus therapy CYTOMEGALOVIRUS (CMV) QUANTITATIVE PLASMA Routine 04/14/2025 7:52 AM CDT 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 ([facility]) rn long term care (current) use of other immunomodulators and immunosuppressants Hypomagnesemia Hypertension, unspecified type PKD (polycystic kidney disease) Anemia due to chronic kidney disease, unspecified CKD stage At risk of UTI At risk for rejection of transplanted organ Encounter for screening for viral disease BK VIRUS PCR QUANT BLOOD STL Routine 04/14/2025 7:52 AM CDT 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 ([facility]) nursing home (current) use of other immunomodulators and immunosuppressants [...] Colorless(A ) Yellow, Straw 07/07/2025 9:13 AM [facility] Clarity UA Turbid(A) Clear 07/07/2025 9:13 AM [facility] Glucose UA Normal Normal 07/07/2025 9:13 AM [facility] Bilirubin UA Negative Negative 07/07/2025 9:13 AM [facility] Ketone UA Negative Negative 07/07/2025 9:13 AM [facility] Specific [place] UA 1.008 1.005 - 1.030 07/07/2025 9:13 AM [facility] Blood UA Negative Negative 07/07/2025 9:13 AM [facility] pH UA 7.5 5.0 - 8.0 07/07/2025 9:13 AM [facility] Protein UA Negative Negative 07/07/2025 9:13 AM [facility] Urobilinogen UA Normal Normal mg/dL 07/07/2025 9:13 AM [facility] Nitrite UA Negative Negative 07/07/2025 9:13 AM [facility] Leukocyte Esterase UA Negative Negative 07/07/2025 9:13 AM [facility] RBC UA 3-5 0 - 5 # /hpf 07/07/2025 9:13 AM CDT [facility] WBC UA 0-5 0 - 5 # /hpf 07/07/2025 9:13 AM CDT [facility] Bacteria UA None Seen None Seen 07/07/2025 9:13 AM CDT [facility] Squamous Epithelial Cells 0-2 0 - 5 /hpf 07/07/2025 9:13 AM CDT [facility] Amorphous Crystals Occasional( A) None seen /hpf 07/07/2025 9:13 AM CDT [facility] Urine URINE SPECIMEN OBTAINED BY CLEAN CATCH PROCEDURE / Unknown Collection / Unknown 07/07/2025 7:43 AM CDT 07/07/2025 8:44 AM CDT Eduardo Ascencio MD LAB - URINALYSIS ORDERA BLES Final Result [facility] [address] [place] [id number], [facility] [phone] * CULTURE URINE (07/07/2025 7:43 AM CDT) Only the most recent of6 resultswithin the time period is included. Culture Urine <10,000 CFU/mL urogenital lai TABITHA 07/08/2025 11:20 AM CDT [facility]CRO[facility] Urine URINE SPECIMEN OBTAINED BY CLEAN CATCH PROCEDURE / Unknown Collection / Unknown 07/07/2025 7:43 AM CDT 07/07/2025 8:44 AM CDT Eduardo Ascencio MD LAB - MICROBIOLOGY ORDE RABLES Final Result [facility] [address] [place] [address], [facility] [phone] * PROTEIN URINE RANDOM QUANTITATIVE (07/07/2025 7:43 AM CDT) Only the most recent of6 resultswithin the time period is included. Protein Urine 7 Not Established mg/dL 07/07/2025 11:15 AM CDT [facility] Urine URINE SPECIMEN OBTAINED BY CLEAN CATCH PROCEDURE / Unknown Collection / Unknown 07/07/2025 7:43 AM CDT 07/07/2025 8:44 AM CDT Eduardo Ascencio MD LAB - URINE CHEMISTRY O RDERABLES Final Result Performing Organization Address City/[facility]/ZIP Co de Phone Number [address] [address], [facility] [phone] * CREATININE URINE RANDOM (07/07/2025 7:43 AM CDT) Only the most recent of6 resultswithin the time period is included. Creatinine Urine 22.30 Not Established mg/dL 07/07/2025 11:15 AM CDT [facility] Urine URINE SPECIMEN OBTAINED BY CLEAN CATCH PROCEDURE / Unknown Collection / Unknown 07/07/2025 7:43 AM CDT 07/07/2025 8:44 AM CDT Eduardo Ascencio MD LAB - URINE CHEMISTRY O RDERABLES Final Result Performing Organization Address City/[facility] Co de Phone Number [address] [address], [facility] [phone] * CYTOMEGALOVIRUS (CMV) QUANTITATIVE PLASMA (07/07/2025 7:37 AM CDT) Only the most recent of6 resultswithin the time period is included. CMV Quant by PCR, Interp Not detected Not detected 07/07/2025 2:41 PM CDT [facility]CRO[facility] CMV Quant by PCR, Log NA log IU/mL 07/07/2025 2:41 PM CDT [facility] Blood BLOOD SPECIMEN / Unknown Lab Venipuncture / Unknown 07/07/2025 7:37 AM CDT 07/07/2025 7:49 AM CDT Narrative [facility]CRO[facility] - 07/07/2025 2:41 PM CDT The [...] LAB - CHEMISTRY ORDERAB LES Final Result [facility] [address] [place], [place] [address], [facility] [phone] * BK VIRUS PCR QUANT BLOOD STL (07/07/2025 7:37 AM CDT) Only the most recent of6 resultswithin the time period is included. BK Virus Quant by PCR, Interp Not detected Not detected 07/07/2025 2:41 PM CDT [facility]CRO[facility] Specimen Type Plasma 07/07/2025 2:41 PM CDT [facility] BK Virus Quant by PCR, Log NA log IU/mL 07/07/2025 2:41 PM CDT [facility] Blood BLOOD SPECIMEN / Unknown Lab Venipuncture / Unknown 07/07/2025 7:37 AM CDT 07/07/2025 7:49 AM CDT Narrative [facility]CRO[facility] - 07/07/2025 2:41 PM CDT The [...] [place] FDA approved test methodology Joseline leeroy BKV . Eduardo Ascencio MD LAB - CHEMISTRY ORDERAB LES Final Result [facility] [address] [place] [address], [facility] [phone] * TACROLIMUS LEVEL (07/07/2025 7:37 AM CDT) Only the most recent of6 resultswithin the time period is included. Pathologist [facility] Tacrolimus, trough 9.6 3.0 - 15.0 ng/mL 07/07/2025 9:45 AM CDT [facility] Blood BLOOD SPECIMEN / Unknown Lab Venipuncture / Unknown 07/07/2025 7:37 AM CDT 07/07/2025 7:52 AM CDT Narrative [facility] - 07/07/2025 9:45 AM CDT Measurement performed by chemiluminescence immunoassay (CMIA) on the [employer] Alinity analyzer. Most individuals achieve optimal response with steady-state trough whole blood levels between 3-15 ng/mL. Preferred therapeutic values may vary by transplant type, protocol, and comedications. Therapeutic concentrations are based on trough values; blood drawn at other times may yield higher results. Eduardo Ascencio MD LAB - THERAPEUTIC DRUG MONITORING ORDERABLES Final Result [facility] [address] [place] [phone], [place] [phone] * (ABNORMAL) DIFFERENTIAL MANUAL (07/07/2025 7:37 AM CDT) Neutrophil % 76(H) 41 - 74 % 07/07/2025 9:13 AM [facility] Lymphocyte % 15(L) 17 - 47 % 07/07/2025 9:13 AM T [facility] Monocyte % 8 3 - 11 % 07/07/2025 9:13 AM T [facility] Eosinophil % 1 0 - 7 % 07/07/2025 9:13 AM T [facility] Neutrophil Absolute 4.26 1.60 - 7.50 x10E9/L 07/07/2025 9:13 AM [facility] Lymphocyte Absolute 0.84(L) 1.00 - 4.40 x10E9/L 07/07/2025 9:13 AM T [facility] Monocyte Absolute 0.45 0.15 - 1.00 x10E9/L 07/07/2025 9:13 AM [facility] Eosinophil Absolute 0.06 0.00 - 0.60 x10E9/L 07/07/2025 9:13 AM [facility] RBC Morphology REVIEWED 07/07/2025 9:13 AM [facility] Schistocytes FEW(A) (none) 07/07/2025 9:13 AM [facility] Blood BLOOD SPECIMEN / Unknown Lab Venipuncture / Unknown 07/07/2025 7:37 AM CDT 07/07/2025 7:49 AM CDT us Eduardo Ascencio MD LAB - HEMATOLOGY ORDERA BLES Final Result [facility] [address] [place] [phone], [facility] [phone] * CBC W AUTO DIFFERENTIAL (07/07/2025 7:37 AM CDT) Only the most recent of6 resultswithin the time period is included. WBC 5.6 4.0 - 10.7 x10E9/L 07/07/2025 9:13 AM [facility] RBC Count 4.49 4.30 - 5.80 x10E12/L 07/07/2025 9:13 AM [facility] Hemoglobin 14.2 13.3 - 17.5 g/dL 07/07/2025 9:13 AM [facility] Hematocrit 43.7 38.7 - 51.1 % 07/07/2025 9:13 AM [facility] MCV 97.3 80.0 - 98.0 fL 07/07/2025 9:13 AM [facility] MCH 31.6 26.7 - 33.6 pg 07/07/2025 9:13 AM [facility] MCHC 32.5 31.7 - 36.3 g/dL 07/07/2025 9:13 AM [facility] RDW-CV 12.6 11.3 - 14.8 % 07/07/2025 9:13 AM [facility] Platelet Count 151 150 - 420 x10E9/L 07/07/2025 9:13 AM [facility] MPV 10.9 7.8 - 11.4 fL 07/07/2025 9:13 AM [facility] Blood BLOOD SPECIMEN / Unknown Lab Venipuncture / Unknown 07/07/2025 7:37 AM CDT 07/07/2025 7:49 AM CDT us Eduardo Ascencio MD LAB - HEMATOLOGY ORDERA BLES Final Result Performing Organization Address City/State/[facility] Co de Phone Number [facility] [address] [place] [phone], [facility] [phone] * (ABNORMAL) COMPREHENSIVE METABOLIC PANEL (07/07/2025 7:37 AM CDT) Only the most recent of6 resultswithin the time period is included. BUN 21 7 - 26 mg/dL 07/07/2025 8:20 AM [facility] Creatinine 1.26(H) 0.71 - 1.16 mg/dL 07/07/2025 8:20 AM [facility] Sodium 139 136 - 145 mmol/L 07/07/2025 8:20 AM [facility] Potassium 4.0 3.5 - 4.5 mmol/L 07/07/2025 8:20 AM [facility] Chloride 107 98 - 107 mmol/L 07/07/2025 8:20 AM [facility] CO2 26 22 - 29 mmol/L 07/07/2025 8:20 AM [facility] Glucose 96 70 - 99 mg/dL 07/07/2025 8:20 AM [facility] Calcium 9.5 8.4 - 10.2 mg/dL 07/07/2025 8:20 AM [facility] Protein Total 6.3 6.0 - 8.3 g/dL 07/07/2025 8:20 AM [facility] Albumin 4.4 3.4 - 5.0 g/dL 07/07/2025 8:20 AM [facility] Bilirubin Total 1.0 0.2 - 1.2 mg/dL 07/07/2025 8:20 AM [facility] Alkaline Phosphatase 85 40 - 150 U/L 07/07/2025 8:20 AM [facility] ALT 12 5 - 55 U/L 07/07/2025 8:20 AM [facility] AST 16 5 - 34 U/L 07/07/2025 8:20 AM [facility] Anion Gap 6 6 - 16 07/07/2025 8:20 AM [facility] BUN/Creatinine Ratio 17 7 - 23 07/07/2025 8:20 AM [facility] Osmolality Calculated 291 275 - 295 mOsm/kg 07/07/2025 8:20 AM [facility] Albumin/Globulin Ratio 2.3 1.1 - 2.3 07/07/2025 8:20 AM [facility] eGFR by CKD-EPI 74(L) >=90 mL/min/1.7 3 m2 07/07/2025 8:20 AM [facility] Comment:Estimated Glomerular Filtration Rate (eGFR) calculated using the CKD-EPI Creatinine Equation (2020), per the National Kidney Foundation and [place] Society of Nephrology recommendations. Blood BLOOD SPECIMEN / Unknown Lab Venipuncture / Unknown 07/07/2025 7:37 AM CDT 07/07/2025 7:52 AM CDT us Eduardo Ascencio MD LAB - CHEMISTRY ORDERAB LES Final Result Performing Organization Address City/[facility]/ZIP Co de Phone Number [address] [address], [facility] [phone] * (ABNORMAL) PHOSPHORUS BLOOD (07/07/2025 7:37 AM CDT) Only the most recent of6 resultswithin the time period is included. Phosphorus 2.1(L) 2.8 - 5.1 mg/dL 07/07/2025 8:20 AM CDT [facility] Blood BLOOD SPECIMEN / Unknown Lab Venipuncture / Unknown 07/07/2025 7:37 AM CDT 07/07/2025 7:52 AM CDT us Eduardo Ascencio MD LAB - CHEMISTRY ORDERAB LES Final Result Performing Organization Address [facility] Co de Phone Number [address] [address], [facility] [phone] * MAGNESIUM BLOOD (07/07/2025 7:37 AM CDT) Only the most recent of6 resultswithin the time period is included. Magnesium 1.6 1.6 - 2.6 mg/dL 07/07/2025 8:20 AM CDT [facility] Blood BLOOD SPECIMEN / Unknown Lab Venipuncture / Unknown 07/07/2025 7:37 AM CDT 07/07/2025 7:52 AM CDT us Eduardo Ascencio MD LAB - CHEMISTRY ORDERAB LES Final Result Performing Organization Address City/[facility]/ZIP Co de Phone Number [address] [address], [facility] [phone] * (ABNORMAL) PTH INTACT W/O CALCIUM (06/16/2025 7:19 AM CDT) PTH Intact 428.7(H) 8.0 - 77.0 pg/mL 06/16/2025 8:59 AM CDT [facility] Blood BLOOD SPECIMEN / Unknown Lab Venipuncture / Unknown 06/16/2025 7:19 AM CDT 06/16/2025 8:22 AM CDT Darcy Nixon MD LAB - CHEMISTRY ORDERABLES F inal Result Performing Organization Address City/[facility]/ZIP Co de Phone Number [address] [address], [place] [phone] * URIC ACID BLOOD (06/16/2025 7:19 AM CDT) Uric Acid 5.2 3.5 - 7.2 mg/dL 06/16/2025 8:55 AM CDT [facility] Blood BLOOD SPECIMEN / Unknown Lab Venipuncture / Unknown 06/16/2025 7:19 AM CDT 06/16/2025 8:22 AM CDT Darcy Nixon MD LAB - CHEMISTRY ORDERABLES F inal Result Performing Organization Address City/[facility]/ZIP Co de Phone Number [address] [address], [place] [phone] * HEMOGLOBIN A1C (06/16/2025 7:19 AM CDT) Hemoglobin A1c 5.2 <=5.6 % 06/16/2025 1:32 PM CDT [facility] Estimated Average Glucose 103 mg/dL 06/16/2025 1:32 PM CDT [facility] Comment: HbA1c Interpretation: Normal : < 5.7% Pre-diabetes: 5.7-6.4% Diabetes: Equal to or greater than 6.5% Test results diagnostic of diabetes should be repeated for confirmation. Treatment target values recommended by ADA and other clinical organizations should be used to evaluate metabolic control in patients. Reference: [place] Diabetes Association, Standards of Care in Diabetes [...] ORDERABLES F inal Result Performing Organization Address [facility] Co de Phone Number [address] [address], [place] [phone] * (ABNORMAL) VITAMIN D 25-HYDROXY (06/16/2025 7:19 AM CDT) Vitamin D, 25 Hydroxy 26.2(L) 30.0 - 80.0 ng/mL 06/16/2025 9:13 AM CDT [facility] Comment: The recommendations for 25-Hydroxy Vitamin D [...] ORDERABLES F inal Result Performing Organization Address City/[facility]/ZIP Co de Phone Number [address] [address], [place] [phone] * IRON + TRANSFERRIN PANEL (06/16/2025 7:19 AM CDT) Iron 51 50 - 175 ug/dL 06/16/2025 8:40 AM CDT [facility] Transferrin 209 174 - 382 mg/dL 06/16/2025 8:40 AM T [facility] Transferrin Saturation % 20 16 - 50 % 06/16/2025 8:40 AM T [facility] TIBC Calculated 261 240 - 450 ug/dL 06/16/2025 8:40 AM T [facility] Blood BLOOD SPECIMEN / Unknown Lab Venipuncture / Unknown 06/16/2025 7:19 AM CDT 06/16/2025 8:08 AM CDT us Darcy Nixon MD LAB - CHEMISTRY ORDERABLES F inal Result Performing Organization Address City/[facility]/ZIP Co de Phone Number [address] [address], [place] [phone] * FERRITIN (06/16/2025 7:19 AM CDT) Ferritin 59 22 - 275 ng/mL 06/16/2025 8:58 AM T [facility] Blood BLOOD SPECIMEN / Unknown Lab Venipuncture / Unknown 06/16/2025 7:19 AM CDT 06/16/2025 8:08 AM CDT us Darcy Nixon MD LAB - CHEMISTRY ORDERABLES F inal Result [address] [address], [place] [phone] * LIPID PROFILE (06/16/2025 7:19 AM CDT) Cholesterol Total 160 <200 mg/dL 06/16/2025 8:55 AM T [facility] HDL 51 >40 mg/dL 06/16/2025 8:55 AM T [facility] Comment: ATP III Classification of HDL Cholesterol: <40 mg/dL: Considered a major risk factor. >60 mg/dL: Considered a negative risk factor. LDL Calculated 89 <100 mg/dL 06/16/2025 8:55 AM CDT [facility] Comment: ATP III Classification of LDL Cholesterol: <100 mg/dL: Optimal 100 - 129 mg/dL: Near Optimal/Above Optimal 130 - 159 mg/dL: Borderline High 160 - 189 mg/dL: High >190 mg/dL: Very High LDL is calculated using the Friedewald equation. Triglycerides 101 <150 mg/dL 06/16/2025 8:55 AM CDT [facility] Comment: ATP III Classification of Triglycerides: <150 mg/dL: Normal 150 - 199 mg/dL: Borderline High 200 - 400 mg/dL: High >500 mg/dL: Very High Blood BLOOD SPECIMEN / Unknown Lab Venipuncture / Unknown 06/16/2025 7:19 AM CDT 06/16/2025 8:22 AM CDT us Darcy Nixon MD LAB - CHEMISTRY ORDERABLES F inal Result Performing Organization Address City/[facility]/ZIP Co de Phone Number [facility] [address] [place] [address], [place] [phone] * HIV-1 HIV-2 ANTIBODY + HIV P24 AG PANEL (02/10/2025 9:58 AM CDT) HIV Antigen/Antibod y 1 & 2 Non-reacti ve Non-react payton 02/10/2025 11:00 AM CDT [facility] Comment:No Laboratory eviden ce of HIV infection. Blood BLOOD SPECIMEN / Unknown Lab Venipuncture / Unknown 02/10/2025 9:58 AM CDT 02/10/2025 10:09 AM CDT us Eduardo Ascencio MD LAB - CHEMISTRY ORDERAB LES Final Result [facility] [address] [place] [address], [place] [phone] * HEPATITIS C ANTIBODY (02/10/2025 9:58 AM CDT) Hepatitis C Antibody Non-react payton Non-reac tive 02/10/2025 11:00 AM CDT [facility] Comment:Hepatitis C Antibody screen indicates no serologic [...] LAB - CHEMISTRY ORDERAB LES Final Result [facility] [address] [place] [address], [facility] [phone] from Last 3 Months or Most Recently Relevant to Health Maintenance Insurance [facility] Advance Directives * Full Code (Latest [...] 8:37 PM 12/24/2023 9:24 PM Care Teams Clother In Relationship Specialty Start Date End Date Freda Neumann PA-C [address] [place] [address] PCP - General 07/15/23
--- OUTSIDE RECORDS SUMMARY | 2025-07-14 21:07 | XMS_ITS | Encounter Summary ---
Author Organization [facility] Address [address] [place] [address] Care Team Providers Care Certified Marine Mechanic Name Role Phone Freda Neumann PA-C Primary Care Provider [phone] Reason for Visit * Reason Onset Date Comments MEDICATION REFILL 12/14/2024 Encounter Details Date Type Department Care Team (Late st Contact Info) Description 12/14/2024 Refill [facility] - Nephrology [address] [place] [address], [place] [address] Darcy Nixon MD [address] [place] [address] [place] [address] MEDICATION REFILL Social History Tobacco [...] more drinks on one occasion? Never 12/02/2024 [facility] of Occupat ional Health - Occupational Stress [...] place to sleep or slept in a fci (including now)? No 12/23/2023 Sex and Gender Information Value Date Recorded Sex Assigned at Male 08/22/2023 2:04 PM COMPLIANCE SPECIALIST Legal Sex Male 12:10 PM CDT Gender Identity Male 08/22/2023 2:04 PM COMPLIANCE SPECIALIST Sexual Orientation Straight 08/22/2023 2: 04 PM COMPLIANCE SPECIALIST documented as of this encounter Functional Status * Is person deaf or have serious hearing difficulty? Answer Date of Assessment Author No 12/02/2024 5:51 PM CDT Maureen Max RN * Is person blind or have serious difficulty seeing? Answer Date of Assessment Author No 12/02/2024 5:51 PM CDT Maureen Max RN * Does person have serious difficulty [...] Description 07/16/2025 11:10 AM CDT Office Visit [facility] [address] [facility], [address] [place] [address] [place] [address] [facility] [address] [place] [phone] 09/22/2025 8:30 AM COMPLIANCE SPECIALIST Office Visit [facility] - Nephrology [address] [place] [phone] 09/23/2025 4:00 PM COMPLIANCE SPECIALIST Office Visit [facility] - GI [address] [place] [phone] Isak Padron III, MD [address] [place] [address] [address] [place] [phone] documented as of this encounter Goals Goal [...] documented as of this encounter Care Teams Certified Marine Mechanic Relationship Specialty Start Date End Date Freda Neumann PA-C [address] [place] [phone] PCP - General 07/15/23 documented as of this encounter
--- OUTSIDE RECORDS SUMMARY | 2025-07-14 21:07 | XMS_ITS | Clinical Summary ---
Author Organization [facility] Address [address] [place] [address] Phone Care Team Providers Care Server Software Engineer Name Role Phone Antonia Bowie MD Primary Care Provider [phone] Allergies No known active allergies Medications albuterol [...] Comments Blood Pressure 122/78 11/14/2020 10:16 AM LEAD DEVELOPER Pulse 72 11/14/2020 10:16 AM LEAD DEVELOPER Temperature 36.6 C (97.8 F) 11/14/2020 10:16 AM LEAD DEVELOPER Respiratory Rate - - Oxygen Saturation - - Inhaled Oxygen Concentration - - Weight 161 kg (355 lb) 11/14/2020 10:16 AM LEAD DEVELOPER Height 182.9 cm (6') 11/14/2020 10:16 AM LEAD DEVELOPER Body Mass Index 48.15 11/14/2020 10:16 AM LEAD DEVELOPER Plan of Treatment Health Maintenance Due Date Last Done Comments Influenza Vaccine (#1) 2025 10/14/2020 Insurance [employer] MEDICAID Care Teams Server Software Engineer Relationship Specialty Start Date End Date Antonia Bowie MD [address] [place] [phone] PCP - General Family Medicine 10/20/20
--- OUTSIDE RECORDS SUMMARY | 2025-07-14 21:07 | XMS_ITS | Encounter Summary ---
Author Organization [facility] Address [address] [facility] [place] [address] Care Team Providers Care Evp Sales Name Role Phone Freda Neumann PA-C Primary Care Provider [phone] Reason for Visit * Reason Onset Date Comments MEDICATION REFILL 07/20/2024 Encounter Details Date Type Department Care Team (Late st Contact Info) Description 07/20/2024 Refill [facility] - Nephrology [address] [place] [address], [place] [address] Darcy Nixon MD [address] [place] [address] [place] [address] MEDICATION REFILL Social History Tobacco [...] more drinks on one occasion? Never 12/23/2023 [facility] of Occupat ional Health - Occupational Stress [...] in a half-way (including now)? No 12/23/2023 Sex and Gender Information Value Date Recorded Sex Assigned at Male 08/22/2023 2:04 PM ASSOCIATE PROFESSOR OF PHYSICS Legal Sex Male 12:10 PM CDT Gender Identity Male 08/22/2023 2:04 PM ASSOCIATE PROFESSOR OF PHYSICS Sexual Orientation Straight 08/22/2023 2: 04 PM ASSOCIATE PROFESSOR OF PHYSICS documented as of this encounter Functional Status [...] Description 07/16/2025 11:10 AM CDT Office Visit [facility] Care [address] [facility], [address] [place] [address] [place] [address] [address] [facility] [address] [place] [address] 09/22/2025 8:30 AM ASSOCIATE PROFESSOR OF PHYSICS Office Visit [facility] - Nephrology [address] [place] [phone] 09/23/2025 4:00 PM ASSOCIATE PROFESSOR OF PHYSICS Office Visit [facility] - GI [address] [place] [phone] Isak Padron III, MD [address] [place] [address] [address] [place] [phone] documented as of this encounter Goals Goal [...] documented as of this encounter Care Teams Evp Sales Relationship Specialty Start Date End Date Freda Neumann PA-C [address] [place] [phone] PCP - General 07/15/23 documented as of this encounter
--- OUTSIDE RECORDS SUMMARY | 2025-07-14 21:07 | XMS_ITS | Clinical Summary ---
Author Organization [facility] [place] Address [address] [place] [address] Care Team Providers Care Cotton Jammer Name Role Phone Unknown, Notinfile Primary Care [...] on file Legal Sex Male 2:08 PM WATER RESOURCE SPECIALIST Gender Identity Not on file Sexual Orientation [...] Vaccine (#1) 2025 10/14/2020, 2018 Insurance AETNA [facility] Care Teams Cotton Jammer Relationship Specialty Start Date End Date Unknown, Notinfile PCP - General 08/02/22
--- OUTSIDE RECORDS SUMMARY | 2025-07-14 21:07 | XMS_ITS | Encounter Summary ---
Author Organization [facility] Healthcare Address [address] [place] [address] Care Team Providers Care Chief Informatics Officer Name Role Phone Unknown, Notinfgumaro Primary Care Provider Unavail able Encounter Details Date Type Department Care Team (Late st Contact Info) Description 08/28/2022 Telephone [facility] at [facility] [address] [facility] [address] [place] [address] Chandler Chirinos MD [address] [place] [address] [place] [address] Social History Tobacco Use Types Packs/Day Years [...] on file Legal Sex Male 2:08 PM CASH APPLICATIONS SPECIALIST Gender Identity Not on file Sexual Orientation Not on file documented as of this encounter Plan of Treatment Not on file documented as of this encounter Visit Diagnoses Not on filedocumented in this encounter Care Teams Chief Informatics Officer Relationship Specialty Start Date End Date Unknown, Koby PCP - General 08/02/22 documented as of this encounter
--- OUTSIDE RECORDS SUMMARY | 2025-07-14 21:07 | XMS_ITS ---
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 Marked as Active Follow-up on 02/23/2025 Kidney CoordinatorBonita Wang RN Phone: N/A Fax: N/A Email: N/A [employer] Organ Diagnosis Organ Primary Contributory Kidney Polycystic [...] HIV DAVID No results on file HCV DVAID No results on file Care Team Name Role Phone Fax Email Bonita Wang RN Kidney Coordinator N/A N/A N/A Hellen Mccain Store Worker N/A N/A N/A Stella Samson LMSW Assistant Grocery Store Manager [phone] N/A N/A Darcy Nixon MD Referring Physician [phone] N/A Events Post-Transplant Pre-Transplant Admitted: 02/23/2025 Referred: 08/22/2023 Transplanted: 02/23/2025 Evaluation began: 4 Discharged: 02/26/2025 Committee: 12/26/2023 Center waitlisted: 4 Dialysis History Dialysis History Start End Type Comments Center Peritoneal Dialysis [facility] D[facility] Information Center Phone Fax Address [facility] [phone] [place] [phone]
--- OUTSIDE RECORDS SUMMARY | 2025-07-14 21:07 | XMS_ITS | Data Portability ---
Author Organization [facility] Jeremy [facility] Address [address] [place] [address] Care Team Providers Care Collar Band Creaser Name Role Phone ADAMS GILBERT Primary Care Provider CALEB BAIRD Refractive Surgeon Assessment No assessment recorded. Plan of Treatment Reminders Order Date Submit Date Provider Last Modified By Organization Details Last Modified Time Details Appointments None recorded. Lab CMP, serum or plasma 2024 025 [facility], 2022 Bill Chowdhury, [address], [id number], 5 08:03:49 TSH + free T4, serum 2023 024 [facility] (Lab), [address] [place] [address], [id number], 4 14:39:49 lipid panel, serum 2023 024 [facility] (Lab), [address] [place] [address], [id number], 4 14:39:49 CMP, serum or plasma 2023 024 [facility] (Lab), [address] [place] [address], [id number], 4 14:39:50 CBC w/ auto diff 2023 024 [facility] (Lab), [address] [place], [address], 4 14:39:50 HbA1c (hemoglobin A1c), blood 2023 024 [facility] (Lab), [address] [place], [address], 4 14:39:50 Referral None recorded. Procedures None recorded. Surgeries None recorded. Imaging None recorded. Medication Orders Airsupra 90 mcg-80 mcg/actuati on HFA aerosol [facility]er [facility]24 [id number], [address] [place], [address], 5 09:34:40 cyclobenzap rine 7.5 mg tablet 2022 023 [email or web address] #[id number], [address] [place], [address], 4 08:36:25 Patient TargetsNo targets recorded. Patient Instructions Encounter Date Encounter Id Patient Instructions Last Modified By Organization Details Last Modified Time 10/31/2023 [id number] A healthy lifestyle: care instructions [email or web address] Not available 10/31/2023 08:42:44 I have reviewed the patient's medical record and the note from this clinical encounter. I was available by phone for the duration of the visit. I agree with the assessment and plan with the following addendum: [none]. Henok Lewis MD [email or web address] Not available 11/06/2023 13:07:55 12/08/2024 [id number] A healthy lifestyle: care instructions [email or web address] Not available 12/08/2024 17:26:04 Reason for Referral None Reported. Results Created Date Observation Date Name Description Value Unit Range Abnormal Flag Note LastModifiedBy Organization Detail LastModifiedTime 12/23/19 24 12/23/2023 Renal funct ion 2000 panel - Serum or Plasm a glucose [mass/volume ] in serum or plasma 88 mg/dL low: 70mg/d Lhigh: 105mg/ dL Gluco se 88 70 - 105 mg/dL 12/22 9:52 PM CDT [facility] Not Available Not Available 12/07/2024 11:26:12 12/23/19 24 12/23/2023 Renal funct ion 1999 panel - Serum or Plasm a sodium [moles/volum e] in serum or plasma 142 mmol/ L low: 136mmo l/Lhig h: 145mmo l/L Sodiu m 142 136 - 145 mmol/ L 12/22 9:52 PM CDT [facility] Not Available Not Available 12/07/2024 11:26:12 12/23/19 24 12/23/2023 Renal funct ion 1999 panel - Serum or Plasm a potassium [moles/volum e] in serum or plasma 5 mmol/ L low: 3.5mmo l/Lhig h: 5.1mmo l/L Potas sium 5.0 3.5 - 5.1 mmol/ L 12/22 9:52 PM CDT [facility] Not Available Not Available 12/07/2024 11:26:12 12/23/19 24 12/23/2023 Renal funct ion 1999 panel - Serum or Plasm a chloride [moles/volum e] in serum or plasma 118 mmol/ L low: 98mmol /Lhigh : 107mmo l/L high Chlor neto 118 (H) 98 - 107 mmol/ L 12/22 9:52 PM CDT [facility] Not Available Not Available 12/07/2024 11:26:12 12/23/19 24 12/23/2023 Renal funct ion 1999 panel - Serum or Plasm a carbon dioxide, total [moles/volum e] in serum or plasma 16 mmol/ L low: 22mmol /Lhigh : 29mmol /L low CO2 16 (L) 22 - 29 mmol/ L 12/22 9:52 PM CDT [facility] Not Available Not Available 12/07/2024 11:26:12 12/23/19 24 12/23/2023 Renal funct ion 1999 panel - Serum or Plasm a calcium [mass/volume ] in serum or plasma 8.4 mg/dL low: 8.4mg/ dLhigh : 10.4mg /dL Calci um 8.4 8.4 - 10.4 mg/dL 12/22 9:52 PM CDT [facility] Not Available Not Available 12/07/2024 11:26:12 12/23/1912/23/2023 Renal funct ion 1999 panel - Serum or Plasm a anion gap in blood 8 mmol/ L low: 6mmol/ Lhigh: 16mmol /L Anion Gap 8 6 - 16 mmol/ L 12/22 9:52 PM CDT [facility] Not Available Not Available 12/07/2024 11:26:12 12/23/19 24 12/23/2023 Renal funct ion 1999 panel - Serum or Plasm a urea nitrogen [mass/volume ] in serum or plasma 73 mg/dL low: 5.3mg/ dLhigh : 18.7mg /dL high BUN 73 (H) 5.3 - 18.7 mg/dL 12/22 9:52 PM CDT [facility] Not Available Not Available 12/07/2024 11:26:12 12/23/1912/23/2023 Renal funct ion 1999 panel - Serum or Plasm a creatinine [mass/volume ] in serum or plasma 8.05 mg/dL low: 0.72mg /dLhig h: 1.25mg /dL high Creat inine 8.05 (H) 0.72 - 1.25 mg/dL 12/22 9:52 PM CDT [facility] Not Available Not Available 12/07/2024 11:26:12 12/23/1912/23/2023 Renal funct ion 1999 panel - Serum or Plasm a albumin [mass/volume ] in serum or plasma 3.7 text: 3.4 - 5.0 gm/dL Album in 3.7 3.4 - 5.0 gm/dL 12/22 9:52 PM CDT [facility] Not Available Not Available 12/07/2024 11:26:12 12/23/19 24 12/23/2023 Renal funct ion 1999 panel - Serum or Plasm a phosphate [mass/volume ] in serum or plasma 5.6 mg/dL low: 2.3mg/ dLhigh : 4.7mg/ dL high Phosp horus 5.6 (H) 2.3 - 4.7 mg/dL 12/22 9:52 PM CDT [facility] Not Available Not Available 12/07/2024 11:26:12 12/23/1912/23/2023 Renal funct ion 2000 panel - Serum or Plasm a glomerular filtration rate/1.73 sq M.predicted [volume rate/area] in serum, plasma or blood by creatinine-b ased formula (CKD-epi) 8 text: >=90 mL/min /1.73 m2 low eGFR by CKD-E PI 8 (L) >=90 mL/mi n/1.7 3 m2 12/22 9:52 PM CDT [facility] Not Available Not Available 12/07/2024 11:26:12 12/23/1912/23/2023 Renal funct ion 2000 panel - Serum or Plasm a interpretati on and review of laboratory results Abnorm al Not Available Not Available 11:26:12 12/23/1912/23/2023 CBC panel - Blood by Autom ated count leukocytes [#/volume] in blood by automated count 6.1 text: 4.0 - 10.7 x10e9/ L WBC 6.1 4.0 - 10.7 x10E9 /L 12/22 9:38 PM CDT [facility] Not Available Not Available 12/07/2024 11:26:11 12/23/19 24 12/23/2023 CBC panel - Blood by Autom ated count erythrocytes [#/volume] in blood by automated count 2.64 text: 4.30 - 5.80 x10e12 /L low RBC Count 2.64 (L) 4.30 - 5.80 x10E1 2/L 12/22 9:38 PM CDT [facility] Not Available Not Available 12/07/2024 11:26:11 12/23/1912/23/2023 CBC panel - Blood by Autom ated count hemoglobin [mass/volume ] in blood 8.4 g/dL low: 13.3g/ dLhigh : 17.5g/ dL low Hemog lobin 8.4 (L) 13.3 - 17.5 g/dL 12/22 9:38 PM CDT [facility] Not Available Not Available 12/07/2024 11:26:11 12/23/19 24 12/23/2023 CBC panel - Blood by Autom ated count hematocrit [volume fraction] of blood by automated count 25.7 % low: 38.7%h igh: 51.1% low Hemat ocrit 25.7 (L) 38.7 - 51.1 % 12/22 9:38 PM CDT [facility] Not Available Not Available 12/07/2024 11:26:11 12/23/19 24 12/23/2023 CBC panel - Blood by Autom ated count MCV [entitic volume] by automated count 97.3 fL low: 80fLhi gh: 98fL MCV 97.3 80.0 - 98.0 fL 12/22 9:38 PM CDT [facility] Not Available Not Available 12/07/2024 11:26:11 12/23/19 24 12/23/2023 CBC panel - Blood by Autom ated count MCH [entitic mass] by automated count 31.8 pg low: 26.7pg high: 33.6pg MCH 31.8 26.7 - 33.6 pg 12/22 9:38 PM CDT [facility] Not Available Not Available 12/07/2024 11:26:11 12/23/1912/23/2023 CBC panel - Blood by Autom ated count MCHC [mass/volume ] by automated count 32.7 g/dL low: 31.7g/ dLhigh : 36.3g/ dL MCHC 32.7 31.7 - 36.3 g/dL 12/22 9:38 PM CDT [facility] Not Available Not Available 12/07/2024 11:26:11 12/23/1912/23/2023 CBC panel - Blood by Autom ated count erythrocyte distribution width [ratio] by automated count 13.4 % low: 11.3%h igh: 14.8% RDW-C V 13.4 11.3 - 14.8 % 12/22 9:38 PM CDT [facility] Not Available Not Available 12/07/2024 11:26:11 04/0812/23/2023 CBC panel - Blood by Autom ated count platelets [#/volume] in blood by automated count 156 text: 150 - 420 x10e9/ L Plate let Count 156 150 - 420 x10E9 /L 12/22 9:38 PM CDT [facility] Not Available Not Available 12/07/2024 11:26:11 12/23/19 24 12/23/2023 CBC panel - Blood by Autom ated count platelet mean volume [entitic volume] in blood by automated count 10.9 fL low: 7.8fLh igh: 11.4fL MPV 10.9 7.8 - 11.4 fL 12/22 9:38 PM CDT [facility] Not Available Not Available 12/07/2024 11:26:11 12/23/19 24 12/23/2023 CBC panel - Blood by Autom ated count interpretati on and review of laboratory results Abnorm al Not Available Not Available 11:26:11 12/24/1912/24/2023 CBC panel - Blood by Autom ated count leukocytes [#/volume] in blood by automated count 5.6 text: 4.0 - 10.7 x10e9/ L WBC 5.6 4.0 - 10.7 x10E9 /L 12/23 5:24 AM CDT [facility] Not Available Not Available 12/07/2024 11:26:12 12/24/19 24 12/24/2023 CBC panel - Blood by Autom ated count erythrocytes [#/volume] in blood by automated count 2.54 text: 4.30 - 5.80 x10e12 /L low RBC Count 2.54 (L) 4.30 - 5.80 x10E1 2/L 12/23 5:24 AM CDT [facility] Not Available Not Available 12/07/2024 11:26:12 12/24/19 24 12/24/2023 CBC panel - Blood by Autom ated count hemoglobin [mass/volume ] in blood 8 g/dL low: 13.3g/ dLhigh : 17.5g/ dL low Hemog lobin 8.0 (L) 13.3 - 17.5 g/dL 12/23 5:24 AM CDT [facility] Not Available Not Available 12/07/2024 11:26:12 12/24/1912/24/2023 CBC panel - Blood by Autom ated count hematocrit [volume fraction] of blood by automated count 24.9 % low: 38.7%h igh: 51.1% low Hemat ocrit 24.9 (L) 38.7 - 51.1 % 12/23 5:24 AM CDT [facility] Not Available Not Available 12/07/2024 11:26:12 12/24/1912/24/2023 CBC panel - Blood by Autom ated count MCV [entitic volume] by automated count 98 fL low: 80fLhi gh: 98fL MCV 98.0 80.0 - 98.0 fL 12/23 5:24 AM CDT [facility] Not Available Not Available 12/07/2024 11:26:12 12/24/1912/24/2023 CBC panel - Blood by Autom ated count MCH [entitic mass] by automated count 31.5 pg low: 26.7pg high: 33.6pg MCH 31.5 26.7 - 33.6 pg 12/23 5:24 AM CDT [facility] Not Available Not Available 12/07/2024 11:26:12 12/24/1912/24/2023 CBC panel - Blood by Autom ated count MCHC [mass/volume ] by automated count 32.1 g/dL low: 31.7g/ dLhigh : 36.3g/ dL MCHC 32.1 31.7 - 36.3 g/dL 12/23 5:24 AM CDT [facility] Not Available Not Available 12/07/2024 11:26:12 12/24/1912/24/2023 CBC panel - Blood by Autom ated count erythrocyte distribution width [ratio] by automated count 13.2 % low: 11.3%h igh: 14.8% RDW-C V 13.2 11.3 - 14.8 % 12/23 5:24 AM CDT [facility] Not Available Not Available 12/07/2024 11:26:12 04/0912/24/2023 CBC panel - Blood by Autom ated count platelets [#/volume] in blood by automated count 160 text: 150 - 420 x10e9/ L Plate let Count 160 150 - 420 x10E9 /L 12/23 5:24 AM CDT [facility] Not Available Not Available 12/07/2024 11:26:12 12/24/19 24 12/24/2023 CBC panel - Blood by Autom ated count platelet mean volume [entitic volume] in blood by automated count 11.4 fL low: 7.8fLh igh: 11.4fL MPV 11.4 7.8 - 11.4 fL 12/23 5:24 AM CDT [facility] Not Available Not Available 12/07/2024 11:26:12 12/24/19 24 12/24/2023 CBC panel - Blood by Autom ated count interpretati on and review of laboratory results Abnorm al Not Available Not Available 11:26:12 12/24/19 24 12/24/2023 Basic metab olic 2000 panel - Serum or Plasm a glucose [mass/volume ] in serum or plasma 77 mg/dL low: 70mg/d Lhigh: 105mg/ dL Gluco se 77 70 - 105 mg/dL 12/23 5:27 AM CDT [facility] Not Available Not Available 12/07/2024 11:26:12 12/24/19 24 12/24/2023 Basic metab olic 2000 panel - Serum or Plasm a sodium [moles/volum e] in serum or plasma 140 mmol/ L low: 136mmo l/Lhig h: 145mmo l/L Sodiu m 140 136 - 145 mmol/ L 12/23 5:27 AM CDT [facility] Not Available Not Available 12/07/2024 11:26:12 12/24/19 24 12/24/2023 Basic metab olic 2000 panel - Serum or Plasm a potassium [moles/volum e] in serum or plasma 5 mmol/ L low: 3.5mmo l/Lhig h: 5.1mmo l/L Potas sium 5.0 3.5 - 5.1 mmol/ L 12/23 5:27 AM CDT [facility] Not Available Not Available 12/07/2024 11:26:12 12/24/19 24 12/24/2023 Basic metab olic 1999 panel - Serum or Plasm a chloride [moles/volum e] in serum or plasma 117 mmol/ L low: 98mmol /Lhigh : 107mmo l/L high Chlor neto 117 (H) 98 - 107 mmol/ L 12/23 5:27 AM CDT [facility] Not Available Not Available 12/07/2024 11:26:12 12/24/19 24 12/24/2023 Basic metab olic 1999 panel - Serum or Plasm a carbon dioxide, total [moles/volum e] in serum or plasma 16 mmol/ L low: 22mmol /Lhigh : 29mmol /L low CO2 16 (L) 22 - 29 mmol/ L 12/23 5:27 AM CDT [facility] Not Available Not Available 12/07/2024 11:26:12 12/24/19 24 12/24/2023 Basic metab olic 1999 panel - Serum or Plasm a calcium [mass/volume ] in serum or plasma 8.3 mg/dL low: 8.4mg/ dLhigh : 10.4mg /dL low Calci um 8.3 (L) 8.4 - 10.4 mg/dL 12/23 5:27 AM CDT [facility] Not Available Not Available 12/07/2024 11:26:12 12/24/19 24 12/24/2023 Basic metab olic 1999 panel - Serum or Plasm a anion gap in blood 7 mmol/ L low: 6mmol/ Lhigh: 16mmol /L Anion Gap 7 6 - 16 mmol/ L 12/23 5:27 AM CDT [facility] Not Available Not Available 12/07/2024 11:26:12 12/24/19 24 12/24/2023 Basic metab olic 1999 panel - Serum or Plasm a urea nitrogen [mass/volume ] in serum or plasma 69 mg/dL low: 5.3mg/ dLhigh : 18.7mg /dL high BUN 69 (H) 5.3 - 18.7 mg/dL 12/23 5:27 AM CDT [facility] Not Available Not Available 12/07/2024 11:26:12 12/24/19 24 12/24/2023 Basic metab olic 2000 panel - Serum or Plasm a creatinine [mass/volume ] in serum or plasma 7.84 mg/dL low: 0.72mg /dLhig h: 1.25mg /dL high Creat inine 7.84 (H) 0.72 - 1.25 mg/dL 12/23 5:27 AM CDT [facility] Not Available Not Available 12/07/2024 11:26:12 12/24/19 24 12/24/2023 Basic metab olic 2000 panel - Serum or Plasm a glomerular filtration rate/1.73 sq M.predicted [volume rate/area] in serum, plasma or blood by creatinine-b ased formula (CKD-epi) 8 text: >=90 mL/min /1.73 m2 low eGFR by CKD-E PI 8 (L) >=90 mL/mi n/1.7 3 m2 12/23 5:27 AM CDT [facility] Not Available Not Available 12/07/2024 11:26:12 12/24/19 24 12/24/2023 Basic metab olic 2000 panel - Serum or Plasm a interpretati on and review of laboratory results Abnorm al Not Available Not Available 11:26:12 01/30/20 24 02/03/2024 Tetra hydro canna binol [Mass /volu me] in Urine by Confi rmato ry metho d carboxy tetrahydroca nnabinol [mass/volume ] in urine <15 text: NG/mL Canna binoi ds Urine Quant <15 ng/mL 02/02 11:41 AM CDT [facility] ([facility]) Not Available Not Available 12/07/2024 11:24:11 11/02/1911/02/2024 Compr ehens payton metab olic 2000 panel - Serum or Plasm a urea nitrogen [mass/volume ] in serum or plasma 82 mg/dL low: 7mg/dL high: 26mg/d L high BUN 82 (H) 7 - 26 mg/dL 11/02 8:30 AM 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 [facility] Not Available Not Available 12/07/2024 11:26:08 11/02/19 25 11/02/2024 Compr ehens payton metab olic 1999 panel - Serum or Plasm a creatinine [mass/volume ] in serum or plasma 12.72 mg/dL low: 0.71mg /dLhig h: 1.16mg /dL high Creat inine 12.72 (H) 0.71 - 1.16 mg/dL 11/02 8:30 AM 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 [facility] Not Available Not Available 12/07/2024 11:26:08 11/02/19 25 11/02/2024 Compr ehens payton metab olic 1999 panel - Serum or Plasm a sodium [moles/volum e] in serum or plasma 139 mmol/ L low: 136mmo l/Lhig h: 145mmo l/L Sodiu m 139 136 - 145 mmol/ L 11/02 8:30 AM 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 [facility] Not Available Not Available 12/07/2024 11:26:08 11/02/19 25 11/02/2024 Compr ehens payton metab olic 1999 panel - Serum or Plasm a potassium [moles/volum e] in serum or plasma 4.5 mmol/ L low: 3.5mmo l/Lhig h: 4.5mmo l/L Potas sium 4.5 3.5 - 4.5 mmol/ L 11/02 8:30 AM 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 [facility] Not Available Not Available 12/07/2024 11:26:08 11/02/19 25 11/02/2024 Compr ehens payton metab olic 1999 panel - Serum or Plasm a chloride [moles/volum e] in serum or plasma 106 mmol/ L low: 98mmol /Lhigh : 107mmo l/L Chlor neto 106 98 - 107 mmol/ L 11/02 8:30 AM 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 [facility] Not Available Not Available 12/07/2024 11:26:08 11/02/19 25 11/02/2024 Compr ehens payton metab olic 2000 panel - Serum or Plasm a carbon dioxide, total [moles/volum e] in serum or plasma 20 mmol/ L low: 22mmol /Lhigh : 29mmol /L low CO2 20 (L) 22 - 29 mmol/ L 11/02 8:30 AM [facility] Not Available Not Available 12/07/2024 11:26:08 11/02/19 25 11/02/2024 Compr ehens payton metab olic 2000 panel - Serum or Plasm a glucose [mass/volume ] in serum or plasma 84 mg/dL low: 70mg/d Lhigh: 99mg/d L Gluco se 84 70 - 99 mg/dL 11/02 8:30 AM [facility] Not Available Not Available 12/07/2024 11:26:08 11/02/19 25 11/02/2024 Compr ehens payton metab olic 2000 panel - Serum or Plasm a calcium [moles/volum e] in serum or plasma 9.1 mg/dL low: 8.4mg/ dLhigh : 10.2mg /dL Calci um 9.1 8.4 - 10.2 mg/dL 11/02 8:30 AM [facility] Not Available Not Available 12/07/2024 11:26:08 11/02/19 25 11/02/2024 Compr ehens payton metab olic 2000 panel - Serum or Plasm a protein [mass/volume ] in serum or plasma 6.8 g/dL low: 6g/dLh igh: 8.3g/d L Prote in Total 6.8 6.0 - 8.3 g/dL 11/02 8:30 AM [facility] Not Available Not Available 12/07/2024 11:26:08 11/02/19 25 11/02/2024 Compr ehens payton metab olic 2000 panel - Serum or Plasm a albumin [mass/volume ] in serum or plasma by bromocresol green (bcg) dye binding method 3.9 g/dL low: 3.4g/d Lhigh: 5g/dL Album in 3.9 3.4 - 5.0 g/dL 11/02 8:30 AM [facility] Not Available Not Available 12/07/2024 11:26:08 11/02/19 25 11/02/2024 Compr ehens payton metab olic 1999 panel - Serum or Plasm a bilirubin.to lewis [mass/volume ] in serum or plasma 0.8 mg/dL low: 0.2mg/ dLhigh : 1.2mg/ dL Bilir ubin Total 0.8 0.2 - 1.2 mg/dL 11/02 8:30 AM 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 [facility] Not Available Not Available 12/07/2024 11:26:08 11/02/19 25 11/02/2024 Compr ens payton metab olic 1999 panel - Serum or Plasm a alkaline phosphatase [enzymatic activity/vol ume] in serum or plasma 43 U/L low: 40U/Lh igh: 150U/L Alkal ine Phosp hatas e 43 40 - 150 U/L 11/02 8:30 AM 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 [facility] Not Available Not Available 12/07/2024 11:26:08 11/02/19 25 11/02/2024 Compr ehens payton metab olic 1999 panel - Serum or Plasm a alanine aminotransfe rase [enzymatic activity/vol ume] in serum or plasma by no addition of P-5'-P 14 U/L low: 5U/Lhi gh: 55U/L ALT 14 5 - 55 U/L 11/02 8:30 AM 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 [facility] Not Available Not Available 12/07/2024 11:26:08 11/02/19 25 11/02/2024 Compr ehens payton metab olic 1999 panel - Serum or Plasm a aspartate aminotransfe rase [enzymatic activity/vol ume] in serum or plasma 11 U/L low: 5U/Lhi gh: 34U/L AST 11 5 - 34 U/L 11/02 8:30 AM 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 [facility] Not Available Not Available 12/07/2024 11:26:08 11/02/19 25 11/02/2024 Compr ehens payton metab olic 2000 panel - Serum or Plasm a anion gap 13 low: 6high: 16 Anion Gap 13 6 - 16 11/02 8:30 AM 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 [facility] Not Available Not Available 12/07/2024 11:26:08 11/02/19 25 11/02/2024 Compr ehens payton metab olic 1999 panel - Serum or Plasm a urea nitrogen/cre atinine [mass ratio] in serum or plasma 6 low: 7high: 23 low BUN/C reati nine Ratio 6 (L) 7 - 23 11/02 8:30 AM 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 [facility] Not Available Not Available 12/07/2024 11:26:08 11/02/19 25 11/02/2024 Compr ehens payton metab olic 2000 panel - Serum or Plasm a osmolality calculated 312 text: 275 - 295 mOsm/k g high Osmol ality Calcu lated 312 (H) 275 - 295 mOsm/ kg 11/02 8:30 AM 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 [facility] Not Available Not Available 12/07/2024 11:26:08 11/02/19 25 11/02/2024 Compr ehens payton metab olic 2000 panel - Serum or Plasm a albumin/glob ulin ratio 1.3 low: 1.1hig h: 2.3 Album in/Gl obuli n Ratio 1.3 1.1 - 2.3 11/02 8:30 AM 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 [facility] Not Available Not Available 12/07/2024 11:26:08 11/02/19 25 11/02/2024 Compr ehens payton metab olic 2000 panel - Serum or Plasm a glomerular filtration rate/1.73 sq M.predicted [volume rate/area] in serum, plasma or blood by creatinine-b ased formula (CKD-epi 2020) 5 text: >=90 mL/min /1.73 m2 low eGFR by CKD-E PI 5 (L) >=90 mL/mi n/1.7 3 m2 11/02 8:30 AM 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 [facility] Not Available Not Available 12/07/2024 11:26:08 11/02/19 25 11/02/2024 Compr ehens payton metab olic 2000 panel - Serum or Plasm a interpretati on and review of laboratory results Abnorm al Not Available Not Available 11:26:08 11/02/19 25 11/02/[address] [Mass /volu me] in Serum or Plasm a parathyrin.i ntact [mass/volume ] in serum or plasma 631.1 pg/mL low: 8pg/mL high: 77pg/m L high PTH Intac t 631.1 (H) 8.0 - 77.0 pg/mL 11/02 8:26 AM 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 [facility] Not Available Not Available 12/07/2024 11:21:18 11/02/19 25 11/02/[address] [Mass /volu me] in Serum or Plasm a interpretati on and review of laboratory results Abnorm al Not Available Not Available 11:21:18 11/02/19 25 11/02/2024 HIV 1+2 Ab+HI V1 p24 Ag [Pres ence] in Serum or Plasm a by Immun oassa y HIV 1+2 Ab+HIV1 P24 Ag [presence] in serum or plasma by immunoassay Non-re active text: non-re active HIV Antig en/An tibod y 1 & 2 Non-r eacti ve Non-r eacti ve 11/02 8:32 AM 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 [facility] Not Available Not Available 12/07/2024 11:21:18 11/02/19 25 11/02/2024 HIV 1+2 Ab+HI V1 p24 Ag [Pres ence] in Serum or Plasm a by Immun oassa y interpretati on and review of laboratory results Normal Not Available Not Available 11/15 11:21:18 11/02/1911/02/2024 Urina lysis panel - Urine by Auto color UA Straw text: straw, yellow Color UA Straw Straw , Yello w 11/02 8:10 AM 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 [facility] Not Available Not Available 12/07/2024 11:21:18 11/02/19 25 11/02/2024 Urina lysis panel - Urine by Auto clarity UA Clear text: clear Kirsten ty UA Clear Clear 11/02 8:10 AM 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 [facility] Not Available Not Available 12/07/2024 11:21:18 11/02/19 25 11/02/2024 Urina lysis panel - Urine by Auto specific gravity UA 1.006 low: 1.005h igh: 1.03 Speci fic Gravi ty UA 1.006 1.005 - 1.030 11/02 8:10 AM 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 [facility] Not Available Not Available 12/07/2024 11:21:18 11/02/19 25 11/02/2024 Urina lysis panel - Urine by Auto pH UA 7 pH low: 5pHhig h: 8pH pH UA 7.0 5.0 - 8.0 pH 11/02 8:10 AM 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 [facility] Not Available Not Available 12/07/2024 11:21:18 11/02/19 25 11/02/2024 Urina lysis panel - Urine by Auto protein UA 2+ text: negati ve abnormal Prote in UA 2+ (A) Negat [place] 11/02 8:10 AM 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 [facility] Not Available Not Available 12/07/2024 11:21:18 11/02/19 25 11/02/2024 Urina lysis panel - Urine by Auto glucose UA 1+ text: negati ve abnormal Gluco se UA 1+ (A) Negat [place] 11/02 8:10 AM 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 [facility] [facility] Not Available Not Available 12/07/2024 11:21:18 11/02/19 25 11/02/2024 Urina lysis panel - Urine by Auto ketone UA Negati ve text: negati ve Keton e UA Negat payton Negat payton 11/02 8:10 AM 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 [facility] Not Available Not Available 12/07/2024 11:21:18 11/02/19 25 11/02/2024 Urina lysis panel - Urine by Auto bilirubin UA Negati ve text: negati ve Bilir ubin UA Negat payton Negat payton 11/02 8:10 AM 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 [facility] Not Available Not Available 12/07/2024 11:21:18 11/02/19 25 11/02/2024 Urina lysis panel - Urine by Auto blood UA 2+ text: negati ve abnormal Blood UA 2+ (A) Negat payton 11/02 8:10 AM 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 [facility] Not Available Not Available 12/07/2024 11:21:18 11/02/19 25 11/02/2024 Urina lysis panel - Urine by Auto nitrite UA Negati ve text: negati ve Nitri te UA Negat payton Negat payton 11/02 8:10 AM 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 [facility] Not Available Not Available 12/07/2024 11:21:18 11/02/19 25 11/02/2024 Urina lysis panel - Urine by Auto leukocyte esterase 3+ text: negati ve abnormal Leuko cyte Keke ase 3+ (A) Negat payton 11/02 8:10 AM 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 [facility] Not Available Not Available 12/07/2024 11:21:18 11/02/19 25 11/02/2024 Urina lysis panel - Urine by Auto urobilinogen UA Negati ve text: negati ve mg/dL Urobi linog en UA Negat payton Negat payton mg/dL 11/02 8:10 AM 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 [facility] Not Available Not Available 12/07/2024 11:21:18 11/02/19 25 11/02/2024 Urina lysis panel - Urine by Auto RBC UA 6-10 text: none seen, 0-2, 3-5 /hpf abnormal RBC UA 6-10 (A) None Seen, 0-2, 3-5 /HPF 11/02 8:10 AM 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 [facility] Not Available Not Available 12/07/2024 11:21:18 11/02/19 25 11/02/2024 Urina lysis panel - Urine by Auto WBC UA 51-100 text: none seen, 0-5 /hpf abnormal WBC UA 51-10 0 (A) None Seen, 0-5 /HPF 11/02 8:10 AM 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 [facility] Not Available Not Available 12/07/2024 11:21:18 11/02/19 25 11/02/2024 Urina lysis panel - Urine by Auto squamous epithelial cells UA 0-2 text: none seen, 0-2, 3-5 /hpf Squam ous Epith elial Cells UA 0-2 None Seen, 0-2, 3-5 /HPF 11/02 8:10 AM 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 [facility] Not Available Not Available 12/07/2024 11:21:18 11/02/19 25 11/02/2024 Urina lysis panel - Urine by Auto Unknown Analyte Lab Status , Cultur e Reflex Indica ceasar. Lab Statu s, Cultu re Refle x Indic ated. Not Available Not Available 12/07/2024 11:21:18 11/02/19 25 11/02/2024 Urina lysis panel - Urine by Auto interpretati on and review of laboratory results Abnorm al Not Available Not Available 11:21:18 11/02/19 25 11/02/2024 Urate [Mass /volu me] in Serum or Plasm a urate [mass/volume ] in serum or plasma 6.1 mg/dL low: 3.5mg/ dLhigh : 7.2mg/ dL Uric Acid 6.1 3.5 - 7.2 mg/dL 11/02 8:30 AM 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 [facility] Not Available Not Available 12/07/2024 11:21:17 11/02/19 25 11/02/2024 Urate [Mass /volu me] in Serum or Plasm a interpretati on and review of laboratory results Normal Not Available Not Available 11/15 11:21:17 11/02/19 25 11/06/2024 Tetra hydro canna binol [Mass /volu me] in Urine by Andrei rmato ry metho d carboxy tetrahydroca nnabinol [mass/volume ] in urine 45 NG/mL Canna binoi ds Urine Quant 45 ng/mL 11/06 12:43 PM 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 [facility] ([facility]) Not Available Not Available 12/07/2024 11:21:17 11/02/19 25 11/03/2024 Cytom egalo virus IgG Ab [Unit s/vol ume] in Serum or Plasm a by Immun oassa y cytomegalovi chi IgG Ab [units/volum e] in serum or plasma by immunoassay <0.20 high: 0.7U/m L Cytom egalo virus Antib raj IgG <0.20 <=0.7 0 U/mL 11/03 3:36 PM 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 [facility] ([facility]) Not Available Not Available 12/07/2024 11:21:17 11/02/19 25 11/02/2024 Trans gayatri n [Mass /volu me] in Serum or Plasm a transferrin [mass/volume ] in serum or plasma 129 mg/dL low: 174mg/ dLhigh : 382mg/ dL low Trans gayatri n 129 (L) 174 - 382 mg/dL 11/02 8:13 AM 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 [facility] Not Available Not Available 12/07/2024 11:21:17 11/02/19 25 11/02/2024 Trans gayatri n [Mass /volu me] in Serum or Plasm a interpretati on and review of laboratory results Abnorm al Not Available Not Available 11:21:17 11/02/19 25 11/03/2024 Toxop lasma gondi i IgG Ab [Unit s/vol ume] in Serum toxoplasma gondii IgG Ab [units/volum e] in serum <3.0 text: <=8.8 IU/mL Toxop lasma Antib raj IgG <3.0 <=8.8 IU/mL 11/03 3:38 PM 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 [facility] ([facility]) Not Available Not Available 12/07/2024 11:21:17 11/02/19 25 11/02/2024 Hemog lobin A1c/H emogl obin. total in Blood hemoglobin A1C/hemoglob in.total in blood 4.8 % high: 5.6% Hemog lobin A1c 4.8 <=5.6 % 11/02 9:53 AM 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 [facility] Not Available Not Available 12/07/2024 11:21:17 11/02/19 25 11/02/2024 Hemog lobin A1c/H emogl obin. total in Blood glucose mean value [mass/volume ] in blood estimated from glycated hemoglobin 91 mg/dL Estim ated [place] Gluco se 91 mg/dL 11/02 9:53 AM 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 [facility] Not Available Not Available 12/07/2024 11:21:17 11/02/19 25 11/02/2024 25-hy droxy vitam in D3 [Mass /volu me] in Serum or Plasm a 25-hydroxyvi tamin D3+25-hydrox yvitamin D2 [mass/volume ] in serum or plasma 63.5 NG/mL low: 30NG/m Lhigh: 80NG/m L Vitam in D, 25 [place] xy 63.5 30.0 - 80.0 ng/mL 11/02 8:40 AM 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 [facility] Not Available Not Available 12/07/2024 11:21:17 11/02/19 25 11/02/2024 25-hy droxy vitam in D3 [Mass /volu me] in Serum or Plasm a interpretati on and review of laboratory results Normal Not Available Not Available 11/15 11:21:17 11/02/19 25 11/03/2024 Bacte santi ident ified in Urine by Cultu re bacteria identified in urine by culture 10,000 -50,00 0 CFU/mL urogen ital lai Cultu re Urine 10,00 0-50, 000 CFU/m L uroge nital lai 11/03 3:38 PM 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 [facility] Not Available Not Available 12/07/2024 11:21:17 11/02/19 25 11/05/2024 Nicot ine [Mass /volu me] in Serum or Plasm a nicotine [mass/volume ] in serum or plasma <5 text: NG/mL Nicot ine <5 ng/mL 11/05 12:35 AM 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 [facility] ([facility]) Not Available Not Available 12/07/2024 11:21:17 11/02/19 25 11/05/2024 Nicot ine [Mass /volu me] in Serum or Plasm a cotinine [mass/volume ] in serum or plasma <5 text: NG/mL Cotin ine <5 ng/mL 11/05 12:35 AM 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 [facility] ([facility]) Not Available Not Available 12/07/2024 11:21:17 11/02/19 25 11/02/2024 CBC W Auto Diffe renti al panel - Blood leukocytes [#/volume] in blood by automated count 8.2 text: 4.0 - 10.7 x10e9/ L WBC 8.2 4.0 - 10.7 x10E9 /L 11/02 8:18 AM [facility] Not Available Not Available 12/07/2024 11:21:17 11/02/19 25 11/02/2024 CBC W Auto Diffe renti al panel - Blood erythrocytes [#/volume] in blood by automated count 2.67 text: 4.30 - 5.80 x10e12 /L low RBC Count 2.67 (L) 4.30 - 5.80 x10E1 2/L 11/02 8:18 AM [facility] Not Available Not Available 12/07/2024 11:21:17 11/02/19 25 11/02/2024 CBC W Auto Diffe renti al panel - Blood hemoglobin [mass/volume ] in blood 8.5 g/dL low: 13.3g/ dLhigh : 17.5g/ dL low Hemog lobin 8.5 (L) 13.3 - 17.5 g/dL 11/02 8:18 AM [facility] Not Available Not Available 12/07/2024 11:21:17 11/02/19 25 11/02/2024 CBC W Auto Diffe renti al panel - Blood hematocrit [volume fraction] of blood by automated count 25.8 % low: 38.7%h igh: 51.1% low Hemat ocrit 25.8 (L) 38.7 - 51.1 % 11/02 8:18 AM [facility] Not Available Not Available 12/07/2024 11:21:17 11/02/19 25 11/02/2024 CBC W Auto Diffe renti al panel - Blood MCV [entitic volume] by automated count 96.6 fL low: 80fLhi gh: 98fL MCV 96.6 80.0 - 98.0 fL 11/02 8:18 AM [facility] Not Available Not Available 12/07/2024 11:21:17 11/02/19 25 11/02/2024 CBC W Auto Diffe renti al panel - Blood MCH [entitic mass] by automated count 31.8 pg low: 26.7pg high: 33.6pg MCH 31.8 26.7 - 33.6 pg 11/02 8:18 AM [facility] Not Available Not Available 12/07/2024 11:21:17 11/02/19 25 11/02/2024 CBC W Auto Diffe sam zamora panel - Blood MCHC [mass/volume ] by automated count 32.9 g/dL low: 31.7g/ dLhigh : 36.3g/ dL MCHC 32.9 31.7 - 36.3 g/dL 11/02 8:18 AM [facility] Not Available Not Available 12/07/2024 11:21:17 11/02/19 25 11/02/2024 CBC W Auto Diffzabrina zamora panel - Blood erythrocyte distribution width [ratio] by automated count 12.9 % low: 11.3%h igh: 14.8% RDW-C V 12.9 11.3 - 14.8 % 11/02 8:18 AM [facility] Not Available Not Available 12/07/2024 11:21:17 11/02/19 25 11/02/2024 CBC W Auto Diffzabrina zamora panel - Blood platelets [#/volume] in blood by automated count 190 text: 150 - 420 x10e9/ L Plate let Count 190 150 - 420 x10E9 /L 11/02 8:18 AM [facility] Not Available Not Available 12/07/2024 11:21:17 11/02/19 25 11/02/2024 CBC W Auto Diffe sam zamora panel - Blood platelet mean volume [entitic volume] in blood by automated count 11.2 fL low: 7.8fLh igh: 11.4fL MPV 11.2 7.8 - 11.4 fL 11/02 8:18 AM [facility] Not Available Not Available 12/07/2024 11:21:17 11/02/19 25 11/02/2024 CBC W Auto Diffe sam zamora panel - Blood neutrophils/ 100 leukocytes in blood by automated count 77.4 % low: 41%hig h: 74% high Neutr ophil % 77.4 (H) 41.0 - 74.0 % 11/02 8:18 AM 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 [facility] Not Available Not Available 12/07/2024 11:21:17 11/02/19 25 11/02/2024 CBC W Auto Diffe renti al panel - Blood lymphocytes/ 100 leukocytes in blood by automated count 12.6 % low: 17%hig h: 47% low Lymph ocyte % 12.6 (L) 17.0 - 47.0 % 11/02 8:18 AM 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 [employer] [facility] Not Available Not Available 12/07/2024 11:21:17 11/02/19 25 11/02/2024 CBC W Auto Diffe renti al panel - Blood monocytes/10 0 leukocytes in blood by automated count 8.2 % low: 3%high : 11% Monoc yte % 8.2 3.0 - 11.0 % 11/02 8:18 AM 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 [facility] Not Available Not Available 12/07/2024 11:21:17 11/02/19 25 11/02/2024 CBC W Auto Diffe renti al panel - Blood eosinophils/ 100 leukocytes in blood by automated count 1.2 % low: 0%high : 7% Eosin ophil % 1.2 0.0 - 7.0 % 11/02 8:18 AM 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 [employer] Not Available Not Available 12/07/2024 11:21:17 11/02/19 25 11/02/2024 CBC W Auto Diffe renti al panel - Blood basophils/10 0 leukocytes in blood by automated count 0.2 % low: 0%high : 1.6% Basop hil % 0.2 0.0 - 1.6 % 11/02 8:18 AM 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 [employer] [facility] Not Available Not Available 12/07/2024 11:21:17 11/02/19 25 11/02/2024 CBC W Auto Diffe renti al panel - Blood immature granulocytes /100 leukocytes in blood by automated count 0.4 % low: 0%high : 1% Immat ure Granu locyt es % 0.4 0.0 - 1.0 % 11/02 8:18 AM [facility] Not Available Not Available 12/07/2024 11:21:17 11/02/19 25 11/02/2024 CBC W Auto Diffe renti al panel - Blood neutrophils [#/volume] in blood by automated count 6.33 text: 1.60 - 7.50 x10e9/ L Neutr ophil Absol [place] [employer] [place] 6.33 1.60 - 7.50 x10E9 /L 11/02 8:18 AM [facility] Not Available Not Available 12/07/2024 11:21:17 11/02/19 25 11/02/2024 CBC W Auto Diffe renti al panel - Blood lymphocytes [#/volume] in blood by automated count 1.03 text: 1.00 - 4.40 x10e9/ L Lymph ocyte Absol [place] 1.03 1.00 - 4.40 x10E9 /L 11/02 8:18 AM [facility] Not Available Not Available 12/07/2024 11:21:17 11/02/19 25 11/02/2024 CBC W Auto Diffe renti al panel - Blood monocytes [#/volume] in blood by automated count 0.67 text: 0.15 - 1.00 x10e9/ L Monoc yte Absol [place] 0.67 0.15 - 1.00 x10E9 /L 11/02 8:18 AM [facility] Not Available Not Available 12/07/2024 11:21:17 11/02/19 25 11/02/2024 CBC W Auto Diffe renti al panel - Blood eosinophils [#/volume] in blood 0.1 text: 0.00 - 0.60 x10e9/ L Eosin ophil Absol [place] 0.10 0.00 - 0.60 x10E9 /L 11/02 8:18 AM [facility] Not Available Not Available 12/07/2024 11:21:17 11/02/19 25 11/02/2024 CBC W Auto Diffe renti al panel - Blood basophils [#/volume] in blood by automated count 0.02 text: 0.00 - 0.13 x10e9/ L Basop hil Absol [place] 0.02 0.00 - 0.13 x10E9 /L 11/02 8:18 AM 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 [facility] Not Available Not Available 12/07/2024 11:21:17 11/02/19 25 11/02/2024 CBC W Auto Diffe renti al panel - Blood interpretati on and review of laboratory results Abnorm al Not Available Not Available 11:21:17 11/02/19 25 11/02/2024 Prote in/Cr eatin ine [Mass Ratio ] in Urine protein [mass/volume ] in urine 73 mg/dL text: not establ ished Prote in Urine 73 Not Estab lishe d mg/dL 11/02 8:27 AM [facility] Not Available Not Available 12/07/2024 11:21:16 11/02/19 25 11/02/2024 Prote in/Cr eatin ine [Mass Ratio ] in Urine creatinine [mass/volume ] in urine 59.85 mg/dL text: not establ ished Creat inine Urine 59.85 Not Estab lishe d mg/dL 11/02 8:27 AM [facility] Not Available Not Available 12/07/2024 11:21:16 11/02/19 25 11/02/2024 Prote in/Cr eatin ine [Mass Ratio ] in Urine protein/crea tinine [mass ratio] in urine 1.22 high: 0.1 high Prote in/Cr eatin ine Ratio Urine 1.22 (H) <0.10 11/02 8:27 AM [facility] Not Available Not Available 12/07/2024 11:21:16 11/02/19 25 11/02/2024 Prote in/Cr eatin ine [Mass Ratio ] in Urine interpretati on and review of laboratory results Abnorm al Not Available Not Available 11:21:16 11/02/19 25 11/02/2024 Phosp hate [Mass /volu me] in Serum or Plasm a phosphate [mass/volume ] in serum or plasma 5.9 mg/dL low: 2.8mg/ dLhigh : 5.1mg/ dL high Phosp horus 5.9 (H) 2.8 - 5.1 mg/dL 11/02 8:30 AM 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 [employer] [facility] Not Available Not Available 12/07/2024 11:21:16 11/02/19 25 11/02/2024 Phosp hate [Mass /volu me] in Serum or Plasm a interpretati on and review of laboratory results Abnorm al Not Available Not Available 11:21:16 11/02/19 25 11/02/2024 Magne sium [Mass /volu me] in Serum or Plasm a magnesium [mass/volume ] in serum or plasma 3 mg/dL low: 1.6mg/ dLhigh : 2.6mg/ dL high Magne sium 3.0 (H) 1.6 - 2.6 mg/dL 11/02 8:30 AM 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 [employer] [facility] Not Available Not Available 12/07/2024 11:21:16 11/02/19 25 11/02/2024 Magne sium [Mass /volu me] in Serum or Plasm a interpretati on and review of laboratory results Abnorm al Not Available Not Available 11:21:16 11/02/19 25 11/02/2024 Iron [Mass /volu me] in Serum or Plasm a iron [mass/volume ] in serum or plasma 18 ug/dL low: 50ug/d Lhigh: 175ug/ dL low Iron 18 (L) 50 - 175 ug/dL 11/02 8:13 AM 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 [employer] [facility] Not Available Not Available 12/07/2024 11:21:16 11/02/19 25 11/02/2024 Iron [Mass /volu me] in Serum or Plasm a interpretati on and review of laboratory results Abnorm al Not Available Not Available 11:21:16 11/02/19 25 11/02/2024 Hepat itis B virus surfa ce Ab [Pres ence] in Serum hepatitis B virus surface Ab [units/volum e] in serum Non-re active text: non-re active Hepat itis B Virus Surfa ce Antib raj Non-r eacti ve Non-r eacti ve 11/02 8:32 AM 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 [facility] Not Available Not Available 12/07/2024 11:21:16 11/02/19 25 11/02/2024 Hepat itis B virus surfa ce Ab [Pres ence] in Serum hepatitis B virus surface Ab [units/volum e] in serum or plasma by immunoassay text: <8.0 mIU/mL Hepat itis B Surfa ce Antib raj Quant itati ve <3.0 <8.0 mIU/m L 11/02 8:32 AM 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 [facility] Not Available Not Available 12/07/2024 11:21:16 11/02/19 25 11/02/2024 Hepat itis B virus surfa ce Ab [Pres ence] in Serum Unknown Analyte This assay should not be used for blood, plasma , or tissue donor screen ing. This assay is not recomm ended for neonat es born to HBV-in fected or suspec ceasar HBV-in fected mother s. This assay shoul d not be used for blood , plasm a, or tissu e donor jaimiee steven. This assay is not recom juan alberto d for neona curt born to HBV-i nfect ed or suspe cted HBV-i nfect ed lubae rs. Not Available Not Available 12/07/2024 11:21:16 11/02/19 25 11/02/2024 Hepat itis B virus surfa ce Ab [Pres ence] in Serum interpretati on and review of laboratory results Normal Not Available Not Available 11/15 11:21:16 11/02/19 25 11/02/2024 Hepat itis B virus core Ab [Pres ence] in Serum hepatitis B virus core IgG+IgM Ab [presence] in serum Non-re active text: non-re active HBc Antib raj Total Non-r eacti ve Non-r eacti ve 11/02 8:32 AM 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 [facility] Not Available Not Available 12/07/2024 11:21:16 11/02/19 25 11/02/2024 Hepat itis B virus core Ab [Pres ence] in Serum interpretati on and review of laboratory results Normal Not Available Not Available 11/15 11:21:16 11/02/19 25 11/02/2024 Hepat itis B virus surfa ce Ag [Pres ence] in Serum hepatitis B virus surface Ag [presence] in serum or plasma by immunoassay Non-re active text: non-re active Hepat itis B Virus Surfa ce Antig en Non-r eacti ve Non-r eacti ve 11/02 8:32 AM 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 [facility] Not Available Not Available 12/07/2024 11:21:16 11/02/19 25 11/02/2024 Hepat itis B virus surfa ce Ag [Pres ence] in Serum interpretati on and review of laboratory results Normal Not Available Not Available 11/15 11:21:16 11/02/19 25 11/02/2024 Hepat itis C virus Ab [Pres ence] in Serum hepatitis C virus Ab [presence] in serum or plasma by immunoassay Non-re active text: non-re active Hepat itis C Antib raj Non-r eacti ve Non-r eacti ve 11/02 8:32 AM 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 [facility] Not Available Not Available 12/07/2024 11:21:15 11/02/19 25 11/02/2024 Hepat itis C virus Ab [Pres ence] in Serum interpretati on and review of laboratory results Normal Not Available Not Available 11/15 11:21:15 11/02/19 25 11/03/2024 Hepat itis A virus Ab [Pres ence] in Serum by Immun oassa y hepatitis A virus Ab [presence] in serum by immunoassay Negati ve text: negati ve Hepat itis A Virus Antib raj Total Negat payton Negat payton 11/03 9:57 AM 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 [facility] ([facility]) Not Available Not Available 12/07/2024 11:21:15 11/02/19 25 11/02/2024 Gayatri tin [Mass /volu me] in Serum or Plasm a ferritin [mass/volume ] in serum or plasma 448 NG/mL low: 22NG/m Lhigh: 275NG/ mL high Gayatri tin 448 (H) 22 - 275 ng/mL 11/02 8:32 AM 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 [facility] Not Available Not Available 12/07/2024 11:21:15 11/02/19 25 11/02/2024 Gayatri tin [Mass /volu me] in Serum or Plasm a interpretati on and review of laboratory results Abnorm al Not Available Not Available 11:21:15 11/02/19 25 11/02/2024 Lipid 1996 panel - Serum or Plasm a cholesterol [mass/volume ] in serum or plasma 117 mg/dL high: 200mg/ dL Maggie stero l Total 117 <200 mg/dL 11/02 8:30 AM 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 [facility] Not Available Not Available 12/07/2024 11:21:15 11/02/19 25 11/02/2024 Lipid 1996 panel - Serum or Plasm a cholesterol in HDL [mass/volume ] in serum or plasma 26 mg/dL low: 40mg/d L low HDL 26 (L) >40 mg/dL 11/02 8:30 AM 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 [facility] Not Available Not Available 12/07/2024 11:21:15 11/02/19 25 11/02/2024 Lipid 1996 panel - Serum or Plasm a cholesterol in LDL [mass/volume ] in serum or plasma by calculation 77 mg/dL high: 100mg/ dL LDL Calcu lated 77 <100 mg/dL 11/02 8:30 AM 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 [facility] Not Available Not Available 12/07/2024 11:21:15 11/02/19 25 11/02/2024 Lipid 1996 panel - Serum or Plasm a tricyclic antidepressa nts [mass/volume ] in serum or plasma 68 mg/dL high: 150mg/ dL Trigl yceri mukesh 68 <150 mg/dL 11/02 8:30 AM 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 [facility] Not Available Not Available 12/07/2024 11:21:15 11/02/19 25 11/02/2024 Lipid 1996 panel - Serum or Plasm a interpretati on and review of laboratory results Abnorm al Not Available Not Available 11:21:15 03/03/11/16/2024 Urina lysis panel - Urine by Auto color of urine by auto Colorl ess text: yellow , straw abnormal Color UA Color less (A) Yello w, Straw 11/16 4:20 PM 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 [facility] Not Available Not Available 12/07/2024 11:21:18 11/17/19 25 11/16/2024 Urina lysis panel - Urine by Auto clarity in urine by refractometr y automated Clear text: clear Kirsten ty UA Clear Clear 11/16 4:20 PM 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 [facility] Not Available Not Available 12/07/2024 11:21:18 11/17/19 25 11/16/2024 Urina lysis panel - Urine by Auto glucose [presence] in urine by test strip 1+ text: normal abnormal Gluco se UA 1+ (A) Paradise l 11/16 4:20 PM 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 [facility] Not Available Not Available 12/07/2024 11:21:18 11/17/19 25 11/16/2024 Urina lysis panel - Urine by Auto bilirubin.to lewis [presence] in urine by test strip Negati ve text: negati ve Bilir ubin UA Negat payton Negat payton 11/16 4:20 PM 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 [facility] Not Available Not Available 12/07/2024 11:21:18 11/17/19 25 11/16/2024 Urina lysis panel - Urine by Auto ketones [presence] in urine by automated test strip Negati ve text: negati ve Keton e UA Negat payton Negat payton 11/16 4:20 PM 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 [facility] Not Available Not Available 12/07/2024 11:21:18 11/17/19 25 11/16/2024 Urina lysis panel - Urine by Auto specific gravity of urine by test strip 1.008 low: 1.005h igh: 1.03 Speci fic Gravi ty UA 1.008 1.005 - 1.030 11/16 4:20 PM 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 [facility] Not Available Not Available 12/07/2024 11:21:18 11/17/19 25 11/16/2024 Urina lysis panel - Urine by Auto hemoglobin [presence] in urine by test strip 1+ text: negati ve abnormal Blood UA 1+ (A) Negat pay[place] 11/16 4:20 PM 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 [facility] Not Available Not Available 12/07/2024 11:21:18 11/17/19 25 11/16/2024 Urina lysis panel - Urine by Auto pH of urine by test strip 7.5 pH low: 5pHhig h: 9pH pH UA 7.5 5.0 - 9.0 pH 11/16 4:20 PM 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 [facility] Not Available Not Available 12/07/2024 11:21:18 11/17/19 25 11/16/2024 Urina lysis panel - Urine by Auto protein [presence] in urine by test strip 1+ text: negati ve abnormal Prote in UA 1+ (A) Negat pay[place] 11/16 4:20 PM 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 [facility] Not Available Not Available 12/07/2024 11:21:18 11/17/19 25 11/16/2024 Urina lysis panel - Urine by Auto urobilinogen [mass/volume ] in urine by automated test strip Normal text: normal mg/dL Urobi linog en UA Paradise l Paradise l mg/dL 11/16 4:20 PM 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 [facility] Not Available Not Available 12/07/2024 11:21:18 11/17/19 25 11/16/2024 Urina lysis panel - Urine by Auto nitrite [presence] in urine by test strip Negati ve text: negati ve Nitri te UA Negat pay[place] Negat payton 11/16 4:20 PM 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 [facility] Not Available Not Available 12/07/2024 11:21:18 11/17/19 25 11/16/2024 Urina lysis panel - Urine by Auto leukocyte esterase [presence] in urine by test strip Negati ve text: negati ve Leuko cyte UA Negat payton Negat payton 11/16 4:20 PM 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 [facility] Not Available Not Available 12/07/2024 11:21:18 11/17/19 25 11/16/2024 Urina lysis panel - Urine by Auto erythrocytes [#/area] in urine sediment by automated count 3-5 text: 0 - 5 # /hpf RBC UA 3-5 0 - 5 # /hpf 11/16 4:20 PM 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 [facility] Not Available Not Available 12/07/2024 11:21:18 11/17/19 25 11/16/2024 Urina lysis panel - Urine by Auto leukocytes [#/area] in urine sediment by automated count 0-5 text: 0 - 5 # /hpf WBC UA 0-5 0 - 5 # /hpf 11/16 4:20 PM 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 [facility] Not Available Not Available 12/07/2024 11:21:18 11/17/19 25 11/16/2024 Urina lysis panel - Urine by Auto bacteria [presence] in urine by automated Trace text: none seen abnormal Bacte santi UA Trace (A) None Seen 11/16 4:20 PM 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 [facility] Not Available Not Available 12/07/2024 11:21:18 11/17/19 25 11/16/2024 Urina lysis panel - Urine by Auto epithelial cells.squamo us [presence] in urine by automated 0-2 text: 0 - 5 /hpf Squam ous Epith elial Cells 0-2 0 - 5 /hpf 11/16 4:20 PM 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 [facility] Not Available Not Available 12/07/2024 11:21:18 11/17/19 25 11/16/2024 Urina lysis panel - Urine by Auto interpretati on and review of laboratory results Abnorm al Not Available Not Available 11:21:18 11/17/19 25 11/16/2024 Prote in [Mass /volu me] in Urine protein [mass/volume ] in urine 45 mg/dL text: not establ ished Prote in Urine 45 Not Estab lishe d mg/dL 11/16 4:51 PM 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 [facility] Not Available Not Available 12/07/2024 11:21:17 11/17/19 25 11/16/2024 Compr ehens payton metab olic 2000 panel - Serum or Plasm a urea nitrogen [mass/volume ] in serum or plasma 85 mg/dL low: 7mg/dL high: 26mg/d L high BUN 85 (H) 7 - 26 mg/dL 11/16 4:37 PM 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 [facility] Not Available Not Available 12/07/2024 11:21:16 11/17/19 25 11/16/2024 Compr ens payton metab olic 1999 panel - Serum or Plasm a creatinine [mass/volume ] in serum or plasma 12.72 mg/dL low: 0.71mg /dLhig h: 1.16mg /dL high Creat inine 12.72 (H) 0.71 - 1.16 mg/dL 11/16 4:37 PM 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 [facility] Not Available Not Available 12/07/2024 11:21:16 11/17/19 25 11/16/2024 Compr ens payton metab olic 1999 panel - Serum or Plasm a sodium [moles/volum e] in serum or plasma 140 mmol/ L low: 136mmo l/Lhig h: 145mmo l/L Sodiu m 140 136 - 145 mmol/ L 11/16 4:37 PM [facility] Not Available Not Available 12/07/2024 11:21:16 11/17/19 25 11/16/2024 Compr ehens payton metab olic 1999 panel - Serum or Plasm a potassium [moles/volum e] in serum or plasma 5.5 mmol/ L low: 3.5mmo l/Lhig h: 4.5mmo l/L high Potas sium 5.5 (H) 3.5 - 4.5 mmol/ L 11/16 4:37 PM 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 [facility] Not Available Not Available 12/07/2024 11:21:16 11/17/19 25 11/16/2024 Compr ehens payton metab olic 1999 panel - Serum or Plasm a chloride [moles/volum e] in serum or plasma 110 mmol/ L low: 98mmol /Lhigh : 107mmo l/L high Chlor neto 110 (H) 98 - 107 mmol/ L 11/16 4:37 PM [facility] Not Available Not Available 12/07/2024 11:21:16 11/17/19 25 11/16/2024 Compr ehens payton metab olic 1999 panel - Serum or Plasm a carbon dioxide, total [moles/volum e] in serum or plasma 21 mmol/ L low: 22mmol /Lhigh : 29mmol /L low CO2 21 (L) 22 - 29 mmol/ L 11/16 4:37 PM [facility] Not Available Not Available 12/07/2024 11:21:16 11/17/19 25 11/16/2024 Compr ehens payton metab olic 1999 panel - Serum or Plasm a glucose [mass/volume ] in serum or plasma 85 mg/dL low: 70mg/d Lhigh: 99mg/d L Gluco se 85 70 - 99 mg/dL 11/16 4:37 PM [facility] Not Available Not Available 12/07/2024 11:21:16 11/17/19 25 11/16/2024 Compr ehens payton metab olic 2000 panel - Serum or Plasm a calcium [moles/volum e] in serum or plasma 9.9 mg/dL low: 8.4mg/ dLhigh : 10.2mg /dL Calci um 9.9 8.4 - 10.2 mg/dL 11/16 4:37 PM [facility] Not Available Not Available 12/07/2024 11:21:16 11/17/19 25 11/16/2024 Compr ehens payton metab olic 2000 panel - Serum or Plasm a protein [mass/volume ] in serum or plasma 6.4 g/dL low: 6g/dLh igh: 8.3g/d L Prote in Total 6.4 6.0 - 8.3 g/dL 11/16 4:37 PM [facility] Not Available Not Available 12/07/2024 11:21:16 11/17/19 25 11/16/2024 Compr ehens payton metab olic 2000 panel - Serum or Plasm a albumin [mass/volume ] in serum or plasma by bromocresol green (bcg) dye binding method 3.8 g/dL low: 3.4g/d Lhigh: 5g/dL Album in 3.8 3.4 - 5.0 g/dL 11/16 4:37 PM 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 [facility] Not Available Not Available 12/07/2024 11:21:16 11/17/19 25 11/16/2024 Compr ens payton metab olic 1999 panel - Serum or Plasm a bilirubin.to lewis [mass/volume ] in serum or plasma 0.7 mg/dL low: 0.2mg/ dLhigh : 1.2mg/ dL Bilir ubin Total 0.7 0.2 - 1.2 mg/dL 11/16 4:37 PM 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 [facility] Not Available Not Available 12/07/2024 11:21:16 11/17/19 25 11/16/2024 Compr ehens payton metab olic 2000 panel - Serum or Plasm a alkaline phosphatase [enzymatic activity/vol ume] in serum or plasma 40 U/L low: 40U/Lh igh: 150U/L Alkal ine Phosp hatas e 40 40 - 150 U/L 11/16 4:37 PM 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 [facility] Not Available Not Available 12/07/2024 11:21:16 11/17/19 25 11/16/2024 Compr ens payton metab olic 2000 panel - Serum or Plasm a alanine aminotransfe rase [enzymatic activity/vol ume] in serum or plasma by no addition of P-5'-P 11 U/L low: 5U/Lhi gh: 55U/L ALT 11 5 - 55 U/L 11/16 4:37 PM 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 [facility] Not Available Not Available 12/07/2024 11:21:16 11/17/19 25 11/16/2024 Compr ehens payton metab olic 2000 panel - Serum or Plasm a aspartate aminotransfe rase [enzymatic activity/vol ume] in serum or plasma 10 U/L low: 5U/Lhi gh: 34U/L AST 10 5 - 34 U/L 11/16 4:37 PM 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 [facility] Not Available Not Available 12/07/2024 11:21:16 11/17/19 25 11/16/2024 Compr ehens payton metab olic 2000 panel - Serum or Plasm a anion gap 9 low: 6high: 16 Anion Gap 9 6 - 16 11/16 4:37 PM 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 [facility] Not Available Not Available 12/07/2024 11:21:16 11/17/19 25 11/16/2024 Compr ehens payton metab olic 2000 panel - Serum or Plasm a urea nitrogen/cre atinine [mass ratio] in serum or plasma 7 low: 7high: 23 BUN/C reati nine Ratio 7 7 - 23 11/16 4:37 PM 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 [facility] Not Available Not Available 12/07/2024 11:21:16 11/17/19 25 11/16/2024 Compr ehens payton metab olic 2000 panel - Serum or Plasm a osmolality calculated 315 text: 275 - 295 mOsm/k g high Osmol ality Calcu lated 315 (H) 275 - 295 mOsm/ kg 11/16 4:37 PM 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 [facility] Not Available Not Available 12/07/2024 11:21:16 11/17/19 25 11/16/2024 Compr ehens payton metab olic 2000 panel - Serum or Plasm a albumin/glob ulin ratio 1.5 low: 1.1hig h: 2.3 Album in/Gl obuli n Ratio 1.5 1.1 - 2.3 11/16 4:37 PM 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 [facility] Not Available Not Available 12/07/2024 11:21:16 11/17/19 25 11/16/2024 Compr ehens payton metab olic 2000 panel - Serum or Plasm a glomerular filtration rate/1.73 sq M.predicted [volume rate/area] in serum, plasma or blood by creatinine-b ased formula (CKD-epi 2020) 5 text: >=90 mL/min /1.73 m2 low eGFR by CKD-E PI 5 (L) >=90 mL/mi n/1.7 3 m2 11/16 4:37 PM 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 [facility] Not Available Not Available 12/07/2024 11:21:16 11/17/19 25 11/16/2024 Compr ehens payton metab olic 2000 panel - Serum or Plasm a interpretati on and review of laboratory results Abnorm al Not Available Not Available 11:21:16 11/17/19 25 11/16/2024 Creat inine [Mass /volu me] in Urine creatinine [mass/volume ] in urine 54.38 mg/dL text: not establ ished Creat inine Urine 54.38 Not Estab lishe d mg/dL 11/16 4:51 PM 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 [facility] Not Available Not Available 12/07/2024 11:21:16 12/03/19 25 12/02/2024 Potas sium [Mole s/vol ume] in Serum or Plasm a potassium [moles/volum e] in serum or plasma 5.1 mmol/ L low: 3.5mmo l/Lhig h: 5.5mmo l/L Potas sium Whole Blood 5.1 3.5 - 5.5 mmol/ L 12/02 12:09 PM CDT [facility] Not Available Not Available 12/07/2024 11:21:16 12/03/19 25 12/02/2024 Potas sium [Mole s/vol ume] in Serum or Plasm a interpretati on and review of laboratory results Normal Not Available Not Available 11/15 11:21:16 02/11/20 25 02/10/2025 Urina lysis panel - Urine by Autom ated color of urine by auto Colorl ess text: yellow , straw abnormal Not Available Not Available 02/12/2025 12:12:07 02/11/20 25 02/10/2025 Urina lysis panel - Urine by Autom ated clarity in urine by refractometr y automated Clear text: clear Not Available Not Available 02/12/2025 12:12:07 02/11/20 25 02/10/2025 Urina lysis panel - Urine by Autom ated glucose [presence] in urine by test strip 1+ text: normal abnormal Not Available Not Available 02/12/2025 12:12:07 02/11/20 25 02/10/2025 Urina lysis panel - Urine by Autom ated bilirubin.to lewis [presence] in urine by test strip Negati ve text: negati ve Not Available Not Available 02/12/2025 12:12:07 02/11/20 25 02/10/2025 Urina lysis panel - Urine by Autom ated ketones [presence] in urine by automated test strip Negati ve text: negati ve Not Available Not Available 02/12/2025 12:12:07 02/11/20 25 02/10/2025 Urina lysis panel - Urine by Autom ated specific gravity of urine by test strip 1.011 low: 1.005h igh: 1.03 Not Available Not Available 02/12/2025 12:12:07 02/11/2002/10/2025 Urina lysis panel - Urine by Autom ated hemoglobin [presence] in urine by test strip 1+ text: negati ve abnormal Not Available Not Available 02/12/2025 12:12:07 02/11/20 25 02/10/2025 Urina lysis panel - Urine by Autom ated pH of urine by test strip 7.5 pH low: 5pHhig h: 8pH Not Available Not Available 02/12/2025 12:12:07 02/11/20 25 02/10/2025 Urina lysis panel - Urine by Autom ated protein [presence] in urine by test strip 1+ text: negati ve abnormal Not Available Not Available 02/12/2025 12:12:07 02/11/20 25 02/10/2025 Urina lysis panel - Urine by Autom ated urobilinogen [mass/volume ] in urine by automated test strip Normal text: normal mg/dL Not Available Not Available 02/12/2025 12:12:07 02/11/20 25 02/10/2025 Urina lysis panel - Urine by Autom ated nitrite [presence] in urine by test strip Negati ve text: negati ve Not Available Not Available 02/12/2025 12:12:07 02/11/20 25 02/10/2025 Urina lysis panel - Urine by Autom ated leukocyte esterase [presence] in urine by test strip Negati ve text: negati ve Not Available Not Available 02/12/2025 12:12:07 02/11/20 25 02/10/2025 Urina lysis panel - Urine by Autom ated erythrocytes [#/area] in urine sediment by automated count 3-5 text: 0 - 5 # /hpf Not Available Not Available 02/12/2025 12:12:07 02/11/2002/10/2025 Urina lysis panel - Urine by Autom ated leukocytes [#/area] in urine sediment by automated count 0-5 text: 0 - 5 # /hpf Not Available Not Available 02/12/2025 12:12:07 02/11/2002/10/2025 Urina lysis panel - Urine by Autom ated bacteria [presence] in urine by automated None Seen text: none seen Not Available Not Available 02/12/2025 12:12:07 02/11/2002/10/2025 Urina lysis panel - Urine by Autom ated epithelial cells.squamo us [presence] in urine by automated 0-2 text: 0 - 5 /hpf Not Available Not Available 02/12/2025 12:12:07 02/11/2002/10/2025 Urina lysis panel - Urine by Autom ated interpretati on and review of laboratory results Abnorm al Not Available Not Available 12:12:07 02/11/2002/12/2025 Bacte santi ident ified in Urine by Cultu re bacteria identified in urine by culture <10,00 0 CFU/mL urogen ital lai Not Available Not Available 12:12:07 02/11/2002/10/2025 Prote in/Cr eatin ine [Mass Ratio ] in Urine protein [mass/volume ] in urine 71 mg/dL text: not establ ished Not Available Not Available 02/12/2025 12:12:07 02/11/2002/10/2025 Prote in/Cr eatin ine [Mass Ratio ] in Urine creatinine [mass/volume ] in urine 81.46 mg/dL text: not establ ished Not Available Not Available 02/12/2025 12:12:07 02/11/20 25 02/10/2025 Prote in/Cr eatin ine [Mass Ratio ] in Urine protein/crea tinine [mass ratio] in urine 0.87 high: 0.1 high Not Available Not Available 02/12/2025 12:12:07 02/11/20 25 02/10/2025 Prote in/Cr eatin ine [Mass Ratio ] in Urine interpretati on and review of laboratory results Abnorm al Not Available Not Available 12:12:07 02/11/2002/10/[address] [Mass /volu me] in Serum or Plasm a parathyrin.i ntact [mass/volume ] in serum or plasma 558 pg/mL low: 8pg/mL high: 77pg/m L high Not Available Not Available 02/12/2025 12:12:07 02/11/20 25 02/10/[address] [Mass /volu me] in Serum or Plasm a interpretati on and review of laboratory results Abnorm al Not Available Not Available 12:12:07 02/11/2002/10/2025 HIV 1+2 Ab+HI V1 p24 Ag [Pres ence] in Serum or Plasm a by Immun oassa y HIV 1+2 Ab+HIV1 P24 Ag [presence] in serum or plasma by immunoassay Non-re active text: non-re active No Labor atory evide nce of HIV infec tion. Not Available Not Available 02/12/2025 12:12:07 02/11/2002/10/2025 HIV 1+2 Ab+HI V1 p24 Ag [Pres ence] in Serum or Plasm a by Immun oassa y interpretati on and review of laboratory results Normal Not Available Not Available 01/16 12:12:07 02/11/2002/11/2025 Cytom egalo virus IgG Ab [Unit s/vol ume] in Serum or Plasm a by Immun oassa y cytomegalovi chi IgG Ab [units/volum e] in serum or plasma by immunoassay <0.20 high: 0.7U/m L INTER PRETI VE INFOR MATIO N: Cytom egalo virus Antib raj, IgG 0.59 U/mL or less. ..... ... Not Detec ceasar 0.6 - 0.69 U/mL. ..... ..... Indet ermin ate-R epeat testi ng in 10-14 days may be helpf ul. 0.70 U/mL or great er... ... Detec ceasar In immun ocomp romis ed patie nts, CMV serol ogy (IgG or IgM antib raj titer s) may not be relia ble and may be misle ading in the diagn osis of acute or react ivati on CMV disea se. The prefe rred metho d for diagn osis is cultu re of virus and/o r demon strat ion of viral antig en in perip heral white cells (buff y coat) , bron hoalv eolar lavag e (BAL) cells , or tissu e biops ies. This test shoul d not be used for blood donor scree steven, assoc iated re-en try manasa cols, or for scree steven Human Cell, Tissu es and Cellu lar and Tissu e-Bas ed Produ cts (HCT/ P). The best evide nce for curre nt infec tion is a signi ficvalentine t collins e on two appro priat rosa timed speci mens, where both tests are done in the same labor atory at the same time. Perfo rmed By: [facility] [address] [facility] ([facility] [address] Labor atory Direc tor: Donnie coyne MD, PhD MATTHIAS Lombardi r: [id number] Not Available Not Available 02/12/2025 12:12:07 02/11/20 25 02/10/2025 Hemog lobin A1c/H emogl obin. total in Blood hemoglobin A1C/hemoglob in.total in blood 4.8 % high: 5.6% Not Available Not Available 02/12/2025 12:12:07 02/11/20 25 02/10/2025 Hemog lobin A1c/H emogl obin. total in Blood glucose mean value [mass/volume ] in blood estimated from glycated hemoglobin 91 mg/dL HbA1c Inter preta tion: [place] : < 5.7% Pre-d iabet es: 5.7-6 .4% Diabe curt: Equal to or great er than 6.5% Test resul ts diagn ostic of diabe curt shoul d be repea ceasar for confi rmati on. Treat ment targe t value s recom juan alberto d by ADA and other clini uma organ izati ons shoul d be used to evalu ate metab olic contr ol in patie nts. Refer ence: [facility], [facility] [place] -2019 In patie nts 70 years and older consi leoncio HbA1c targe t range of 7.0-7 .5% (Refe rence : Arley Reyes, et al. JAMDA . 2012) The Sebia assay for the measu remen t of HbA1c is a Natio nal Glyco hemog lobin Stand ardiz ation Progr am (NGSP ) certi fied metho d. Not Available Not Available 02/12/2025 12:12:07 02/11/2002/10/2025 CBC W Auto Diffe renti al panel - Blood leukocytes [#/volume] in blood by automated count 7.8 text: 4.0 - 10.7 x10e9/ L Not Available Not Available 02/12/2025 12:12:07 02/11/20 25 02/10/2025 CBC W Auto Diffe renti al panel - Blood erythrocytes [#/volume] in blood by automated count 3.1 text: 4.30 - 5.80 x10e12 /L low Not Available Not Available 02/12/2025 12:12:07 02/11/2002/10/2025 CBC W Auto Diffe renti al panel - Blood hemoglobin [mass/volume ] in blood 9.5 g/dL low: 13.3g/ dLhigh : 17.5g/ dL low Not Available Not Available 02/12/2025 12:12:07 02/11/20 25 02/10/2025 CBC W Auto Diffe renti al panel - Blood hematocrit [volume fraction] of blood by automated count 29.7 % low: 38.7%h igh: 51.1% low Not Available Not Available 02/12/2025 12:12:07 02/11/2002/10/2025 CBC W Auto Diffe renti al panel - Blood MCV [entitic mean volume] in red blood cells by automated count 95.8 fL low: 80fLhi gh: 98fL Not Available Not Available 02/12/2025 12:12:07 02/11/2002/10/2025 CBC W Auto Diffe renti al panel - Blood MCH [entitic mass] by automated count 30.6 pg low: 26.7pg high: 33.6pg Not Available Not Available 02/12/2025 12:12:07 02/11/20 25 02/10/2025 CBC W Auto Diffe renti al panel - Blood MCHC [entitic mass/volume] in red blood cells by automated count 32 g/dL low: 31.7g/ dLhigh : 36.3g/ dL Not Available Not Available 02/12/2025 12:12:07 02/11/2002/10/2025 CBC W Auto Diffe renti al panel - Blood erythrocyte [distwidth] in red blood cells by automated count 14.9 % low: 11.3%h igh: 14.8% high Not Available Not Available 02/12/2025 12:12:07 02/11/2002/10/2025 CBC W Auto Diffe renti al panel - Blood platelets [#/volume] in blood by automated count 247 text: 150 - 420 x10e9/ L Not Available Not Available 02/12/2025 12:12:07 02/11/2002/10/2025 CBC W Auto Diffe renti al panel - Blood platelet [entitic mean volume] in blood by automated count 9.7 fL low: 7.8fLh igh: 11.4fL Not Available Not Available 02/12/2025 12:12:07 02/11/2002/10/2025 CBC W Auto Diffe renti al panel - Blood neutrophils/ leukocytes in blood by automated count 68.3 % low: 41%hig h: 74% Not Available Not Available 02/12/2025 12:12:07 02/11/20 25 02/10/2025 CBC W Auto Diffe renti al panel - Blood lymphocytes/ leukocytes in blood by automated count 21.5 % low: 17%hig h: 47% Not Available Not Available 02/12/2025 12:12:07 02/11/20 25 02/10/2025 CBC W Auto Diffe renti al panel - Blood monocytes/le ukocytes in blood by automated count 7.5 % low: 3%high : 11% Not Available Not Available 02/12/2025 12:12:07 02/11/2002/10/2025 CBC W Auto Diffe renti al panel - Blood eosinophils/ leukocytes in blood by automated count 1.8 % low: 0%high : 7% Not Available Not Available 02/12/2025 12:12:07 02/11/2002/10/2025 CBC W Auto Diffe renti al panel - Blood basophils/le ukocytes in blood by automated count 0.5 % low: 0%high : 1.6% Not Available Not Available 02/12/2025 12:12:07 02/11/2002/10/2025 CBC W Auto Diffe renti al panel - Blood immature granulocytes /leukocytes in blood by automated count 0.4 % low: 0%high : 1% Not Available Not Available 02/12/2025 12:12:07 02/11/2002/10/2025 CBC W Auto Diffe renti al panel - Blood neutrophils [#/volume] in blood by automated count 5.34 text: 1.60 - 7.50 x10e9/ L Not Available Not Available 02/12/2025 12:12:07 02/11/2002/10/2025 CBC W Auto Diffe renti al panel - Blood lymphocytes [#/volume] in blood by automated count 1.68 text: 1.00 - 4.40 x10e9/ L Not Available Not Available 02/12/2025 12:12:07 02/11/2002/10/2025 CBC W Auto Diffe renti al panel - Blood monocytes [#/volume] in blood by automated count 0.59 text: 0.15 - 1.00 x10e9/ L Not Available Not Available 02/12/2025 12:12:07 02/11/2002/10/2025 CBC W Auto Diffe renti al panel - Blood eosinophils [#/volume] in blood 0.14 text: 0.00 - 0.60 x10e9/ L Not Available Not Available 02/12/2025 12:12:07 02/11/20 25 02/10/2025 CBC W Auto Diffe renti al panel - Blood basophils [#/volume] in blood by automated count 0.04 text: 0.00 - 0.13 x10e9/ L Not Available Not Available 02/12/2025 12:12:07 02/11/20 25 02/10/2025 CBC W Auto Diffe renti al panel - Blood interpretati on and review of laboratory results Abnorm al Not Available Not Available 12:12:07 02/11/20 25 02/10/2025 Compr ehens payton metab olic 1999 panel - Serum or Plasm a urea nitrogen [mass/volume ] in serum or plasma 52 mg/dL low: 7mg/dL high: 26mg/d L high Not Available Not Available 02/12/2025 12:12:07 02/11/20 25 02/10/2025 Compr ehens [place] metab olic 1999 panel - Serum or Plasm a creatinine [mass/volume ] in serum or plasma 11.22 mg/dL low: 0.71mg /dLhig h: 1.16mg /dL high Not Available Not Available 02/12/2025 12:12:07 02/11/20 25 02/10/2025 Compr ehens [place] metab olic 1999 panel - Serum or Plasm a sodium [moles/volum e] in serum or plasma 143 mmol/ L low: 136mmo l/Lhig h: 145mmo l/L Not Available Not Available 02/12/2025 12:12:07 02/11/20 25 02/10/2025 Compr ehens [place] metab olic 1999 panel - Serum or Plasm a potassium [moles/volum e] in serum or plasma 4.4 mmol/ L low: 3.5mmo l/Lhig h: 4.5mmo l/L Not Available Not Available 02/12/2025 12:12:07 02/11/20 25 02/10/2025 Compr ehens payton metab olic 1999 panel - Serum or Plasm a chloride [moles/volum e] in serum or plasma 108 mmol/ L low: 98mmol /Lhigh : 107mmo l/L high Not Available Not Available 02/12/2025 12:12:07 02/11/20 25 02/10/2025 Compr ehens [place] metab olic 1999 panel - Serum or Plasm a carbon dioxide, total [moles/volum e] in serum or plasma 24 mmol/ L low: 22mmol /Lhigh : 29mmol /L Not Available Not Available 02/12/2025 12:12:07 02/11/20 25 02/10/2025 [facility] 1999 panel - Serum or Plasm a glucose [mass/volume ] in serum or plasma 94 mg/dL low: 70mg/d Lhigh: 99mg/d L Not Available Not Available 02/12/2025 12:12:07 02/11/20 25 02/10/2025 [facility] 1999 panel - Serum or Plasm a calcium [moles/volum e] in serum or plasma 9.6 mg/dL low: 8.4mg/ dLhigh : 10.2mg /dL Not Available Not Available 02/12/2025 12:12:07 02/11/20 25 02/10/2025 [facility] 1999 panel - Serum or Plasm a protein [mass/volume ] in serum or plasma 6.6 g/dL low: 6g/dLh igh: 8.3g/d L Not Available Not Available 02/12/2025 12:12:07 02/11/20 25 02/10/2025 [facility] 1999 panel - Serum or Plasm a albumin [mass/volume ] in serum or plasma by bromocresol green (bcg) dye binding method 3.7 g/dL low: 3.4g/d Lhigh: 5g/dL Not Available Not Available 02/12/2025 12:12:07 02/11/20 25 02/10/2025 [facility] 1999 panel - Serum or Plasm a bilirubin.to lewis [mass/volume ] in serum or plasma 0.5 mg/dL low: 0.2mg/ dLhigh : 1.2mg/ dL Not Available Not Available 02/12/2025 12:12:07 02/11/20 25 02/10/2025 [facility] 1999 panel - Serum or Plasm a alkaline phosphatase [enzymatic activity/vol ume] in serum or plasma 42 U/L low: 40U/Lh igh: 150U/L Not Available Not Available 02/12/2025 12:12:07 02/11/20 25 02/10/2025 [facility] 2000 panel - Serum or Plasm a alanine aminotransfe rase [enzymatic activity/vol ume] in serum or plasma by no addition of P-5'-P 10 U/L low: 5U/Lhi gh: 55U/L Not Available Not Available 02/12/2025 12:12:07 02/11/20 25 02/10/2025 [facility] 2000 panel - Serum or Plasm a aspartate aminotransfe rase [enzymatic activity/vol ume] in serum or plasma 13 U/L low: 5U/Lhi gh: 34U/L Not Available Not Available 02/12/2025 12:12:07 02/11/20 25 02/10/2025 Compr ehens [place] metab olic 2000 panel - Serum or Plasm a anion gap 11 low: 6high: 16 Not Available Not Available 02/12/2025 12:12:07 02/11/20 25 02/10/2025 Compr ehens [place] metab olic 2000 panel - Serum or Plasm a urea nitrogen/cre atinine [mass ratio] in serum or plasma 5 low: 7high: 23 low Not Available Not Available 02/12/2025 12:12:07 02/11/20 25 02/10/2025 Compr ehens [place] metab olic 2000 panel - Serum or Plasm a osmolality calculated 310 text: 275 - 295 mOsm/k g high Not Available Not Available 02/12/2025 12:12:07 02/11/20 25 02/10/2025 Compr ehens [place] metab olic 2000 panel - Serum or Plasm a albumin/glob ulin ratio 1.3 low: 1.1hig h: 2.3 Not Available Not Available 02/12/2025 12:12:07 02/11/20 25 02/10/2025 Compr ehens [place] metab olic 2000 panel - Serum or Plasm a glomerular filtration rate [volume rate/area] in serum, plasma or blood by creatinine-b ased formula (CKD-epi 2020)/1.73 sq M 5 text: >=90 mL/min /1.73 m2 low Not Available Not Available 02/12/2025 12:12:07 02/11/20 25 02/10/2025 Compr ehens [place] metab olic 2000 panel - Serum or Plasm a interpretati on and review of laboratory results Abnorm al Not Available Not Available 12:12:07 02/11/20 25 02/10/2025 Phosp hate [Mass /volu me] in Serum or Plasm a phosphate [mass/volume ] in serum or plasma 5.7 mg/dL low: 2.8mg/ dLhigh : 5.1mg/ dL high Not Available Not Available 02/12/2025 12:12:07 02/11/20 25 02/10/2025 Phosp hate [Mass /volu me] in Serum or Plasm a interpretati on and review of laboratory results Abnorm al Not Available Not Available 12:12:07 02/11/20 25 02/10/2025 Magne sium [Mass /volu me] in Serum or Plasm a magnesium [mass/volume ] in serum or plasma 2.8 mg/dL low: 1.6mg/ dLhigh : 2.6mg/ dL high Not Available Not Available 02/12/2025 12:12:07 02/11/20 25 02/10/2025 Magne sium [Mass /volu me] in Serum or Plasm a interpretati on and review of laboratory results Abnorm al Not Available Not Available 12:12:07 02/11/20 25 02/10/2025 Hepat itis B virus core Ab [Pres ence] in Serum hepatitis B virus core IgG+IgM Ab [presence] in serum Non-re active text: non-re active Not Available Not Available 02/12/2025 12:12:07 02/11/20 25 02/10/2025 Hepat itis B virus core Ab [Pres ence] in Serum interpretati on and review of laboratory results Normal Not Available Not Available 01/16 12:12:07 02/11/20 25 02/10/2025 Hepat itis B virus surfa ce Ag [Pres ence] in Serum hepatitis B virus surface Ag [presence] in serum or plasma by immunoassay Non-re active text: non-re active Not Available Not Available 02/12/2025 12:12:07 02/11/20 25 02/10/2025 Hepat itis B virus surfa ce Ag [Pres ence] in Serum interpretati on and review of laboratory results Normal Not Available Not Available 01/16 12:12:07 02/11/20 25 02/10/2025 Hepat itis C virus Ab [Pres ence] in Serum hepatitis C virus Ab [presence] in serum or plasma by immunoassay Non-re active text: non-re active Hepat itis C Antib raj scree n indic ates no serol ogic evide nce of past or curre nt infec tion with Hepat itis C Virus . Patie nts with unexp niranjan d liver disea se who are immun ocomp romis ed or suspe cted of havin g acute Hepat itis C infec tion may benef it from Nucle ic Acid Test (DAVID) for Hepat itis C Viral RNA to confi rm Hepat itis C statu s. Not Available Not Available 02/12/2025 12:12:06 02/11/20 25 02/10/2025 Hepat itis C virus Ab [Pres ence] in Serum interpretati on and review of laboratory results Normal Not Available Not Available 01/16 12:12:06 02/11/20 25 02/11/2025 Hepat itis A virus Ab [Pres ence] in Serum by Immun oassa y hepatitis A virus Ab [presence] in serum by immunoassay Negati ve text: negati ve Perfo rmed By: [facility] [address] [place] [address] Labor atory Dire tor: Donnie coyne MD, PhD YARAFLO Lombardi r: [id number] Not Available Not Available 02/12/2025 12:12:06 02/11/20 25 02/10/2025 Lipid 1996 panel - Serum or Plasm a cholesterol [mass/volume ] in serum or plasma 128 mg/dL high: 200mg/ dL Not Available Not Available 02/12/2025 12:12:06 02/11/20 25 02/10/2025 Lipid 1996 panel - Serum or Plasm a cholesterol in HDL [mass/volume ] in serum or plasma 37 mg/dL low: 40mg/d L low ATP III Class ifica tion of HDL Maggie stero l: <40 mg/dL : Consi dered a major risk facto r. >60 mg/dL : Consi dered a negat payton risk facto r. Not Available Not Available 02/12/2025 12:12:06 02/11/2002/10/2025 Lipid 1996 panel - Serum or Plasm a cholesterol in LDL [mass/volume ] in serum or plasma by calculation 79 mg/dL high: 100mg/ dL ATP III Class ifica tion of LDL Maggie stero l: <100 mg/dL : Optim al 100 - 129 mg/dL : Near Optim al/Ab ove Optim al 130 - 159 mg/dL : Borde rline High 160 - 189 mg/dL : High >190 mg/dL : Very High Not Available Not Available 02/12/2025 12:12:06 02/11/20 25 02/10/2025 Lipid 1996 panel - Serum or Plasm a tricyclic antidepressa nts [mass/volume ] in serum or plasma 60 mg/dL high: 150mg/ dL ATP III Class ifica tion of Trigl yceri mukesh: <150 mg/dL : [place] l 150 - 199 mg/dL : Borde rline High 200 - 400 mg/dL : High >500 mg/dL : Very High Not Available Not Available 02/12/2025 12:12:06 02/11/20 25 02/10/2025 Lipid 1996 panel - Serum or Plasm a interpretati on and review of laboratory results Abnorm al Not Available Not Available 12:12:06 02/11/20 25 02/10/2025 Blood type and Indir ect antib raj scree n panel - Blood blood group antibody screen [presence] in serum or plasma NEG Not Available Not Available 01/16 12:12:01 02/11/2002/10/2025 Blood type and Indir ect antib raj scree n panel - Blood ABO and Rh group [type] in blood A POS Not Available Not Available 12:12:01 02/11/20 25 02/10/2025 SARS- CoV-2 (COVI D-19) RNA [Pres ence] in Respi rator y syste m speci men by LENY with probe detec tion sars-cov-2 (covid-19) RNA [presence] in respiratory system specimen by LENY with probe detection Not detect ed text: not detect ed Not Available Not Available 02/12/2025 12:12:07 02/11/20 25 02/10/2025 SARS- CoV-2 (COVI D-19) RNA [Pres ence] in Respi rator y syste m speci men by LENY with probe detec tion Unknown Analyte The Cephei d Xpert Xpress SARS-C OV-2 has been author ized by the Food and Drug Admini strati on (FDA) under an Emerge ncy Use Author ananya coyne (EUA). This test has been valida ceasar in accord ance with the FDA's dalia chavis nt Polic y for Diagno stic Testin g in Labora tories Certif ied to perfor m High Comple xity Testin g under CLIA prior to Emerge ncy Use Author ananya coyne for [place] virus Diseas e-2018 during the Public Health Emerge ncy issued on 2019. FDA indepe ndent review of this valida tion is pendin g. This test is only author ized for the [facility] on of the time the declar ation that circum stance s exist justif sary the author ananya coyne of emerge ncy use of in vitro diagno stic tests for detect ion of SARS-C OV-2 virus and/or diagno sis of COVID- 19 infect ion under 564(b) (1) of the Act. 21 U.S.C. 360bbb -3 (b) (1), unless the author ananya coyne is termin ated or revoke d sooner . Fact Sheets for this EUA assay are availa ble upon reques t. Not Available Not Available 12:12:07 02/11/2002/10/2025 SARS- CoV-2 (COVI D-19) RNA [Pres ence] in Respi rator y syste m speci men by LENY with probe detec tion interpretati on and review of laboratory results Normal Not Available Not Available 01/16 12:12:07 02/13/20 25 02/12/2025 Blood type and Indir ect antib raj scree n panel - Blood blood group antibody screen [presence] in serum or plasma NEG Not Available Not Available 05/2025 10:18:29 02/13/20 25 02/12/2025 Blood type and Indir ect antib raj scree n panel - Blood ABO and Rh group [type] in blood A POS Not Available Not Available 05/2025 10:18:29 02/13/20 25 02/12/2025 Trigl yceri de [Mass /volu me] in Body fluid triglyceride [mass/volume ] in body fluid 52 mg/dL text: not establ ished for fluids Not Available Not Available 02/22/2025 10:18:29 02/13/20 25 02/12/2025 Trigl yceri de [Mass /volu me] in Body fluid [type] of body fluid Pleura l Fluid Not Available Not Available 10:18:29 02/13/2002/12/2025 Trigl yceri de [Mass /volu me] in Body fluid Unknown Analyte The analyt ical perfor bay of this test has been indepe ndentl y [facility]asar [facility]. A refere nce range has not been establ ished for this fluid. Compar obdulio of this result with the concen tratio n in blood, serum or plasma is recomm ended. Not Available Not Available 10:18:29 02/13/2002/12/2025 Amyla se [Enzy matic activ ity/v olume ] in Body fluid amylase [enzymatic activity/vol ume] in body fluid 28 text: not establ ished for fluids units/ L Not Available Not Available 02/22/2025 10:18:29 02/13/20 25 02/12/2025 Amyla se [Enzy matic activ ity/v olume ] in Body fluid [type] of body fluid Pleura l Fluid Not Available Not Available 10:18:29 02/13/20 25 02/12/2025 Amyla se [Enzy matic activ ity/v olume ] in Body fluid Unknown Analyte The analyt ical perfor bay of this test has been indepe ndentl y valida ceasar by the [facility]. A refere nce range has not been establ ished for this fluid. Compar obdulio of this result with the concen tratio n in blood, serum or plasma is recomm ended. Not Available Not Available 10:18:29 02/13/2002/12/2025 LDH BODY FLUID lactate dehydrogenas e [enzymatic activity/vol ume] in body fluid by lactate to pyruvate reaction 944 text: not establ ished for fluids units/ L Not Available Not Available 02/22/2025 10:18:28 02/13/2002/12/2025 LDH BODY FLUID [type] of body fluid Pleura l Fluid Not Available Not Available 10:18:28 02/13/2002/12/2025 LDH BODY FLUID Unknown Analyte The analyt ical perfor bay of this test has been indepe ndentl y valida ceasar by the [facility] Sw[facility]jit. A refere nce range has not been establ ished for this fluid. Compar obdulio of this result with the concen tratio n in blood, serum or plasma is recomm ended. Not Available Not Available 10:18:28 02/13/2002/12/2025 Maggie stero l [Mass /volu me] in Body fluid cholesterol [mass/volume ] in body fluid 71 mg/dL text: not establ ished for fluids Not Available Not Available 02/22/2025 10:18:28 02/13/20 25 02/12/2025 Maggie stero l [Mass /volu me] in Body fluid [type] of body fluid Pleura l Fluid Not Available Not Available 10:18:28 02/13/2002/12/2025 Maggie stero l [Mass /volu me] in Body fluid Unknown Analyte The analyt ical perfor bay of this test has been indepe ndentl y valida ceasar by the [employer] [facility]. A refere nce range has not been establ ished for this fluid. Compar obdulio of this result with the concen tratio n in blood, serum or plasma is recomm ended. Not Available Not Available 10:18:28 02/13/2002/12/2025 Gluco se [Mass /volu me] in Body fluid glucose [mass/volume ] in body fluid 35 mg/dL text: not establ ished for fluids Not Available Not Available 02/22/2025 10:18:28 02/13/2002/12/2025 Gluco se [Mass /volu me] in Body fluid [type] of body fluid Pleura l Fluid Not Available Not Available 10:18:28 02/13/2002/12/2025 Gluco se [Mass /volu me] in Body fluid Unknown Analyte The analyt ical perfor bay of this test has been indepe ndentl y valida ceasar by the [facility]. A refere nce range has not been establ ished for this fluid. Compar obdulio of this result with the concen tratio n in blood, serum or plasma is recomm ended. Not Available Not Available 10:18:28 02/13/2002/12/2025 Prote in [Mass /volu me] in Body fluid protein [mass/volume ] in body fluid 4.1 g/dL text: not establ ished for fluids Not Available Not Available 02/22/2025 10:16:11 02/13/2002/12/2025 Prote in [Mass /volu me] in Body fluid [type] of body fluid Pleura l Fluid Not Available Not Available 10:16:11 02/13/2002/12/2025 Prote in [Mass /volu me] in Body fluid Unknown Analyte The analyt ical perfor bay of this test has been indepe ndentl y valid[facility]asar [facility]. A refere nce range has not been establ ished for this fluid. Compar obdulio of this result with the concen tratio n in blood, serum or plasma is recomm ended. Not Available Not Available 10:16:11 02/13/2002/12/2025 Album in [Mass /volu me] in Body fluid albumin [mass/volume ] in body fluid 2.1 g/dL Not Available Not Available 05/2025 10:16:11 02/13/2002/12/2025 Album in [Mass /volu me] in Body fluid [type] of body fluid Pleura l Fluid Not Available Not Available 10:16:11 02/13/2002/12/2025 Album in [Mass /volu me] in Body fluid Unknown Analyte The analyt ical perfor bay of this test has been indepe ndentl y valida ceasar by the [facility]. A refere nce range has not been establ ished for this fluid. Compar obdulio of this result with the concen salazar n in blood, serum or plasma is recomm ended. Not Available Not Available 10:16:11 02/13/2002/12/2025 Diffe renti al panel - Body fluid specimen source [identifier] of body fluid Pleura l Not Available Not Available 10:18:28 02/13/2002/12/2025 Diffe renti al panel - Body fluid cells counted total [#] in body fluid 100 text: x10e6/ L Not Available Not Available 02/22/2025 10:18:28 02/13/2002/12/2025 Diffe renti al panel - Body fluid neutrophils/ leukocytes in body fluid by manual count 58 % Not Available Not Available 02/22/2025 10:18:28 02/13/20 25 02/12/2025 Diffe renti al panel - Body fluid lymphocytes/ leukocytes in body fluid by manual count 24 % Not Available Not Available 02/22/2025 10:18:28 02/13/20 25 02/12/2025 Diffe renti al panel - Body fluid macrophages/ leukocytes in body fluid by manual count 18 % Not Available Not Available 02/22/2025 10:18:28 02/13/2002/12/2025 Diffe renti al panel - Body fluid Unknown Analyte No refere nce ranges establ ished for body fluid differ ential cell counts . The test result s must be integr ated into the clinic al contex t for interp retati on. Not Available Not Available 10:18:28 02/13/2002/12/2025 Cell count and Diffe renti al panel - Body fluid specimen source [identifier] of body fluid Pleura l Not Available Not Available 10:18:28 02/13/2002/12/2025 Cell count and Diffe renti al panel - Body fluid appearance of body fluid CLOUDY Not Available Not Available 05/2025 10:18:28 02/13/20 25 02/12/2025 Cell count and Diffe renti al panel - Body fluid color of body fluid BROWN Not Available Not Available 0 02/22/2025 10:18:28 02/13/20 25 02/12/2025 Cell count and Diffe renti al panel - Body fluid nucleated cells [#/volume] in body fluid by manual count 78 text: refere nce range not establ ished x10e6/ L Not Available Not Available 02/22/2025 10:18:28 02/13/20 25 02/12/2025 Cell count and Diffe renti al panel - Body fluid erythrocytes [#/volume] in body fluid by automated count [id number] text: refere nce range not establ ished x10e6/ L Not Available Not Available 02/22/2025 10:18:28 02/13/20 25 02/12/2025 Cell count and Diffe renti al panel - Body fluid Unknown Analyte No refere nce ranges establ ished for body fluid cell counts . Any refere nce ranges provid ed are derive d from publis hed litera ture. The test result s must be integr ated into the clinic al contex t for interp retati on. Not Available Not Available 10:18:28 02/13/20 25 02/15/2025 Bacte snati ident ified in Body fluid by Cultu re microorganis m identified in specimen by culture No growth Not Available Not Available 10:18:28 02/13/20 25 02/15/2025 Bacte santi ident ified in Body fluid by Cultu re microscopic observation [identifier] in specimen by gram stain No organi sms seen Not Available Not Available 10:18:02/13/20 25 02/15/2025 Bacte santi ident ified in Body fluid by Cultu re microscopic observation [identifier] in specimen by gram stain No polymo rphonu clear cells Not Available Not Available 10:18:28 02/13/20 25 02/15/2025 Bacte santi ident ified in Body fluid by Cultu re interpretati on and review of laboratory results Normal Not Available Not Available 05/2025 10:18:28 02/13/20 25 03/08/2025 Fungu s ident ified in [place] by Cultu re microorganis m identified in specimen by culture No fungus isolat ed Not Available Not Available 10:56:21 02/13/20 25 03/08/2025 Fungu s ident ified in [place] by Cultu re fungus identified in specimen by fungus stain No Pneumo cystis jirove cii Not Available Not Available 10:56:21 02/13/20 25 03/08/2025 Fungu s ident ified in [place] by Cultu re fungus identified in specimen by fungus stain No yeast or hyphae seen Not Available Not Available 10:56:21 02/13/20 25 03/08/2025 Fungu s ident ified in [place] by Cultu re interpretati on and review of laboratory results Normal Not Available Not Available 02/15 10:56:21 02/13/20 25 02/17/2025 Bacte santi ident ified in [place] by Anaer obe cultu re microorganis m identified in specimen by culture No anaero bic organi [facility] isolat ed Not Available Not Available 10:18:28 02/13/20 25 02/17/2025 Bacte santi ident ified in [place] by Anaer obe cultu re interpretati on and review of laboratory results Normal Not Available Not Available 05/2025 10:18:28 02/13/20 25 02/12/2025 pH of Body fluid pH fluid 7.15 pH text: not establ ished for fluids Not Available Not Available 02/12/2025 12:10:19 02/13/20 25 02/12/2025 pH of Body fluid body fluid type Pleura l Fluid Not Available Not Available 12:10:19 02/14/20 25 02/19/2025 Bacte santi ident ified in [place] by Anaer obe cultu re microorganis m identified in specimen by culture No anaero bic organi [facility] isolat ed Not Available Not Available 10:18:29 02/14/20 25 02/19/2025 Bacte santi ident ified in [place] by Anaer obe cultu re interpretati on and review of laboratory results Normal Not Available Not Available 05/2025 10:18:29 02/14/20 25 02/16/2025 Bacte santi ident ified in Wound by Cultu re microorganis m identified in specimen by culture No growth Not Available Not Available 10:16:11 02/14/20 25 02/16/2025 Bacte santi ident ified in Wound by Cultu re microscopic observation [identifier] in specimen by gram stain Rare Polymo rphonu clear cells Not Available Not Available 10:16:11 02/14/20 25 02/16/2025 Bacte santi ident ified in Wound by Cultu re microscopic observation [identifier] in specimen by gram stain No organi sms seen Not Available Not Available 10:16:11 02/14/20 25 02/19/2025 Bacte santi ident ified in [place] by Anaer obe cultu re microorganis m identified in specimen by culture No anaero bic organi sms isolat ed Not Available Not Available 10:18:29 02/14/20 25 02/19/2025 Bacte santi ident ified in [place] by Anaer obe cultu re interpretati on and review of laboratory results Normal Not Available Not Available 05/2025 10:18:29 02/14/20 25 02/16/2025 Bacte santi ident ified in Wound by Cultu re microorganis m identified in specimen by culture No growth Not Available Not Available 10:18:29 02/14/20 25 02/16/2025 Bacte santi ident ified in Wound by Cultu re microscopic observation [identifier] in specimen by gram stain Heavy Red blood cells Not Available Not Available 10:18:29 02/14/20 25 02/16/2025 Bacte santi ident ified in Wound by Cultu re microscopic observation [identifier] in specimen by gram stain No organi sms seen Not Available Not Available 10:18:29 02/14/20 25 02/16/2025 Bacte santi ident ified in Wound by Cultu re microscopic observation [identifier] in specimen by gram stain No polymo rphonu clear cells Not Available Not Available 10:18:29 02/14/20 25 02/13/2025 Phosp hate [Mass /volu me] in Serum or Plasm a phosphate [mass/volume ] in serum or plasma 6.5 mg/dL low: 2.8mg/ dLhigh : 5.1mg/ dL high Not Available Not Available 02/22/2025 10:18:29 02/14/20 25 02/13/2025 Phosp hate [Mass /volu me] in Serum or Plasm a interpretati on and review of laboratory results Abnorm al Not Available Not Available 10:18:29 02/14/20 25 02/13/2025 Magne sium [Mass /volu me] in Serum or Plasm a magnesium [mass/volume ] in serum or plasma 3.1 mg/dL low: 1.6mg/ dLhigh : 2.6mg/ dL high Not Available Not Available 02/22/2025 10:18:29 02/14/20 25 02/13/2025 Magne sium [Mass /volu me] in Serum or Plasm a interpretati on and review of laboratory results Abnorm al Not Available Not Available 10:18:29 02/14/2002/13/2025 CBC panel - Blood by Autom ated count leukocytes [#/volume] in blood by automated count 5.2 text: 4.0 - 10.7 x10e9/ L Not Available Not Available 02/22/2025 10:18:29 02/14/20 25 02/13/2025 CBC panel - Blood by Autom ated count erythrocytes [#/volume] in blood by automated count 2.75 text: 4.30 - 5.80 x10e12 /L low Not Available Not Available 02/22/2025 10:18:29 02/14/20 25 02/13/2025 CBC panel - Blood by Autom ated count hemoglobin [mass/volume ] in blood 8.2 g/dL low: 13.3g/ dLhigh : 17.5g/ dL low Not Available Not Available 02/22/2025 10:18:29 02/14/2002/13/2025 CBC panel - Blood by Autom ated count hematocrit [volume fraction] of blood by automated count 26.4 % low: 38.7%h igh: 51.1% low Not Available Not Available 02/22/2025 10:18:29 02/14/20 25 02/13/2025 CBC panel - Blood by Autom ated count MCV [entitic mean volume] in red blood cells by automated count 96 fL low: 80fLhi gh: 98fL Not Available Not Available 02/22/2025 10:18:29 02/14/2002/13/2025 CBC panel - Blood by Autom ated count MCH [entitic mass] by automated count 29.8 pg low: 26.7pg high: 33.6pg Not Available Not Available 02/22/2025 10:18:29 02/14/2002/13/2025 CBC panel - Blood by Autom ated count MCHC [entitic mass/volume] in red blood cells by automated count 31.1 g/dL low: 31.7g/ dLhigh : 36.3g/ dL low Not Available Not Available 02/22/2025 10:18:29 02/14/2002/13/2025 CBC panel - Blood by Autom ated count erythrocyte [distwidth] in red blood cells by automated count 14.6 % low: 11.3%h igh: 14.8% Not Available Not Available 02/22/2025 10:18:29 02/14/2002/13/2025 CBC panel - Blood by Autom ated count platelets [#/volume] in blood by automated count 216 text: 150 - 420 x10e9/ L Not Available Not Available 02/22/2025 10:18:29 02/14/2002/13/2025 CBC panel - Blood by Autom ated count platelet [entitic mean volume] in blood by automated count 10.1 fL low: 7.8fLh igh: 11.4fL Not Available Not Available 02/22/2025 10:18:29 02/14/20 25 02/13/2025 CBC panel - Blood by Autom ated count interpretati on and review of laboratory results Abnorm al Not Available Not Available 10:18:29 02/14/20 25 02/13/2025 [facility] 1999 panel - Serum or Plasm a urea nitrogen [mass/volume ] in serum or plasma 58 mg/dL low: 7mg/dL high: 26mg/d L high Not Available Not Available 02/22/2025 10:18:29 02/14/20 25 02/13/2025 [facility] 1999 panel - Serum or Plasm a creatinine [mass/volume ] in serum or plasma 11.62 mg/dL low: 0.71mg /dLhig h: 1.16mg /dL high Not Available Not Available 02/22/2025 10:18:29 02/14/20 25 02/13/2025 [facility] 1999 panel - Serum or Plasm a sodium [moles/volum e] in serum or plasma 138 mmol/ L low: 136mmo l/Lhig h: 145mmo l/L Not Available Not Available 02/22/2025 10:18:29 02/14/20 25 02/13/2025 [facility] 1999 panel - Serum or Plasm a potassium [moles/volum e] in serum or plasma 4.1 mmol/ L low: 3.5mmo l/Lhig h: 4.5mmo l/L Not Available Not Available 02/22/2025 10:18:29 02/14/20 25 02/13/2025 [facility] 1999 panel - Serum or Plasm a chloride [moles/volum e] in serum or plasma 104 mmol/ L low: 98mmol /Lhigh : 107mmo l/L Not Available Not Available 02/22/2025 10:18:29 02/14/20 25 02/13/2025 [facility] 1999 panel - Serum or Plasm a carbon dioxide, total [moles/volum e] in serum or plasma 24 mmol/ L low: 22mmol /Lhigh : 29mmol /L Not Available Not Available 02/22/2025 10:18:29 02/14/20 25 02/13/2025 [facility] 1999 panel - Serum or Plasm a glucose [mass/volume ] in serum or plasma 93 mg/dL low: 70mg/d Lhigh: 99mg/d L Not Available Not Available 02/22/2025 10:18:29 02/14/20 25 02/13/2025 Basic metab olic 1999 panel - Serum or Plasm a calcium [moles/volum e] in serum or plasma 8.8 mg/dL low: 8.4mg/ dLhigh : 10.2mg /dL Not Available Not Available 02/22/2025 10:18:29 02/14/20 25 02/13/2025 Basic metab olic 2000 panel - Serum or Plasm a anion gap 10 low: 6high: 16 Not Available Not Available 02/22/2025 10:18:29 02/14/20 25 02/13/2025 Basic metab olic 2000 panel - Serum or Plasm a urea nitrogen/cre atinine [mass ratio] in serum or plasma 5 low: 7high: 23 low Not Available Not Available 02/22/2025 10:18:29 02/14/20 25 02/13/2025 Basic metab olic 2000 panel - Serum or Plasm a osmolality calculated 302 text: 275 - 295 mOsm/k g high Not Available Not Available 02/22/2025 10:18:29 02/14/20 25 02/13/2025 Basic metab olic 2000 panel - Serum or Plasm a glomerular filtration rate [volume rate/area] in serum, plasma or blood by creatinine-b ased formula (CKD-epi 2020)/1.73 sq M 5 text: >=90 mL/min /1.73 m2 low Not Available Not Available 02/22/2025 10:18:29 02/14/20 25 02/13/2025 Basic metab olic 2000 panel - Serum or Plasm a interpretati on and review of laboratory results Abnorm al Not Available Not Available 10:18:29 02/15/20 25 02/14/2025 Phosp hate [Mass /volu me] in Serum or Plasm a phosphate [mass/volume ] in serum or plasma 4.9 mg/dL low: 2.8mg/ dLhigh : 5.1mg/ dL Not Available Not Available 02/22/2025 10:18:29 02/15/20 25 02/14/2025 Phosp hate [Mass /volu me] in Serum or Plasm a interpretati on and review of laboratory results Normal Not Available Not Available 05/2025 10:18:29 02/15/20 25 02/14/2025 Magne sium [Mass /volu me] in Serum or Plasm a magnesium [mass/volume ] in serum or plasma 2.8 mg/dL low: 1.6mg/ dLhigh : 2.6mg/ dL high Not Available Not Available 02/22/2025 10:18:29 02/15/20 25 02/14/2025 Magne sium [Mass /volu me] in Serum or Plasm a interpretati on and review of laboratory results Abnorm al Not Available Not Available 10:18:29 02/15/20 25 02/14/2025 CBC panel - Blood by Autom ated count leukocytes [#/volume] in blood by automated count 5.8 text: 4.0 - 10.7 x10e9/ L Not Available Not Available 02/22/2025 10:18:29 02/15/20 25 02/14/2025 CBC panel - Blood by Autom ated count erythrocytes [#/volume] in blood by automated count 3.1 text: 4.30 - 5.80 x10e12 /L low Not Available Not Available 02/22/2025 10:18:29 02/15/20 25 02/14/2025 CBC panel - Blood by Autom ated count hemoglobin [mass/volume ] in blood 9.3 g/dL low: 13.3g/ dLhigh : 17.5g/ dL low Not Available Not Available 02/22/2025 10:18:29 02/15/20 25 02/14/2025 CBC panel - Blood by Autom ated count hematocrit [volume fraction] of blood by automated count 30.1 % low: 38.7%h igh: 51.1% low Not Available Not Available 02/22/2025 10:18:29 02/15/20 25 02/14/2025 CBC panel - Blood by Autom ated count MCV [entitic mean volume] in red blood cells by automated count 97.1 fL low: 80fLhi gh: 98fL Not Available Not Available 02/22/2025 10:18:29 02/15/20 25 02/14/2025 CBC panel - Blood by Autom ated count MCH [entitic mass] by automated count 30 pg low: 26.7pg high: 33.6pg Not Available Not Available 02/22/2025 10:18:29 02/15/20 25 02/14/2025 CBC panel - Blood by Autom ated count MCHC [entitic mass/volume] in red blood cells by automated count 30.9 g/dL low: 31.7g/ dLhigh : 36.3g/ dL low Not Available Not Available 02/22/2025 10:18:29 02/15/20 25 02/14/2025 CBC panel - Blood by Autom ated count erythrocyte [distwidth] in red blood cells by automated count 14.3 % low: 11.3%h igh: 14.8% Not Available Not Available 02/22/2025 10:18:29 02/15/20 25 02/14/2025 CBC panel - Blood by Autom ated count platelets [#/volume] in blood by automated count 203 text: 150 - 420 x10e9/ L Not Available Not Available 02/22/2025 10:18:29 02/15/20 25 02/14/2025 CBC panel - Blood by Autom ated count platelet [entitic mean volume] in blood by automated count 10 fL low: 7.8fLh igh: 11.4fL Not Available Not Available 02/22/2025 10:18:29 02/15/20 25 02/14/2025 CBC panel - Blood by Autom ated count interpretati on and review of laboratory results Abnorm al Not Available Not Available 10:18:29 02/15/20 25 02/14/2025 Basic metab olic 2000 panel - Serum or Plasm a urea nitrogen [mass/volume ] in serum or plasma 53 mg/dL low: 7mg/dL high: 26mg/d L high Not Available Not Available 02/22/2025 10:18:29 02/15/20 25 02/14/2025 Basic metab olic 2000 panel - Serum or Plasm a creatinine [mass/volume ] in serum or plasma 10.16 mg/dL low: 0.71mg /dLhig h: 1.16mg /dL high Not Available Not Available 02/22/2025 10:18:29 02/15/20 25 02/14/2025 Basic metab olic 2000 panel - Serum or Plasm a sodium [moles/volum e] in serum or plasma 141 mmol/ L low: 136mmo l/Lhig h: 145mmo l/L Not Available Not Available 02/22/2025 10:18:29 02/15/20 25 02/14/2025 [facility] 1999 panel - Serum or Plasm a potassium [moles/volum e] in serum or plasma 4.4 mmol/ L low: 3.5mmo l/Lhig h: 4.5mmo l/L Not Available Not Available 02/22/2025 10:18:29 02/15/20 25 02/14/2025 [facility] 1999 panel - Serum or Plasm a chloride [moles/volum e] in serum or plasma 113 mmol/ L low: 98mmol /Lhigh : 107mmo l/L high Not Available Not Available 02/22/2025 10:18:29 02/15/20 25 02/14/2025 [facility] 1999 panel - Serum or Plasm a carbon dioxide, total [moles/volum e] in serum or plasma 19 mmol/ L low: 22mmol /Lhigh : 29mmol /L low Not Available Not Available 02/22/2025 10:18:29 02/15/20 25 02/14/2025 [facility] 1999 panel - Serum or Plasm a glucose [mass/volume ] in serum or plasma 100 mg/dL low: 70mg/d Lhigh: 99mg/d L high Not Available Not Available 02/22/2025 10:18:29 02/15/20 25 02/14/2025 [facility] 1999 panel - Serum or Plasm a calcium [moles/volum e] in serum or plasma 7.7 mg/dL low: 8.4mg/ dLhigh : 10.2mg /dL low Not Available Not Available 02/22/2025 10:18:29 02/15/20 25 02/14/2025 [facility] 1999 panel - Serum or Plasm a anion gap 9 low: 6high: 16 Not Available Not Available 02/22/2025 10:18:29 02/15/20 25 02/14/2025 [facility] 1999 panel - Serum or Plasm a urea nitrogen/cre atinine [mass ratio] in serum or plasma 5 low: 7high: 23 low Not Available Not Available 02/22/2025 10:18:29 02/15/20 25 02/14/2025 Basic metab olic 1999 panel - Serum or Plasm a osmolality calculated 306 text: 275 - 295 mOsm/k g high Not Available Not Available 02/22/2025 10:18:29 02/15/20 25 02/14/2025 Basic metab olic 2000 panel - Serum or Plasm a glomerular filtration rate [volume rate/area] in serum, plasma or blood by creatinine-b ased formula (CKD-epi 2020)/1.73 sq M 6 text: >=90 mL/min /1.73 m2 low Not Available Not Available 02/22/2025 10:18:29 02/15/20 25 02/14/2025 Basic metab olic 1999 panel - Serum or Plasm a interpretati on and review of laboratory results Abnorm al Not Available Not Available 10:18:29 02/16/20 25 02/15/2025 Phosp hate [Mass /volu me] in Serum or Plasm a phosphate [mass/volume ] in serum or plasma 5.6 mg/dL low: 2.8mg/ dLhigh : 5.1mg/ dL high Not Available Not Available 02/22/2025 10:18:30 02/16/20 25 02/15/2025 Phosp hate [Mass /volu me] in Serum or Plasm a interpretati on and review of laboratory results Abnorm al Not Available Not Available 10:18:30 02/16/20 25 02/15/2025 Magne sium [Mass /volu me] in Serum or Plasm a magnesium [mass/volume ] in serum or plasma 3.1 mg/dL low: 1.6mg/ dLhigh : 2.6mg/ dL high Not Available Not Available 02/22/2025 10:18:30 02/16/20 25 02/15/2025 Magne sium [Mass /volu me] in Serum or Plasm a interpretati on and review of laboratory results Abnorm al Not Available Not Available 10:18:30 02/16/20 25 02/15/2025 CBC panel - Blood by Autom ated count leukocytes [#/volume] in blood by automated count 8.4 text: 4.0 - 10.7 x10e9/ L Not Available Not Available 02/22/2025 10:18:30 02/16/20 25 02/15/2025 CBC panel - Blood by Autom ated count erythrocytes [#/volume] in blood by automated count 2.93 text: 4.30 - 5.80 x10e12 /L low Not Available Not Available 02/22/2025 10:18:30 02/16/20 25 02/15/2025 CBC panel - Blood by Autom ated count hemoglobin [mass/volume ] in blood 8.8 g/dL low: 13.3g/ dLhigh : 17.5g/ dL low Not Available Not Available 02/22/2025 10:18:30 02/16/20 25 02/15/2025 CBC panel - Blood by Autom ated count hematocrit [volume fraction] of blood by automated count 27.3 % low: 38.7%h igh: 51.1% low Not Available Not Available 02/22/2025 10:18:30 02/16/20 25 02/15/2025 CBC panel - Blood by Autom ated count MCV [entitic mean volume] in red blood cells by automated count 93.2 fL low: 80fLhi gh: 98fL Not Available Not Available 02/22/2025 10:18:30 02/16/20 25 02/15/2025 CBC panel - Blood by Autom ated count MCH [entitic mass] by automated count 30 pg low: 26.7pg high: 33.6pg Not Available Not Available 02/22/2025 10:18:30 02/16/20 25 02/15/2025 CBC panel - Blood by Autom ated count MCHC [entitic mass/volume] in red blood cells by automated count 32.2 g/dL low: 31.7g/ dLhigh : 36.3g/ dL Not Available Not Available 02/22/2025 10:18:30 02/16/20 25 02/15/2025 CBC panel - Blood by Autom ated count erythrocyte [distwidth] in red blood cells by automated count 14.2 % low: 11.3%h igh: 14.8% Not Available Not Available 02/22/2025 10:18:30 02/16/20 25 02/15/2025 CBC panel - Blood by Autom ated count platelets [#/volume] in blood by automated count 203 text: 150 - 420 x10e9/ L Not Available Not Available 02/22/2025 10:18:30 02/16/20 25 02/15/2025 CBC panel - Blood by Autom ated count platelet [entitic mean volume] in blood by automated count 10.4 fL low: 7.8fLh igh: 11.4fL Not Available Not Available 02/22/2025 10:18:30 02/16/20 25 02/15/2025 CBC panel - Blood by Autom ated count interpretati on and review of laboratory results Abnorm al Not Available Not Available 10:18:30 02/16/20 25 02/15/2025 Basic metab olic 1999 panel - Serum or Plasm a urea nitrogen [mass/volume ] in serum or plasma 76 mg/dL low: 7mg/dL high: 26mg/d L high Not Available Not Available 02/22/2025 10:18:29 02/16/20 25 02/15/2025 Basic metab olic 1999 panel - Serum or Plasm a creatinine [mass/volume ] in serum or plasma 11.84 mg/dL low: 0.71mg /dLhig h: 1.16mg /dL high Not Available Not Available 02/22/2025 10:18:29 02/16/20 25 02/15/2025 Basic metab olic 1999 panel - Serum or Plasm a sodium [moles/volum e] in serum or plasma 140 mmol/ L low: 136mmo l/Lhig h: 145mmo l/L Not Available Not Available 02/22/2025 10:18:29 02/16/20 25 02/15/2025 Basic metab olic 1999 panel - Serum or Plasm a potassium [moles/volum e] in serum or plasma 5 mmol/ L low: 3.5mmo l/Lhig h: 4.5mmo l/L high Not Available Not Available 02/22/2025 10:18:29 02/16/20 25 02/15/2025 Basic metab olic 1999 panel - Serum or Plasm a chloride [moles/volum e] in serum or plasma 108 mmol/ L low: 98mmol /Lhigh : 107mmo l/L high Not Available Not Available 02/22/2025 10:18:29 02/16/20 25 02/15/2025 Basic metab olic 1999 panel - Serum or Plasm a carbon dioxide, total [moles/volum e] in serum or plasma 21 mmol/ L low: 22mmol /Lhigh : 29mmol /L low Not Available Not Available 02/22/2025 10:18:29 02/16/20 25 02/15/2025 [facility] 1999 panel - Serum or Plasm a glucose [mass/volume ] in serum or plasma 155 mg/dL low: 70mg/d Lhigh: 99mg/d L high Not Available Not Available 02/22/2025 10:18:29 02/16/20 25 02/15/2025 [facility] - Serum or Plasm a calcium [moles/volum e] in serum or plasma 9.1 mg/dL low: 8.4mg/ dLhigh : 10.2mg /dL Not Available Not Available 02/22/2025 10:18:29 02/16/20 25 02/15/2025 [facility] 1999 panel - Serum or Plasm a anion gap 11 low: 6high: 16 Not Available Not Available 02/22/2025 10:18:29 02/16/20 25 02/15/2025 [facility] 1999 panel - Serum or Plasm a urea nitrogen/cre atinine [mass ratio] in serum or plasma 6 low: 7high: 23 low Not Available Not Available 02/22/2025 10:18:29 02/16/20 25 02/15/2025 [facility] 1999 panel - Serum or Plasm a osmolality calculated 316 text: 275 - 295 mOsm/k g high Not Available Not Available 02/22/2025 10:18:29 02/16/20 25 02/15/2025 [facility] 1999 panel - Serum or Plasm a glomerular filtration rate [volume rate/area] in serum, plasma or blood by creatinine-b ased formula (CKD-epi 2020)/1.73 sq M 5 text: >=90 mL/min /1.73 m2 low Not Available Not Available 02/22/2025 10:18:29 02/16/20 25 02/15/2025 [facility] 2000 panel - Serum or Plasm a interpretati on and review of laboratory results Abnorm al Not Available Not Available 10:18:29 02/17/20 25 02/19/2025 Bacte santi ident ified in Body fluid by Cultu re microorganis m identified in specimen by culture No growth Not Available Not Available 10:16:11 02/17/20 25 02/19/2025 Bacte santi ident ified in Body fluid by Cultu re microscopic observation [identifier] in specimen by gram stain No organi sms seen Not Available Not Available 10:16:11 02/17/20 25 02/19/2025 Bacte santi ident ified in Body fluid by Cultu re microscopic observation [identifier] in specimen by gram stain Heavy Red blood cells Not Available Not Available 10:16:11 02/17/20 25 02/19/2025 Bacte santi ident ified in Body fluid by Cultu re microscopic observation [identifier] in specimen by gram stain Rare Polymo rphonu clear cells Not Available Not Available 10:16:11 02/17/20 25 02/19/2025 Bacte santi ident ified in Body fluid by Cultu re interpretati on and review of laboratory results Normal Not Available Not Available 05/2025 10:16:11 02/17/20 25 02/16/2025 Diffe sam al panel - Body fluid specimen source [identifier] of body fluid Pleura l Not Available Not Available 10:18:30 02/17/20 25 02/16/2025 Diffe kenishati al panel - Body fluid cells counted total [#] in body fluid 100 text: x10e6/ L Not Available Not Available 02/22/2025 10:18:30 02/17/20 25 02/16/2025 Diffzabrina vargas al panel - Body fluid neutrophils/ leukocytes in body fluid by manual count 89 % Not Available Not Available 02/22/2025 10:18:30 02/17/20 25 02/16/2025 Diffe kenishati al panel - Body fluid lymphocytes/ leukocytes in body fluid by manual count 3 % Not Available Not Available 02/22/2025 10:18:30 02/17/20 25 02/16/2025 Diffe kenishati al panel - Body fluid macrophages/ leukocytes in body fluid by manual count 8 % Not Available Not Available 02/22/2025 10:18:30 02/17/20 25 02/16/2025 Diffe renti al panel - Body fluid Unknown Analyte No refere nce ranges establ ished for body fluid differ ential cell counts . The test result s must be integr ated into the clinic al contex t for interp retati on. Not Available Not Available 10:18:30 02/17/20 25 02/16/2025 Cell count and Diffe renti al panel - Body fluid specimen source [identifier] of body fluid Pleura l Not Available Not Available 10:18:30 02/17/20 25 02/16/2025 Cell count and Diffe renti al panel - Body fluid appearance of body fluid CLOUDY Not Available Not Available 05/2025 10:18:30 02/17/20 25 02/16/2025 Cell count and Diffe renti al panel - Body fluid color of body fluid ORANGE Not Available Not Available 02/22/2025 10:18:30 02/17/20 25 02/16/2025 Cell count and Diffe renti al panel - Body fluid nucleated cells [#/volume] in body fluid by manual count 73 text: refere nce range not establ ished x10e6/ L Not Available Not Available 02/22/2025 10:18:30 02/17/20 25 02/16/2025 Cell count and Diffe renti al panel - Body fluid erythrocytes [#/volume] in body fluid by automated count [id number] text: refere nce range not establ ished x10e6/ L Not Available Not Available 02/22/2025 10:18:30 02/17/20 25 02/16/2025 Cell count and Diffe renti al panel - Body fluid Unknown Analyte No refere nce ranges establ ished for body fluid cell counts . Any refere nce ranges provid ed are derive d from publis hed litera ture. The test result s must be integr ated into the clinic al contex t for interp retati on. Not Available Not Available 10:18:30 02/17/20 25 02/16/2025 Maggie stero l [Mass /volu me] in Body fluid cholesterol [mass/volume ] in body fluid 60 mg/dL text: not establ ished for fluids Not Available Not Available 02/22/2025 10:16:12 02/17/20 25 02/16/2025 Maggie stero l [Mass /volu me] in Body fluid [type] of body fluid Pleura l Fluid Not Available Not Available 10:16:12 02/17/20 25 02/16/2025 Maggie stero l [Mass /volu me] in Body fluid Unknown Analyte The analyt ical perfor bay of this test has been indepe ndentl y valida ceasar by the [facility]. A refere nce range has not been establ ished for this fluid. Compar obdulio of this result with the concen tratio n in blood, serum or plasma is recomm ended. Not Available Not Available 10:16:12 02/17/20 25 02/16/2025 Trigl yceri de [Mass /volu me] in Body fluid triglyceride [mass/volume ] in body fluid 54 mg/dL text: not establ ished for fluids Not Available Not Available 02/22/2025 10:16:12 02/17/20 25 02/16/2025 Trigl yceri de [Mass /volu me] in Body fluid [type] of body fluid Pleura l Fluid Not Available Not Available 10:16:12 02/17/20 25 02/16/2025 Trigl yceri de [Mass /volu me] in Body fluid Unknown Analyte The analyt ical perfor bay of this test has been indepe ndentl y valida ceasar by the [facility]. A refere nce range has not been establ ished for this fluid. Compar obdulio of this result with the concen tratio n in blood, serum or plasma is recomm ended. Not Available Not Available 10:16:12 02/17/20 25 02/16/2025 pH of Body fluid pH fluid 7.37 pH text: not establ ished for fluids Not Available Not Available 02/22/2025 10:16:11 02/17/20 25 02/16/2025 pH of Body fluid body fluid type Pleura l Fluid Not Available Not Available 10:16:11 02/17/20 25 02/16/2025 LDH BODY FLUID lactate dehydrogenas e [enzymatic activity/vol ume] in body fluid by lactate to pyruvate reaction 1141 text: not establ ished for fluids units/ L Not Available Not Available 02/22/2025 10:16:11 02/17/20 25 02/16/2025 LDH BODY FLUID [type] of body fluid Pleura l Fluid Not Available Not Available 10:16:11 02/17/20 25 02/16/2025 LDH BODY FLUID Unknown Analyte The analyt ical perfor bay of this test has been indepe ndentl y valida ceasra by the [facility]. A refere nce range has not been establ ished for this fluid. Compar obdulio of this result with the concen tratio n in blood, serum or plasma is recomm ended. Not Available Not Available 10:16:11 02/17/20 25 02/16/2025 Gluco se [Mass /volu me] in Body fluid glucose [mass/volume ] in body fluid 50 mg/dL text: not establ ished for fluids Not Available Not Available 02/22/2025 10:16:11 02/17/20 25 02/16/2025 Gluco se [Mass /volu me] in Body fluid [type] of body fluid Pleura l Fluid Not Available Not Available 10:16:11 02/17/20 25 02/16/2025 Gluco se [Mass /volu me] in Body fluid Unknown Analyte The analyt ical perfor bay of this test has been indepe ndentl y valida ceasar by the [facility]. A refere nce range has not been establ ished for this fluid. Compar obdulio of this result with the concen tratio n in blood, serum or plasma is recomm ended. Not Available Not Available 10:16:11 02/17/20 25 02/16/2025 Amyla se [Enzy matic activ ity/v olume ] in Body fluid amylase [enzymatic activity/vol ume] in body fluid 28 text: not establ ished for fluids units/ L Not Available Not Available 02/22/2025 10:16:11 02/17/20 25 02/16/2025 Amyla se [Enzy matic activ ity/v olume ] in Body fluid [type] of body fluid Pleura l Fluid Not Available Not Available 10:16:11 02/17/20 25 02/16/2025 Amyla se [Enzy matic activ ity/v olume ] in Body fluid Unknown Analyte The analyt ical perfor bay of this test has been indepe ndentl y valida ceasar by the [facility]. A refere nce range has not been establ ished for this fluid. Compar obdulio of this result with the concen tratio n in blood, serum or plasma is recomm ended. Not Available Not Available 10:16:11 02/17/20 25 02/17/2025 Tissu e Patho logy biops y repor t pathology report.secti on heading Surgic al Pathol ogy Report Case: [id number] Author france Mclaughlin er: Pillo Rowley MD [facility] ceasar: 2024 08:51 AM Orderi ng Locati on: [facility] Receiv ed: 2024 12:46 PM Pathol ogist: Dre Lockhart MD Specim en: Pleura , Right, Pleura Not Available Not Available 10:16:11 02/17/20 25 02/17/2025 Tissu e Patho logy biops y repor t pathology report final diagnosis narrative Right pleura l tissue , excisi on: Dense fibros is and organi zing fibrin ous exudat e. Not Available Not Available 10:16:11 02/17/20 25 02/17/2025 Tissu e Patho logy biops y repor t pathology report microscopic observation narrative other stain Micros copic examin ation is perfor med and suppor ts the final diagno sis. Not Available Not Available 10:16:11 02/17/20 25 02/17/2025 Tissu e Patho logy biops y repor t pathology report relevant history narrative Recurr ent pleura l effusi on Not Available Not Available 10:16:11 02/17/20 25 02/17/2025 Tissu e Patho logy biops y repor t pathology report gross observation narrative The requis ition and specim en(s) are identi fied with the patien t's name Migel Elena. Receiv ed in formal in, labele d specim en A, are multip le fragme nts of pink-t an tissue with adhere d carver exudat e, rangin g in size from 2.0-8. 0 cm in [facility] ion. Repres entati ve sectio ns are submit ceasar in casset curt A1 and A2. Not Available Not Available 10:16:11 02/17/2002/17/2025 Tissu e Patho logy biops y repor t pathologist location at [facility] Not Available Not Available 10:16:11 02/17/2002/17/2025 Tissu e Patho logy biops y repor t service comment The perfor bay molina teryolanda ics of all immuno histoc hemica l and indire ct immuno fluore scence stains (if any) cited in this report were determ ined by the Histop gio dunne of [facility]. Some of these tests were develo ped by our own alexei dunne and have not been cleare d or approv ed by the [place] Food and Drug Admini strati on. The FDA does not requir e this test to go throug h premar ket FDA review . These tests are used for clinic al purpos es. They should not be regard ed as invest igatio nal or for resear ch. This alexei dunne is certif ied under the Clinic noah dun[facility] Improv ement Amendm ents (CLIA) as qualif ied to perfor m high comple xity clinic al alexei henry. This case has been person ally review ed and interp reted by the attend ing (teach ing) pathol ogist. Not Available Not Available 10:16:11 02/17/2002/17/2025 Tissu e Patho logy biops y repor t embedded images Not Available Not Available 05/2025 10:16:11 02/17/20 25 02/19/2025 Bacte santi ident ified in Tissu e by Cultu re microorganis m identified in specimen by culture No growth Not Available Not Available 10:16:11 02/17/20 25 02/19/2025 Bacte santi ident ified in Tissu e by Cultu re microscopic observation [identifier] in specimen by gram stain No organi sms seen Not Available Not Available 10:16:11 02/17/20 25 02/19/2025 Bacte santi ident ified in Tissu e by Cultu re microscopic observation [identifier] in specimen by gram stain Rare Polymo rphonu clear cells Not Available Not Available 10:16:11 02/17/20 25 02/19/2025 Bacte santi ident ified in Tissu e by Cultu re microscopic observation [identifier] in specimen by gram stain Heavy Red blood cells Not Available Not Available 10:16:11 02/17/20 25 02/19/2025 Bacte santi ident ified in Tissu e by Cultu re interpretati on and review of laboratory results Normal Not Available Not Available 05/2025 10:16:11 02/17/20 25 02/21/2025 Bacte santi ident ified in [place] te by Anaer obe cultu re microorganis m identified in specimen by culture No anaero bic organi sms isolat ed Not Available Not Available 10:16:11 02/17/20 25 02/21/2025 Bacte santi ident ified in [place] te by Anaer obe cultu re interpretati on and review of laboratory results Normal Not Available Not Available 05/2025 10:16:11 02/17/20 25 02/16/2025 Phosp hate [Mass /volu me] in Serum or Plasm a phosphate [mass/volume ] in serum or plasma 6.4 mg/dL low: 2.8mg/ dLhigh : 5.1mg/ dL high Not Available Not Available 02/22/2025 10:18:30 02/17/20 25 02/16/2025 Phosp hate [Mass /volu me] in Serum or Plasm a interpretati on and review of laboratory results Abnorm al Not Available Not Available 10:18:30 02/17/2002/16/2025 Magne sium [Mass /volu me] in Serum or Plasm a magnesium [mass/volume ] in serum or plasma 2.9 mg/dL low: 1.6mg/ dLhigh : 2.6mg/ dL high Not Available Not Available 02/22/2025 10:18:30 02/17/2002/16/2025 Magne sium [Mass /volu me] in Serum or Plasm a interpretati on and review of laboratory results Abnorm al Not Available Not Available 10:18:30 02/17/2002/16/2025 CBC panel - Blood by Autom ated count leukocytes [#/volume] in blood by automated count 6.6 text: 4.0 - 10.7 x10e9/ L Not Available Not Available 02/22/2025 10:18:30 02/17/2002/16/2025 CBC panel - Blood by Autom ated count erythrocytes [#/volume] in blood by automated count 2.97 text: 4.30 - 5.80 x10e12 /L low Not Available Not Available 02/22/2025 10:18:30 02/17/2002/16/2025 CBC panel - Blood by Autom ated count hemoglobin [mass/volume ] in blood 9.1 g/dL low: 13.3g/ dLhigh : 17.5g/ dL low Not Available Not Available 02/22/2025 10:18:30 02/17/2002/16/2025 CBC panel - Blood by Autom ated count hematocrit [volume fraction] of blood by automated count 27.5 % low: 38.7%h igh: 51.1% low Not Available Not Available 02/22/2025 10:18:30 02/17/2002/16/2025 CBC panel - Blood by Autom ated count MCV [entitic mean volume] in red blood cells by automated count 92.6 fL low: 80fLhi gh: 98fL Not Available Not Available 02/22/2025 10:18:30 02/17/2002/16/2025 CBC panel - Blood by Autom ated count MCH [entitic mass] by automated count 30.6 pg low: 26.7pg high: 33.6pg Not Available Not Available 02/22/2025 10:18:30 02/17/2002/16/2025 CBC panel - Blood by Autom ated count MCHC [entitic mass/volume] in red blood cells by automated count 33.1 g/dL low: 31.7g/ dLhigh : 36.3g/ dL Not Available Not Available 02/22/2025 10:18:30 02/17/2002/16/2025 CBC panel - Blood by Autom ated count erythrocyte [distwidth] in red blood cells by automated count 14.2 % low: 11.3%h igh: 14.8% Not Available Not Available 02/22/2025 10:18:30 02/17/2002/16/2025 CBC panel - Blood by Autom ated count platelets [#/volume] in blood by automated count 195 text: 150 - 420 x10e9/ L Not Available Not Available 02/22/2025 10:18:30 02/17/2002/16/2025 CBC panel - Blood by Autom ated count platelet [entitic mean volume] in blood by automated count 10.7 fL low: 7.8fLh igh: 11.4fL Not Available Not Available 02/22/2025 10:18:30 02/17/2002/16/2025 CBC panel - Blood by Autom ated count interpretati on and review of laboratory results Abnorm al Not Available Not Available 10:18:30 02/17/2002/16/2025 Basic metab [facility]lic 2000 panel - Serum or Plasm a urea nitrogen [mass/volume ] in serum or plasma 67 mg/dL low: 7mg/dL high: 26mg/d L high Not Available Not Available 02/22/2025 10:18:30 02/17/20 25 02/16/2025 Basic metab olic 2000 panel - Serum or Plasm a creatinine [mass/volume ] in serum or plasma 11.4 mg/dL low: 0.71mg /dLhig h: 1.16mg /dL high Not Available Not Available 02/22/2025 10:18:30 02/17/20 25 02/16/2025 [facility] 1999 panel - Serum or Plasm a sodium [moles/volum e] in serum or plasma 139 mmol/ L low: 136mmo l/Lhig h: 145mmo l/L Not Available Not Available 02/22/2025 10:18:30 02/17/20 25 02/16/2025 [facility] 1999 panel - Serum or Plasm a potassium [moles/volum e] in serum or plasma 4.2 mmol/ L low: 3.5mmo l/Lhig h: 4.5mmo l/L Not Available Not Available 02/22/2025 10:18:30 02/17/20 25 02/16/2025 [facility] 1999 panel - Serum or Plasm a chloride [moles/volum e] in serum or plasma 105 mmol/ L low: 98mmol /Lhigh : 107mmo l/L Not Available Not Available 02/22/2025 10:18:30 02/17/20 25 02/16/2025 [facility] 1999 panel - Serum or Plasm a carbon dioxide, total [moles/volum e] in serum or plasma 26 mmol/ L low: 22mmol /Lhigh : 29mmol /L Not Available Not Available 02/22/2025 10:18:30 02/17/20 25 02/16/2025 [facility] 1999 panel - Serum or Plasm a glucose [mass/volume ] in serum or plasma 119 mg/dL low: 70mg/d Lhigh: 99mg/d L high Not Available Not Available 02/22/2025 10:18:30 02/17/20 25 02/16/2025 [facility] 1999 panel - Serum or Plasm a calcium [moles/volum e] in serum or plasma 9.1 mg/dL low: 8.4mg/ dLhigh : 10.2mg /dL Not Available Not Available 02/22/2025 10:18:30 02/17/20 25 02/16/2025 [facility] 1999 panel - Serum or Plasm a anion gap 8 low: 6high: 16 Not Available Not Available 02/22/2025 10:18:30 02/17/20 25 02/16/2025 [facility] 1999 panel - Serum or Plasm a urea nitrogen/cre atinine [mass ratio] in serum or plasma 6 low: 7high: 23 low Not Available Not Available 02/22/2025 10:18:30 02/17/20 25 02/16/2025 [facility] metab [facility] 1999 panel - Serum or Plasm a osmolality calculated 309 text: 275 - 295 mOsm/k g high Not Available Not Available 02/22/2025 10:18:30 02/17/20 25 02/16/2025 Basic metab olic 2000 panel - Serum or Plasm a glomerular filtration rate [volume rate/area] in serum, plasma or blood by creatinine-b ased formula (CKD-epi 2020)/1.73 sq M 5 text: >=90 mL/min /1.73 m2 low Not Available Not Available 02/22/2025 10:18:30 02/17/20 25 02/16/2025 Basic metab olic 2000 panel - Serum or Plasm a interpretati on and review of laboratory results Abnorm al Not Available Not Available 10:18:30 02/17/20 25 02/16/2025 Blood type and Indir ect antib raj scree n panel - Blood blood group antibody screen [presence] in serum or plasma NEG Not Available Not Available 05/2025 10:16:11 02/17/20 25 02/16/2025 Blood type and Indir ect antib raj scree n panel - Blood ABO and Rh group [type] in blood A POS Not Available Not Available 05/2025 10:16:11 02/18/20 25 02/17/2025 Phosp hate [Mass /volu me] in Serum or Plasm a phosphate [mass/volume ] in serum or plasma 6.7 mg/dL low: 2.8mg/ dLhigh : 5.1mg/ dL high Not Available Not Available 02/22/2025 10:18:30 02/18/20 25 02/17/2025 Phosp hate [Mass /volu me] in Serum or Plasm a interpretati on and review of laboratory results Abnorm al Not Available Not Available 10:18:30 02/18/20 25 02/17/2025 Magne sium [Mass /volu me] in Serum or Plasm a magnesium [mass/volume ] in serum or plasma 3.4 mg/dL low: 1.6mg/ dLhigh : 2.6mg/ dL high Not Available Not Available 02/22/2025 10:18:30 02/18/20 25 02/17/2025 Magne sium [Mass /volu me] in Serum or Plasm a interpretati on and review of laboratory results Abnorm al Not Available Not Available 10:18:30 02/18/20 25 02/17/2025 CBC panel - Blood by Autom ated count leukocytes [#/volume] in blood by automated count 10.2 text: 4.0 - 10.7 x10e9/ L Not Available Not Available 02/22/2025 10:18:30 02/18/20 25 02/17/2025 CBC panel - Blood by Autom ated count erythrocytes [#/volume] in blood by automated count 3.2 text: 4.30 - 5.80 x10e12 /L low Not Available Not Available 02/22/2025 10:18:30 02/18/20 25 02/17/2025 CBC panel - Blood by Autom ated count hemoglobin [mass/volume ] in blood 10 g/dL low: 13.3g/ dLhigh : 17.5g/ dL low Not Available Not Available 02/22/2025 10:18:30 02/18/20 25 02/17/2025 CBC panel - Blood by Autom ated count hematocrit [volume fraction] of blood by automated count 29.9 % low: 38.7%h igh: 51.1% low Not Available Not Available 02/22/2025 10:18:30 02/18/20 25 02/17/2025 CBC panel - Blood by Autom ated count MCV [entitic mean volume] in red blood cells by automated count 93.4 fL low: 80fLhi gh: 98fL Not Available Not Available 02/22/2025 10:18:30 02/18/20 25 02/17/2025 CBC panel - Blood by Autom ated count MCH [entitic mass] by automated count 31.3 pg low: 26.7pg high: 33.6pg Not Available Not Available 02/22/2025 10:18:30 02/18/20 25 02/17/2025 CBC panel - Blood by Autom ated count MCHC [entitic mass/volume] in red blood cells by automated count 33.4 g/dL low: 31.7g/ dLhigh : 36.3g/ dL Not Available Not Available 02/22/2025 10:18:30 02/18/2002/17/2025 CBC panel - Blood by Autom ated count erythrocyte [distwidth] in red blood cells by automated count 13.9 % low: 11.3%h igh: 14.8% Not Available Not Available 02/22/2025 10:18:30 02/18/2002/17/2025 CBC panel - Blood by Autom ated count platelets [#/volume] in blood by automated count 207 text: 150 - 420 x10e9/ L Not Available Not Available 02/22/2025 10:18:30 02/18/2002/17/2025 CBC panel - Blood by Autom ated count platelet [entitic mean volume] in blood by automated count 10.8 fL low: 7.8fLh igh: 11.4fL Not Available Not Available 02/22/2025 10:18:30 02/18/2002/17/2025 CBC panel - Blood by Autom ated count interpretati on and review of laboratory results Abnorm al Not Available Not Available 10:18:30 02/18/20 25 02/17/2025 Basic metab olic 2000 panel - Serum or Plasm a urea nitrogen [mass/volume ] in serum or plasma 68 mg/dL low: 7mg/dL high: 26mg/d L high Not Available Not Available 02/22/2025 10:18:30 02/18/2002/17/2025 Basic metab olic 2000 panel - Serum or Plasm a creatinine [mass/volume ] in serum or plasma 11.22 mg/dL low: 0.71mg /dLhig h: 1.16mg /dL high Not Available Not Available 02/22/2025 10:18:30 02/18/20 25 02/17/2025 Basic metab olic 2000 panel - Serum or Plasm a sodium [moles/volum e] in serum or plasma 138 mmol/ L low: 136mmo l/Lhig h: 145mmo l/L Not Available Not Available 02/22/2025 10:18:30 02/18/20 25 02/17/2025 Basic metab olic 2000 panel - Serum or Plasm a potassium [moles/volum e] in serum or plasma 5 mmol/ L low: 3.5mmo l/Lhig h: 4.5mmo l/L high Not Available Not Available 02/22/2025 10:18:30 02/18/20 25 02/17/2025 [facility] 1999 panel - Serum or Plasm a chloride [moles/volum e] in serum or plasma 101 mmol/ L low: 98mmol /Lhigh : 107mmo l/L Not Available Not Available 02/22/2025 10:18:30 02/18/20 25 02/17/2025 [facility] 1999 panel - Serum or Plasm a carbon dioxide, total [moles/volum e] in serum or plasma 27 mmol/ L low: 22mmol /Lhigh : 29mmol /L Not Available Not Available 02/22/2025 10:18:30 02/18/20 25 02/17/2025 [facility] 1999 panel - Serum or Plasm a glucose [mass/volume ] in serum or plasma 131 mg/dL low: 70mg/d Lhigh: 99mg/d L high Not Available Not Available 02/22/2025 10:18:30 02/18/20 25 02/17/2025 [facility] 1999 panel - Serum or Plasm a calcium [moles/volum e] in serum or plasma 10.2 mg/dL low: 8.4mg/ dLhigh : 10.2mg /dL Not Available Not Available 02/22/2025 10:18:30 02/18/20 25 02/17/2025 [facility] 1999 panel - Serum or Plasm a anion gap 10 low: 6high: 16 Not Available Not Available 02/22/2025 10:18:30 02/18/20 25 02/17/2025 [facility] 1999 panel - Serum or Plasm a urea nitrogen/cre atinine [mass ratio] in serum or plasma 6 low: 7high: 23 low Not Available Not Available 02/22/2025 10:18:30 02/18/20 25 02/17/2025 [facility] 1999 panel - Serum or Plasm a osmolality calculated 308 text: 275 - 295 mOsm/k g high Not Available Not Available 02/22/2025 10:18:30 02/18/20 25 02/17/2025 Basic metab o[facility] 2000 panel - Serum or Plasm a glomerular filtration rate [volume rate/area] in serum, plasma or blood by creatinine-b ased formula (CKD-epi 2020)/1.73 sq M 5 text: >=90 mL/min /1.73 m2 low Not Available Not Available 02/22/2025 10:18:30 02/18/20 25 02/17/2025 Basic metab olic 2000 panel - Serum or Plasm a interpretati on and review of laboratory results Abnorm al Not Available Not Available 10:18:30 02/19/20 25 02/18/2025 Phosp hate [Mass /volu me] in Serum or Plasm a phosphate [mass/volume ] in serum or plasma 7.1 mg/dL low: 2.8mg/ dLhigh : 5.1mg/ dL high Not Available Not Available 02/22/2025 10:18:31 02/19/20 25 02/18/2025 Phosp hate [Mass /volu me] in Serum or Plasm a interpretati on and review of laboratory results Abnorm al Not Available Not Available 10:18:31 02/19/20 25 02/18/2025 Magne sium [Mass /volu me] in Serum or Plasm a magnesium [mass/volume ] in serum or plasma 3 mg/dL low: 1.6mg/ dLhigh : 2.6mg/ dL high Not Available Not Available 02/22/2025 10:18:31 02/19/20 25 02/18/2025 Magne sium [Mass /volu me] in Serum or Plasm a interpretati on and review of laboratory results Abnorm al Not Available Not Available 10:18:31 02/19/20 25 02/18/2025 CBC panel - Blood by Autom ated count leukocytes [#/volume] in blood by automated count 8.5 text: 4.0 - 10.7 x10e9/ L Not Available Not Available 02/22/2025 10:18:31 02/19/20 25 02/18/2025 CBC panel - Blood by Autom ated count erythrocytes [#/volume] in blood by automated count 2.83 text: 4.30 - 5.80 x10e12 /L low Not Available Not Available 02/22/2025 10:18:31 02/19/20 25 02/18/2025 CBC panel - Blood by Autom ated count hemoglobin [mass/volume ] in blood 8.5 g/dL low: 13.3g/ dLhigh : 17.5g/ dL low Not Available Not Available 02/22/2025 10:18:31 02/19/20 25 02/18/2025 CBC panel - Blood by Autom ated count hematocrit [volume fraction] of blood by automated count 27.1 % low: 38.7%h igh: 51.1% low Not Available Not Available 02/22/2025 10:18:31 02/19/20 25 02/18/2025 CBC panel - Blood by Autom ated count MCV [entitic mean volume] in red blood cells by automated count 95.8 fL low: 80fLhi gh: 98fL Not Available Not Available 02/22/2025 10:18:31 02/19/20 25 02/18/2025 CBC panel - Blood by Autom ated count MCH [entitic mass] by automated count 30 pg low: 26.7pg high: 33.6pg Not Available Not Available 02/22/2025 10:18:31 02/19/20 25 02/18/2025 CBC panel - Blood by Autom ated count MCHC [entitic mass/volume] in red blood cells by automated count 31.4 g/dL low: 31.7g/ dLhigh : 36.3g/ dL low Not Available Not Available 02/22/2025 10:18:31 02/19/20 25 02/18/2025 CBC panel - Blood by Autom ated count erythrocyte [distwidth] in red blood cells by automated count 14 % low: 11.3%h igh: 14.8% Not Available Not Available 02/22/2025 10:18:31 02/19/20 25 02/18/2025 CBC panel - Blood by Autom ated count platelets [#/volume] in blood by automated count 187 text: 150 - 420 x10e9/ L Not Available Not Available 02/22/2025 10:18:31 02/19/20 25 02/18/2025 CBC panel - Blood by Autom ated count platelet [entitic mean volume] in blood by automated count 10.9 fL low: 7.8fLh igh: 11.4fL Not Available Not Available 02/22/2025 10:18:31 02/19/20 25 02/18/2025 CBC panel - Blood by Autom ated count interpretati on and review of laboratory results Abnorm al Not Available Not Available 10:18:31 02/19/20 25 02/18/2025 [facility] 1999 panel - Serum or Plasm a urea nitrogen [mass/volume ] in serum or plasma 83 mg/dL low: 7mg/dL high: 26mg/d L high Not Available Not Available 02/22/2025 10:18:31 02/19/20 25 02/18/2025 [facility] 1999 panel - Serum or Plasm a creatinine [mass/volume ] in serum or plasma 12.06 mg/dL low: 0.71mg /dLhig h: 1.16mg /dL high Not Available Not Available 02/22/2025 10:18:31 02/19/20 25 02/18/2025 [facility] 1999 panel - Serum or Plasm a sodium [moles/volum e] in serum or plasma 142 mmol/ L low: 136mmo l/Lhig h: 145mmo l/L Not Available Not Available 02/22/2025 10:18:31 02/19/20 25 02/18/2025 [facility] 1999 panel - Serum or Plasm a potassium [moles/volum e] in serum or plasma 3.9 mmol/ L low: 3.5mmo l/Lhig h: 4.5mmo l/L Not Available Not Available 02/22/2025 10:18:31 02/19/20 25 02/18/2025 [facility] 1999 panel - Serum or Plasm a chloride [moles/volum e] in serum or plasma 100 mmol/ L low: 98mmol /Lhigh : 107mmo l/L Not Available Not Available 02/22/2025 10:18:31 02/19/20 25 02/18/2025 [facility] 1999 panel - Serum or Plasm a carbon dioxide, total [moles/volum e] in serum or plasma 30 mmol/ L low: 22mmol /Lhigh : 29mmol /L high Not Available Not Available 02/22/2025 10:18:31 02/19/20 25 02/18/2025 [facility] 1999 panel - Serum or Plasm a glucose [mass/volume ] in serum or plasma 143 mg/dL low: 70mg/d Lhigh: 99mg/d L high Not Available Not Available 02/22/2025 10:18:31 02/19/20 25 02/18/2025 [facility] 1999 panel - Serum or Plasm a calcium [moles/volum e] in serum or plasma 9.6 mg/dL low: 8.4mg/ dLhigh : 10.2mg /dL Not Available Not Available 02/22/2025 10:18:31 02/19/20 25 02/18/2025 [facility] 1999 panel - Serum or Plasm a anion gap 12 low: 6high: 16 Not Available Not Available 02/22/2025 10:18:31 02/19/20 25 02/18/2025 [facility] 2000 panel - Serum or Plasm a urea nitrogen/cre atinine [mass ratio] in serum or plasma 7 low: 7high: 23 Not Available Not Available 02/22/2025 10:18:31 02/19/20 25 02/18/2025 [facility] 2000 panel - Serum or Plasm a osmolality calculated 322 text: 275 - 295 mOsm/k g high Not Available Not Available 02/22/2025 10:18:31 02/19/2002/18/2025 [facility] 2000 panel - Serum or Plasm a glomerular filtration rate [volume rate/area] in serum, plasma or blood by creatinine-b ased formula (CKD-epi 2020)/1.73 sq M 5 text: >=90 mL/min /1.73 m2 low Not Available Not Available 02/22/2025 10:18:31 02/19/20 25 02/18/2025 [facility] 2000 panel - Serum or Plasm a interpretati on and review of laboratory results Abnorm al Not Available Not Available 10:18:31 02/20/20 25 02/19/2025 Phosp hate [Mass /volu me] in Serum or Plasm a phosphate [mass/volume ] in serum or plasma 7 mg/dL low: 2.8mg/ dLhigh : 5.1mg/ dL high Not Available Not Available 02/22/2025 10:18:31 02/20/20 25 02/19/2025 Phosp hate [Mass /volu me] in Serum or Plasm a interpretati on and review of laboratory results Abnorm al Not Available Not Available 10:18:31 02/20/20 25 02/19/2025 Magne sium [Mass /volu me] in Serum or Plasm a magnesium [mass/volume ] in serum or plasma 2.9 mg/dL low: 1.6mg/ dLhigh : 2.6mg/ dL high Not Available Not Available 02/22/2025 10:18:31 02/20/20 25 02/19/2025 Magne sium [Mass /volu me] in Serum or Plasm a interpretati on and review of laboratory results Abnorm al Not Available Not Available 10:18:31 02/20/20 25 02/19/2025 [facility] 1999 panel - Serum or Plasm a urea nitrogen [mass/volume ] in serum or plasma 80 mg/dL low: 7mg/dL high: 26mg/d L high Not Available Not Available 02/22/2025 10:18:31 02/20/20 25 02/19/2025 [facility] 1999 panel - Serum or Plasm a creatinine [mass/volume ] in serum or plasma 12.22 mg/dL low: 0.71mg /dLhig h: 1.16mg /dL high Not Available Not Available 02/22/2025 10:18:31 02/20/20 25 02/19/2025 [facility] 1999 panel - Serum or Plasm a sodium [moles/volum e] in serum or plasma 138 mmol/ L low: 136mmo l/Lhig h: 145mmo l/L Not Available Not Available 02/22/2025 10:18:31 02/20/20 25 02/19/2025 [facility] 1999 panel - Serum or Plasm a potassium [moles/volum e] in serum or plasma 3.9 mmol/ L low: 3.5mmo l/Lhig h: 4.5mmo l/L Not Available Not Available 02/22/2025 10:18:31 02/20/20 25 02/19/2025 [facility] 1999 panel - Serum or Plasm a chloride [moles/volum e] in serum or plasma 99 mmol/ L low: 98mmol /Lhigh : 107mmo l/L Not Available Not Available 02/22/2025 10:18:31 02/20/20 25 02/19/2025 [facility] 1999 panel - Serum or Plasm a carbon dioxide, total [moles/volum e] in serum or plasma 28 mmol/ L low: 22mmol /Lhigh : 29mmol /L Not Available Not Available 02/22/2025 10:18:31 02/20/20 25 02/19/2025 [facility] 1999 panel - Serum or Plasm a glucose [mass/volume ] in serum or plasma 124 mg/dL low: 70mg/d Lhigh: 99mg/d L high Not Available Not Available 02/22/2025 10:18:31 02/20/20 25 02/19/2025 [facility] 1999 panel - Serum or Plasm a calcium [moles/volum e] in serum or plasma 9.5 mg/dL low: 8.4mg/ dLhigh : 10.2mg /dL Not Available Not Available 02/22/2025 10:18:31 02/20/20 25 02/19/2025 [facility] 1999 panel - Serum or Plasm a anion gap 11 low: 6high: 16 Not Available Not Available 02/22/2025 10:18:31 02/20/20 25 02/19/2025 [facility] 1999 panel - Serum or Plasm a urea nitrogen/cre atinine [mass ratio] in serum or plasma 7 low: 7high: 23 Not Available Not Available 02/22/2025 10:18:31 02/20/20 25 02/19/2025 [facility] 1999 panel - Serum or Plasm a osmolality calculated 311 text: 275 - 295 mOsm/k g high Not Available Not Available 02/22/2025 10:18:31 02/20/20 25 02/19/2025 [facility] 1999 panel - Serum or Plasm a glomerular filtration rate [volume rate/area] in serum, plasma or blood by creatinine-b ased formula (CKD-epi 2020)/1.73 sq M 5 text: >=90 mL/min /1.73 m2 low Not Available Not Available 02/22/2025 10:18:31 02/20/20 25 02/19/2025 [facility] 2000 panel - Serum or Plasm a Unknown Analyte Estima ceasar Glomer ular Filtra tion Rate (eGFR) calcul ated using the CKD-EP I Creati nine Equati on (2020) , per the [facility] and [place] [employer] recomm endati ons. Not Available Not Available 10:18:31 02/20/20 25 02/19/2025 Basic metab olic 2000 panel - Serum or Plasm a interpretati on and review of laboratory results Abnorm al Not Available Not Available 10:18:31 02/20/20 25 02/19/2025 CBC panel - Blood by Autom ated count leukocytes [#/volume] in blood by automated count 7.2 text: 4.0 - 10.7 x10e9/ L Not Available Not Available 02/22/2025 10:18:31 02/20/20 25 02/19/2025 CBC panel - Blood by Autom ated count erythrocytes [#/volume] in blood by automated count 2.84 text: 4.30 - 5.80 x10e12 /L low Not Available Not Available 02/22/2025 10:18:31 02/20/20 25 02/19/2025 CBC panel - Blood by Autom ated count hemoglobin [mass/volume ] in blood 8.5 g/dL low: 13.3g/ dLhigh : 17.5g/ dL low Not Available Not Available 02/22/2025 10:18:31 02/20/2002/19/2025 CBC panel - Blood by Autom ated count hematocrit [volume fraction] of blood by automated count 26.4 % low: 38.7%h igh: 51.1% low Not Available Not Available 02/22/2025 10:18:31 02/20/20 25 02/19/2025 CBC panel - Blood by Autom ated count MCV [entitic mean volume] in red blood cells by automated count 93 fL low: 80fLhi gh: 98fL Not Available Not Available 02/22/2025 10:18:31 02/20/20 25 02/19/2025 CBC panel - Blood by Autom ated count MCH [entitic mass] by automated count 29.9 pg low: 26.7pg high: 33.6pg Not Available Not Available 02/22/2025 10:18:31 02/20/20 25 02/19/2025 CBC panel - Blood by Autom ated count MCHC [entitic mass/volume] in red blood cells by automated count 32.2 g/dL low: 31.7g/ dLhigh : 36.3g/ dL Not Available Not Available 02/22/2025 10:18:31 02/20/20 25 02/19/2025 CBC panel - Blood by Autom ated count erythrocyte [distwidth] in red blood cells by automated count 14.1 % low: 11.3%h igh: 14.8% Not Available Not Available 02/22/2025 10:18:31 02/20/20 25 02/19/2025 CBC panel - Blood by Autom ated count platelets [#/volume] in blood by automated count 174 text: 150 - 420 x10e9/ L Not Available Not Available 02/22/2025 10:18:31 02/20/20 25 02/19/2025 CBC panel - Blood by Autom ated count platelet [entitic mean volume] in blood by automated count 10.5 fL low: 7.8fLh igh: 11.4fL Not Available Not Available 02/22/2025 10:18:31 02/20/20 25 02/19/2025 CBC panel - Blood by Autom ated count interpretati on and review of laboratory results Abnorm al Not Available Not Available 10:18:31 02/21/20 25 02/24/2025 Bacte santi ident ified in Body fluid by Cultu re microorganis m identified in specimen by culture No growth Not Available Not Available 10:56:22 02/21/20 25 02/24/2025 Bacte santi ident ified in Body fluid by Cultu re microscopic observation [identifier] in specimen by gram stain Light Polymo rphonu clear cells Not Available Not Available 10:56:22 02/21/20 25 02/24/2025 Bacte santi ident ified in Body fluid by Cultu re microscopic observation [identifier] in specimen by gram stain No organi sms seen Not Available Not Available 10:56:22 02/21/20 25 02/24/2025 Bacte santi ident ified in Body fluid by Cultu re interpretati on and review of laboratory results Normal Not Available Not Available 02/15 10:56:22 02/21/20 25 02/20/2025 Diffe renti al panel - Body fluid specimen source [identifier] of body fluid Perito kiah Not Available Not Available 10:16:11 02/21/20 25 02/20/2025 Diffe renti al panel - Body fluid cells counted total [#] in body fluid 100 text: x10e6/ L Not Available Not Available 02/22/2025 10:16:11 02/21/20 25 02/20/2025 Diffe renti al panel - Body fluid neutrophils/ leukocytes in body fluid by manual count 19 % Not Available Not Available 02/22/2025 10:16:11 02/21/20 25 02/20/2025 Diffe renti al panel - Body fluid lymphocytes/ leukocytes in body fluid by manual count 2 % Not Available Not Available 02/22/2025 10:16:11 02/21/20 25 02/20/2025 Diffe renti al panel - Body fluid macrophages/ leukocytes in body fluid by manual count 79 % Not Available Not Available 02/22/2025 10:16:11 02/21/20 25 02/20/2025 Diffe renti al panel - Body fluid Unknown Analyte No refere nce ranges establ ished for body fluid differ ential cell counts . The test result s must be integr ated into the clinic al contex t for interp retati on. Not Available Not Available 10:16:11 02/21/20 25 02/20/2025 Cell count and Diffe renti al panel - Body fluid specimen source [identifier] of body fluid Perito kiah Not Available Not Available 10:16:10 02/21/20 25 02/20/2025 Cell count and Diffe renti al panel - Body fluid appearance of body fluid SLIGHT LY HAZY Not Available Not Available 10:16:10 02/21/20 25 02/20/2025 Cell count and Diffe renti al panel - Body fluid color of body fluid COLORL ESS Not Available Not Available 10:16:10 02/21/20 25 02/20/2025 Cell count and Diffe renti al panel - Body fluid nucleated cells [#/volume] in body fluid by manual count 87 text: refere nce range not establ ished x10e6/ L Not Available Not Available 02/22/2025 10:16:10 02/21/20 25 02/20/2025 Cell count and Diffe renti al panel - Body fluid erythrocytes [#/volume] in body fluid by automated count text: refere nce range not establ ished x10e6/ L Not Available Not Available 02/22/2025 10:16:10 02/21/20 25 02/20/2025 Cell count and Diffe renti al panel - Body fluid Unknown Analyte No refere nce ranges establ ished for body fluid cell counts . Any refere nce ranges provid ed are derive d from publ[facility] litera ture. The test result s must be integr ated into the clinic al contex t for interp retati on. Not Available Not Available 10:16:10 02/21/20 25 02/20/2025 CBC panel - Blood by Autom ated count leukocytes [#/volume] in blood by automated count 7 text: 4.0 - 10.7 x10e9/ L Not Available Not Available 02/22/2025 10:16:10 02/21/20 25 02/20/2025 CBC panel - Blood by Autom ated count erythrocytes [#/volume] in blood by automated count 2.85 text: 4.30 - 5.80 x10e12 /L low Not Available Not Available 02/22/2025 10:16:10 02/21/20 25 02/20/2025 CBC panel - Blood by Autom ated count hemoglobin [mass/volume ] in blood 8.8 g/dL low: 13.3g/ dLhigh : 17.5g/ dL low Not Available Not Available 02/22/2025 10:16:10 02/21/20 25 02/20/2025 CBC panel - Blood by Autom ated count hematocrit [volume fraction] of blood by automated count 27.3 % low: 38.7%h igh: 51.1% low Not Available Not Available 02/22/2025 10:16:10 02/21/20 25 02/20/2025 CBC panel - Blood by Autom ated count MCV [entitic mean volume] in red blood cells by automated count 95.8 fL low: 80fLhi gh: 98fL Not Available Not Available 02/22/2025 10:16:10 02/21/20 25 02/20/2025 CBC panel - Blood by Autom ated count MCH [entitic mass] by automated count 30.9 pg low: 26.7pg high: 33.6pg Not Available Not Available 02/22/2025 10:16:10 02/21/20 25 02/20/2025 CBC panel - Blood by Autom ated count MCHC [entitic mass/volume] in red blood cells by automated count 32.2 g/dL low: 31.7g/ dLhigh : 36.3g/ dL Not Available Not Available 02/22/2025 10:16:10 02/21/20 25 02/20/2025 CBC panel - Blood by Autom ated count erythrocyte [distwidth] in red blood cells by automated count 14.3 % low: 11.3%h igh: 14.8% Not Available Not Available 02/22/2025 10:16:10 02/21/20 25 02/20/2025 CBC panel - Blood by Autom ated count platelets [#/volume] in blood by automated count 188 text: 150 - 420 x10e9/ L Not Available Not Available 02/22/2025 10:16:10 02/21/2002/20/2025 CBC panel - Blood by Autom ated count platelet [entitic mean volume] in blood by automated count 10.7 fL low: 7.8fLh igh: 11.4fL Not Available Not Available 02/22/2025 10:16:10 02/21/20 25 02/20/2025 CBC panel - Blood by Autom ated count interpretati on and review of laboratory results Abnorm al Not Available Not Available 10:16:10 02/21/20 25 02/20/2025 Basic metab olic 2000 panel - Serum or Plasm a urea nitrogen [mass/volume ] in serum or plasma 84 mg/dL low: 7mg/dL high: 26mg/d L high Not Available Not Available 02/22/2025 10:16:10 02/21/20 25 02/20/2025 [facility] 1999 panel - Serum or Plasm a creatinine [mass/volume ] in serum or plasma 12.2 mg/dL low: 0.71mg /dLhig h: 1.16mg /dL high Not Available Not Available 02/22/2025 10:16:10 02/21/20 25 02/20/2025 [facility] 1999 panel - Serum or Plasm a sodium [moles/volum e] in serum or plasma 140 mmol/ L low: 136mmo l/Lhig h: 145mmo l/L Not Available Not Available 02/22/2025 10:16:10 02/21/20 25 02/20/2025 [facility] 1999 panel - Serum or Plasm a potassium [moles/volum e] in serum or plasma 4.4 mmol/ L low: 3.5mmo l/Lhig h: 4.5mmo l/L Not Available Not Available 02/22/2025 10:16:10 02/21/20 25 02/20/2025 [facility] 1999 panel - Serum or Plasm a chloride [moles/volum e] in serum or plasma 102 mmol/ L low: 98mmol /Lhigh : 107mmo l/L Not Available Not Available 02/22/2025 10:16:10 02/21/20 25 02/20/2025 [facility] 1999 panel - Serum or Plasm a carbon dioxide, total [moles/volum e] in serum or plasma 26 mmol/ L low: 22mmol /Lhigh : 29mmol /L Not Available Not Available 02/22/2025 10:16:10 02/21/20 25 02/20/2025 [facility] 1999 panel - Serum or Plasm a glucose [mass/volume ] in serum or plasma 122 mg/dL low: 70mg/d Lhigh: 99mg/d L high Not Available Not Available 02/22/2025 10:16:10 02/21/20 25 02/20/2025 [facility] 1999 panel - Serum or Plasm a calcium [moles/volum e] in serum or plasma 9.1 mg/dL low: 8.4mg/ dLhigh : 10.2mg /dL Not Available Not Available 02/22/2025 10:16:10 02/21/20 25 02/20/2025 Basic metab olic 2000 panel - Serum or Plasm a anion gap 12 low: 6high: 16 Not Available Not Available 02/22/2025 10:16:10 02/21/20 25 02/20/2025 Basic metab olic 1999 panel - Serum or Plasm a urea nitrogen/cre atinine [mass ratio] in serum or plasma 7 low: 7high: 23 Not Available Not Available 02/22/2025 10:16:10 02/21/20 25 02/20/2025 Basic metab olic 1999 panel - Serum or Plasm a osmolality calculated 317 text: 275 - 295 mOsm/k g high Not Available Not Available 02/22/2025 10:16:10 02/21/20 25 02/20/2025 Basic metab olic 2000 panel - Serum or Plasm a glomerular filtration rate [volume rate/area] in serum, plasma or blood by creatinine-b ased formula (CKD-epi 2020)/1.73 sq M 5 text: >=90 mL/min /1.73 m2 low Not Available Not Available 02/22/2025 10:16:10 02/21/20 25 02/20/2025 Basic metab olic 1999 panel - Serum or Plasm a Unknown Analyte Estima ceasar Glomer ular Filtra tion Rate (eGFR) calcul ated using the CKD-EP I Creati nine Equati on (2020) , per the [facility] and [employer] Ne[employer] recomm endati ons. Not Available Not Available 10:16:10 02/21/20 25 02/20/2025 Basic [facility] 1999 panel - Serum or Plasm a interpretati on and review of laboratory results Abnorm al Not Available Not Available 10:16:10 02/21/20 25 02/20/2025 Phosp hate [Mass /volu me] in Serum or Plasm a phosphate [mass/volume ] in serum or plasma 6.2 mg/dL low: 2.8mg/ dLhigh : 5.1mg/ dL high Not Available Not Available 02/22/2025 10:16:10 02/21/20 25 02/20/2025 Phosp hate [Mass /volu me] in Serum or Plasm a interpretati on and review of laboratory results Abnorm al Not Available Not Available 10:16:10 02/21/2002/20/2025 Magne sium [Mass /volu me] in Serum or Plasm a magnesium [mass/volume ] in serum or plasma 3.1 mg/dL low: 1.6mg/ dLhigh : 2.6mg/ dL high Not Available Not Available 02/22/2025 10:16:10 02/21/2002/20/2025 Magne sium [Mass /volu me] in Serum or Plasm a interpretati on and review of laboratory results Abnorm al Not Available Not Available 10:16:10 02/24/2002/23/2025 Phosp hate [Mass /volu me] in Serum or Plasm a phosphate [mass/volume ] in serum or plasma 6.2 mg/dL low: 2.8mg/ dLhigh : 5.1mg/ dL high Not Available Not Available 03/08/2025 10:56:30 02/24/20 25 02/23/2025 Phosp hate [Mass /volu me] in Serum or Plasm a interpretati on and review of laboratory results Abnorm al Not Available Not Available 10:56:30 02/24/20 25 02/23/2025 Magne sium [Mass /volu me] in Serum or Plasm a magnesium [mass/volume ] in serum or plasma 2.7 mg/dL low: 1.6mg/ dLhigh : 2.6mg/ dL high Not Available Not Available 03/08/2025 10:56:30 02/24/20 25 02/23/2025 Magne sium [Mass /volu me] in Serum or Plasm a interpretati on and review of laboratory results Abnorm al Not Available Not Available 10:56:30 02/24/20 25 02/23/2025 CBC W Auto Diffe sam al panel - Blood leukocytes [#/volume] in blood by automated count 2.2 text: 4.0 - 10.7 x10e9/ L low Not Available Not Available 03/08/2025 10:56:30 02/24/20 25 02/23/2025 CBC W Auto Diffe renti al panel - Blood erythrocytes [#/volume] in blood by automated count 2.59 text: 4.30 - 5.80 x10e12 /L low Not Available Not Available 03/08/2025 10:56:30 02/24/20 25 02/23/2025 CBC W Auto Diffe renti al panel - Blood hemoglobin [mass/volume ] in blood 7.8 g/dL low: 13.3g/ dLhigh : 17.5g/ dL low Not Available Not Available 03/08/2025 10:56:30 02/24/20 25 02/23/2025 CBC W Auto Diffe renti al panel - Blood hematocrit [volume fraction] of blood by automated count 24.6 % low: 38.7%h igh: 51.1% low Not Available Not Available 03/08/2025 10:56:30 02/24/20 25 02/23/2025 CBC W Auto Diffe renti al panel - Blood MCV [entitic mean volume] in red blood cells by automated count 95 fL low: 80fLhi gh: 98fL Not Available Not Available 03/08/2025 10:56:30 02/24/20 25 02/23/2025 CBC W Auto Diffe renti al panel - Blood MCH [entitic mass] by automated count 30.1 pg low: 26.7pg high: 33.6pg Not Available Not Available 03/08/2025 10:56:30 02/24/20 25 02/23/2025 CBC W Auto Diffe renti al panel - Blood MCHC [entitic mass/volume] in red blood cells by automated count 31.7 g/dL low: 31.7g/ dLhigh : 36.3g/ dL Not Available Not Available 03/08/2025 10:56:30 02/24/20 25 02/23/2025 CBC W Auto Diffe renti al panel - Blood erythrocyte [distwidth] in red blood cells by automated count 14 % low: 11.3%h igh: 14.8% Not Available Not Available 03/08/2025 10:56:30 02/24/20 25 02/23/2025 CBC W Auto Diffe renti al panel - Blood platelets [#/volume] in blood by automated count 110 text: 150 - 420 x10e9/ L low Not Available Not Available 03/08/2025 10:56:30 02/24/20 25 02/23/2025 CBC W Auto Diffe renti al panel - Blood platelet [entitic mean volume] in blood by automated count 10.2 fL low: 7.8fLh igh: 11.4fL Not Available Not Available 03/08/2025 10:56:30 02/24/20 25 02/23/2025 CBC W Auto Diffe renti al panel - Blood neutrophils/ leukocytes in blood by automated count 98.1 % low: 41%hig h: 74% high Not Available Not Available 03/08/2025 10:56:30 02/24/20 25 02/23/2025 CBC W Auto Diffe renti al panel - Blood lymphocytes/ leukocytes in blood by automated count 0.9 % low: 17%hig h: 47% low Not Available Not Available 03/08/2025 10:56:30 02/24/20 25 02/23/2025 CBC W Auto Diffe renti al panel - Blood monocytes/le ukocytes in blood by automated count 0.5 % low: 3%high : 11% low Not Available Not Available 03/08/2025 10:56:30 02/24/20 25 02/23/2025 CBC W Auto Diffe renti al panel - Blood eosinophils/ leukocytes in blood by automated count 0 % low: 0%high : 7% Not Available Not Available 03/08/2025 10:56:30 02/24/20 25 02/23/2025 CBC W Auto Diffe renti al panel - Blood basophils/le ukocytes in blood by automated count 0 % low: 0%high : 1.6% Not Available Not Available 03/08/2025 10:56:30 02/24/20 25 02/23/2025 CBC W Auto Diffe renti al panel - Blood immature granulocytes /leukocytes in blood by automated count 0.5 % low: 0%high : 1% Not Available Not Available 03/08/2025 10:56:30 02/24/20 25 02/23/2025 CBC W Auto Diffe renti al panel - Blood neutrophils [#/volume] in blood by automated count 2.13 text: 1.60 - 7.50 x10e9/ L Not Available Not Available 03/08/2025 10:56:30 02/24/20 25 02/23/2025 CBC W Auto Diffe renti al panel - Blood lymphocytes [#/volume] in blood by automated count 0.02 text: 1.00 - 4.40 x10e9/ L low Not Available Not Available 03/08/2025 10:56:30 02/24/20 25 02/23/2025 CBC W Auto Diffe renti al panel - Blood monocytes [#/volume] in blood by automated count 0.01 text: 0.15 - 1.00 x10e9/ L low Not Available Not Available 03/08/2025 10:56:30 02/24/20 25 02/23/2025 CBC W Auto Diffe renti al panel - Blood eosinophils [#/volume] in blood 0 text: 0.00 - 0.60 x10e9/ L Not Available Not Available 03/08/2025 10:56:30 02/24/20 25 02/23/2025 CBC W Auto Diffe renti al panel - Blood basophils [#/volume] in blood by automated count 0 text: 0.00 - 0.13 x10e9/ L Not Available Not Available 03/08/2025 10:56:30 02/24/20 25 02/23/2025 CBC W Auto Diffe renti al panel - Blood interpretati on and review of laboratory results Abnorm al Not Available Not Available 10:56:30 02/24/20 25 02/23/2025 Basic metab olic 2000 panel - Serum or Plasm a urea nitrogen [mass/volume ] in serum or plasma 65 mg/dL low: 7mg/dL high: 26mg/d L high Not Available Not Available 03/08/2025 10:56:30 02/24/20 25 02/23/2025 Basic metab olic 1999 panel - Serum or Plasm a creatinine [mass/volume ] in serum or plasma 10.62 mg/dL low: 0.71mg /dLhig h: 1.16mg /dL high Not Available Not Available 03/08/2025 10:56:30 02/24/20 25 02/23/2025 Basic metab olic 2000 panel - Serum or Plasm a sodium [moles/volum e] in serum or plasma 137 mmol/ L low: 136mmo l/Lhig h: 145mmo l/L Not Available Not Available 03/08/2025 10:56:30 02/24/20 25 02/23/2025 [facility] 1999 panel - Serum or Plasm a potassium [moles/volum e] in serum or plasma 3.7 mmol/ L low: 3.5mmo l/Lhig h: 4.5mmo l/L Not Available Not Available 03/08/2025 10:56:30 02/24/20 25 02/23/2025 [facility] 1999 panel - Serum or Plasm a chloride [moles/volum e] in serum or plasma 100 mmol/ L low: 98mmol /Lhigh : 107mmo l/L Not Available Not Available 03/08/2025 10:56:30 02/24/20 25 02/23/2025 [facility] 1999 panel - Serum or Plasm a carbon dioxide, total [moles/volum e] in serum or plasma 26 mmol/ L low: 22mmol /Lhigh : 29mmol /L Not Available Not Available 03/08/2025 10:56:30 02/24/20 25 02/23/2025 [facility] 1999 panel - Serum or Plasm a glucose [mass/volume ] in serum or plasma 124 mg/dL low: 70mg/d Lhigh: 99mg/d L high Not Available Not Available 03/08/2025 10:56:30 02/24/20 25 02/23/2025 [facility] 1999 panel - Serum or Plasm a calcium [moles/volum e] in serum or plasma 8.2 mg/dL low: 8.4mg/ dLhigh : 10.2mg /dL low Not Available Not Available 03/08/2025 10:56:30 02/24/20 25 02/23/2025 [facility] 1999 panel - Serum or Plasm a anion gap 11 low: 6high: 16 Not Available Not Available 03/08/2025 10:56:30 02/24/20 25 02/23/2025 [facility] 1999 panel - Serum or Plasm a urea nitrogen/cre atinine [mass ratio] in serum or plasma 6 low: 7high: 23 low Not Available Not Available 03/08/2025 10:56:30 02/24/20 25 02/23/2025 Basic metab olic 1999 panel - Serum or Plasm a osmolality calculated 304 text: 275 - 295 mOsm/k g high Not Available Not Available 03/08/2025 10:56:30 02/24/20 25 02/23/2025 Basic metab olic 2000 panel - Serum or Plasm a glomerular filtration rate [volume rate/area] in serum, plasma or blood by creatinine-b ased formula (CKD-epi 2020)/1.73 sq M 6 text: >=90 mL/min /1.73 m2 low Not Available Not Available 03/08/2025 10:56:30 02/24/20 25 02/23/2025 Basic metab olic 1999 panel - Serum or Plasm a Unknown Analyte Estima ceasar Glomer ular Filtra tion Rate (eGFR) calcul ated using the CKD-EP I Creati nine Equati on (2020) , per the [facility] and [employer] Ne[employer] recomm endati ons. Not Available Not Available 10:56:30 02/24/20 25 02/23/2025 Basic metab olic 2000 panel - Serum or Plasm a interpretati on and review of laboratory results Abnorm al Not Available Not Available 10:56:30 02/24/20 25 02/23/2025 Blood type and Indir ect antib raj scree n panel - Blood blood group antibody screen [presence] in serum or plasma NEG Not Available Not Available 02/15 10:56:30 02/24/20 25 02/23/2025 Blood type and Indir ect antib raj scree n panel - Blood ABO and Rh group [type] in blood A POS Not Available Not Available 10:56:30 02/24/20 25 02/23/2025 Potas sium [Mole s/vol ume] in Serum or Plasm a potassium [moles/volum e] in serum or plasma 4.6 mmol/ L low: 3.5mmo l/Lhig h: 5.5mmo l/L Not Available Not Available 03/08/2025 10:56:30 02/24/20 25 02/23/2025 Potas sium [Mole s/vol ume] in Serum or Plasm a interpretati on and review of laboratory results Normal Not Available Not Available 02/15 10:56:30 02/25/20 25 02/24/2025 Phosp hate [Mass /volu me] in Serum or Plasm a phosphate [mass/volume ] in serum or plasma 6.4 mg/dL low: 2.8mg/ dLhigh : 5.1mg/ dL high Not Available Not Available 03/08/2025 10:56:31 02/25/20 25 02/24/2025 Phosp hate [Mass /volu me] in Serum or Plasm a interpretati on and review of laboratory results Abnorm al Not Available Not Available 10:56:31 02/25/20 25 02/24/2025 Magne sium [Mass /volu me] in Serum or Plasm a magnesium [mass/volume ] in serum or plasma 2.6 mg/dL low: 1.6mg/ dLhigh : 2.6mg/ dL Not Available Not Available 03/08/2025 10:56:31 02/25/20 25 02/24/2025 Magne sium [Mass /volu me] in Serum or Plasm a interpretati on and review of laboratory results Normal Not Available Not Available 02/15 10:56:31 02/25/20 25 02/24/2025 CBC W Auto Diffe renti al panel - Blood leukocytes [#/volume] in blood by automated count 16.2 text: 4.0 - 10.7 x10e9/ L high Not Available Not Available 03/08/2025 10:56:31 02/25/20 25 02/24/2025 CBC W Auto Diffe renti al panel - Blood erythrocytes [#/volume] in blood by automated count 2.73 text: 4.30 - 5.80 x10e12 /L low Not Available Not Available 03/08/2025 10:56:31 02/25/20 25 02/24/2025 CBC W Auto Diffe renti al panel - Blood hemoglobin [mass/volume ] in blood 8.4 g/dL low: 13.3g/ dLhigh : 17.5g/ dL low Not Available Not Available 03/08/2025 10:56:31 02/25/20 25 02/24/2025 CBC W Auto Diffe renti al panel - Blood hematocrit [volume fraction] of blood by automated count 25 % low: 38.7%h igh: 51.1% low Not Available Not Available 03/08/2025 10:56:31 02/25/20 25 02/24/2025 CBC W Auto Diffe renti al panel - Blood MCV [entitic mean volume] in red blood cells by automated count 91.6 fL low: 80fLhi gh: 98fL Not Available Not Available 03/08/2025 10:56:31 02/25/20 25 02/24/2025 CBC W Auto Diffe renti al panel - Blood MCH [entitic mass] by automated count 30.8 pg low: 26.7pg high: 33.6pg Not Available Not Available 03/08/2025 10:56:31 02/25/20 25 02/24/2025 CBC W Auto Diffe renti al panel - Blood MCHC [entitic mass/volume] in red blood cells by automated count 33.6 g/dL low: 31.7g/ dLhigh : 36.3g/ dL Not Available Not Available 03/08/2025 10:56:31 02/25/20 25 02/24/2025 CBC W Auto Diffe renti al panel - Blood erythrocyte [distwidth] in red blood cells by automated count 13.6 % low: 11.3%h igh: 14.8% Not Available Not Available 03/08/2025 10:56:31 02/25/20 25 02/24/2025 CBC W Auto Diffe renti al panel - Blood platelets [#/volume] in blood by automated count 149 text: 150 - 420 x10e9/ L low Not Available Not Available 03/08/2025 10:56:31 02/25/20 25 02/24/2025 CBC W Auto Diffe renti al panel - Blood platelet [entitic mean volume] in blood by automated count 10.9 fL low: 7.8fLh igh: 11.4fL Not Available Not Available 03/08/2025 10:56:31 02/25/20 25 02/24/2025 CBC W Auto Diffe renti al panel - Blood interpretati on and review of laboratory results Abnorm al Not Available Not Available 10:56:31 02/25/20 25 02/24/2025 [facility] 1999 panel - Serum or Plasm a urea nitrogen [mass/volume ] in serum or plasma 50 mg/dL low: 7mg/dL high: 26mg/d L high Not Available Not Available 03/08/2025 10:56:31 02/25/20 25 02/24/2025 [facility] 1999 panel - Serum or Plasm a creatinine [mass/volume ] in serum or plasma 6 mg/dL low: 0.71mg /dLhig h: 1.16mg /dL high Not Available Not Available 03/08/2025 10:56:31 02/25/20 25 02/24/2025 [facility] 1999 panel - Serum or Plasm a sodium [moles/volum e] in serum or plasma 133 mmol/ L low: 136mmo l/Lhig h: 145mmo l/L low Not Available Not Available 03/08/2025 10:56:31 02/25/20 25 02/24/2025 [facility] 1999 panel - Serum or Plasm a potassium [moles/volum e] in serum or plasma 3.7 mmol/ L low: 3.5mmo l/Lhig h: 4.5mmo l/L Not Available Not Available 03/08/2025 10:56:31 02/25/20 25 02/24/2025 [facility] 1999 panel - Serum or Plasm a chloride [moles/volum e] in serum or plasma 100 mmol/ L low: 98mmol /Lhigh : 107mmo l/L Not Available Not Available 03/08/2025 10:56:31 02/25/20 25 02/24/2025 [facility] 1999 panel - Serum or Plasm a carbon dioxide, total [moles/volum e] in serum or plasma 23 mmol/ L low: 22mmol /Lhigh : 29mmol /L Not Available Not Available 03/08/2025 10:56:31 02/25/20 25 02/24/2025 [facility] 1999 panel - Serum or Plasm a glucose [mass/volume ] in serum or plasma 159 mg/dL low: 70mg/d Lhigh: 99mg/d L high Not Available Not Available 03/08/2025 10:56:31 02/25/20 25 02/24/2025 [facility] 1999 panel - Serum or Plasm a calcium [moles/volum e] in serum or plasma 8.5 mg/dL low: 8.4mg/ dLhigh : 10.2mg /dL Not Available Not Available 03/08/2025 10:56:31 02/25/20 25 02/24/2025 Basic metab olic 1999 panel - Serum or Plasm a anion gap 10 low: 6high: 16 Not Available Not Available 03/08/2025 10:56:31 02/25/20 25 02/24/2025 Basic metab olic 1999 panel - Serum or Plasm a urea nitrogen/cre atinine [mass ratio] in serum or plasma 8 low: 7high: 23 Not Available Not Available 03/08/2025 10:56:31 02/25/20 25 02/24/2025 Basic metab olic 1999 panel - Serum or Plasm a osmolality calculated 293 text: 275 - 295 mOsm/k g Not Available Not Available 03/08/2025 10:56:31 02/25/20 25 02/24/2025 Basic metab ic 1999 panel - Serum or Plasm a glomerular filtration rate [volume rate/area] in serum, plasma or blood by creatinine-b ased formula (CKD-epi 2020)/1.73 sq M 11 text: >=90 mL/min /1.73 m2 low Not Available Not Available 03/08/2025 10:56:31 02/25/20 25 02/24/2025 [facility] 1999 panel - Serum or Plasm a Unknown Analyte Estima ceasar Glomer ular Filtra tion Rate (eGFR) calcul ated using the CKD-EP I Creati nine Equati on (2020) , per the [facility] and [employer] Nephro logy recomm endati ons. Not Available Not Available 10:56:31 02/25/20 25 02/24/2025 [facility] 1999 panel - Serum or Plasm a interpretati on and review of laboratory results Abnorm al Not Available Not Available 10:56:31 02/25/20 25 02/24/2025 Phosp hate [Mass /volu me] in Serum or Plasm a phosphate [mass/volume ] in serum or plasma 7 mg/dL low: 2.8mg/ dLhigh : 5.1mg/ dL high Not Available Not Available 03/08/2025 10:56:31 02/25/20 25 02/24/2025 Phosp hate [Mass /volu me] in Serum or Plasm a interpretati on and review of laboratory results Abnorm al Not Available Not Available 10:56:31 02/25/20 25 02/24/2025 Magne sium [Mass /volu me] in Serum or Plasm a magnesium [mass/volume ] in serum or plasma 2.5 mg/dL low: 1.6mg/ dLhigh : 2.6mg/ dL Not Available Not Available 03/08/2025 10:56:31 02/25/20 25 02/24/2025 Magne sium [Mass /volu me] in Serum or Plasm a interpretati on and review of laboratory results Normal Not Available Not Available 02/15 10:56:31 02/25/20 25 02/24/2025 CBC W Auto Diffe renti al panel - Blood leukocytes [#/volume] in blood by automated count 14.7 text: 4.0 - 10.7 x10e9/ L high Not Available Not Available 03/08/2025 10:56:31 02/25/20 25 02/24/2025 CBC W Auto Diffe renti al panel - Blood erythrocytes [#/volume] in blood by automated count 2.77 text: 4.30 - 5.80 x10e12 /L low Not Available Not Available 03/08/2025 10:56:31 02/25/20 25 02/24/2025 CBC W Auto Diffe renti al panel - Blood hemoglobin [mass/volume ] in blood 8.4 g/dL low: 13.3g/ dLhigh : 17.5g/ dL low Not Available Not Available 03/08/2025 10:56:31 02/25/20 25 02/24/2025 CBC W Auto Diffe renti al panel - Blood hematocrit [volume fraction] of blood by automated count 25.4 % low: 38.7%h igh: 51.1% low Not Available Not Available 03/08/2025 10:56:31 02/25/20 25 02/24/2025 CBC W Auto Diffe renti al panel - Blood MCV [entitic mean volume] in red blood cells by automated count 91.7 fL low: 80fLhi gh: 98fL Not Available Not Available 03/08/2025 10:56:31 02/25/20 25 02/24/2025 CBC W Auto Diffe renti al panel - Blood MCH [entitic mass] by automated count 30.3 pg low: 26.7pg high: 33.6pg Not Available Not Available 03/08/2025 10:56:31 02/25/20 25 02/24/2025 CBC W Auto Diffe renti al panel - Blood MCHC [entitic mass/volume] in red blood cells by automated count 33.1 g/dL low: 31.7g/ dLhigh : 36.3g/ dL Not Available Not Available 03/08/2025 10:56:31 02/25/20 25 02/24/2025 CBC W Auto Diffe renti al panel - Blood erythrocyte [distwidth] in red blood cells by automated count 13.8 % low: 11.3%h igh: 14.8% Not Available Not Available 03/08/2025 10:56:31 02/25/20 25 02/24/2025 CBC W Auto Diffe renti al panel - Blood platelets [#/volume] in blood by automated count 134 text: 150 - 420 x10e9/ L low Not Available Not Available 03/08/2025 10:56:31 02/25/20 25 02/24/2025 CBC W Auto Diffe renti al panel - Blood platelet [entitic mean volume] in blood by automated count 11.2 fL low: 7.8fLh igh: 11.4fL Not Available Not Available 03/08/2025 10:56:31 02/25/20 25 02/24/2025 CBC W Auto Diffe renti al panel - Blood interpretati on and review of laboratory results Abnorm al Not Available Not Available 10:56:31 02/25/20 25 02/24/2025 Basic metab olic 2000 panel - Serum or Plasm a urea nitrogen [mass/volume ] in serum or plasma 55 mg/dL low: 7mg/dL high: 26mg/d L high Not Available Not Available 03/08/2025 10:56:31 02/25/20 25 02/24/2025 [facility] 1999 panel - Serum or Plasm a creatinine [mass/volume ] in serum or plasma 8.08 mg/dL low: 0.71mg /dLhig h: 1.16mg /dL high Not Available Not Available 03/08/2025 10:56:31 02/25/20 25 02/24/2025 [facility] 1999 panel - Serum or Plasm a sodium [moles/volum e] in serum or plasma 136 mmol/ L low: 136mmo l/Lhig h: 145mmo l/L Not Available Not Available 03/08/2025 10:56:31 02/25/20 25 02/24/2025 [facility] 1999 panel - Serum or Plasm a potassium [moles/volum e] in serum or plasma 3.7 mmol/ L low: 3.5mmo l/Lhig h: 4.5mmo l/L Not Available Not Available 03/08/2025 10:56:31 02/25/20 25 02/24/2025 [facility] 1999 panel - Serum or Plasm a chloride [moles/volum e] in serum or plasma 99 mmol/ L low: 98mmol /Lhigh : 107mmo l/L Not Available Not Available 03/08/2025 10:56:31 02/25/20 25 02/24/2025 [facility] 1999 panel - Serum or Plasm a carbon dioxide, total [moles/volum e] in serum or plasma 20 mmol/ L low: 22mmol /Lhigh : 29mmol /L low Not Available Not Available 03/08/2025 10:56:31 02/25/20 25 02/24/2025 [facility] 1999 panel - Serum or Plasm a glucose [mass/volume ] in serum or plasma 136 mg/dL low: 70mg/d Lhigh: 99mg/d L high Not Available Not Available 03/08/2025 10:56:31 02/25/20 25 02/24/2025 [facility] 1999 panel - Serum or Plasm a calcium [moles/volum e] in serum or plasma 8.2 mg/dL low: 8.4mg/ dLhigh : 10.2mg /dL low Not Available Not Available 03/08/2025 10:56:31 02/25/20 25 02/24/2025 [facility] 1999 panel - Serum or Plasm a anion gap 17 low: 6high: 16 high Not Available Not Available 03/08/2025 10:56:31 02/25/20 25 02/24/2025 [facility] 1999 panel - Serum or Plasm a urea nitrogen/cre atinine [mass ratio] in serum or plasma 7 low: 7high: 23 Not Available Not Available 03/08/2025 10:56:31 02/25/20 25 02/24/2025 Basic metab olic 1999 panel - Serum or Plasm a osmolality calculated 299 text: 275 - 295 mOsm/k g high Not Available Not Available 03/08/2025 10:56:31 02/25/20 25 02/24/2025 Basic metab olic 1999 panel - Serum or Plasm a glomerular filtration rate [volume rate/area] in serum, plasma or blood by creatinine-b ased formula (CKD-epi 2020)/1.73 sq M 8 text: >=90 mL/min /1.73 m2 low Not Available Not Available 03/08/2025 10:56:31 02/25/20 25 02/24/2025 [facility] 1999 panel - Serum or Plasm a Unknown Analyte Estima ceasar Glomer ular Filtra tion Rate (eGFR) calcul ated using the CKD-EP I Creati nine Equati on (2020) , per the [facility] and [employer] Neph[employer]y recomm endati ons. Not Available Not Available 10:56:31 02/25/20 25 02/24/2025 [facility] - Serum or Plasm a interpretati on and review of laboratory results Abnorm al Not Available Not Available 10:56:31 02/26/20 25 02/25/2025 Phosp hate [Mass /volu me] in Serum or Plasm a phosphate [mass/volume ] in serum or plasma 3.8 mg/dL low: 2.8mg/ dLhigh : 5.1mg/ dL Not Available Not Available 03/08/2025 10:56:32 02/26/20 25 02/25/2025 Phosp hate [Mass /volu me] in Serum or Plasm a interpretati on and review of laboratory results Normal Not Available Not Available 02/15 10:56:32 02/26/20 25 02/25/2025 Magne sium [Mass /volu me] in Serum or Plasm a magnesium [mass/volume ] in serum or plasma 2.5 mg/dL low: 1.6mg/ dLhigh : 2.6mg/ dL Not Available Not Available 03/08/2025 10:56:32 02/26/20 25 02/25/2025 Magne sium [Mass /volu me] in Serum or Plasm a interpretati on and review of laboratory results Normal Not Available Not Available 02/15 10:56:32 02/26/20 25 02/25/2025 CBC W Auto Diffe renti al panel - Blood leukocytes [#/volume] in blood by automated count 10.9 text: 4.0 - 10.7 x10e9/ L high Not Available Not Available 03/08/2025 10:56:32 02/26/20 25 02/25/2025 CBC W Auto Diffe renti al panel - Blood erythrocytes [#/volume] in blood by automated count 2.89 text: 4.30 - 5.80 x10e12 /L low Not Available Not Available 03/08/2025 10:56:32 02/26/20 25 02/25/2025 CBC W Auto Diffe renti al panel - Blood hemoglobin [mass/volume ] in blood 8.9 g/dL low: 13.3g/ dLhigh : 17.5g/ dL low Not Available Not Available 03/08/2025 10:56:32 02/26/20 25 02/25/2025 CBC W Auto Diffe renti al panel - Blood hematocrit [volume fraction] of blood by automated count 26.9 % low: 38.7%h igh: 51.1% low Not Available Not Available 03/08/2025 10:56:32 02/26/20 25 02/25/2025 CBC W Auto Diffe renti al panel - Blood MCV [entitic mean volume] in red blood cells by automated count 93.1 fL low: 80fLhi gh: 98fL Not Available Not Available 03/08/2025 10:56:32 02/26/20 25 02/25/2025 CBC W Auto Diffe renti al panel - Blood MCH [entitic mass] by automated count 30.8 pg low: 26.7pg high: 33.6pg Not Available Not Available 03/08/2025 10:56:32 02/26/20 25 02/25/2025 CBC W Auto Diffe renti al panel - Blood MCHC [entitic mass/volume] in red blood cells by automated count 33.1 g/dL low: 31.7g/ dLhigh : 36.3g/ dL Not Available Not Available 03/08/2025 10:56:32 02/26/20 25 02/25/2025 CBC W Auto Diffe renti al panel - Blood erythrocyte [distwidth] in red blood cells by automated count 13.4 % low: 11.3%h igh: 14.8% Not Available Not Available 03/08/2025 10:56:32 02/26/20 25 02/25/2025 CBC W Auto Diffe renti al panel - Blood platelets [#/volume] in blood by automated count 106 text: 150 - 420 x10e9/ L low Not Available Not Available 03/08/2025 10:56:32 02/26/20 25 02/25/2025 CBC W Auto Diffe renti al panel - Blood platelet [entitic mean volume] in blood by automated count 11.7 fL low: 7.8fLh igh: 11.4fL high Not Available Not Available 03/08/2025 10:56:32 02/26/20 25 02/25/2025 CBC W Auto Diffe renti al panel - Blood interpretati on and review of laboratory results Abnorm al Not Available Not Available 10:56:32 02/26/20 25 02/25/2025 Basic metab olic 2000 panel - Serum or Plasm a urea nitrogen [mass/volume ] in serum or plasma 38 mg/dL low: 7mg/dL high: 26mg/d L high Not Available Not Available 03/08/2025 10:56:32 02/26/20 25 02/25/2025 Basic metab olic 2000 panel - Serum or Plasm a creatinine [mass/volume ] in serum or plasma 2.53 mg/dL low: 0.71mg /dLhig h: 1.16mg /dL high Not Available Not Available 03/08/2025 10:56:32 02/26/20 25 02/25/2025 [facility] 1999 panel - Serum or Plasm a sodium [moles/volum e] in serum or plasma 137 mmol/ L low: 136mmo l/Lhig h: 145mmo l/L Not Available Not Available 03/08/2025 10:56:32 02/26/20 25 02/25/2025 [facility] 1999 panel - Serum or Plasm a potassium [moles/volum e] in serum or plasma 4.1 mmol/ L low: 3.5mmo l/Lhig h: 4.5mmo l/L Not Available Not Available 03/08/2025 10:56:32 02/26/20 25 02/25/2025 [facility] 1999 panel - Serum or Plasm a chloride [moles/volum e] in serum or plasma 106 mmol/ L low: 98mmol /Lhigh : 107mmo l/L Not Available Not Available 03/08/2025 10:56:32 02/26/20 25 02/25/2025 [facility] 1999 panel - Serum or Plasm a carbon dioxide, total [moles/volum e] in serum or plasma 23 mmol/ L low: 22mmol /Lhigh : 29mmol /L Not Available Not Available 03/08/2025 10:56:32 02/26/20 25 02/25/2025 [facility] 1999 panel - Serum or Plasm a glucose [mass/volume ] in serum or plasma 186 mg/dL low: 70mg/d Lhigh: 99mg/d L high Not Available Not Available 03/08/2025 10:56:32 02/26/20 25 02/25/2025 [facility] 1999 panel - Serum or Plasm a calcium [moles/volum e] in serum or plasma 9.9 mg/dL low: 8.4mg/ dLhigh : 10.2mg /dL Not Available Not Available 03/08/2025 10:56:32 02/26/20 25 02/25/2025 [facility] 1999 panel - Serum or Plasm a anion gap 8 low: 6high: 16 Not Available Not Available 03/08/2025 10:56:32 02/26/20 25 02/25/2025 [facility] 1999 panel - Serum or Plasm a urea nitrogen/cre atinine [mass ratio] in serum or plasma 15 low: 7high: 23 Not Available Not Available 03/08/2025 10:56:32 02/26/20 25 02/25/2025 Basic metab olic 1999 panel - Serum or Plasm a osmolality calculated 298 text: 275 - 295 mOsm/k g high Not Available Not Available 03/08/2025 10:56:32 02/26/20 25 02/25/2025 Basic metab olic 1999 panel - Serum or Plasm a glomerular filtration rate [volume rate/area] in serum, plasma or blood by creatinine-b ased formula (CKD-epi 2020)/1.73 sq M 32 text: >=90 mL/min /1.73 m2 low Not Available Not Available 03/08/2025 10:56:32 02/26/20 25 02/25/2025 Basic metab olic 1999 panel - Serum or Plasm a Unknown Analyte Estima ceasar Glomer ular Filtra tion Rate (eGFR) calcul ated using the CKD-EP I Creati nine Equati on (2020) , per the [facility] and [employer] Nephro [employer]y recomm endati ons. Not Available Not Available 10:56:32 02/26/20 25 02/25/2025 Basic metab olic 1999 panel - Serum or Plasm a interpretati on and review of laboratory results Abnorm al Not Available Not Available 10:56:32 02/26/20 25 02/25/2025 Phosp hate [Mass /volu me] in Serum or Plasm a phosphate [mass/volume ] in serum or plasma 5 mg/dL low: 2.8mg/ dLhigh : 5.1mg/ dL Not Available Not Available 03/08/2025 10:56:32 02/26/20 25 02/25/2025 Phosp hate [Mass /volu me] in Serum or Plasm a interpretati on and review of laboratory results Normal Not Available Not Available 02/15 10:56:32 02/26/20 25 02/25/2025 Magne sium [Mass /volu me] in Serum or Plasm a magnesium [mass/volume ] in serum or plasma 2.5 mg/dL low: 1.6mg/ dLhigh : 2.6mg/ dL Not Available Not Available 03/08/2025 10:56:31 02/26/20 25 02/25/2025 Magne sium [Mass /volu me] in Serum or Plasm a interpretati on and review of laboratory results Normal Not Available Not Available 02/15 10:56:31 02/26/20 25 02/25/2025 CBC W Auto Diffe renti al panel - Blood leukocytes [#/volume] in blood by automated count 10.2 text: 4.0 - 10.7 x10e9/ L Not Available Not Available 03/08/2025 10:56:31 02/26/20 25 02/25/2025 CBC W Auto Diffe renti al panel - Blood erythrocytes [#/volume] in blood by automated count 2.74 text: 4.30 - 5.80 x10e12 /L low Not Available Not Available 03/08/2025 10:56:31 02/26/20 25 02/25/2025 CBC W Auto Diffe renti al panel - Blood hemoglobin [mass/volume ] in blood 8.4 g/dL low: 13.3g/ dLhigh : 17.5g/ dL low Not Available Not Available 03/08/2025 10:56:31 02/26/20 25 02/25/2025 CBC W Auto Diffe renti al panel - Blood hematocrit [volume fraction] of blood by automated count 25.1 % low: 38.7%h igh: 51.1% low Not Available Not Available 03/08/2025 10:56:31 02/26/20 25 02/25/2025 CBC W Auto Diffe renti al panel - Blood MCV [entitic mean volume] in red blood cells by automated count 91.6 fL low: 80fLhi gh: 98fL Not Available Not Available 03/08/2025 10:56:31 02/26/20 25 02/25/2025 CBC W Auto Diffe renti al panel - Blood MCH [entitic mass] by automated count 30.7 pg low: 26.7pg high: 33.6pg Not Available Not Available 03/08/2025 10:56:31 02/26/20 25 02/25/2025 CBC W Auto Diffe renti al panel - Blood MCHC [entitic mass/volume] in red blood cells by automated count 33.5 g/dL low: 31.7g/ dLhigh : 36.3g/ dL Not Available Not Available 03/08/2025 10:56:31 02/26/20 25 02/25/2025 CBC W Auto Diffe renti al panel - Blood erythrocyte [distwidth] in red blood cells by automated count 13.3 % low: 11.3%h igh: 14.8% Not Available Not Available 03/08/2025 10:56:31 02/26/20 25 02/25/2025 CBC W Auto Diffe renti al panel - Blood platelets [#/volume] in blood by automated count 103 text: 150 - 420 x10e9/ L low Not Available Not Available 03/08/2025 10:56:31 02/26/20 25 02/25/2025 CBC W Auto Diffe renti al panel - Blood platelet [entitic mean volume] in blood by automated count 11.7 fL low: 7.8fLh igh: 11.4fL high Not Available Not Available 03/08/2025 10:56:31 02/26/20 25 02/25/2025 CBC W Auto Diffe renti al panel - Blood interpretati on and review of laboratory results Abnorm al Not Available Not Available 10:56:31 02/26/20 25 02/25/2025 Basic metab olic 2000 panel - Serum or Plasm a urea nitrogen [mass/volume ] in serum or plasma 40 mg/dL low: 7mg/dL high: 26mg/d L high Not Available Not Available 03/08/2025 10:56:31 02/26/20 25 02/25/2025 Basic metab olic 2000 panel - Serum or Plasm a creatinine [mass/volume ] in serum or plasma 3.48 mg/dL low: 0.71mg /dLhig h: 1.16mg /dL high Not Available Not Available 03/08/2025 10:56:31 02/26/20 25 02/25/2025 Basic metab olic 2000 panel - Serum or Plasm a sodium [moles/volum e] in serum or plasma 134 mmol/ L low: 136mmo l/Lhig h: 145mmo l/L low Not Available Not Available 03/08/2025 10:56:31 02/26/20 25 02/25/2025 [facility] 1999 panel - Serum or Plasm a potassium [moles/volum e] in serum or plasma 3.5 mmol/ L low: 3.5mmo l/Lhig h: 4.5mmo l/L Not Available Not Available 03/08/2025 10:56:31 02/26/20 25 02/25/2025 [facility] 1999 panel - Serum or Plasm a chloride [moles/volum e] in serum or plasma 104 mmol/ L low: 98mmol /Lhigh : 107mmo l/L Not Available Not Available 03/08/2025 10:56:31 02/26/20 25 02/25/2025 [facility] 1999 panel - Serum or Plasm a carbon dioxide, total [moles/volum e] in serum or plasma 21 mmol/ L low: 22mmol /Lhigh : 29mmol /L low Not Available Not Available 03/08/2025 10:56:31 02/26/20 25 02/25/2025 [facility] 1999 panel - Serum or Plasm a glucose [mass/volume ] in serum or plasma 197 mg/dL low: 70mg/d Lhigh: 99mg/d L high Not Available Not Available 03/08/2025 10:56:31 02/26/20 25 02/25/2025 [facility] 1999 panel - Serum or Plasm a calcium [moles/volum e] in serum or plasma 9 mg/dL low: 8.4mg/ dLhigh : 10.2mg /dL Not Available Not Available 03/08/2025 10:56:31 02/26/20 25 02/25/2025 [facility] 1999 panel - Serum or Plasm a anion gap 9 low: 6high: 16 Not Available Not Available 03/08/2025 10:56:31 02/26/20 25 02/25/2025 [facility] 1999 panel - Serum or Plasm a urea nitrogen/cre atinine [mass ratio] in serum or plasma 11 low: 7high: 23 Not Available Not Available 03/08/2025 10:56:31 02/26/20 25 02/25/2025 [facility] 1999 panel - Serum or Plasm a osmolality calculated 293 text: 275 - 295 mOsm/k g Not Available Not Available 03/08/2025 10:56:31 02/26/20 25 02/25/2025 Basic metab olic 2000 panel - Serum or Plasm a glomerular filtration rate [volume rate/area] in serum, plasma or blood by creatinine-b ased formula (CKD-epi 2020)/1.73 sq M 22 text: >=90 mL/min /1.73 m2 low Not Available Not Available 03/08/2025 10:56:31 02/26/20 25 02/25/2025 Basic metab olic 2000 panel - Serum or Plasm a Unknown Analyte Estima ceasar Glomer ular Filtra tion Rate (eGFR) calcul ated using the CKD-EP I Creati nine Equati on (2020) , per the [facility] [employer] and [employer] Nephro logy recomm endati ons. Not Available Not Available 10:56:31 02/26/20 25 02/25/2025 Basic metab olic 2000 panel - Serum or Plasm a interpretati on and review of laboratory results Abnorm al Not Available Not Available 10:56:31 02/26/20 25 02/25/2025 Tacro limus [Mass /volu me] in Blood tacrolimus [mass/volume ] in blood 8 NG/mL low: 3NG/mL high: 15NG/m L Not Available Not Available 03/08/2025 10:56:31 02/26/20 25 02/25/2025 Tacro limus [Mass /volu me] in Blood Unknown Analyte Measur ement perfor med by chemil umines cence immuno assay (CMIA) on the [employer] analyz er. Most indivi duals achiev e optima l respon se with steady -state trough whole blood levels betwee n 3-15 ng/mL. Prefer red therap eutic values may vary by transp lant type, protoc ol, and comedi cation s. Therap eutic concen tratio ns are based on trough values ; blood drawn at other times may yield higher result s. Not Available Not Available 10:56:31 02/26/20 25 02/25/2025 Tacro limus [Mass /volu me] in Blood interpretati on and review of laboratory results Normal Not Available Not Available 02/15 10:56:31 02/27/20 25 02/26/2025 Phosp hate [Mass /volu me] in Serum or Plasm a phosphate [mass/volume ] in serum or plasma 2.5 mg/dL low: 2.8mg/ dLhigh : 5.1mg/ dL low Not Available Not Available 03/08/2025 10:56:32 02/27/20 25 02/26/2025 Phosp hate [Mass /volu me] in Serum or Plasm a interpretati on and review of laboratory results Abnorm al Not Available Not Available 10:56:32 02/27/20 25 02/26/2025 Magne sium [Mass /volu me] in Serum or Plasm a magnesium [mass/volume ] in serum or plasma 2.2 mg/dL low: 1.6mg/ dLhigh : 2.6mg/ dL Not Available Not Available 03/08/2025 10:56:32 02/27/20 25 02/26/2025 Magne sium [Mass /volu me] in Serum or Plasm a interpretati on and review of laboratory results Normal Not Available Not Available 02/15 10:56:32 02/27/20 25 02/26/2025 CBC W Auto Diffe renti al panel - Blood leukocytes [#/volume] in blood by automated count 10.1 text: 4.0 - 10.7 x10e9/ L Not Available Not Available 03/08/2025 10:56:32 02/27/20 25 02/26/2025 CBC W Auto Diffe renti al panel - Blood erythrocytes [#/volume] in blood by automated count 2.71 text: 4.30 - 5.80 x10e12 /L low Not Available Not Available 03/08/2025 10:56:32 02/27/20 25 02/26/2025 CBC W Auto Diffe renti al panel - Blood hemoglobin [mass/volume ] in blood 8.3 g/dL low: 13.3g/ dLhigh : 17.5g/ dL low Not Available Not Available 03/08/2025 10:56:32 02/27/20 25 02/26/2025 CBC W Auto Diffe renti al panel - Blood hematocrit [volume fraction] of blood by automated count 25 % low: 38.7%h igh: 51.1% low Not Available Not Available 03/08/2025 10:56:32 02/27/20 25 02/26/2025 CBC W Auto Diffe renti al panel - Blood MCV [entitic mean volume] in red blood cells by automated count 92.3 fL low: 80fLhi gh: 98fL Not Available Not Available 03/08/2025 10:56:32 02/27/20 25 02/26/2025 CBC W Auto Diffe renti al panel - Blood MCH [entitic mass] by automated count 30.6 pg low: 26.7pg high: 33.6pg Not Available Not Available 03/08/2025 10:56:32 02/27/20 25 02/26/2025 CBC W Auto Diffe renti al panel - Blood MCHC [entitic mass/volume] in red blood cells by automated count 33.2 g/dL low: 31.7g/ dLhigh : 36.3g/ dL Not Available Not Available 03/08/2025 10:56:32 02/27/20 25 02/26/2025 CBC W Auto Diffe renti al panel - Blood erythrocyte [distwidth] in red blood cells by automated count 13.5 % low: 11.3%h igh: 14.8% Not Available Not Available 03/08/2025 10:56:32 02/27/20 25 02/26/2025 CBC W Auto Diffe renti al panel - Blood platelets [#/volume] in blood by automated count 105 text: 150 - 420 x10e9/ L low Not Available Not Available 03/08/2025 10:56:32 02/27/20 25 02/26/2025 CBC W Auto Diffe renti al panel - Blood platelet [entitic mean volume] in blood by automated count 11.6 fL low: 7.8fLh igh: 11.4fL high Not Available Not Available 03/08/2025 10:56:32 02/27/20 25 02/26/2025 CBC W Auto Diffe renti al panel - Blood interpretati on and review of laboratory results Abnorm al Not Available Not Available 10:56:32 02/27/20 25 02/26/2025 Basic metab olic 2000 panel - Serum or Plasm a urea nitrogen [mass/volume ] in serum or plasma 35 mg/dL low: 7mg/dL high: 26mg/d L high Not Available Not Available 03/08/2025 10:56:32 02/27/20 25 02/26/2025 [facility] 1999 panel - Serum or Plasm a creatinine [mass/volume ] in serum or plasma 1.85 mg/dL low: 0.71mg /dLhig h: 1.16mg /dL high Not Available Not Available 03/08/2025 10:56:32 02/27/20 25 02/26/2025 [facility] 1999 panel - Serum or Plasm a sodium [moles/volum e] in serum or plasma 137 mmol/ L low: 136mmo l/Lhig h: 145mmo l/L Not Available Not Available 03/08/2025 10:56:32 02/27/20 25 02/26/2025 [facility] 1999 panel - Serum or Plasm a potassium [moles/volum e] in serum or plasma 4.2 mmol/ L low: 3.5mmo l/Lhig h: 4.5mmo l/L Not Available Not Available 03/08/2025 10:56:32 02/27/20 25 02/26/2025 [facility] 1999 panel - Serum or Plasm a chloride [moles/volum e] in serum or plasma 108 mmol/ L low: 98mmol /Lhigh : 107mmo l/L high Not Available Not Available 03/08/2025 10:56:32 02/27/20 25 02/26/2025 [facility] 1999 panel - Serum or Plasm a carbon dioxide, total [moles/volum e] in serum or plasma 21 mmol/ L low: 22mmol /Lhigh : 29mmol /L low Not Available Not Available 03/08/2025 10:56:32 02/27/20 25 02/26/2025 [facility] 1999 panel - Serum or Plasm a glucose [mass/volume ] in serum or plasma 167 mg/dL low: 70mg/d Lhigh: 99mg/d L high Not Available Not Available 03/08/2025 10:56:32 02/27/20 25 02/26/2025 [facility] 1999 panel - Serum or Plasm a calcium [moles/volum e] in serum or plasma 9.6 mg/dL low: 8.4mg/ dLhigh : 10.2mg /dL Not Available Not Available 03/08/2025 10:56:32 02/27/20 25 02/26/2025 Basic metab olic 1999 panel - Serum or Plasm a anion gap 8 low: 6high: 16 Not Available Not Available 03/08/2025 10:56:32 02/27/20 25 02/26/2025 Basic metab olic 1999 panel - Serum or Plasm a urea nitrogen/cre atinine [mass ratio] in serum or plasma 19 low: 7high: 23 Not Available Not Available 03/08/2025 10:56:32 02/27/20 25 02/26/2025 Basic metab olic 1999 panel - Serum or Plasm a osmolality calculated 296 text: 275 - 295 mOsm/k g high Not Available Not Available 03/08/2025 10:56:32 02/27/20 25 02/26/2025 Basic metab olic 1999 panel - Serum or Plasm a glomerular filtration rate [volume rate/area] in serum, plasma or blood by creatinine-b ased formula (CKD-epi 2020)/1.73 sq M 47 text: >=90 mL/min /1.73 m2 low Not Available Not Available 03/08/2025 10:56:32 02/27/20 25 02/26/2025 Basic metab olic 1999 panel - Serum or Plasm a Unknown Analyte Estima ceasar Glomer ular Filtra tion Rate (eGFR) calcul ated using the CKD-EP I Creati nine Equati on (2020) , per the [facility] [employer] and [employer] y [employer] Nephro logy recomm endati ons. Not Available Not Available 10:56:32 02/27/20 25 02/26/2025 Basic metab olic 1999 panel - Serum or Plasm a interpretati on and review of laboratory results Abnorm al Not Available Not Available 10:56:32 02/27/20 25 02/26/2025 Tacro limus [Mass /volu me] in Blood tacrolimus [mass/volume ] in blood 7.9 NG/mL low: 3NG/mL high: 15NG/m L Not Available Not Available 03/08/2025 10:56:32 02/27/20 25 02/26/2025 Tacro limus [Mass /volu me] in Blood Unknown Analyte Measur ement perfor med by chemil umines cence immuno assay (CMIA) on the [employer] analyz er. Most indivi duals achiev e optima l respon se with steady -state trough whole blood levels betwee n 3-15 ng/mL. Prefer red therap eutic values may vary by transp lant type, protoc ol, and comedi cation s. Therap eutic concen tratio ns are based on trough values ; blood drawn at other times may yield higher result s. Not Available Not Available 10:56:32 02/27/20 25 02/26/2025 Tacro limus [Mass /volu me] in Blood interpretati on and review of laboratory results Normal Not Available Not Available 02/15 10:56:32 03/01/20 25 03/03/2025 Tacro limus [Mass /volu me] in Blood tacrolimus [mass/volume ] in blood 9.7 text: mcg/L No defin itive thera peuti c or toxic range s have been estab lishe d. Optim al blood drug level s are influ enced by type of trans plant , patie nt respo nse, time post- trans plant , co-ad minis trati on of other drugs , and drug formu latio n. The follo wing troug h range is a sugge sted guide line: 5.0-2 0.0 mcg/L This test was twyla garcia and its radha tical perfo rmanc e livier cteri stics have been deter mined by [facility], [place]. It has not been clear ed or appro joey by the U.S. Food and Drug Admin istra tion. This assay has been valid ated pursu ant to the CLIA regul ation s and is used for clini uma purpo ses. Test Perfo rmed by Marian Tyler, [facility], [id number] [facility] , [facility], [place] Kym Santillan M.D., Ph.D. , [facility] , CLIA [id number] Not Available Not Available 03/08/2025 10:53:03 03/01/20 25 03/01/2025 CBC W Auto Diffe renti al panel - Blood leukocytes [#/volume] in blood by automated count 6.59 text: 4.5 - 11.0 x10'3/ uL Not Available Not Available 03/08/2025 10:53:02 03/01/20 25 03/01/2025 CBC W Auto Diffe renti al panel - Blood erythrocytes [#/volume] in blood by automated count 2.79 text: 4.70 - 6.10 x10'6/ uL low Not Available Not Available 03/08/2025 10:53:02 03/01/20 25 03/01/2025 CBC W Auto Diffe renti al panel - Blood hemoglobin [mass/volume ] in blood 8.6 text: 14.0 - 18.0 g/dL low Not Available Not Available 03/08/2025 10:53:02 03/01/20 25 03/01/2025 CBC W Auto Diffe renti al panel - Blood hematocrit [volume fraction] of blood by calculation 27.4 % low: 43%hig h: 54% low Not Available Not Available 03/08/2025 10:53:02 03/01/20 25 03/01/2025 CBC W Auto Diffe renti al panel - Blood MCV [entitic mean volume] in red blood cells 98.2 text: 80.0 - 94.0 fL high Not Available Not Available 03/08/2025 10:53:02 03/01/20 25 03/01/2025 CBC W Auto Diffe renti al panel - Blood MCH [entitic mass] 30.8 pg low: 27pghi gh: 31pg Not Available Not Available 03/08/2025 10:53:02 03/01/20 25 03/01/2025 CBC W Auto Diffe renti al panel - Blood MCHC [entitic mass/volume] in red blood cells 31.4 text: 32.0 - 36.0 g/dL low Not Available Not Available 03/08/2025 10:53:02 03/01/20 25 03/01/2025 CBC W Auto Diffe renti al panel - Blood RDW 13.9 % low: 11.5%h igh: 14.5% Not Available Not Available 03/08/2025 10:53:02 03/01/20 25 03/01/2025 CBC W Auto Diffe renti al panel - Blood platelets [#/volume] in blood 115 text: 130 - 400 x10'3/ uL low Not Available Not Available 03/08/2025 10:53:02 03/01/20 25 03/01/2025 CBC W Auto Diffe renti al panel - Blood platelet [entitic mean volume] in blood 12.3 text: 9.3 - 12.2 fL high Not Available Not Available 03/08/2025 10:53:02 03/01/20 25 03/01/2025 CBC W Auto Diffe renti al panel - Blood differential cell count method - blood MANUAL DIFFER ENTIAL Not Available Not Available 10:53:02 03/01/20 25 03/01/2025 CBC W Auto Diffe renti al panel - Blood segmented neutrophils/ leukocytes in blood by manual count 86 % Not Available Not Available 03/08/2025 10:53:02 03/01/20 25 03/01/2025 CBC W Auto Diffe renti al panel - Blood lymphocytes/ leukocytes in blood by manual count 8 % Not Available Not Available 03/08/2025 10:53:02 03/01/20 25 03/01/2025 CBC W Auto Diffe renti al panel - Blood monocytes/le ukocytes in blood by manual count 4 % Not Available Not Available 03/08/2025 10:53:02 03/01/20 25 03/01/2025 CBC W Auto Diffe renti al panel - Blood eosinophils/ leukocytes in blood by manual count 1 % Not Available Not Available 03/08/2025 10:53:02 03/01/20 25 03/01/2025 CBC W Auto Diffe renti al panel - Blood band form neutrophils/ leukocytes in blood by manual count 1 % Not Available Not Available 03/08/2025 10:53:02 03/01/20 25 03/01/2025 CBC W Auto Diffe renti al panel - Blood neutrophils [#/volume] in blood 5.73 text: 1.80 - 7.70 x10'3/ uL Not Available Not Available 03/08/2025 10:53:02 03/01/20 25 03/01/2025 CBC W Auto Diffe renti al panel - Blood lymphocytes [#/volume] in blood 0.53 text: 1.00 - 4.80 x10'3/ uL low Not Available Not Available 03/08/2025 10:53:02 03/01/20 25 03/01/2025 CBC W Auto Diffe renti al panel - Blood monocytes [#/volume] in blood 0.26 text: 0.30 - 0.82 x10'3/ uL low Not Available Not Available 03/08/2025 10:53:02 03/01/20 25 03/01/2025 CBC W Auto Diffe renti al panel - Blood eosinophils [#/volume] in blood 0.07 text: 0.04 - 0.54 x10'3/ uL Not Available Not Available 03/08/2025 10:53:02 03/01/20 25 03/01/2025 CBC W Auto Diffe renti al panel - Blood erythrocytes [morphology] in blood by automated count RBC MORPHO LOGY APPEAR S NORMAL . SLIDE REVIEW ED. Not Available Not Available 10:53:02 03/01/20 25 03/01/2025 CBC W Auto Diffe renti al panel - Blood platelets [#/volume] in blood by automated count ADEQUA TE Not Available Not Available 10:53:02 03/01/20 25 03/01/2025 CBC W Auto Diffe renti al panel - Blood interpretati on and review of laboratory results Abnorm al Not Available Not Available 10:53:02 03/01/20 25 03/01/2025 Magne sium [Mass /volu me] in Serum or Plasm a magnesium [mass/volume ] in serum or plasma 1.4 text: 1.8 - 2.4 mg/dL low Not Available Not Available 03/08/2025 10:53:02 03/01/20 25 03/01/2025 Magne sium [Mass /volu me] in Serum or Plasm a interpretati on and review of laboratory results Abnorm al Not Available Not Available 10:53:02 03/01/20 25 03/01/2025 Phosp hate [Mass /volu me] in Serum or Plasm a phosphate [mass/volume ] in serum or plasma 2.1 text: 2.5 - 4.9 mg/dL low Not Available Not Available 03/08/2025 10:53:02 03/01/20 25 03/01/2025 Phosp hate [Mass /volu me] in Serum or Plasm a interpretati on and review of laboratory results Abnorm al Not Available Not Available 10:53:02 03/01/20 25 03/01/2025 Compr ehens [facility] metab [facility]lic 1999 panel - Serum or Plasm a glucose [mass/volume ] in serum or plasma 100 text: 70 - 99 mg/dL high Not Available Not Available 03/08/2025 10:53:02 03/01/20 25 03/01/2025 Compr ehens [facility] metab olic 2000 panel - Serum or Plasm a urea nitrogen [mass/volume ] in serum or plasma 22 text: 7 - 18 mg/dL high Not Available Not Available 03/08/2025 10:53:02 03/01/20 25 03/01/2025 Compr ehens [place] metab olic 2000 panel - Serum or Plasm a creatinine [mass/volume ] in serum or plasma 1.34 text: 0.7 - 1.3 mg/dL high Not Available Not Available 03/08/2025 10:53:02 03/01/20 25 03/01/2025 Compr ehens [facility] metab olic 2000 panel - Serum or Plasm a sodium [moles/volum e] in serum or plasma 144 text: 136 - 145 mmol/L Not Available Not Available 03/08/2025 10:53:02 03/01/20 25 03/01/2025 Compr ehens [facility] metab olic 2000 panel - Serum or Plasm a potassium [moles/volum e] in serum or plasma 4.5 text: 3.5 - 5.1 mmol/L Not Available Not Available 03/08/2025 10:53:02 03/01/20 25 03/01/2025 Compr ehens [facility] metab olic 2000 panel - Serum or Plasm a chloride [moles/volum e] in serum or plasma 114 text: 97 - 115 mmol/L Not Available Not Available 03/08/2025 10:53:02 03/01/20 25 03/01/2025 Compr ehens [place] metab olic 1999 panel - Serum or Plasm a carbon dioxide, total [moles/volum e] in serum or plasma 26.8 text: 21 - 32 mmol/L Not Available Not Available 03/08/2025 10:53:02 03/01/20 25 03/01/2025 Compr ehens [facility] metab olic 1999 panel - Serum or Plasm a calcium [mass/volume ] in serum or plasma 8.7 text: 8.5 - 10.1 mg/dL Not Available Not Available 03/08/2025 10:53:02 03/01/20 25 03/01/2025 Compr ehens [place] metab olic 1999 panel - Serum or Plasm a bilirubin.to lewis [mass/volume ] in serum or plasma 0.5 text: 0.2 - 1.2 mg/dL THIS ASSAY IS NOT RECOM JUAN ALBERTO D FOR PATIE NTS UNDER GOING TREAT MENT WITH ELTRO MBOPA G DUE TO THE POTEN TIAL FOR FALSE LY ELEVA CEASAR RESUL TS. Not Available Not Available 03/08/2025 10:53:02 03/01/20 25 03/01/2025 Compr ehens [facility] metab olic 1999 panel - Serum or Plasm a protein [mass/volume ] in serum or plasma 4.9 text: 6.4 - 8.2 g/dL low Not Available Not Available 03/08/2025 10:53:02 03/01/20 25 03/01/2025 Compr ehens [facility] metab olic 1999 panel - Serum or Plasm a albumin [mass/volume ] in serum or plasma 2.6 text: 3.4 - 5.0 g/dL low Not Available Not Available 03/08/2025 10:53:02 03/01/20 25 03/01/2025 Compr ehens [facility] metab olic 2000 panel - Serum or Plasm a aspartate aminotransfe rase [enzymatic activity/vol ume] in serum or plasma 13 U/L low: 15U/Lh igh: 37U/L low Not Available Not Available 03/08/2025 10:53:02 03/01/20 25 03/01/2025 Compr ehens [facility] metab olic 2000 panel - Serum or Plasm a alanine aminotransfe rase [enzymatic activity/vol ume] in serum or plasma 27 U/L low: 16U/Lh igh: 60U/L Not Available Not Available 03/08/2025 10:53:02 03/01/20 25 03/01/2025 [facility] [employer] [place] metab olic 1999 panel - Serum or Plasm a alkaline phosphatase [enzymatic activity/vol ume] in serum or plasma 51 U/L low: 50U/Lh igh: 136U/L Not Available Not Available 03/08/2025 10:53:02 03/01/20 25 03/01/2025 [facility] [employer] [facility] [employer] olic 1999 panel - Serum or Plasm a anion gap in serum or plasma by calculation 3.2 text: 2 - 10 mmol/L Not Available Not Available 03/08/2025 10:53:02 03/01/20 25 03/01/2025 [facility] [employer] [facility] Fifty[employer] olic 2000 panel - Serum or Plasm a urea nitrogen/cre atinine [mass ratio] in serum or plasma 16.4 low: 6high: 26 Not Available Not Available 03/08/2025 10:53:02 03/01/20 25 03/01/2025 [facility] [employer] [facility] [employer] olic 1999 panel - Serum or Plasm a albumin/glob ulin [mass ratio] in serum or plasma 1.1 text: 1.0 - 2.0 ratio Not Available Not Available 03/08/2025 10:53:02 03/01/20 25 03/01/2025 [facility] Home [facility] [place] [employer] olic 2000 panel - Serum or Plasm a glomerular filtration rate [volume rate/area] in serum, plasma or blood by creatinine-b ased formula (CKD-epi 2020)/1.73 sq M 69 text: >90 mL/min /1.73 M2 low NOTE: eGFR is not calcu lated for patie nts <18 years of age or gende r unkno wn. This is an estim ated GFR calcu latio n using the new CKD EPI creat inine equat ion witho ut race and so does not requi re a corre ction facto r for race. This estim ated GFR shoul d not be used for calcu latin g drug doses . Not Available Not Available 03/08/2025 10:53:02 03/01/20 25 03/01/2025 Compr ehens [place] metab olic 2000 panel - Serum or Plasm a interpretati on and review of laboratory results Abnorm al Not Available Not Available 10:53:02 03/01/20 25 03/01/2025 Urina lysis dipst ick W Refle x Micro scopi c panel - Urine collection method - specimen URINE, UNSPEC IFIED Not Available Not Available 10:53:02 03/01/20 25 03/01/2025 Urina lysis dipst ick W Refle x Micro scopi c panel - Urine color of urine LIGHT YELLOW Not Available Not Available 10:53:02 03/01/20 25 03/01/2025 Urina lysis dipst ick W Refle x Micro scopi c panel - Urine clarity of urine CLEAR Not Available Not Available 02/15 10:53:02 03/01/20 25 03/01/2025 Urina lysis dipst ick W Refle x Micro scopi c panel - Urine specific gravity of urine 1.017 low: 1.001h igh: 1.03 Not Available Not Available 03/08/2025 10:53:02 03/01/20 25 03/01/2025 Urina lysis dipst ick W Refle x Micro scopi c panel - Urine pH of urine 6.5 low: 5high: 9 Not Available Not Available 03/08/2025 10:53:02 03/01/20 25 03/01/2025 Urina lysis dipst ick W Refle x Micro scopi c panel - Urine leukocytes [#/volume] in urine by test strip NEGATI VE text: negati ve Not Available Not Available 03/08/2025 10:53:02 03/01/20 25 03/01/2025 Urina lysis dipst ick W Refle x Micro scopi c panel - Urine nitrite [presence] in urine NEGATI VE text: negati ve Not Available Not Available 03/08/2025 10:53:02 03/01/20 25 03/01/2025 Urina lysis dipst ick W Refle x Micro scopi c panel - Urine protein [mass/volume ] in urine by test strip 20 text: <30 mg/dL Not Available Not Available 03/08/2025 10:53:02 03/01/20 25 03/01/2025 Urina lysis dipst ick W Refle x Micro scopi c panel - Urine glucose [mass/volume ] in urine NORMAL text: normal mg/dL Not Available Not Available 03/08/2025 10:53:02 03/01/20 25 03/01/2025 Urina lysis dipst ick W Refle x Micro scopi c panel - Urine ketones [mass/volume ] in urine by test strip NEGATI VE text: negati ve mg/dL Not Available Not Available 03/08/2025 10:53:02 03/01/20 25 03/01/2025 Urina lysis dipst ick W Refle x Micro scopi c panel - Urine urobilinogen [units/volum e] in urine by test strip NORMAL text: normal mg/dL Not Available Not Available 03/08/2025 10:53:02 03/01/20 25 03/01/2025 Urina lysis dipst ick W Refle x Micro scopi c panel - Urine bilirubin.to lewis [mass/volume ] in urine NEGATI VE text: negati ve mg/dL Not Available Not Available 03/08/2025 10:53:02 03/01/20 25 03/01/2025 Urina lysis dipst ick W Refle x Micro scopi c panel - Urine erythrocytes [#/volume] in urine by automated test strip 2+ text: negati ve abnormal Not Available Not Available 03/08/2025 10:53:02 03/01/20 25 03/01/2025 Urina lysis dipst ick W Refle x Micro scopi c panel - Urine leukocytes [#/area] in urine sediment by microscopy high power field 3 text: <6 /hpf Not Available Not Available 03/08/2025 10:53:02 03/01/20 25 03/01/2025 Urina lysis dipst ick W Refle x Micro scopi c panel - Urine erythrocytes [#/area] in urine sediment by microscopy high power field >100 text: <6 /hpf high Not Available Not Available 03/08/2025 10:53:02 03/01/20 25 03/01/2025 Urina lysis dipst ick W Refle x Micro scopi c panel - Urine epithelial cells.squ[place] us [#/area] in urine sediment by microscopy high power field RARE text: /hpf Not Available Not Available 03/08/2025 10:53:02 03/01/20 25 03/01/2025 Urina lysis dipst ick W Refle x Micro scopi c panel - Urine interpretati on and review of laboratory results Abnorm al Not Available Not Available 10:53:02 03/01/20 25 03/03/2025 Bacte santi ident ified in Urine by Cultu re specimen source identified URINE, UNSPEC IFIED Not Available Not Available 10:53:02 03/01/20 25 03/03/2025 Bacte santi ident ified in Urine by Cultu re service comment NO SPECIA L REQUES T Not Available Not Available 10:53:02 03/01/20 25 03/03/2025 Bacte santi ident ified in Urine by Cultu re bacteria identified in specimen by culture NO GROWTH 2 DAYS Not Available Not Available 10:53:02 03/04/20 25 03/04/2025 CBC W Auto Diffe renti al panel - Blood leukocytes [#/volume] in blood by automated count 9.5 text: 4.0 - 10.7 x10e9/ L Not Available Not Available 03/08/2025 10:54:01 03/04/20 25 03/04/2025 CBC W Auto Diffe renti al panel - Blood erythrocytes [#/volume] in blood by automated count 2.89 text: 4.30 - 5.80 x10e12 /L low Not Available Not Available 03/08/2025 10:54:01 03/04/20 25 03/04/2025 CBC W Auto Diffe renti al panel - Blood hemoglobin [mass/volume ] in blood 8.9 g/dL low: 13.3g/ dLhigh : 17.5g/ dL low Not Available Not Available 03/08/2025 10:54:01 03/04/20 25 03/04/2025 CBC W Auto Diffe renti al panel - Blood hematocrit [volume fraction] of blood by automated count 27.2 % low: 38.7%h igh: 51.1% low Not Available Not Available 03/08/2025 10:54:01 03/04/20 25 03/04/2025 CBC W Auto Diffe renti al panel - Blood MCV [entitic mean volume] in red blood cells by automated count 94.1 fL low: 80fLhi gh: 98fL Not Available Not Available 03/08/2025 10:54:01 03/04/20 25 03/04/2025 CBC W Auto Diffe renti al panel - Blood MCH [entitic mass] by automated count 30.8 pg low: 26.7pg high: 33.6pg Not Available Not Available 03/08/2025 10:54:01 03/04/20 25 03/04/2025 CBC W Auto Diffe renti al panel - Blood MCHC [entitic mass/volume] in red blood cells by automated count 32.7 g/dL low: 31.7g/ dLhigh : 36.3g/ dL Not Available Not Available 03/08/2025 10:54:01 03/04/20 25 03/04/2025 CBC W Auto Diffe renti al panel - Blood erythrocyte [distwidth] in red blood cells by automated count 14.7 % low: 11.3%h igh: 14.8% Not Available Not Available 03/08/2025 10:54:01 03/04/20 25 03/04/2025 CBC W Auto Diffe renti al panel - Blood platelets [#/volume] in blood by automated count 193 text: 150 - 420 x10e9/ L Not Available Not Available 03/08/2025 10:54:01 03/04/20 25 03/04/2025 CBC W Auto Diffe renti al panel - Blood platelet [entitic mean volume] in blood by automated count 11.2 fL low: 7.8fLh igh: 11.4fL Not Available Not Available 03/08/2025 10:54:01 03/04/20 25 03/04/2025 CBC W Auto Diffe renti al panel - Blood neutrophils/ leukocytes in blood by automated count 81.8 % low: 41%hig h: 74% high Not Available Not Available 03/08/2025 10:54:01 03/04/20 25 03/04/2025 CBC W Auto Diffe renti al panel - Blood lymphocytes/ leukocytes in blood by automated count 6.3 % low: 17%hig h: 47% low Not Available Not Available 03/08/2025 10:54:01 03/04/20 25 03/04/2025 CBC W Auto Diffe renti al panel - Blood monocytes/le ukocytes in blood by automated count 8.6 % low: 3%high : 11% Not Available Not Available 03/08/2025 10:54:01 03/04/20 25 03/04/2025 CBC W Auto Diffe renti al panel - Blood eosinophils/ leukocytes in blood by automated count 1.1 % low: 0%high : 7% Not Available Not Available 03/08/2025 10:54:01 03/04/20 25 03/04/2025 CBC W Auto Diffe renti al panel - Blood basophils/le ukocytes in blood by automated count 0.1 % low: 0%high : 1.6% Not Available Not Available 03/08/2025 10:54:01 03/04/20 25 03/04/2025 CBC W Auto Diffe renti al panel - Blood immature granulocytes /leukocytes in blood by automated count 2.1 % low: 0%high : 1% high Not Available Not Available 03/08/2025 10:54:01 03/04/20 25 03/04/2025 CBC W Auto Diffe renti al panel - Blood neutrophils [#/volume] in blood by automated count 7.73 text: 1.60 - 7.50 x10e9/ L high Not Available Not Available 03/08/2025 10:54:01 03/04/20 25 03/04/2025 CBC W Auto Diffe renti al panel - Blood lymphocytes [#/volume] in blood by automated count 0.6 text: 1.00 - 4.40 x10e9/ L low Not Available Not Available 03/08/2025 10:54:01 03/04/20 25 03/04/2025 CBC W Auto Diffe renti al panel - Blood monocytes [#/volume] in blood by automated count 0.81 text: 0.15 - 1.00 x10e9/ L Not Available Not Available 03/08/2025 10:54:01 03/04/20 25 03/04/2025 CBC W Auto Diffe renti al panel - Blood eosinophils [#/volume] in blood 0.1 text: 0.00 - 0.60 x10e9/ L Not Available Not Available 03/08/2025 10:54:01 03/04/20 25 03/04/2025 CBC W Auto Diffe renti al panel - Blood basophils [#/volume] in blood by automated count 0.01 text: 0.00 - 0.13 x10e9/ L Not Available Not Available 03/08/2025 10:54:01 03/04/20 25 03/04/2025 CBC W Auto Diffe renti al panel - Blood interpretati on and review of laboratory results Abnorm al Not Available Not Available 10:54:01 03/04/20 25 03/04/2025 Tacro limus [Mass /volu me] in Blood tacrolimus [mass/volume ] in blood 14.7 NG/mL low: 3NG/mL high: 15NG/m L Not Available Not Available 03/08/2025 10:54:01 03/04/20 25 03/04/2025 Tacro limus [Mass /volu me] in Blood Unknown Analyte Measur ement perfor med by chemil umines cence immuno assay (CMIA) on the [facility] [employer]est er. Most indivi duals achiev e optima l respon se with steady -state trough whole blood levels betwee n 3-15 ng/mL. Prefer red therap eutic values may vary by transp lant type, protoc ol, and comedi cation s. Therap eutic concen tratio ns are based on trough values ; blood drawn at other times may yield higher result s. Not Available Not Available 10:54:01 03/04/20 25 03/04/2025 Tacro limus [Mass /volu me] in Blood interpretati on and review of laboratory results Normal Not Available Not Available 02/15 10:54:01 03/04/20 25 03/04/2025 Phosp hate [Mass /volu me] in Serum or Plasm a phosphate [mass/volume ] in serum or plasma 1.8 mg/dL low: 2.8mg/ dLhigh : 5.1mg/ dL low Not Available Not Available 03/08/2025 10:54:01 03/04/20 25 03/04/2025 Phosp hate [Mass /volu me] in Serum or Plasm a interpretati on and review of laboratory results Abnorm al Not Available Not Available 10:54:01 03/04/20 25 03/04/2025 Magne sium [Mass /volu me] in Serum or Plasm a magnesium [mass/volume ] in serum or plasma 2 mg/dL low: 1.6mg/ dLhigh : 2.6mg/ dL Not Available Not Available 03/08/2025 10:54:01 03/04/20 25 03/04/2025 Magne sium [Mass /volu me] in Serum or Plasm a interpretati on and review of laboratory results Normal Not Available Not Available 02/15 10:54:01 03/04/20 25 03/04/2025 CBC W Auto Diffe renti al panel - Blood leukocytes [#/volume] in blood by automated count 9.3 text: 4.0 - 10.7 x10e9/ L Not Available Not Available 03/08/2025 10:54:01 03/04/20 25 03/04/2025 CBC W Auto Diffe renti al panel - Blood erythrocytes [#/volume] in blood by automated count 2.83 text: 4.30 - 5.80 x10e12 /L low Not Available Not Available 03/08/2025 10:54:01 03/04/20 25 03/04/2025 CBC W Auto Diffe renti al panel - Blood hemoglobin [mass/volume ] in blood 8.4 g/dL low: 13.3g/ dLhigh : 17.5g/ dL low Not Available Not Available 03/08/2025 10:54:01 03/04/20 25 03/04/2025 CBC W Auto Diffe renti al panel - Blood hematocrit [volume fraction] of blood by automated count 26.9 % low: 38.7%h igh: 51.1% low Not Available Not Available 03/08/2025 10:54:01 03/04/20 25 03/04/2025 CBC W Auto Diffe renti al panel - Blood MCV [entitic mean volume] in red blood cells by automated count 95.1 fL low: 80fLhi gh: 98fL Not Available Not Available 03/08/2025 10:54:01 03/04/20 25 03/04/2025 CBC W Auto Diffe renti al panel - Blood MCH [entitic mass] by automated count 29.7 pg low: 26.7pg high: 33.6pg Not Available Not Available 03/08/2025 10:54:01 03/04/20 25 03/04/2025 CBC W Auto Diffe renti al panel - Blood MCHC [entitic mass/volume] in red blood cells by automated count 31.2 g/dL low: 31.7g/ dLhigh : 36.3g/ dL low Not Available Not Available 03/08/2025 10:54:01 03/04/20 25 03/04/2025 CBC W Auto Diffe renti al panel - Blood erythrocyte [distwidth] in red blood cells by automated count 14.6 % low: 11.3%h igh: 14.8% Not Available Not Available 03/08/2025 10:54:01 03/04/20 25 03/04/2025 CBC W Auto Diffe renti al panel - Blood platelets [#/volume] in blood by automated count 199 text: 150 - 420 x10e9/ L Not Available Not Available 03/08/2025 10:54:01 03/04/20 25 03/04/2025 CBC W Auto Diffe renti al panel - Blood platelet [entitic mean volume] in blood by automated count 11.5 fL low: 7.8fLh igh: 11.4fL high Not Available Not Available 03/08/2025 10:54:01 03/04/20 25 03/04/2025 CBC W Auto Diffe renti al panel - Blood neutrophils/ leukocytes in blood by automated count 81.2 % low: 41%hig h: 74% high Not Available Not Available 03/08/2025 10:54:01 03/04/20 25 03/04/2025 CBC W Auto Diffe renti al panel - Blood lymphocytes/ leukocytes in blood by automated count 6.3 % low: 17%hig h: 47% low Not Available Not Available 03/08/2025 10:54:01 03/04/20 25 03/04/2025 CBC W Auto Diffe renti al panel - Blood monocytes/le ukocytes in blood by automated count 8.1 % low: 3%high : 11% Not Available Not Available 03/08/2025 10:54:01 03/04/20 25 03/04/2025 CBC W Auto Diffe renti al panel - Blood eosinophils/ leukocytes in blood by automated count 0.7 % low: 0%high : 7% Not Available Not Available 03/08/2025 10:54:01 03/04/20 25 03/04/2025 CBC W Auto Diffe renti al panel - Blood basophils/le ukocytes in blood by automated count 0.1 % low: 0%high : 1.6% Not Available Not Available 03/08/2025 10:54:01 03/04/20 25 03/04/2025 CBC W Auto Diffe renti al panel - Blood immature granulocytes /leukocytes in blood by automated count 3.6 % low: 0%high : 1% high Not Available Not Available 03/08/2025 10:54:01 03/04/20 25 03/04/2025 CBC W Auto Diffe renti al panel - Blood neutrophils [#/volume] in blood by automated count 7.57 text: 1.60 - 7.50 x10e9/ L high Not Available Not Available 03/08/2025 10:54:01 03/04/20 25 03/04/2025 CBC W Auto Diffe renti al panel - Blood lymphocytes [#/volume] in blood by automated count 0.59 text: 1.00 - 4.40 x10e9/ L low Not Available Not Available 03/08/2025 10:54:01 03/04/20 25 03/04/2025 CBC W Auto Diffe renti al panel - Blood monocytes [#/volume] in blood by automated count 0.76 text: 0.15 - 1.00 x10e9/ L Not Available Not Available 03/08/2025 10:54:01 03/04/20 25 03/04/2025 CBC W Auto Diffe renti al panel - Blood eosinophils [#/volume] in blood 0.07 text: 0.00 - 0.60 x10e9/ L Not Available Not Available 03/08/2025 10:54:01 03/04/20 25 03/04/2025 CBC W Auto Diffe renti al panel - Blood basophils [#/volume] in blood by automated count 0.01 text: 0.00 - 0.13 x10e9/ L Not Available Not Available 03/08/2025 10:54:01 03/04/20 25 03/04/2025 CBC W Auto Diffe sam al panel - Blood interpretati on and review of laboratory results Abnorm al Not Available Not Available 10:54:01 03/04/20 25 03/04/2025 [facility] 1999 panel - Serum or Plasm a urea nitrogen [mass/volume ] in serum or plasma 17 mg/dL low: 7mg/dL high: 26mg/d L Not Available Not Available 03/08/2025 10:54:01 03/04/20 25 03/04/2025 [facility] 1999 panel - Serum or Plasm a creatinine [mass/volume ] in serum or plasma 1.31 mg/dL low: 0.71mg /dLhig h: 1.16mg /dL high Not Available Not Available 03/08/2025 10:54:01 03/04/20 25 03/04/2025 [facility] 1999 panel - Serum or Plasm a sodium [moles/volum e] in serum or plasma 141 mmol/ L low: 136mmo l/Lhig h: 145mmo l/L Not Available Not Available 03/08/2025 10:54:01 03/04/20 25 03/04/2025 [facility] 1999 panel - Serum or Plasm a potassium [moles/volum e] in serum or plasma 4.5 mmol/ L low: 3.5mmo l/Lhig h: 4.5mmo l/L Not Available Not Available 03/08/2025 10:54:01 03/04/20 25 03/04/2025 [facility] 1999 panel - Serum or Plasm a chloride [moles/volum e] in serum or plasma 118 mmol/ L low: 98mmol /Lhigh : 107mmo l/L high Not Available Not Available 03/08/2025 10:54:01 03/04/20 25 03/04/2025 [facility] 1999 panel - Serum or Plasm a carbon dioxide, total [moles/volum e] in serum or plasma 18 mmol/ L low: 22mmol /Lhigh : 29mmol /L low Not Available Not Available 03/08/2025 10:54:01 03/04/20 25 03/04/2025 Basic metab olic 1999 panel - Serum or Plasm a glucose [mass/volume ] in serum or plasma 127 mg/dL low: 70mg/d Lhigh: 99mg/d L high Not Available Not Available 03/08/2025 10:54:01 03/04/20 25 03/04/2025 Basic metab olic 1999 panel - Serum or Plasm a calcium [moles/volum e] in serum or plasma 8.6 mg/dL low: 8.4mg/ dLhigh : 10.2mg /dL Not Available Not Available 03/08/2025 10:54:01 03/04/20 25 03/04/2025 Basic metab olic 1999 panel - Serum or Plasm a anion gap 5 low: 6high: 16 low Not Available Not Available 03/08/2025 10:54:01 03/04/20 25 03/04/2025 Basic metab olic 1999 panel - Serum or Plasm a urea nitrogen/cre atinine [mass ratio] in serum or plasma 13 low: 7high: 23 Not Available Not Available 03/08/2025 10:54:01 03/04/20 25 03/04/2025 Basic metab olic 1999 panel - Serum or Plasm a osmolality calculated 295 text: 275 - 295 mOsm/k g Not Available Not Available 03/08/2025 10:54:01 03/04/20 25 03/04/2025 Basic Fifty100 olic 2000 panel - Serum or Plasm a glomerular filtration rate [volume rate/area] in serum, plasma or blood by creatinine-b ased formula (CKD-epi 2020)/1.73 sq M 71 text: >=90 mL/min /1.73 m2 low Not Available Not Available 03/08/2025 10:54:01 03/04/20 25 03/04/2025 Basic Fifty100 olic 1999 panel - Serum or Plasm a Unknown Analyte Estima ceasar Glomer ular Filtra tion Rate (eGFR) calcul ated using the CKD-EP I Creati nine Equati on (2020) , per the [facility] and [employer] Nephro logy recomm endati ons. Not Available Not Available 10:54:01 03/04/20 25 03/04/2025 Basic metab olic 2000 panel - Serum or Plasm a interpretati on and review of laboratory results Abnorm al Not Available Not Available 10:54:01 03/04/20 25 03/04/2025 Urina lysis panel - Urine by Autom ated color of urine by auto Yellow text: yellow , straw Not Available Not Available 03/08/2025 10:54:01 03/04/20 25 03/04/2025 Urina lysis panel - Urine by Autom ated clarity in urine by refractometr y automated Clear text: clear Not Available Not Available 03/08/2025 10:54:01 03/04/20 25 03/04/2025 Urina lysis panel - Urine by Autom ated glucose [presence] in urine by test strip Normal text: normal Not Available Not Available 03/08/2025 10:54:01 03/04/20 25 03/04/2025 Urina lysis panel - Urine by Autom ated bilirubin.to lewis [presence] in urine by test strip Negati ve text: negati ve Not Available Not Available 03/08/2025 10:54:01 03/04/20 25 03/04/2025 Urina lysis panel - Urine by Autom ated ketones [presence] in urine by automated test strip Negati ve text: negati ve Not Available Not Available 03/08/2025 10:54:01 03/04/20 25 03/04/2025 Urina lysis panel - Urine by Autom ated specific gravity of urine by test strip 1.012 low: 1.005h igh: 1.03 Not Available Not Available 03/08/2025 10:54:01 03/04/20 25 03/04/2025 Urina lysis panel - Urine by Autom ated hemoglobin [presence] in urine by test strip 1+ text: negati ve abnormal Not Available Not Available 03/08/2025 10:54:01 03/04/20 25 03/04/2025 Urina lysis panel - Urine by Autom ated pH of urine by test strip 8 low: 5high: 8 Not Available Not Available 03/08/2025 10:54:01 03/04/20 25 03/04/2025 Urina lysis panel - Urine by Autom ated protein [presence] in urine by test strip Negati ve text: negati ve Not Available Not Available 03/08/2025 10:54:01 03/04/20 25 03/04/2025 Urina lysis panel - Urine by Autom ated urobilinogen [mass/volume ] in urine by automated test strip Normal text: normal mg/dL Not Available Not Available 03/08/2025 10:54:01 03/04/20 25 03/04/2025 Urina lysis panel - Urine by Autom ated nitrite [presence] in urine by test strip Negati ve text: negati ve Not Available Not Available 03/08/2025 10:54:01 03/04/20 25 03/04/2025 Urina lysis panel - Urine by Autom ated leukocyte esterase [presence] in urine by test strip Negati ve text: negati ve Not Available Not Available 03/08/2025 10:54:01 03/04/20 25 03/04/2025 Urina lysis panel - Urine by Autom ated erythrocytes [#/area] in urine sediment by automated count 21-50 text: 0 - 5 # /hpf abnormal Not Available Not Available 03/08/2025 10:54:01 03/04/20 25 03/04/2025 Urina lysis panel - Urine by Autom ated leukocytes [#/area] in urine sediment by automated count 0-5 text: 0 - 5 # /hpf Not Available Not Available 03/08/2025 10:54:01 03/04/20 25 03/04/2025 Urina lysis panel - Urine by Autom ated bacteria [presence] in urine by automated None Seen text: none seen Not Available Not Available 03/08/2025 10:54:01 03/04/20 25 03/04/2025 Urina lysis panel - Urine by Autom ated epithelial cells.squ[place] us [presence] in urine by automated 0-2 text: 0 - 5 /hpf Not Available Not Available 03/08/2025 10:54:01 03/04/20 25 03/04/2025 Urina lysis panel - Urine by Autom ated mucus [presence] in urine by automated 1+ text: /lpf Not Available Not Available 03/08/2025 10:54:01 03/04/20 25 03/04/2025 Urina lysis panel - Urine by Autom ated service comment Cultur e not indica ceasar Not Available Not Available 10:54:01 03/04/20 25 03/04/2025 Urina lysis panel - Urine by Autom ated Unknown Analyte Not Available Not Available 02/15 10:54:01 03/04/20 25 03/04/2025 Urina lysis panel - Urine by Autom ated interpretati on and review of laboratory results Abnorm al Not Available Not Available 10:54:01 03/04/20 25 03/04/2025 Tacro limus [Mass /volu me] in Blood tacrolimus [mass/volume ] in blood 24 NG/mL low: 3NG/mL high: 15NG/m L high Not Available Not Available 03/08/2025 10:54:01 03/04/20 25 03/04/2025 Tacro limus [Mass /volu me] in Blood Unknown Analyte Measur ement perfor med by chemil umines cence immuno assay (CMIA) on the [employer]. Most indivi duals achiev e optima l respon se with steady -state trough whole blood levels betwee n 3-15 ng/mL. Prefer red therap eutic values may vary by transp lant type, protoc ol, and comedi cation s. Therap eutic concen tratio ns are based on trough values ; blood drawn at other times may yield higher result s. Not Available Not Available 10:54:01 03/04/20 25 03/04/2025 Tacro limus [Mass /volu me] in Blood interpretati on and review of laboratory results Abnorm al Not Available Not Available 10:54:01 03/04/20 25 03/04/2025 Blood type and Indir ect antib raj scree n panel - Blood blood group antibody screen [presence] in serum or plasma NEG Not Available Not Available 02/15 10:54:01 03/04/20 25 03/04/2025 Blood type and Indir ect antib raj scree n panel - Blood ABO and Rh group [type] in blood A POS Not Available Not Available 10:54:01 03/04/20 25 03/04/2025 Lacta te [Mole s/vol ume] in Blood lactate [moles/volum e] in serum or plasma 1.9 mmol/ L high: 2mmol/ L Not Available Not Available 03/08/2025 10:54:00 03/04/2003/04/2025 Lacta te [Mole s/vol ume] in Blood interpretati on and review of laboratory results Normal Not Available Not Available 02/15 10:54:00 03/04/20 25 03/04/2025 Phosp hate [Mass /volu me] in Serum or Plasm a phosphate [mass/volume ] in serum or plasma 1.1 mg/dL low: 2.8mg/ dLhigh : 5.1mg/ dL low Not Available Not Available 03/08/2025 10:54:00 03/04/2003/04/2025 Phosp hate [Mass /volu me] in Serum or Plasm a interpretati on and review of laboratory results Abnorm al Not Available Not Available 10:54:00 03/04/20 25 03/04/2025 Thyro tropi n [Unit s/vol ume] in Serum or Plasm a thyrotropin [units/volum e] in serum or plasma by detection limit <= 0.005 mIU/L 3.589 text: 0.350 - 4.940 uIU/mL Not Available Not Available 03/08/2025 10:54:00 03/04/20 25 03/04/2025 Thyro tropi n [Unit s/vol ume] in Serum or Plasm a interpretati on and review of laboratory results Normal Not Available Not Available 02/15 10:54:00 03/04/20 25 03/04/2025 Natri ureti c pepti de B [Mass /volu me] in Serum or Plasm a natriuretic peptide B [mass/volume ] in serum or plasma 326 pg/mL high: 100pg/ mL high A decis ion thres hold of 100 pg/mL has been demon strat ed to provi de the maxim al combi natio n of sensi tivit y, speci ficit y and predi ctive value for the diagn osis of conge stive heart failu re (CHF) . Virtu ally all patie nts with no evide nce of CHF have BNP value s less than 100 pg/mL . A BNP value great er than 100 pg/mL is consi stent with the diagn osis of CHF in the appro priat e clini uma setti ng. In a study of 693 patie nts (male and femal e) with diagn osed CHF, the follo wing value s were deter mined based on the NYHA funct ional class ifica tion syste m: NYHA Funct ional Class Mean Valul e (pg/m L) % >100 pg/mL I 320 58.1 II 432 73.0 III 656 79.0 IV 1635 98.3 Not Available Not Available 03/08/2025 10:54:00 03/04/20 25 03/04/2025 Natri ureti c pepti de B [Mass /volu me] in Serum or Plasm a interpretati on and review of laboratory results Abnorm al Not Available Not Available 10:54:00 03/04/20 25 03/04/2025 Magne sium [Mass /volu me] in Serum or Plasm a magnesium [mass/volume ] in serum or plasma 1.1 mg/dL low: 1.6mg/ dLhigh : 2.6mg/ dL low Not Available Not Available 03/08/2025 10:54:00 03/04/20 25 03/04/2025 Magne sium [Mass /volu me] in Serum or Plasm a interpretati on and review of laboratory results Abnorm al Not Available Not Available 10:54:00 03/04/20 25 03/04/2025 Compr ehens payton metab olic 1999 panel - Serum or Plasm a urea nitrogen [mass/volume ] in serum or plasma 17 mg/dL low: 7mg/dL high: 26mg/d L Not Available Not Available 03/08/2025 10:54:00 03/04/20 25 03/04/2025 Compr ehens payton metab olic 1999 panel - Serum or Plasm a creatinine [mass/volume ] in serum or plasma 1.45 mg/dL low: 0.71mg /dLhig h: 1.16mg /dL high Not Available Not Available 03/08/2025 10:54:00 03/04/20 25 03/04/2025 Compr [email or web address] 1999 panel - Serum or Plasm a sodium [moles/volum e] in serum or plasma 143 mmol/ L low: 136mmo l/Lhig h: 145mmo l/L Not Available Not Available 03/08/2025 10:54:00 03/04/20 25 03/04/2025 [email or web address] [employer] [facility] 1999 panel - Serum or Plasm a potassium [moles/volum e] in serum or plasma 4.8 mmol/ L low: 3.5mmo l/Lhig h: 4.5mmo l/L high Not Available Not Available 03/08/2025 10:54:00 03/04/20 25 03/04/2025 [email or web address] [employer] [facility] 1999 panel - Serum or Plasm a chloride [moles/volum e] in serum or plasma 118 mmol/ L low: 98mmol /Lhigh : 107mmo l/L high Not Available Not Available 03/08/2025 10:54:00 03/04/20 25 03/04/2025 [facility] panel - Serum or Plasm a carbon dioxide, total [moles/volum e] in serum or plasma 19 mmol/ L low: 22mmol /Lhigh : 29mmol /L low Not Available Not Available 03/08/2025 10:54:00 03/04/20 25 03/04/2025 [facility] panel - Serum or Plasm a glucose [mass/volume ] in serum or plasma 131 mg/dL low: 70mg/d Lhigh: 99mg/d L high Not Available Not Available 03/08/2025 10:54:00 03/04/20 25 03/04/2025 [facility] panel - Serum or Plasm a calcium [moles/volum e] in serum or plasma 9.1 mg/dL low: 8.4mg/ dLhigh : 10.2mg /dL Not Available Not Available 03/08/2025 10:54:00 03/04/20 25 03/04/2025 [facility] panel - Serum or Plasm a protein [mass/volume ] in serum or plasma 5.5 g/dL low: 6g/dLh igh: 8.3g/d L low Not Available Not Available 03/08/2025 10:54:00 03/04/20 25 03/04/2025 [facility] panel - Serum or Plasm a albumin [mass/volume ] in serum or plasma by bromocresol green (bcg) dye binding method 3.3 g/dL low: 3.4g/d Lhigh: 5g/dL low Not Available Not Available 03/08/2025 10:54:00 03/04/20 25 03/04/2025 [email or web address] panel - Serum or Plasm a bilirubin.to lewis [mass/volume ] in serum or plasma 0.5 mg/dL low: 0.2mg/ dLhigh : 1.2mg/ dL Not Available Not Available 03/08/2025 10:54:00 03/04/20 25 03/04/2025 [facility] 1999 panel - Serum or Plasm a alkaline phosphatase [enzymatic activity/vol ume] in serum or plasma 56 U/L low: 40U/Lh igh: 150U/L Not Available Not Available 03/08/2025 10:54:00 03/04/20 25 03/04/2025 [facility] panel - Serum or Plasm a alanine aminotransfe rase [enzymatic activity/vol ume] in serum or plasma by no addition of P-5'-P 17 U/L low: 5U/Lhi gh: 55U/L Not Available Not Available 03/08/2025 10:54:00 03/04/20 25 03/04/2025 [facility] panel - Serum or Plasm a aspartate aminotransfe rase [enzymatic activity/vol ume] in serum or plasma 13 U/L low: 5U/Lhi gh: 34U/L Not Available Not Available 03/08/2025 10:54:00 03/04/20 25 03/04/2025 [facility] [employer] [place] [id number] panel - Serum or Plasm a anion gap 6 low: 6high: 16 Not Available Not Available 03/08/2025 10:54:00 03/04/20 25 03/04/2025 [facility] [place] [address] panel - Serum or Plasm a urea nitrogen/cre atinine [mass ratio] in serum or plasma 12 low: 7high: 23 Not Available Not Available 03/08/2025 10:54:00 03/04/20 25 03/04/2025 Compr ehens payton metab olic 2000 panel - Serum or Plasm a osmolality calculated 299 text: 275 - 295 mOsm/k g high Not Available Not Available 03/08/2025 10:54:00 03/04/20 25 03/04/2025 Compr ehens payton metab olic 2000 panel - Serum or Plasm a albumin/glob ulin ratio 1.5 low: 1.1hig h: 2.3 Not Available Not Available 03/08/2025 10:54:00 03/04/20 25 03/04/2025 Compr ehens payton metab olic 2000 panel - Serum or Plasm a glomerular filtration rate [volume rate/area] in serum, plasma or blood by creatinine-b ased formula (CKD-epi 2020)/1.73 sq M 63 text: >=90 mL/min /1.73 m2 low Not Available Not Available 03/08/2025 10:54:00 03/04/20 25 03/04/2025 Compr [employer] payton metab olic 2000 panel - Serum or Plasm a Unknown Analyte Estima ceasar Glomer ular Filtra tion Rate (eGFR) calcul ated using the CKD-EP I Creati nine Equati on (2020) , per the [place] Kidney [facility] tion and [place] an Societ y of Nephro logy recomm endati ons. Not Available Not Available 10:54:00 03/04/20 25 03/04/2025 Compr [employer]ton Fifty100 olic 2000 panel - Serum or Plasm a interpretati on and review of laboratory results Abnorm al Not Available Not Available 10:54:00 03/04/20 25 03/04/2025 CBC W Auto Diffe renti al panel - Blood leukocytes [#/volume] in blood by automated count 11.7 text: 4.0 - 10.7 x10e9/ L high Not Available Not Available 03/08/2025 10:54:00 03/04/20 25 03/04/2025 CBC W Auto Diffe renti al panel - Blood erythrocytes [#/volume] in blood by automated count 3.3 text: 4.30 - 5.80 x10e12 /L low Not Available Not Available 03/08/2025 10:54:00 03/04/20 25 03/04/2025 CBC W Auto Diffe renti al panel - Blood hemoglobin [mass/volume ] in blood 10.1 g/dL low: 13.3g/ dLhigh : 17.5g/ dL low Not Available Not Available 03/08/2025 10:54:00 03/04/20 25 03/04/2025 CBC W Auto Diffe renti al panel - Blood hematocrit [volume fraction] of blood by automated count 30.9 % low: 38.7%h igh: 51.1% low Not Available Not Available 03/08/2025 10:54:00 03/04/20 25 03/04/2025 CBC W Auto Diffe renti al panel - Blood MCV [entitic mean volume] in red blood cells by automated count 93.6 fL low: 80fLhi gh: 98fL Not Available Not Available 03/08/2025 10:54:00 03/04/20 25 03/04/2025 CBC W Auto Diffe renti al panel - Blood MCH [entitic mass] by automated count 30.6 pg low: 26.7pg high: 33.6pg Not Available Not Available 03/08/2025 10:54:00 03/04/20 25 03/04/2025 CBC W Auto Diffe renti al panel - Blood MCHC [entitic mass/volume] in red blood cells by automated count 32.7 g/dL low: 31.7g/ dLhigh : 36.3g/ dL Not Available Not Available 03/08/2025 10:54:00 03/04/20 25 03/04/2025 CBC W Auto Diffe renti al panel - Blood erythrocyte [distwidth] in red blood cells by automated count 14.4 % low: 11.3%h igh: 14.8% Not Available Not Available 03/08/2025 10:54:00 03/04/20 25 03/04/2025 CBC W Auto Diffe renti al panel - Blood platelets [#/volume] in blood by automated count 215 text: 150 - 420 x10e9/ L Not Available Not Available 03/08/2025 10:54:00 03/04/20 25 03/04/2025 CBC W Auto Diffe renti al panel - Blood platelet [entitic mean volume] in blood by automated count 11.1 fL low: 7.8fLh igh: 11.4fL Not Available Not Available 03/08/2025 10:54:00 03/04/20 25 03/04/2025 CBC W Auto Diffe renti al panel - Blood neutrophils/ leukocytes in blood by automated count 85.6 % low: 41%hig h: 74% high Not Available Not Available 03/08/2025 10:54:00 03/04/20 25 03/04/2025 CBC W Auto Diffe renti al panel - Blood lymphocytes/ leukocytes in blood by automated count 3.9 % low: 17%hig h: 47% low Not Available Not Available 03/08/2025 10:54:00 03/04/20 25 03/04/2025 CBC W Auto Diffe renti al panel - Blood monocytes/le ukocytes in blood by automated count 6.4 % low: 3%high : 11% Not Available Not Available 03/08/2025 10:54:00 03/04/20 25 03/04/2025 CBC W Auto Diffe renti al panel - Blood eosinophils/ leukocytes in blood by automated count 0.6 % low: 0%high : 7% Not Available Not Available 03/08/2025 10:54:00 03/04/20 25 03/04/2025 CBC W Auto Diffe renti al panel - Blood basophils/le ukocytes in blood by automated count 0.1 % low: 0%high : 1.6% Not Available Not Available 03/08/2025 10:54:00 03/04/20 25 03/04/2025 CBC W Auto Diffe renti al panel - Blood immature granulocytes /leukocytes in blood by automated count 3.4 % low: 0%high : 1% high Not Available Not Available 03/08/2025 10:54:00 03/04/20 25 03/04/2025 CBC W Auto Diffe renti al panel - Blood neutrophils [#/volume] in blood by automated count 10 text: 1.60 - 7.50 x10e9/ L high Not Available Not Available 03/08/2025 10:54:00 03/04/20 25 03/04/2025 CBC W Auto Diffe renti al panel - Blood lymphocytes [#/volume] in blood by automated count 0.45 text: 1.00 - 4.40 x10e9/ L low Not Available Not Available 03/08/2025 10:54:00 03/04/20 25 03/04/2025 CBC W Auto Diffe renti al panel - Blood monocytes [#/volume] in blood by automated count 0.75 text: 0.15 - 1.00 x10e9/ L Not Available Not Available 03/08/2025 10:54:00 03/04/20 25 03/04/2025 CBC W Auto Diffe renti al panel - Blood eosinophils [#/volume] in blood 0.07 text: 0.00 - 0.60 x10e9/ L Not Available Not Available 03/08/2025 10:54:00 03/04/20 25 03/04/2025 CBC W Auto Diffe renti al panel - Blood basophils [#/volume] in blood by automated count 0.01 text: 0.00 - 0.13 x10e9/ L Not Available Not Available 03/08/2025 10:54:00 03/04/20 25 03/04/2025 CBC W Auto Diffe renti al panel - Blood interpretati on and review of laboratory results Abnorm al Not Available Not Available 10:54:00 03/05/20 25 03/05/2025 Tacro limus [Mass /volu me] in Blood tacrolimus [mass/volume ] in blood 9.7 NG/mL low: 3NG/mL high: 15NG/m L Not Available Not Available 03/08/2025 10:54:02 03/05/20 25 03/05/2025 Tacro limus [Mass /volu me] in Blood Unknown Analyte Measur ement perfor med by chemil umines cence immuno assay (CMIA) on the [employer]. Most indivi duals achiev e optima l respon se with steady -state trough whole blood levels betwee n 3-15 ng/mL. Prefer red therap eutic values may vary by transp lant type, protoc ol, and comedi cation s. Therap eutic concen tratio ns are based on trough values ; blood drawn at other times may yield higher result s. Not Available Not Available 10:54:02 03/05/20 25 03/05/2025 Tacro limus [Mass /volu me] in Blood interpretati on and review of laboratory results Normal Not Available Not Available 02/15 10:54:02 03/05/20 25 03/05/2025 Phosp hate [Mass /volu me] in Serum or Plasm a phosphate [mass/volume ] in serum or plasma 2.7 mg/dL low: 2.8mg/ dLhigh : 5.1mg/ dL low Not Available Not Available 03/08/2025 10:54:02 03/05/20 25 03/05/2025 Phosp hate [Mass /volu me] in Serum or Plasm a interpretati on and review of laboratory results Abnorm al Not Available Not Available 10:54:02 03/05/20 25 03/05/2025 Magne sium [Mass /volu me] in Serum or Plasm a magnesium [mass/volume ] in serum or plasma 1 mg/dL low: 1.6mg/ dLhigh : 2.6mg/ dL low Not Available Not Available 03/08/2025 10:54:02 03/05/20 25 03/05/2025 Magne sium [Mass /volu me] in Serum or Plasm a interpretati on and review of laboratory results Abnorm al Not Available Not Available 10:54:02 03/05/20 25 03/05/2025 CBC W Auto Diffe renti al panel - Blood leukocytes [#/volume] in blood by automated count 6.9 text: 4.0 - 10.7 x10e9/ L Not Available Not Available 03/08/2025 10:54:01 03/05/20 25 03/05/2025 CBC W Auto Diffe renti al panel - Blood erythrocytes [#/volume] in blood by automated count 2.88 text: 4.30 - 5.80 x10e12 /L low Not Available Not Available 03/08/2025 10:54:01 03/05/20 25 03/05/2025 CBC W Auto Diffe renti al panel - Blood hemoglobin [mass/volume ] in blood 8.7 g/dL low: 13.3g/ dLhigh : 17.5g/ dL low Not Available Not Available 03/08/2025 10:54:01 03/05/20 25 03/05/2025 CBC W Auto Diffe renti al panel - Blood hematocrit [volume fraction] of blood by automated count 26.6 % low: 38.7%h igh: 51.1% low Not Available Not Available 03/08/2025 10:54:01 03/05/20 25 03/05/2025 CBC W Auto Diffe renti al panel - Blood MCV [entitic mean volume] in red blood cells by automated count 92.4 fL low: 80fLhi gh: 98fL Not Available Not Available 03/08/2025 10:54:01 03/05/20 25 03/05/2025 CBC W Auto Diffe renti al panel - Blood MCH [entitic mass] by automated count 30.2 pg low: 26.7pg high: 33.6pg Not Available Not Available 03/08/2025 10:54:01 03/05/20 25 03/05/2025 CBC W Auto Diffe renti al panel - Blood MCHC [entitic mass/volume] in red blood cells by automated count 32.7 g/dL low: 31.7g/ dLhigh : 36.3g/ dL Not Available Not Available 03/08/2025 10:54:01 03/05/20 25 03/05/2025 CBC W Auto Diffe renti al panel - Blood erythrocyte [distwidth] in red blood cells by automated count 14.6 % low: 11.3%h igh: 14.8% Not Available Not Available 03/08/2025 10:54:01 03/05/20 25 03/05/2025 CBC W Auto Diffe renti al panel - Blood platelets [#/volume] in blood by automated count 198 text: 150 - 420 x10e9/ L Not Available Not Available 03/08/2025 10:54:01 03/05/20 25 03/05/2025 CBC W Auto Diffe renti al panel - Blood platelet [entitic mean volume] in blood by automated count 11.1 fL low: 7.8fLh igh: 11.4fL Not Available Not Available 03/08/2025 10:54:01 03/05/20 25 03/05/2025 CBC W Auto Diffe renti al panel - Blood neutrophils/ leukocytes in blood by automated count 85.7 % low: 41%hig h: 74% high Not Available Not Available 03/08/2025 10:54:01 03/05/20 25 03/05/2025 CBC W Auto Diffe renti al panel - Blood lymphocytes/ leukocytes in blood by automated count 5.9 % low: 17%hig h: 47% low Not Available Not Available 03/08/2025 10:54:01 03/05/20 25 03/05/2025 CBC W Auto Diffe renti al panel - Blood monocytes/le ukocytes in blood by automated count 5.7 % low: 3%high : 11% Not Available Not Available 03/08/2025 10:54:01 03/05/20 25 03/05/2025 CBC W Auto Diffe renti al panel - Blood eosinophils/ leukocytes in blood by automated count 1.3 % low: 0%high : 7% Not Available Not Available 03/08/2025 10:54:01 03/05/20 25 03/05/2025 CBC W Auto Diffe renti al panel - Blood basophils/le ukocytes in blood by automated count 0.1 % low: 0%high : 1.6% Not Available Not Available 03/08/2025 10:54:01 03/05/20 25 03/05/2025 CBC W Auto Diffe renti al panel - Blood immature granulocytes /leukocytes in blood by automated count 1.3 % low: 0%high : 1% high Not Available Not Available 03/08/2025 10:54:01 03/05/20 25 03/05/2025 CBC W Auto Diffe renti al panel - Blood neutrophils [#/volume] in blood by automated count 5.91 text: 1.60 - 7.50 x10e9/ L Not Available Not Available 03/08/2025 10:54:01 03/05/20 25 03/05/2025 CBC W Auto Diffe renti al panel - Blood lymphocytes [#/volume] in blood by automated count 0.41 text: 1.00 - 4.40 x10e9/ L low Not Available Not Available 03/08/2025 10:54:01 03/05/20 25 03/05/2025 CBC W Auto Diffe renti al panel - Blood monocytes [#/volume] in blood by automated count 0.39 text: 0.15 - 1.00 x10e9/ L Not Available Not Available 03/08/2025 10:54:01 03/05/20 25 03/05/2025 CBC W Auto Diffe renti al panel - Blood eosinophils [#/volume] in blood 0.09 text: 0.00 - 0.60 x10e9/ L Not Available Not Available 03/08/2025 10:54:01 03/05/20 25 03/05/2025 CBC W Auto Diffe renti al panel - Blood basophils [#/volume] in blood by automated count 0.01 text: 0.00 - 0.13 x10e9/ L Not Available Not Available 03/08/2025 10:54:01 03/05/20 25 03/05/2025 CBC W Auto Diffe renti al panel - Blood interpretati on and review of laboratory results Abnorm al Not Available Not Available 10:54:01 03/05/20 25 03/05/2025 Basic metab olic 2000 panel - Serum or Plasm a urea nitrogen [mass/volume ] in serum or plasma 15 mg/dL low: 7mg/dL high: 26mg/d L Not Available Not Available 03/08/2025 10:54:01 03/05/20 25 03/05/2025 Basic metab olic 2000 panel - Serum or Plasm a creatinine [mass/volume ] in serum or plasma 1.21 mg/dL low: 0.71mg /dLhig h: 1.16mg /dL high Not Available Not Available 03/08/2025 10:54:01 03/05/20 25 03/05/2025 Basic metab olic 2000 panel - Serum or Plasm a sodium [moles/volum e] in serum or plasma 139 mmol/ L low: 136mmo l/Lhig h: 145mmo l/L Not Available Not Available 03/08/2025 10:54:01 03/05/20 25 03/05/2025 Basic metab olic 2000 panel - Serum or Plasm a potassium [moles/volum e] in serum or plasma 4.4 mmol/ L low: 3.5mmo l/Lhig h: 4.5mmo l/L Not Available Not Available 03/08/2025 10:54:01 03/05/20 25 03/05/2025 Basic metab ic 1999 panel - Serum or Plasm a chloride [moles/volum e] in serum or plasma 114 mmol/ L low: 98mmol /Lhigh : 107mmo l/L high Not Available Not Available 03/08/2025 10:54:01 03/05/20 25 03/05/2025 Basic metab ic 1999 panel - Serum or Plasm a carbon dioxide, total [moles/volum e] in serum or plasma 19 mmol/ L low: 22mmol /Lhigh : 29mmol /L low Not Available Not Available 03/08/2025 10:54:01 03/05/20 25 03/05/2025 [facility] - Serum or Plasm a glucose [mass/volume ] in serum or plasma 91 mg/dL low: 70mg/d Lhigh: 99mg/d L Not Available Not Available 03/08/2025 10:54:01 03/05/20 25 03/05/2025 [facility] metab ic 1999 panel - Serum or Plasm a calcium [moles/volum e] in serum or plasma 8.3 mg/dL low: 8.4mg/ dLhigh : 10.2mg /dL low Not Available Not Available 03/08/2025 10:54:01 03/05/20 25 03/05/2025 Basic metab ic 1999 panel - Serum or Plasm a anion gap 6 low: 6high: 16 Not Available Not Available 03/08/2025 10:54:01 03/05/20 25 03/05/[facility]25 [facility] - Serum or Plasm a urea nitrogen/cre atinine [mass ratio] in serum or plasma 12 low: 7high: 23 Not Available Not Available 03/08/2025 10:54:01 03/05/20 25 03/05/2025 Basic metab olic 1999 panel - Serum or Plasm a osmolality calculated 288 text: 275 - 295 mOsm/k g Not Available Not Available 03/08/2025 10:54:01 03/05/20 25 03/05/2025 Basic metab ic 2000 panel - Serum or Plasm a glomerular filtration rate [volume rate/area] in serum, plasma or blood by creatinine-b ased formula (CKD-epi 2020)/1.73 sq M 78 text: >=90 mL/min /1.73 m2 low Not Available Not Available 03/08/2025 10:54:01 03/05/20 25 03/05/2025 Basic metab olic 2000 panel - Serum or Plasm a Unknown Analyte Estima ceasar Glomer ular Filtra tion Rate (eGFR) calcul ated using the CKD-EP I Creati nine Equati on (2020) , per the [facility] al [employer]ney [employer] tion and [employer] an Soci[employer] y of Nephro logy recomm endati ons. Not Available Not Available 10:54:01 03/05/20 25 03/05/2025 Basic metab olic 2000 panel - Serum or Plasm a interpretati on and review of laboratory results Abnorm al Not Available Not Available 10:54:01 07/14/2007/14/2025 imagi ng/di agnos tic resul t No observ ation record ed. [place] [id number] [facility] [address], [place], [address], 07/14/2025 19:13:12 Result Notes None recorded. Problems Name Problem SNOMED Code Status Onset Date Resolution Date Notes Provider Name and Address Organization Details Recorded Time Hypertensive disorder 63480268 Active 2018 GONZALO HADDAD Attn: Reji henry,[address] [place], [address], [place] - [facility] 2 09:57:56 Asthma 267944735 Active 2018 GONZALO HADDAD Attn: Reji henry,[address] [place], [address], [place] - [facility] 2 09:58:00 Snoring 84492862 Active 2020 Gage Torres PA-C Attn: Reji henry,[address] [place], [address], [place] [facility] 1 11:50:28 Plantar fasciitis 629781359 Active 2020 Gage Torres PA-C Attn: Reji henry,[address] [facility] [place] [place], [address], [place] [facility] 1 11:55:38 Sleep apnea 30328500 Active 2021 GONZALO HADDAD Attn: Aprildavid henry,[address] [facility], [place], [address], [place] [facility] 2 09:58:34 Chronic kidney disease stage 4 130025023 Active 2021 GONZALO HADDAD Attn: Aprildavid henry,[address] [facility], [place], [address], [place] [facility] 4 08:20:52 Autosomal dominant polycystic kidney disease 501740330 Active 2021 GONZALO HADDAD Attn: Aprildavid henry,[address] [facility], [place], [address], [place] [facility] 2 09:58:07 Secondary hyperparathyro idism 22830994 Active 2021 GONZALO HADDAD Attn: Reji elaine,[address] [facility], [place], [address], [place] [facility] 2 09:59:06 Anemia in chronic kidney disease 833957589 Active 2021 GONZALO HADDAD Attn: Reji elaine,[address] [facility], [place], [address], [place] [facility] 2 10:04:09 Chronic kidney disease stage 5 239750474 Active 2022 GONZALO HADDAD Attn: Reji henry,[address] [facility], [place], [address], [place] [facility] 3 10:54:10 Obstructive sleep apnea syndrome 61351512 Active 2024 GONZALO HADDAD Attn: Reji elaine,[address] [facility], [place], [address], [place] [facility] 5 16:56:02 Problem Notes None recorded. Procedures Surgical History Date Name Laterality Status Provider Name and Address Organization Details Recorded Time 0 Appendectomy completed GONZALO HADDAD Attn: Accounting,[address] [facility], [place], [address], [facility] - [facility] 05/25/2022 15:58:57 Imaging Results None recorded. Procedure Notes None recorded. Medical Equipment None Reported. Allergies No known drug allergies Medications Name Sig Start Date Stop Date Status Note LastModified by Organization Details LastModified Time amoxicillin 500 mg capsule 10/31 completed Not Available Not Available Not Available atorvastati n 40 mg tablet TAKE 1 TABLET BY MOUTH EVERY DAY 10/31 completed Not Available Not Available Not Available carvedilol 6.25 mg tablet TAKE 1 TABLET BY MOUTH TWICE A DAY WITH MORNING AND EVENING MEAL active Not Available Not Available No t Available carvedilol 12.5 mg tablet TAKE 1 TABLET BY MOUTH EVERY DAY 10/31 completed Not Available Not Available Not Available clindamycin HCl 300 mg capsule Take 1 capsule 3 times a day by oral route with meals. 03/08 completed Not Available Not Available Not Available albuterol sulfate 2.5 mg/3 mL (0.083 %) solution for nebulizatio n INHALE 3 ML BY NEBULIZAT ION 3 TIMES A DAY active Not Available Not Available No t Available ammonium lactate 12 % lotion 05/25 completed Not Available Not Available Not Available lisinopril 20 mg-hydrochl orothiazide 12.5 mg tablet TAKE 1 TABLET BY MOUTH EVERY DAY 05/25 completed Not Available Not Available Not Available azithromyci n 250 mg tablet TAKE 2 TABLETS BY MOUTH TODAY, THEN TAKE 1 TABLET DAILY FOR 4 DAYS DIRECTED 12/08 completed Not Available Not Available Not Available ibuprofen 800 mg tablet 03/20 completed Not Available Not Available Not Available senna 8.6 mg tablet TAKE 1 TABLET BY MOUTH EVERY DAY active Not Available Not Available No t Available meloxicam 15 mg tablet 05/24 completed Not Available Not Available Not Available lisinopril 20 mg tablet Take 1 tablet every day by oral route. 10/14 completed Not Available Not Available Not Available prednisone 20 mg tablet 2 tabs po twice daily; 1 tab twice daily for 5 days ; 0.5 tab twice daily for 2 days;0.5 tab for 1 day 05/24 completed Not Available Not Available Not Available metoprolol succinate ER 100 mg tablet,exte nded release 24 hr TAKE 1 TABLET BY MOUTH EVERYDAY AT BEDTIME 05/25 completed Not Available Not Available Not Available acetaminoph en 300 mg-codeine 30 mg tablet Take 1 tablet every 6 hours by oral route. 10/14 completed Not Available Not Available Not Available allopurinol 100 mg tablet TAKE 1 TABLET BY MOUTH EVERY DAY active Not Available Not Available No t Available amoxicillin 500 mg tablet 1 BY MOUTH EVERY 8 HOURS UNTIL ALL PILLS GONE 10/31 completed Not Available Not Available Not Available carvedilol 3.125 mg tablet TAKE 1 TABLET BY MOUTH TWICE A DAY WITH MORNING AND EVENING MEAL 12/08 completed Not Available Not Available Not Available dexamethaso ne 1 mg tablet TAKE 1 TABLET BY MOUTH ONCE FOR 1 DOSE, TAKE AT 11 PM NIGHT BEFORE YOUR 8 AM LABS 10/31 completed Not Available Not Available Not Available sodium bicarbonate 650 mg tablet TAKE 2 (TWO) TABLETS BY MOUTH 3 TIMES DAILY active Not Available Not Available No t Available amlodipine 10 mg tablet TAKE 1 TABLET BY MOUTH EVERY DAY active Not Available Not Available No t Available hydralazine 100 mg tablet TAKE 1 TABLET BY MOUTH TWICE A DAY DIRECTED 10/31 completed Not Available Not Available Not Available calcitriol 0.5 mcg capsule TAKE 1 (ONE) CAPSULE BY MOUTH EVERY SATURDAY, SATURDAY & SATURDAY active Not Available Not Available No t Available docusate sodium 100 mg capsule TAKE 1 CAPSULE BY MOUTH EVERY DAY active Not Available Not Available No t Available doxazosin 4 mg tablet TAKE 1/2 TABLET BY MOUTH DAILY active Not Available Not Available No t Available gentamicin 0.1 % topical cream APPLY TO EXIT SITE DAILY active Not Available Not Available No t Available hydralazine 50 mg tablet TAKE 1 TABLET BY MOUTH TWICE A DAY 05/28 completed Not Available Not Available Not Available gabapentin 100 mg capsule TAKE 1 CAPSULE BY MOUTH THREE TIMES A DAY 05/25 completed Not Available Not Available Not Available azelastine 137 mcg (0.1 %) nasal spray [place] 2 sprays twice a day by intranasa l route as needed. 05/25 completed Not Available Not Available Not Available ibuprofen 600 mg tablet TAKE 1 TABLET BY MOUTH EVERY 6 HOURS NEEDED FOR PAIN 10/31 completed Not Available Not Available Not Available albuterol sulfate HFA 90 mcg/actuati on aerosol inhaler INHALE 2 PUFFS BY MOUTH EVERY 4 HOURS NEEDED 2024 active Not Available Not Available Not Avai lable cefdinir 300 mg capsule TAKE 1 CAPSULE BY MOUTH EVERY DAY ONLY DIRECTED BY PD-RN active Not Available Not Available No t Available fluticasone propionate 50 mcg/actuati on nasal spray,suspe nsion [place] 1 spray every day by intranasa l route. 05/25 completed Not Available Not Available Not Available calcitriol 0.25 mcg capsule PLEASE SEE ATTACHED FOR DETAILED DIRECTION S 12/08 completed Not Available Not Available Not Available doxazosin 2 mg tablet TAKE 1 TABLET BY MOUTH EVERY DAY NIGHTLY 12/08 completed Not Available Not Available Not Available oxycodone 5 mg tablet TAKE 1 TABLET BY MOUTH EVERY 6 HOURS NEEDED FOR PAIN 12/08 completed Not Available Not Available Not Available cyclobenzap rine 7.5 mg tablet TAKE 1 TABLET BY MOUTH TWICE A DAY NEEDED FOR 14 DAYS 10/31 completed Not Available Not Available Not Available Symbicort 160 mcg-4.5 mcg/actuati on HFA aerosol inhaler INHALE 2 PUFFS INTO THE LUNGS TWICE A DAY active Not Available Not Available No t Available azelastine 137 mcg-flutica sone 50 mcg/spray nasal spray INSTILL 1 SPRAY TWICE A DAY 05/25 completed Not Available Not Available Not Available Veltassa 8.4 gram oral powder packet PLEASE SEE ATTACHED FOR DETAILED DIRECTION S active Not Available Not Available No t Available Airsupra 90 mcg-80 mcg/actuati on HFA aerosol inhaler INHALE 2 PUFFS NEEDED FOR ASTHMA SYMPTOMS, NO MORE THAN 12 PUFFS IN 24 HOURS 2024 active Not Available Not Available Not Avai lable Vitals Date Recorded Systolic And Diastolic Provider Name and Address Organization Details Last Updated DateTime 10/31/2023 138/90 mm[Hg] GONZALO HADDAD Attn: Accounting[address] [place], [address], [place] - [facility] 10/31/2023 08:54:52 Date Recorded Body height Body mass index (BMI) Body weight Oxygen saturation Oxygen saturation in Arterial blood by Pulse oximetry Heart rate Respiratory rate Systolic And Diastolic Provider Name and Address Organization Details Last Updated DateTime 4 182.88 cm 38.7 kg/m2 846915. 83 g 100 % 100 % 75 /min 18 /min 145/81 mm[Hg] Adriane Haji MA [facility] 4 08:28:51 Date Recorded Body height Body mass index (BMI) Body weight Oxygen saturation Oxygen saturation in Arterial blood by Pulse oximetry Heart rate Respiratory rate Systolic And Diastolic Provider Name and Address Organization Details Last Updated DateTime 5 182.88 cm 37 kg/m2 347171. 72 g 95 % 95 % 73 /min 17 /min 138/74 mm[Hg] Mira Serrano MA [facility] 5 17:09:57 Date Recorded Body height Body mass index (BMI) Body weight Respiratory rate Body temperature Oxygen saturation Oxygen saturation in Arterial blood by Pulse oximetry Heart rate Systolic And Diastolic Provider Name and Address Organization Details Last Updated DateTime 3 182.88 cm 38.9 kg/m2 530246. 01 g 16 /min 98 [degF] 96 % 96 % 105 /min 180/110 mm[Hg] Teresa Petty CMA [place] [facility] 3 09:44:55 Social History Question Answer Notes LastModified by Organizat ion Details LastModified Time Tobacco Smoking Status Never Smoker Jostin Mace MA [facility], [facility] 04/19/2021 11:46:01 What Is Your Level Of Caffeine Consumption? Occasional Information not available 10/14/2020 How Much Tobacco Do You Chew? None Information not available 10/14/2020 Which Illicit Or Recreational Drugs Have You Used? None Information not available 10/14/2020 What Was The Date Of Your Most Recent Tobacco Screening? 12/08/2024 Information not available 12/08/2024 At What Age Did You Start Smoking Tobacco? 0 N/a Information not available 10/14/2020 Are You Passively Exposed To Smoke? No Information no t available 10/14/2020 How Much Tobacco Do You Smoke? No Information not available 09/08/2019 On What Date Was Tobacco Cessation Counseling Provided? 12/08/2024 Information not available 12/08/2024 How Many Years Have You Smoked Tobacco? 0 Information not available 09/08/2019 Sex: Male Functional Status Question Answer Note LastModified by Organization Details LastModified Time Do you use any illicit or recreational drugs? No Marijuana occasionally [email or web address] Information not available 04/19/2021 What is your level of alcohol consumption? Occasional Information not available 10/14/2020 Do you or have you ever used smokeless tobacco? Never used smokeless tobacco Information not available 09/08/2019 Do you or have you ever used e-cigarettes or vape? Never used electronic cigarettes Information not available 09/08/2019 Mental Status None recorded. Family History Relationship Description Onset Age of this Age Resolved Age Notes LastModified by Organization Details LastModified Time Mother Family history of Polycystic kidney Not available 2018 10:44:23 Brother Family history of Polycystic kidney Not available 2018 10:44:30 Maternal Aunt Family history of Polycystic kidney kbarbero Not available 2021 10:08:18 Maternal Grandmother Family history of Polycystic kidney kbarbero Not available 2021 10:08:21 Sister Family history of Polycystic kidney kbarbero Not available 2021 10:08:25 Medical History Condition Response Coronary Artery Disease N Other N Atrial Fibrillation N High Blood Pressure Y Thyroid Problems N Kidney or Bladder Problems N GI Problems N Depression N COPD N Blood Clots N Eating Disorder N Skin Problems N Anemia N Heart Attack ([place]) N Anxiety Disorder N Diabetes N Muscle, Joint, or Bone Problems N Seizures/Epilepsy N Acid Reflux (GERD) Y Cancer N Stroke N Asthma Y Allergies Y ADHD N Substance Abuse N High Cholesterol N Hepatitis N Liver Disease N Schizophrenia N Headaches N Heart Failure N Osteoporosis N Immunizations Vaccine Type Date Status Note Provider Nam e and Address Organization Details Recorded Time COVID-19, mRNA, LNP-S, PF, 30 mcg/0.3 mL dose 1 completed Mira Serrano [place] null, [place] [facility] 01/08/2025 15:25:41 Influenza, split virus, quadrivalent, preservative 9 completed Not Available [employer] 10/03/2019 02:38:49 Influenza, split virus, quadrivalent, preservative 1 completed JENIFFER Kelley, [place] - [facility] 10/14/2020 12:48:15 Hep A, adult 4 completed Henok Lewis MD Attn: Accounting[address] [place], [address], [place] [facility] 11/06/2023 13:07:43 Influenza, split virus, trivalent, PF 4 completed KYRIE Samson NP Attn: Accounting[address] [place], [address], [place] [facility] 06/30/2024 10:46:22 Tdap 5 completed JENIFFER Johnson, [place] [facility] 01/26/2025 17:17:29 varicella 5 completed JENIFFER [place] [facility] 01/26/2025 17:17:30 COVID-19, mRNA, LNP-S, PF, 50 mcg/0.5 mL 5 completed Mira Serrano MA null, [place] [facility] 01/26/2025 17:17:30 Past Encounters Encounter ID Performer Location Encounter Start Date Encounter Closed Date Diagnosis/Indication Diagnosis SNOMED-CT Code Diagnosis ICD10 Code Diagnosis IMO Codes Diagnosis Note [id number] Antonia Bowie MD [facility] [address] [place] [address] 09/08/2019 10:20:23 09/10/2019 10:51:02 Adult health examination 236811617 Z00.00 A1C 5.2 Administra tion of influenza vaccine 88082566 Z23 risks and benefits of immunizati ons reviewed, and patient agreed to receive shot Essential hypertension 35831013 I10 Sleep apnea 01128354 G47 .30 had positive sleep study in 2008 Family his tory of Polycystic kidney 205259911 Z82.71 [id number] Antonia Bowie MD [facility] [address] [place] [address] 09/15/2019 10:11:36 09/15/2019 12:28:08 Hypertensive disorder 17311650 I10 180/797 [id number] Antonia Bowie MD [facility] [address] [place] [address] 03/08/2020 11:05:38 03/09/2020 12:56:04 Hemospermia 03578725 R36.1 Venereal d isease screening 252922180 Z11.3 [id number] Antonia Bowie MD [facility] [address] [place] [address] 10/14/2020 11:44:59 10/17/2020 08:10:09 Administration of influenza vaccine 05644393 Z23 risks and benefits of immunizati ons reviewed, and patient agreed to receive shot Essential hypertension 23020096 I10 Foot pain 89083018 M79.6 73 chronic foot pain, skin callused, has bony pain in right foot with prolonged standing at work. Hyperglycemia 17465593 R 73.9 high risk for diabetes. May have chronic kidney disease related to hyperglyce pooja and hypertensi on. Albuminuria 334237002 R8 0.9 Sleep apnea 96427747 G47 .30 had positive sleep study in 2007 but did not get the inlab study and is not using a CPAP [id number] Antonia Bowie MD [facility] [address] [place] [address] 04/19/2021 08:04:05 04/20/2021 12:11:04 Snoring 66595553 R06.83 Hypertensive disorder 38 490557 I10 Asthma 340063687 J45.90 9 Plantar fasciitis 962996 003 M72.2 [id number] Henok coyne MD [facility] [address] [place] [address] 05/25/2022 15:22:57 05/29/2022 09:59:24 Autosomal dominant polycystic kidney disease 473521154 Q61.2 see CKD stage 4 Chronic ki dney disease stage 4 892580459 N18.4 05/25/22:on amlodipine 10, carvedilol 12.5 BID, hydralazin e 50 BIDBP today 168/114inc rease hydralazin e to 100 BIDordered BP cufff/u in 1 wk for labs and BP check Per office note 04/30/22 Dr. Langston (Nephrolog y):Follow -up for this 36-year-ol d man with CKD stage 4 in the setting of ADPKD. He is known to have significan t family history of ADPKD including his mother, sister, brother, grandmothe r and aunt. His mother has had a renal transplant . He initially presented to [facility] on 01/01/22 with flank pain and gross hematuria, found to have a UTI. CT abdomen revealed kidneys with multiple cysts suggestive of ADPKD. Serum creatinine was 4 on presentati on and has stayed around that range. He is known to have had hypertensi on at least since 2012 but had not been compliant with his medication s. He is currently maintained on amlodipine , carvedilol and hydralazin e with BP relatively well controlled at home. BP currently elevated in the office 192/122. He is also known to be morbidly obese. Most recent labs with serum creatinine 4.4, potassium 4.7, hemoglobin 11.7, vitamin-D 23, PTH 232. He has been initiated on calcitriol for secondary hyperparat hyroidism. Plan:Seru m creatinine slightly higher and likely progressin g. Not a candidate for tolvaptan in view of GFR less than 25. Does have several family members with polycystic kidney disease with progressio n to ESRD rather rapidly. Repeating labs in a few months, discussed with him that we may need to prepare for eventual dialysis, also encouraged him to contact the transplant team at [facility] or [facility] for evaluation for possible preemptive transplant . Strongly recommende d weight loss in view of morbid obesity. BP apparently controlled at home, encouraged to monitor on a daily basis of possible, continue current regimen Sleep apnea 52069858 G47 .[address] Schroeder Asthma 416368870 J45.90 9 controlled with symbicort and albuterol Secondary hyperparathyroidism 11550336 E21.1 on calcitriol Anemia in chronic kidney disease 171158804 D63.1 follows with nephrology Depression screening 171 387312 Z13.31 PHQ 0 [id number] Henok coyne MD [facility] [address] [place] [address] 10/31/2022 11:01:52 10/31/2022 11:43:05 Chronic kidney disease stage 4 750002604 N18.4 10/31/22:se e ESRD 05/25/22:on amlodipine 10, carvedilol 12.5 BID, hydralazin e 50 BIDBP today 168/114inc rease hydralazin e to 100 BIDordered BP cufff/u in 1 wk for labs and BP check Per office note 04/30/22 Dr. Langston (Nephrolog y):Follow -up for this 36-year-ol d man with CKD stage 4 in the setting of ADPKD. He is known to have significan t family history of ADPKD including his mother, sister, brother, grandmothe r and aunt. His mother has had a renal transplant . He initially presented to [facility] on 01/01/22 with flank pain and gross hematuria, found to have a UTI. CT abdomen revealed kidneys with multiple cysts suggestive of ADPKD. Serum creatinine was 4 on presentati on and has stayed around that range. He is known to have had hypertensi on at least since 2012 but had not been compliant with his medication s. He is currently maintained on amlodipine , carvedilol and hydralazin e with BP relatively well controlled at home. BP currently elevated in the office 192/122. He is also known to be morbidly obese. Most recent labs with serum creatinine 4.4, potassium 4.7, hemoglobin 11.7, vitamin-D 23, PTH 232. He has been initiated on calcitriol for secondary hyperparat hyroidism. Plan:Seru m creatinine slightly higher and likely progressin g. Not a candidate for tolvaptan in view of GFR less than 25. Does have several family members with polycystic kidney disease with progressio n to ESRD rather rapidly. Repeating labs in a few months, discussed with him that we may need to prepare for eventual dialysis, also encouraged him to contact the transplant team at [facility] or [facility] for evaluation for possible preemptive transplant . Strongly recommende d weight loss in view of morbid obesity. BP apparently controlled at home, encouraged to monitor on a daily basis of possible, continue current regimen Depression screening 171 401766 Z07.31 PHQ 8 Morbid obesity 813876986 E66.01 discussed increasing exercise and healthier food options, high protein, low fat dietpt is doing cardio 3-4x/week and decreasing his portion [id number] 5.0 Moderate asthma 83064204 9 J45.40 using albuterol 3-4x times per day and symbicort twice a daystates he had asthma attack after intercours e last weekPEx- lungs CTABrefill neb and albuterolo rdered PFTsencour aged to make appt with Dr. Schroeder (Pulmonolo gy), pt is establishe d with him for sleep apnea Chronic ki dney disease stage 5 921790579 N18.5 10/31/22:ne eds to weigh 300 lbs for kidney transplant started doxazosin for BPBP controlled today 134/86rout ine labs note from Dr. Langston 10/01/22:A DPKD with CKD stage 5, progressin g unfortunat rosa, not a candidate for tolvaptan in view of GFR less than 25. Does have several family members with polycystic kidney disease with progressio n to ESRD rather rapidly. Discussed with him that we will need to prepare for eventual dialysis. Pt wants to pursue hemodialys is and advised to contact vascular surgery for vein mapping and creation of AV fistula/pl acement of an AV graft. Awaiting labs from today. No uremic symptoms thus far.Recomm ended continued weight loss in order to be evaluated for transplant which he is actively trying to doBP elevated, patient not tolerating hydralazin e, will initiate doxazosin, recommende d monitoring his blood pressure over the next 2 weeksResum e calcitriol daily for secondary hyperparat hyroidismH emoglobin at target, continue to monitor [id number] Henok coyne MD [facility] [address] [place] [address] 03/20/2023 09:29:25 03/20/2023 10:26:56 Pain of left shoulder joint [id number] M25.512 x1 moslept on L shoulder wrongshar p painworse with lifting heavy items and reaching above his headPEx- FROM L shoulder joint, mild TTP L upper trap musclemost likely muscle strainc/w heating padc/w stretching trial flexerilpt declines PT Asthma [id number] J45.90 9 states he has cough, rhinorrhea was around pets all weekendPEx - inspirator y wheezing all lung fieldsc/w symbicort and albuterolw ill send nebulizer Essential hypertension [id number] I10 due to ESRD secondary to ADPKDBP 180/110 [place] BP meds right before apptasxpt took cold medicine this morningadv ised to check BP at home Depression screening 171 616946 Z13.31 PHQ 0 [id number] Henok coyne MD [facility] [address] [place] [address] 10/31/2023 08:24:47 10/31/2023 09:16:28 Obesity 713827230 E66.9 due for yearly labsdiscus sed increasing exercise and healthier food options, high protein, low fat diet Pre-surger y evaluation 041385401 Z01.818 needs MMR, Hep B and Hep A Autosomal dominant polycystic kidney disease [id number] Q61.[address] Nixon (Nephrolog y) at [facility]10/29/23 : OV-past medical history of ESKD due to ADPKD, HTN and appendecto my who presented for kidney 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 candidate evaluation . Patient has a strong family history of ADPKD and diagnosed with ADPKD at the age of 16. He was started to have HTN around age of 20s and started to take antihypert ensive medication . Last serum creatinine level is 7.25 mg/dL and eGFR 9 mL/min on 08/22/23. OV with Transplant service, Dr. Fairchild- 10/29/23: SESSMENT & PLAN:1) Autosomal Polycystic Kidney Disease- Diagnosis date: 2000- Baseline serum creatinine level 6.3 mg/dL- Most recent serum creatinine 7.25 mg/dL, BUN 70 mg/dL- Proteinuri a is negative- Urine osm 287 mOsm/kg (target <280 mOsm/kg)- MRI abdomen (03/05/2022 ) -> Right kidney 1464 mL and left kidney 1125 mL. Total kidney volume 2589 mL.Plan:- Allopurino l 50 mg tb daily will be started and dose will be increased to 100 mg if there would be no side effects- NaHCO3 dose is increased to 1300 mg tb TID- Low K diet- Referral to kidney transplant evaluation - Will discuss dialysis options 2) Hypertensi on- Blood pressure is 146/101 mmHg- On Amlodipine 10 mg tb daily- Based on HALT-PKD study, aggressive BP target <110/75 mmHg in young, healthy individual s between 18-50 years with eGFR>60 mL/min/1.7 3 m2, others < 130/85 mmHg- Cardura 4 mg tb daily at bed time is started 3) Cardiac manifestat ions- No history of cardiac event or cardiac manifestat ions- Echo is planned 4) Intracrani al Aneurysm- Family history of stroke- Brain MRI angiograph y is planned Chronic ki dney disease stage 5 [id number] N18.5 10/31/23: following with [facility] and nephrology teamsenrol led in PKD studyon transplant list and waiting for kidney donor 10/31/22:ne eds to weigh 300 lbs for kidney transplant started doxazosin for BPBP controlled today 134/86rout ine labs note from Dr. Langston 10/01/22:A DPKD with CKD stage 5, progressin g jessica lee, not a candidate for tolvaptan in view of GFR less than 25. Does have several family members with polycystic kidney disease with progressio n to ESRD rather rapidly. Discussed with him that we will need to prepare for eventual dialysis. Pt wants to pursue hemodialys is and advised to contact vascular surgery for vein mapping and creation of AV fistula/pl acement of an AV graft. Awaiting labs from today. No uremic symptoms thus far.Recomm ended continued weight loss in order to be evaluated for transplant which he is actively trying to doBP elevated, patient not tolerating hydralazin e, will initiate doxazosin, recommende d monitoring his blood pressure over the next 2 weeksResum e calcitriol daily for secondary hyperparat hyroidismH emoglobin at target, continue to monitor Sleep apnea 43402533 G47 .[address] Armstrong ty sleeping since he quit his [employer] job, working nights and sleeping 5 hrs during the dayno longer workingrec 'd to have CPAP settings checked since weight losstrial flonase for PNDf/u if sx don't improvemen t Hypertensive disorder 38 842292 I10 BP 145/81, 138/90BP at home 130s/80son amlodipine , doxazosin Depression screening 171 736736 Z13.31 PHQ 4 [id number] Jamie Giles MD [facility] [address] [place] [address] 06/16/2024 14:46:59 06/16/2024 14:59:10 Administration of influenza vaccine 16558785 Z23 [id number] Rey Wren MD [facility] [address] [place] [address] 12/08/2024 17:03:45 12/08/2024 17:34:31 Autosomal dominant polycystic kidney disease 232622307 Q61.2 12/08/24: had peritoneal dialysis catheter placed 12/02/24has potential donor following with Dr. Nixon (Nephrolog y) at [facility]10/29/23 : OV-past medical history of ESKD due to ADPKD, HTN and appendecto my who presented for kidney 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 candidate evaluation . Patient has a strong family history of ADPKD and diagnosed with ADPKD at the age of 16. He was started to have HTN around age of 20s and started to take antihypert ensive medication . Last serum creatinine level is 7.25 mg/dL and eGFR 9 mL/min on 08/22/23. OV with Transplant service, Dr. Fairchild- 10/29/23: SESSMENT & PLAN:1) Autosomal Polycystic Kidney Disease- Diagnosis date: 2000- Baseline serum creatinine level 6.3 mg/dL- Most recent serum creatinine 7.25 mg/dL, BUN 70 mg/dL- Proteinuri a is negative- Urine osm 287 mOsm/kg (target <280 mOsm/kg)- MRI abdomen (03/05/2022 ) -> Right kidney 1464 mL and left kidney 1125 mL. Total kidney volume 2589 mL.Plan:- Allopurino l 50 mg tb daily will be started and dose will be increased to 100 mg if there would be no side effects- NaHCO3 dose is increased to 1300 mg tb TID- Low K diet- Referral to kidney transplant evaluation - Will discuss dialysis options 2) Hypertensi on- Blood pressure is 146/101 mmHg- On Amlodipine 10 mg tb daily- Based on HALT-PKD study, aggressive BP target <110/75 mmHg in young, healthy individual s between 18-50 years with eGFR>60 mL/min/1.7 3 m2, others < 130/85 mmHg- Cardura 4 mg tb daily at bed time is started 3) Cardiac manifestat ions- No history of cardiac event or cardiac manifestat ions- Echo is planned 4) Intracrani al Aneurysm- Family history of stroke- Brain MRI angiograph y is planned Chronic ki dney disease stage 5 [id number] N18.5 12/08/24: had peritoneal dialysis catheter placed 12/02/24has potential donorCr 12.7reques ting to re-check potassium due to taking supplement , will come back for labs 10/31/23: following with [facility] Transplant and nephrology teamsenrol led in PKD studyon transplant list and waiting for kidney donor 10/31/22:ne eds to weigh 300 lbs for kidney transplant started doxazosin for BPBP controlled today 134/86rout ine labs note from Dr. Langston 10/01/22:A DPKD with CKD stage 5, progressin g jessica lee, not a candidate for tolvaptan in view of GFR less than 25. Does have several family members with polycystic kidney disease with progressio n to ESRD rather rapidly. Discussed with him that we will need to prepare for eventual dialysis. Pt wants to pursue hemodialys is and advised to contact vascular surgery for vein mapping and creation of AV fistula/pl acement of an AV graft. Awaiting labs from today. No uremic symptoms thus far.Recomm ended continued weight loss in order to be evaluated for transplant which he is actively trying to doBP elevated, patient not tolerating hydralazin e, will initiate doxazosin, recommende d monitoring his blood pressure over the next 2 weeksResum e calcitriol daily for secondary hyperparat hyroidismH emoglobin at target, continue to monitor Asthma [id number] J45.90 9 12/08/34: switch from albuterol to airsupra 03/20/23: states he has cough, rhinorrhea was around pets all weekendPEx - inspirator y wheezing all lung fieldsc/w symbicort and albuterolw ill send nebulizer Obesity 209640744 E66.9 pt will come back for blood work- lipid panel Obstructiv e sleep apnea syndrome 27955569 G47.33 on CPAP Depression screening 171 159848 Z13.31 PHQ 0 [id number] Rey Wren MD [facility] [address] [place] [address] 01/26/2025 17:02:29 01/29/2025 12:03:12 Active immunization [id number] Z23 [id number] Health Concerns Section Related Observation LastModified by Organization Detai ls LastModified Time None Recorded Concern Status LastModified by Organization Details LastModified Time None Recorded Advance Directives Directive None Recorded Payers Insurance Date Sequence Insurance Name Policy Number Policy Rocha Covered Member ID Rocha Member ID Guarantor Name 12/08/2024 1 [employer] [facility] ON OR AFTER 08/16/2020 (MEDICAID REPLACEMENT - HMO) Migel Elena [id number] Migel Elena 12/08/2024 1 [facility] (MEDICAID HMO) Migel Elena [id number] Migel Elena 01/26/2025 1 [facility] (MEDICAID HMO) [id number] Migel Elena [id number] Migel Elena 12/08/[address] [facility] (HMO) Migel Elena [id number] Migel Elena Notes Date Note Type Note Provider Name and Address Organization Details Recorded Time 03/20/2023 text/html ROS as noted in the HPI Pt presents with L shoulder pain x1 month. Reports he went camping and slept on his L shoulder wrong. Describes as sharp pain that starts in the back of his shoulder and moves down into his L elbow. Pain is worse with reaching above his head. Unable to lift 30 lbs due to pain. Pain improves with applying heating pad. He has been avoiding NSAIDs due to CKD. GONZALO HADDAD Attn: Accounting,[address] [facility], [place], [address], [facility] 03/20/2023 22:00:48 10/31/2023 text/html ROS as noted in the HPI Pt presents for up to date vaccinations. Reports that he is following with [facility] Nephrology and transplant team. He is now on the transplant list and waiting for a kidney donor. Pt needs UTD MMR, Hepatitis A and Hepatitis B. Henok Lewis MD Attn: Accounting[address] [facility], [place], [address], [facility] 11/06/2023 13:09:07 12/08/2024 text/html ROS as noted in the HPI Pt presents for annual exam and med refills. States that he recently had peritoneal dialysis catheter placed. Following with Dr. Narvaez (Nephrology). He started potassium supplement to help lower potassium. Pt has a potential kidney donor. He started working at [employer] last year. GONZALO HADDAD Attn: Accounting[address] [facility], [place], [address], [facility] 12/09/2024 16:57:10
--- OUTSIDE RECORDS SUMMARY | 2025-07-14 21:07 | XMS_ITS | Encounter Summary ---
Author Organization [facility] Address [address] [place] [address] Care Team Providers Care Bistro Attendant Name Role Phone Freda Neumann PA-C Primary Care Provider + [phone] Reason for Visit * Reason Comments Med Change Request Encounter Details Date Type Department Care Team (Late st Contact Info) Description 02/20/2025 Refill [facility] ACUTE [address] [place] [phone] Ike Singletary MD [address] [facility] [place] [address] Med Change Request Social History [...] and heating? Not hard at all 02/23/2025 [facility] - Occupational Stress [...] living in a retirement (including now)? No 02/23/2025 Sex and Gender Information Value Date Recorded Sex Assigned at Male 08/22/2023 2:04 PM MANAGER WATER Legal Sex Male 12:10 PM CDT Gender Identity Male 08/22/2023 2:04 PM MANAGER WATER Sexual Orientation Straight 08/22/2023 2: 04 PM MANAGER WATER documented as of this encounter Functional Status [...] difficulty concentrating/remembering/making decisions? No 02/23/2025 10:00 PM Orlando Velasco RN * Question Answer Date of [...] Description 07/16/2025 11:10 AM CDT Office Visit [facility] [address], [address] [place] [address] [place] [address] [facility] [address] [place] [phone] 09/22/2025 8:30 AM MANAGER WATER [facility] Nephrology [address] [place] [address], [place] [phone] 09/23/2025 4:00 PM MANAGER WATER Office Visit [facility] - GI [address] [place] [address], [place] [phone] Isak Padron III, MD [address] [place] [address] [address] [address] documented as of this encounter [...] on filedocumented in this encounter Care Teams Bistro Attendant Relationship Specialty Start Date End Date Freda Neumann PA-C [address] [place] [phone] PCP - General 07/15/23 documented as of this encounter
[2025-07-14] MEDS: oxyCODONE HCL (*CRX) 5 MG TAB IR PO (21:13)
== END 2025-07-14 22:00 | disposition home or self-care (01) ==
LOC: ANHED 21:05
PROVIDERS: Emergency Provider Student in an Organized Health Care Education/Training Program; PCP Physician Assistant
DX: S52.602A Unspecified fracture of lower end of left ulna, initial encounter for closed fracture (principal); N18.6 End stage renal disease; V43.52XA Car driver injured in collision with other type car in traffic accident, initial encounter
CPT/HCPCS: 29105; 73110; 99284; A4565; A9270